=== PATIENT | female | born 1995 | race Caucasian/White ===

== ENCOUNTER 2021-12-13 12:48 | Outpatient (RCR) | payer OTHER, SELFPAY ==
[2021-10-11 11:35] LABS: Beta HCG Quantitative < 2.39 mIU/ML
== END 2022-01-09 23:59 | disposition home or self-care (01) ==
LOC: ANHLAB 12:48
PROVIDERS: Visit Provider Advanced Practice Midwife
DX: Z36.89 Encounter for other specified antenatal screening (principal); O20.0 Threatened abortion; O36.0130 Maternal care for anti-D [Rh] antibodies, third trimester, not applicable or unspecified; Z3A.00 Weeks of gestation of pregnancy not specified
CPT/HCPCS: 36415; 84702; 85461

== ENCOUNTER 2022-07-15 15:57 | Outpatient (CLI) | payer OTHER, SELFPAY ==
[2022-07-15 16:22] VITALS: BP 120/73; PULSE 138
[2022-07-15 16:41] LABS: Basophils Percent Auto 0.2 % (0.2-1.2); Eosinophils Absolute Auto 0.2 K/mm3 (0-0.3); Eosinophils Percent Auto 1.7 % (0-4.4); Hematocrit 34.1 % (37.0-47.0); Hemoglobin 11.7 g/dL (12.0-15.0); Immature Granulocyte Absolute 0.08 K/mm3 (0.00-0.031); Immature Granulocyte Percent A 0.7 % (0-0.5); Lymphocytes Absolute Auto 2.28 K/mm3 (0.9-3.2); Lymphocytes Percent Auto 18.8 % (18.3-44.2); Mean Corpuscular HGB Conc 34.3 g/dl (32-36); Mean Corpuscular Hemoglobin 32.1 pg (26-34); Mean Corpuscular Volume 93.4 fl (80-100); Mean Platelet Volume 11.7 fl (7.4-10.4); Monocytes Absolute Auto 0.7 K/mm3 (0.1-0.6); Monocytes Percent Auto 5.4 % (2.6-8.5); Neutrophils Absolute Auto 8.9 K/mm3 (1.3-6.7); Neutrophils Percent Auto 73.2 % (45.5-73.1); Platelet Count Result 169 k/mm3 (150-375); Red Blood Count 3.65 M/mm3 (4.2-5.4); Red Cell Distribution Width 13.3 % (11.5-14.5); White Blood Count 12.1 K/mm3 (4.5-10.0)
[2022-07-15 16:42] LABS: Appearance Urine Clear (Clear); Bilirubin Urine Negative (Negative); Blood Urine Negative (Negative); Color Urine Yellow (Yellow); Glucose Urine UA Negative (Negative); Ketones Urine Trace mg/dL (Negative); Leukocyte Esterase Ur Negative LEU/UL (NEGATIVE); Nitrate Urine Negative (Negative); Protein Urine Negative (Negative); Urobilinogen Urine 0.2 mg/dL (<2.0)
[2022-07-15 16:44] VITALS: TEMP 36.1
[2022-07-15 16:45] VITALS: BP 106/63; PULSE 64; RESP 18; TEMP 36.6
[2022-07-15 16:48] LABS: Creatinine Urine 43.7 mg/dL; Total Protein Urine Random 15 mg/dL; Ur Ttl Prot Creatinine Ratio 0.34 mg/mg (0-0.20)
[2022-07-15 16:49] LABS: Add Urine Microscopic? NO
[2022-07-15 16:51] LABS: Alanine Aminotransferase 20 U/L (6-35); Albumin Level 3.8 g/dL (3.5-5.1); Alkaline Phosphatase 136 U/L (38-126); Anion Gap 7 mmol/L (8-16); Aspartate Amino Transferase 22 U/L (14-36); Bilirubin,Total 0.4 mg/dL (0.2-1.3); Blood Urea Nitrogen 5 mg/dL (7-17); Calcium 9.3 mg/dL (8.4-10.2); Carbon Dioxide 22 mmol/L (22-30); Chloride 106 mmol/L (98-107); Estimated Glomerular Filt Rate > 60; Glucose 77 mg/dL (65-110); Potassium 3.8 mmol/L (3.4-5.0); Sodium 135 mmol/L (137-145); Uric Acid 3.5 mg/dL (2.5-7.5)
[2022-07-15 17:15] VITALS: BP 119/74; PULSE 72
[2022-07-15] MEDS: ACETAMINOPHEN 325 MG TABLET 650 MG PO (17:21)
[2022-07-15 18:10] VITALS: BP 108/63; PULSE 60
--- NOTE | 2022-07-15 18:15 | PC.NURSE ---
Home with 24 hour urine and will return with it tomorrow. Pt instructed to return if any signs in the pre-eclampia handout.
== END 2022-07-15 18:16 | disposition home or self-care (01) ==
LOC: ANHOBOP 16:10 → ANHOBPP 16:11
PROVIDERS: Visit Provider Advanced Practice Midwife
DX: R51.9 Headache, unspecified (principal); O13.9 Gestational [pregnancy-induced] hypertension without significant proteinuria, unspecified trimester; Z3A.00 Weeks of gestation of pregnancy not specified
CPT/HCPCS: 36415; 59025; 80053; 81003; 81050; 82570; 84156; 84550; 85025; 87086; 99199; A9270

== ENCOUNTER 2022-07-16 18:18 | Outpatient (CLI) | payer OTHER, SELFPAY ==
[2022-07-16 18:35] VITALS: BMI 37.9
[2022-07-17 20:11] LABS: Total Volume 24 Hour Urine 2600 ml
[2022-07-17 20:16] LABS: Total Volume 24 Hour Urine 2600 ml
[2022-07-17 20:22] LABS: Total Protein Urine Random 20 mg/dL
[2022-07-17 20:23] LABS: Creatinine 24 Hour Urine 1.5 gm/24 (0.8-1.8); Creatinine Urine 58.9 mg/dL
[2022-07-17 20:52] LABS: Total Protein Urine 24 Hr 520 mg/24hr (28-141)
== END 2022-07-16 18:19 | disposition home or self-care (01) ==
PROVIDERS: Visit Provider Obstetrics & Gynecology
DX: O13.9 Gestational [pregnancy-induced] hypertension without significant proteinuria, unspecified trimester (principal); Z3A.00 Weeks of gestation of pregnancy not specified
CPT/HCPCS: 81050; 82570; 84156

== ENCOUNTER 2022-07-21 00:01 | Inpatient (IN) | payer OTHER, SELFPAY ==
[2022-07-21] VITALS (29 sets, daily range): BP systolic 107–130; BP diastolic 58–88; PULSE 57–86; RESP 14–16; TEMP 36.2–36.8; O2SAT 98–100; BMI 38.3
--- NOTE | 2022-07-21 00:25 | LDADM ---
This patient, Jessica Keys, was admitted to Labor/Delivery/Recovery 105 on 07/21/22 at 00:01. Plans for labor, pain management and were discussed with patient. Patient/family oriented to hospital policies and general routines including ID bracelet, bed and alarms, visiting hours, pain management, procedures, bathroom and other care routines, personal items, smoking policy, room service/diet and guest tray routines, security routines, and visiting hours. Patient/Family are encouraged to report perceived risks to care and to ask questions if they do not understand what they are told or what they should do. See OBIX for further documentation.
[2022-07-21 01:04] LABS: Basophils Percent Auto 0.2 % (0.2-1.2); Eosinophils Absolute Auto 0.3 K/mm3 (0-0.3); Hematocrit 35.1 % (37.0-47.0); Hemoglobin 12.3 g/dL (12.0-15.0); Immature Granulocyte Absolute 0.07 K/mm3 (0.00-0.031); Immature Granulocyte Percent A 0.6 % (0-0.5); Lymphocytes Absolute Auto 2.65 K/mm3 (0.9-3.2); Mean Corpuscular Hemoglobin 32.4 pg (26-34); Mean Corpuscular Volume 92.4 fl (80-100); Mean Platelet Volume 12.4 fl (7.4-10.4); Monocytes Absolute Auto 0.8 K/mm3 (0.1-0.6); Monocytes Percent Auto 6.6 % (2.6-8.5); Neutrophils Absolute Auto 8.8 K/mm3 (1.3-6.7); Neutrophils Percent Auto 69.6 % (45.5-73.1); Platelet Count Result 172 k/mm3 (150-375); Red Cell Distribution Width 13.5 % (11.5-14.5); White Blood Count 12.6 K/mm3 (4.5-10.0)
[2022-07-21 01:08] LABS: Alanine Aminotransferase 28 U/L (6-35); Albumin Level 3.8 g/dL (3.5-5.1); Alkaline Phosphatase 128 U/L (38-126); Anion Gap 8 mmol/L (8-16); Aspartate Amino Transferase 27 U/L (14-36); Bilirubin,Total 0.4 mg/dL (0.2-1.3); Blood Urea Nitrogen 8 mg/dL (7-17); Calcium 9.5 mg/dL (8.4-10.2); Carbon Dioxide 22 mmol/L (22-30); Chloride 105 mmol/L (98-107); Estimated CRCL calculation 144 ml/min; Estimated Glomerular Filt Rate > 60; Glucose 86 mg/dL (65-110); Potassium 3.6 mmol/L (3.4-5.0); Sodium 135 mmol/L (137-145)
[2022-07-21] MEDS: DINOPROSTONE 10 MG VAG INSERT VAGINAL (01:54)
--- NOTE | 2022-07-21 03:54 | WPDANESEPP ---
Anes - Eval Pre Procedure Procedure: labor epidural Date/Time: 07/21/22 03:54 Surgeon: britton Preop Diagnosis: pain during labor Pre Op Diagnosis: Induction of Labor Patient Data Age: 26 Gender: F Height: 1.55 m Weight: 92 kg Last Vital Signs Temp 36.4 C 07/21/22 03:00 Pulse 62 07/21/22 03:30 Resp 14 07/21/22 03:00 BP 119/69 07/21/22 03:30 O2 Del Method Room Air 07/21/22 00:23 Allergies Allergy/AdvReac Type Severity Reaction Status Date / Time gluten Allergy Nausea and Verified 07/07/22 15:48 Vomiting lactose Allergy Nausea and Verified 07/07/22 15:49 Vomiting Sulfa (Sulfonamide Allergy Rash Verified 07/07/22 15:25 Antibiotics) Home Medications Medication Instructions Recorded Confirmed Type ascorbic acid (vitamin C) 1,000 mg 1 g PO DAILY 07/07/22 07/07/22 History tablet aspirin 81 mg tablet 81 mg PO DAILY 07/07/22 07/07/22 History biotin 10,000 mcg capsule 10,000 mcg PO DAILY 07/07/22 07/21/22 History calcium carb-vitamin D3 ER 600 mg 1 tablet PO DAILY 07/07/22 07/21/22 History (1,500 mg)-500 unit tablet,ER 24 hr cholecalciferol (vitamin D3) 125 125 mcg PO DAILY 07/07/22 07/07/22 History mcg (5,000 unit) tablet labetalol 200 mg tablet 200 mg PO Q12H 07/07/22 07/07/22 History levothyroxine 100 mcg tablet 100 mcg PO DAILY 07/07/22 07/07/22 History magnesium 250 mg tablet 250 mg PO DAILY 07/07/22 07/07/22 History prenat.vits,nicolle,wcm-dtgb-nhltz 1 tablet PO HS 07/07/22 07/07/22 History valacyclovir 500 mg tablet 500 mg PO BID 07/07/22 07/07/22 History vitamin B complex (B 1 tablet PO DAILY 07/07/22 07/07/22 History Complex-Vitamin B12 tablet) zinc 50 mg tablet 50 mg PO DAILY 07/07/22 07/07/22 History Laboratory Tests 07/21/22 00:34 WBC 12.6 H K/mm3 (4.5-10.0) RBC 3.80 L M/mm3 (4.2-5.4) Hgb 12.3 g/dL (12.0-15.0) Hct 35.1 L % (37.0-47.0) MCV 92.4 fl (80-100) MCH 32.4 pg (26-34) MCHC 35.0 g/dl (32-36) RDW 13.5 % (11.5-14.5) Plt Count 172 k/mm3 (150-375) MPV 12.4 H fl (7.4-10.4) Immature Gran % (Auto) 0.6 H % (0-0.5) Neut % (Auto) 69.6 % (45.5-73.1) Lymph % (Auto) 21.0 % (18.3-44.2) Price % (Auto) 6.6 % (2.6-8.5) Eos % (Auto) 2.0 % (0-4.4) Baso % (Auto) 0.2 % (0.2-1.2) Lymph # (Auto) 2.65 K/mm3 (0.9-3.2) Price # (Auto) 0.8 H K/mm3 (0.1-0.6) Eos # (Auto) 0.3 K/mm3 (0-0.3) Baso # (Auto) 0.0 K/mm3 (0.0-0.1) Abs Immat Gran (auto) 0.07 H K/mm3 (0.00-0.031) Absolute Neuts (auto) 8.8 H K/mm3 (1.3-6.7) Absolute Nucleated RBC 0.0 K/mm3 (0.0-0.012) Nucleated RBC % 0.0 % (0.0-0.2) Sodium 135 L mmol/L (137-145) Potassium 3.6 mmol/L (3.4-5.0) Chloride 105 mmol/L (98-107) Carbon Dioxide 22 mmol/L (22-30) Anion Gap 8 mmol/L (8-16) BUN 8 mg/dL (7-17) Creatinine 0.50 L mg/dL (0.7-1.0) Estim Creat Clear Calc 144 ml/min Estimated GFR > 60 (59 - ) Glucose 86 mg/dL (65-110) Calcium 9.5 mg/dL (8.4-10.2) Total Bilirubin 0.4 mg/dL (0.2-1.3) AST 27 U/L (14-36) ALT 28 U/L (6-35) Alkaline Phosphatase 128 H U/L (38-126) Total Protein 7.0 g/dL (6.3-8.2) Albumin 3.8 g/dL (3.5-5.1) RPR Pending Blood Type A Positive Antibody Screen Negative Patient hx anesthesia problems: none Family hx anesthesia problems: none Results Review: All pre-operative results and documents have been reviewed as part of the pre-operative evaluation. [facility] Past Medical History Medical History (Updated 07/21/22 @ 03:55 by Nakita Rios CRNA) HSV infection HTN (hypertension) Hypothyroid IUP (intrauterine ), incidental Obesity Family History Family History (Updated 07/07/22 @ 15:50 by Julieta Onofre RN) Grandparent Hypertension Mother Family history of rheumatoid arthritis Graves disease Social History
--- NOTE | 2022-07-21 07:29 | P.HP_ITS ---
Obstetrics - Admit Note Admission Note: record reviewed. No pertinent additions to the history and/or any subsequent changes in the physical findings that are not consistent with the expected course of the were found. IOL, CHTN now preeclampsia, denies camp visual changes or epigastric pain at rest, blood pressures normot ensive.History of HSV, on valtrex, hypothyroidism and anxiety. cervadil induction Additions to the history and/or subsequent changes in the physical findings follow. None.
[2022-07-21 07:55] LABS: Rapid Plasma Reagin Non-Reactive (NonReactive)
[2022-07-21] MEDS: LABETALOL HCL 100 MG TABLET 200 MG PO ×2 (09:08→21:01)
[2022-07-21] MEDS: LEVOTHYROXINE SODIUM 100 MCG TABLET PO (09:08)
[2022-07-21] MEDS: miSOPROStol 25 MCG TABLET PO (14:15)
[2022-07-21] MEDS: AMPICILLIN 2 GM/NS 100 ML 2 GM/100 ML BAG IVPB (14:28)
[2022-07-21] MEDS: LACTATED RINGERS 1,000 ML 125 ML IV CONT (14:28)
[2022-07-21] MEDS: AMPICILLIN 1 GM/NS 50 ML 1 GM/50 ML BAG IVPB ×2 (18:19→22:25)
--- NOTE | 2022-07-21 18:58 | PM.OBPNLAB ---
Pain Control Date/time seen: 07/21/22 18:58 SVE 2/-2 AROM small amount of clear, odorless fluid, anticipate vaginal delivery
[2022-07-21] MEDS: OXYTOCIN 30 UNITS/NS 500 ML 30 UNITS/500 ML BAG 6 UNITS IV CONT (22:29)
[2022-07-22] VITALS (207 sets, daily range): BP systolic 73–127; BP diastolic 23–111; PULSE 51–169; RESP 16–19; TEMP 36.6–37.4; O2SAT 94–100
[2022-07-22] MEDS: LACTATED RINGERS 1,000 ML 125 ML IV CONT ×3 (00:03→07:26)
[2022-07-22] MEDS: AMPICILLIN 1 GM/NS 50 ML 1 GM/50 ML BAG IVPB ×3 (01:29→10:24)
[2022-07-22] MEDS: PHENYLEPHRINE 1,000 MCG/10 ML SYRINGE 100 MCG IV PUSH ×4 (02:02→02:53)
[2022-07-22] MEDS: SODIUM CHLORIDE 0.9% IV 300 ML 600 ML I-UTERINE (05:36)
[2022-07-22] MEDS: LEVOTHYROXINE SODIUM 100 MCG TABLET PO (06:10)
--- NOTE | 2022-07-22 07:40 | PM.IMHP ---
H&P: HPI History of Present Illness Date/Time: 07/22/22 07:40 Chief Complaint: pt admitted yesterday for IOL, pt has a history of chronic hypertension, anxiety, hypothyroidism, and HSV. Pt diagnosed with preeclampsia after mild headaches, and proteinuria. Pt currently denies headaches, visual changes, and epigastric pain. Urine output appropriate. Currently on pitocin Review of Systems Review of Systems: All systems reviewed & are unremarkable except as noted in HPI and below PMFSH Past Medical History Medical History (Updated 07/22/22 @ 07:46 by Mariam Valverde CNM) HSV infection HTN (hypertension) Hypothyroid IUP (intrauterine ), incidental Obesity Family History Family History (Updated 07/07/22 @ 15:50 by Julieta Onofre RN) Grandparent Hypertension Mother Family history of rheumatoid arthritis Graves disease Social History Social History Smoking status: Never smoker Alcohol intake: current Substance use: former Lack of Transportation: No Lack of Food: Never True Current Housing: I Have Housing Concerned About Future Housing: No Difficulty Paying Gas/Electric Bills: No Difficulty Paying for Meds: No Currently Unemployed: No Education: Master's Degree or Higher Difficulty w/ Childcare or Family Care: No Spiritual care concerns: No Meds Home Medications and Allergies Home Medications Medication Instructions Recorded Confirmed Type ascorbic acid (vitamin C) 1,000 mg 1 g PO DAILY 07/07/22 07/07/22 History tablet aspirin 81 mg tablet 81 mg PO DAILY 07/07/22 07/07/22 History biotin 10,000 mcg capsule 10,000 mcg PO DAILY 07/07/22 07/21/22 History calcium carb-vitamin D3 ER 600 mg 1 tablet PO DAILY 07/07/22 07/21/22 History (1,500 mg)-500 unit tablet,ER 24 hr cholecalciferol (vitamin D3) 125 125 mcg PO DAILY 07/07/22 07/07/22 History mcg (5,000 unit) tablet labetalol 200 mg tablet 200 mg PO Q12H 07/07/22 07/07/22 History levothyroxine 100 mcg tablet 100 mcg PO DAILY 07/07/22 07/07/22 History magnesium 250 mg tablet 250 mg PO DAILY 07/07/22 07/07/22 History prenat.vits,nicolle,yze-hadh-bwrlk 1 tablet PO HS 07/07/22 07/07/22 History valacyclovir 500 mg tablet 500 mg PO BID 07/07/22 07/07/22 History vitamin B complex (B 1 tablet PO DAILY 07/07/22 07/07/22 History Complex-Vitamin B12 tablet) zinc 50 mg tablet 50 mg PO DAILY 07/07/22 07/07/22 History Allergies Allergy/AdvReac Type Severity Reaction Status Date / Time gluten Allergy Nausea and Verified 07/07/22 15:48 Vomiting lactose Allergy Nausea and Verified 07/07/22 15:49 Vomiting Sulfa (Sulfonamide Allergy Rash Verified 07/07/22 15:25 Antibiotics) Vital Signs Vital Signs - 24 hr 07/21/22 09:07 07/21/22 10:50 07/21/22 14:17 Temperature 36.3 C L 36.5 C Pulse Rate 86 74 66 Respiratory Rate Blood Pressure 123/80 121/70 112/69 Pulse Oximetry 07/21/22 15:56 07/21/22 16:52 07/21/22 18:27 Temperature 36.8 C 36.6 C Pulse Rate 85 81 71 Respiratory Rate Blood Pressure 124/88 127/70 117/71 Pulse Oximetry 07/21/22 20:52 07/21/22 22:06 07/21/22 22:36 Temperature Pulse Rate 65 65 63 Respiratory Rate Blood Pressure 127/74 130/77 111/67 Pulse Oximetry 98 07/21/22 23:01 07/21/22 23:47 07/21/22 23:48 Temperature Pulse Rate 70 Respiratory Rate Blood Pressure 107/68 Pulse Oximetry 100 100 07/21/22 23:50 07/21/22 23:51 07/21/22 23:52 Temperature Pulse Rate 69 65 77 Respiratory Rate Blood Pressure 120/76 111/73 109/83 Pulse Oximetry 07/21/22 23:53 07/21/22 23:54 07/21/22 23:56 Temperature Pulse Rate 66 57 L Respiratory Rate Blood Pressure 112/58 L 111/72 Pulse Oximetry 100 07/21/22 23:58 07/22/22 00:00 07/22/22 00:02 Temperature Pulse Rate 72 63 57 L Respiratory Rate Blood Pressure 109/76 103/69 106/68 Pulse Oximetry 100 100 07/22/22 00:04 07/22/22 00:05 07/22/22 00:06 Te
[2022-07-22] MEDS: miSOPROStol 200 MCG TABLET 1000 MCG (11:56)
--- NOTE | 2022-07-22 12:01 | PM.OBPRVD ---
OB - Delivery Note Procedure Delivery date: 07/22/22 Procedure: Events: Chronic Hypertension, Positive Group B Strep (GBS) and Preeclampsia w/o severe features Induction method: AROM, Per Misoprostol Protocol, Per Pitocin Protocol and Per Cervidil Protocol Delivery monitor: External FHT, External Uterine and Internal Uterine Route of delivery: Episiotomy description: None Laceration Description: Perineal - 1st Degree Delivery repair: vicryl Specimen: Yes Quantitative Blood Loss (ml): 135 Anesthesia type: Epidural Disposition: Floor [place] Baby Date of : 07/22/22 Time of : 11:47 Weeks of gestation at delivery: 37 Infant gender: Male presentation: vertex position: Left Occiput Anterior Placenta delivery description: Spontaneous Cord Vessel Description: 3 Vessels, Nuchal Cord, Loose (x1), Reduced, Clamped/Cut and Delayed Cord Clamping Narrative: mother and baby skin to skin in stable condition
[2022-07-22] MEDS: OXYTOCIN 30 UNITS/NS 500 ML 30 UNITS/500 ML BAG 125 UNITS IV CONT (12:23)
[2022-07-22] MEDS: BENZOCAINE 20% AER SPR (*SP) 56 GM CAN 1 SPRAY TOPICAL (15:14)
[2022-07-22] MEDS: IBUPROFEN 600 MG TABLET PO (15:14)
[2022-07-22] MEDS: WITCH HAZEL 40 PADS 1 PAD TOPICAL (15:14)
[2022-07-22] MEDS: LABETALOL HCL 100 MG TABLET 200 MG PO (21:40)
[2022-07-23] VITALS (7 sets, daily range): BP systolic 95–123; BP diastolic 63–84; PULSE 60–80; RESP 16–18; TEMP 36.5–36.8; O2SAT 98–100
[2022-07-23 05:51] LABS: Hematocrit 30.7 % (37.0-47.0); Hemoglobin 10.3 g/dL (12.0-15.0)
[2022-07-23] MEDS: IBUPROFEN 600 MG TABLET PO ×2 (06:53→13:51)
[2022-07-23] MEDS: LEVOTHYROXINE SODIUM 100 MCG TABLET PO (06:54)
[2022-07-23] MEDS: DOCUSATE SODIUM 100 MG CAPSULE PO ×2 (06:54→17:31)
[2022-07-23] MEDS: MULTIVIT/MIN/PREN/FOL AC/IRON TABLET 1 TAB PO (06:54)
[2022-07-23] MEDS: LABETALOL HCL 100 MG TABLET 200 MG PO (08:53)
--- NOTE | 2022-07-23 09:02 | PM.OBPNVD ---
OB - PN: Subj Subjective Date/time seen: 07/23/22 09:02 Patient comments: no complaints and pain well controlled baby status: doing well [place] feeding status: breast and bottle feeding Narrative: COnsidering DC later today but watching baby's sugars. BPs great, denies PreE sx. OB - PN: Obj Data Labs 07/23/22 05:40 07/21/22 00:34 Labs: Laboratory Results - last 24 hr 07/23/22 05:40 Hgb 10.3 L Hct 30.7 L OB - PN A/P Plan day: 1 Plan: routine care Comments: May DC home with bp CHECK IN one week if baby ok to go, but suspect will stay overnight. Time Spent With Patient Time: Total time spent is greater than 50% in coordination of care (as documented) at patient's floor/unit and/or counseling patient: Time with patient: less than 15 minutes Exam Narrative: NAD abdomen soft, nontender, fundus firm below the umbilicus Extremities nontender, 1+ edema
--- NOTE | 2022-07-23 09:06 | PM.OBDSVD ---
DS: Admitting Diagnosis Discharge Date 07/24/22 Admitting Diagnosis PreEclampsia at term DS: Discharge Diagnosis Discharge Diagnosis (1) Preeclampsia: Code(s): O14.90 - Unspecified pre-eclampsia, unspecified trimester Status: Acute (2) , delivered: Code(s): O80 - Encounter for full-term uncomplicated delivery Status: Acute OB - DS: Summary Hospital Course Hospital Course: Jessica was admitted for induction of labor for PreEclampsia at term. She proceeded to have an uncomplicated vaginal delivery and course. Her BPs were normal continuing on her labetalol and she was discharged home on day 2 in stable condition. OB Procedures : NST and Ultrasound OB Procedures Intrapartum: Spontaneous Vag Delivery OB Procedures: : None Peripartum Data Infant Delivery Method: Natural Vaginal complications: none Status at Discharge Functional status at discharge: independent ambulation Time Spent with Patient Time attestation: Total time spent providing and/or coordinating discharge services: Exam Narrative: NAD abdomen soft, appropriately tender Ext non tender, 1+ edema DS: Data Data Completed and Pending Pending studies at discharge: Pending at discharge 07/22/22 12:36 Surgical [PTH] Routine Labs on day of discharge: Labs from last 24 hours 07/23/22 05:40 Hgb 10.3 L Hct 30.7 L Discharge Plan Discharge Attending physician on discharge: Cordelia Vila Discharging Clinician: Cordelia Vila Anticipated Discharge Date/Time: 07/24/22 09:04 Patient Disposition: Home, Self-Care Activity: pelvic rest Diet: regular Patient Instructions: Antibiotic Form Stand Alone Forms: General Discharge Information Follow-up/Referrals: Maico Reyes MD [Physician] - 1 Week Discharge Medications: Continued ascorbic acid (vitamin C) 1,000 mg Tablet 1 g PO DAILY labetalol 200 mg Tablet 200 mg PO Q12H valacyclovir 500 mg Tablet 500 mg PO BID levothyroxine 100 mcg Tablet 100 mcg PO DAILY biotin 10,000 mcg Capsule 10,000 mcg PO DAILY vitamin B complex [B Complex-Vitamin B12] Tablet 1 tablet PO DAILY zinc picolinate 50 mg Tablet 50 mg PO DAILY magnesium 250 mg Tablet 250 mg PO DAILY #2 Tablet 1 tablet PO HS All Day Calcium 600 mg(1,500mg) -500 unit Tablet Extended Release 24 Hr 1 tablet PO DAILY cholecalciferol (vitamin D3) 125 mcg (5,000 unit) Tablet 125 mcg PO DAILY Discontinued Adult Low Dose Aspirin 81 mg Tablet 81 mg PO DAILY Date of admission: 07/21/22 00:01 Primary Care Provider: PHYSICIAN,PSYCHOLOGISTS Admitting Provider: Maico Reyes Attending physician on admission: Maico Reyes Condition: Stable
--- NOTE | 2022-07-23 10:17 | WPDANLDPN2 ---
Anes-Prog Note L&D Date/Time: 07/23/22 10:17 Comfortable throughout: labor and delivery Neuraxial method: epidural Epidural/Spinal procedure site: clean & non-tender Neuro status: Neuro function grossly intact. Cardiovascular status: normal Respiratory status: normal Airway patency: baseline Mental status: baseline Post-Op hydration status: normal Vital Signs: Last Vital Signs Temp 97.9 F 07/23/22 04:56 Pulse 80 07/23/22 08:53 Resp 18 07/23/22 04:56 BP 109/70 07/23/22 04:56 Pulse Ox 100 07/23/22 04:56 O2 Del Method Room Air 07/21/22 00:23 Pain score (VAS): 0 I/O: Intake & Output 07/22/22 07/23/22 07/23/22 23:59 07:59 15:59 Intake Total 850 Output Total 840 Balance 10 Post-procedural complaints: none Patient feedback: Patient satisfied with anesthetic care.
[2022-07-24 04:15] VITALS: BP 107/65; PULSE 64; RESP 16; TEMP 36.8; O2SAT 100
[2022-07-24] MEDS: IBUPROFEN 600 MG TABLET PO (06:54)
[2022-07-24] MEDS: LEVOTHYROXINE SODIUM 100 MCG TABLET PO (06:54)
[2022-07-24 08:24] VITALS: BP 113/74; PULSE 81; RESP 18; TEMP 36.9; O2SAT 100
--- NOTE | 2022-07-24 08:32 | PM.OBPNVD ---
OB - PN: Subj Subjective Date/time seen: 07/24/22 08:32 Patient comments: no complaints and pain well controlled baby status: doing well Narrative: BPs on lower side, stopped labetalol. No PreE sx. OB - PN: Obj Data Labs 07/23/22 05:40 07/21/22 00:34 OB - PN A/P Plan day: 2 Plan: routine care and discharge home Time Spent With Patient Time: Total time spent is greater than 50% in coordination of care (as documented) at patient's floor/unit and/or counseling patient: Time with patient: less than 15 minutes Exam Narrative: NAD abdomen soft, nontender, fundus firm below the umbilicus Extremities nontender, 1+ edema
[2022-07-24] MEDS: MULTIVIT/MIN/PREN/FOL AC/IRON TABLET 1 TAB PO (09:38)
[2022-07-24] MEDS: DOCUSATE SODIUM 100 MG CAPSULE PO (09:38)
[2022-07-24 12:30] VITALS: BP 122/76
[2022-07-25 14:22] VITALS: BP 120/70; PULSE 60; RESP 18; TEMP 37.1
== END 2022-07-24 13:30 | disposition home or self-care (01) | DRG 807 ==
LOC: ANHOB2 07-24 10:42 → ANHLDR 07-26 09:58 → ANHOB2 07-26 09:58
PROVIDERS: Advanced Practice Midwife; Admitting Provider Obstetrics & Gynecology; Visit Provider Obstetrics & Gynecology
DX: O11.4 Pre-existing hypertension with pre-eclampsia, complicating childbirth (principal); Z37.0 Single live birth; Z3A.37 37 weeks gestation of pregnancy; O99.824 Streptococcus B carrier state complicating childbirth; O70.0 First degree perineal laceration during delivery; O69.81X0 Labor and delivery complicated by cord around neck, without compression, not applicable or unspecified; O99.284 Endocrine, nutritional and metabolic diseases complicating childbirth; E03.9 Hypothyroidism, unspecified; B00.9 Herpesviral infection, unspecified; A60.00 Herpesviral infection of urogenital system, unspecified
CPT/HCPCS: 36415; 80053; 85014; 85018; 85025; 86592; 86850; 86900; 86901; 88307; A9270; J0290; J2370; J2590; J2795; J7030; J7120

== ENCOUNTER 2022-11-22 08:22 | Emergency (ER) | payer OTHER, SELFPAY ==
--- NOTE | 2022-11-22 08:28 | ED.URI ---
HPI - URI/Sore Throat General Chief Complaint: Upper Respiratory Infection Stated Complaint: COLD SYMPTOMS Time Seen by Provider: 11/22/22 08:30 Source: patient Mode of arrival: ambulatory Limitations: no limitations History of Present Illness HPI Narrative: Jessica is a 27-year-old female patient presenting to the clinic today with complaints of cough, headache, nasal congestion, and sore throat x1 week. She reports no fever or chills. Is currently . No known exposure to anyone with COVID, flu, strep. States that her son is in daycare and he brought something home to them. MD elicited complaint: sore throat and nasal congestion Related Data Home Medications Medication Instructions Recorded Confirmed ascorbic acid (vitamin C) 1,000 mg 1 g PO DAILY 07/07/22 11/22/22 tablet biotin 10,000 mcg capsule 10,000 mcg PO DAILY 07/07/22 11/22/22 cholecalciferol (vitamin D3) 125 125 mcg PO DAILY 07/07/22 11/22/22 mcg (5,000 unit) tablet levothyroxine 100 mcg tablet 100 mcg PO DAILY 07/07/22 11/22/22 magnesium 250 mg tablet 250 mg PO DAILY 07/07/22 11/22/22 vitamin B complex (B 1 tablet PO DAILY 07/07/22 11/22/22 Complex-Vitamin B12 tablet) zinc 50 mg tablet 50 mg PO DAILY 07/07/22 11/22/22 Allergies Allergy/AdvReac Type Severity Reaction Status Date / Time gluten Allergy Nausea and Verified 07/07/22 15:48 Vomiting lactose Allergy Nausea and Verified 07/07/22 15:49 Vomiting Sulfa (Sulfonamide Allergy Rash Verified 07/07/22 15:25 Antibiotics) Review of Systems Review of Systems: Pertinent positives per HPI. Patient denies any fever, chills, rash, visual changes, dizziness, shortness of breath, chest pain, palpitations, nausea, vomiting, diarrhea, constipation, abdominal pain, or any urinary issues. [facility] Past Medical History Medical History (Updated 11/22/22 @ 08:52 by Jason Ashby APRN) HSV infection HTN (hypertension) Hypothyroid IUP (intrauterine ), incidental Obesity Family History Family History (Updated 07/07/22 @ 15:50 by Julieta Onofre RN) Grandparent Hypertension Mother Family history of rheumatoid arthritis Graves disease Social History Social History Smoking status: Never smoker Alcohol intake: current Substance use: former Lack of Transportation: No Lack of Food: Never True Current Housing: I Have Housing Concerned About Future Housing: No Difficulty Paying Gas/Electric Bills: No Difficulty Paying for Meds: No Currently Unemployed: No Education: Master's Degree or Higher Difficulty w/ Childcare or Family Care: No Spiritual care concerns: No Comments At the time of my signature, I reviewed and agree with the nursing past medical, surgical, social, and family history. There is no relevant family history pertinent to the patient complaint. Exam Narrative: General: Well-developed, well nourished, in no apparent distress Head: Normocephalic, atraumatic Eyes: Pupils equally round and reactive to light bilaterally, EOM intact, sclera and conjunctive clear, no discharge, lids normal Ears: TMs intact and clear, ear canals clear, no drainage, grossly hearing normal. Nose: Nares patent, clear nasal discharge, no inflammation, no sinus tenderness. Mouth: Oral pharynx red without lesions or masses, good dentition, MMM. Postnasal drip Neck: Supple, trachea midline, no enlargement of anterior or posterior cervical nodes, no thyroid masses or goiter palpable. Cardio: Regular rate and rhythm, s1 and s2 normal, no murmur appreciated. Resp: Clear to auscultation bilaterally, no rhonchi, rales, wheezing or rubs Course Course Emergency Course: Portions of this record may have been created with voice recognition software. Level of Care: Express Care Visit Vital Signs Vital signs: Vital signs reviewed MDM - URI/Sore Throat MDM Narrative Medical decision making narrative: At the time of visit p
[2022-11-22 08:30] VITALS: BP 119/93; PULSE 106; RESP 18; TEMP 36.8; O2SAT 99
== END 2022-11-22 08:55 | disposition home or self-care (01) ==
PROVIDERS: Emergency Provider Nurse Practitioner Family
DX: J06.9 Acute upper respiratory infection, unspecified (principal); R09.82 Postnasal drip; J02.9 Acute pharyngitis, unspecified; I10 Essential (primary) hypertension; E03.9 Hypothyroidism, unspecified; E66.9 Obesity, unspecified; Z68.34 Body mass index [BMI] 34.0-34.9, adult
CPT/HCPCS: 87081; 87880; 99213; G0463

== ENCOUNTER 2022-12-07 08:56 | Emergency (ER) | payer OTHER, SELFPAY ==
--- NOTE | 2022-12-07 08:59 | ED.URI ---
HPI - URI/Sore Throat General Chief Complaint: Upper Respiratory Infection Stated Complaint: Congestion;Fever Time Seen by Provider: 12/07/22 08:59 Source: patient and RN notes reviewed History of Present Illness HPI Narrative: Patient is a 27-year-old female who presents to urgent care with complaints of congestion, fever, runny nose and cough. Patient states that she initially started with fever body aches on Monday which has since resolved. Patient did not treat the fever for resolution. Patient has not taken anything [id number] for her symptoms and states that she does currently breast feed. Denies any known ill exposures. No other acute complaints. No acute distress noted. Patient aware of the plan of care. Some parts of this dictation were generated by voice recognition software and may contain typographical and/or grammatical inaccuracies. Related Data Home Medications Medication Instructions Recorded Confirmed levothyroxine 100 mcg tablet 100 mcg PO DAILY 07/07/22 12/07/22 Allergies Allergy/AdvReac Type Severity Reaction Status Date / Time gluten Allergy Nausea and Verified 12/07/22 09:07 Vomiting lactose Allergy Nausea and Verified 12/07/22 09:07 Vomiting Sulfa (Sulfonamide Allergy Rash Verified 12/07/22 09:07 Antibiotics) Review of Systems Review of Systems: CONSTITUTIONAL: Denies fever, chills, or sweats. EYES: Denies visual changes, redness, or discharge. ENT: Reports of nasal congestion and postnasal drainage with mild sore throat CARDIOVASCULAR: Denies chest pain, palpitations, or edema. RESPIRATORY: Reports of cough, nonproductive without dyspnea GASTROINTESTINAL: Denies abdominal pain, nausea, vomiting, or diarrhea. GENITOURINARY: Denies dysuria or hematuria. SKIN: Denies rash or itching. MUSCULOSKELETAL: Denies back pain, joint pain, or myalgia. NEUROLOGIC: Denies headache, numbness, or weakness. All other systems reviewed are negative, except as documented in HPI. [facility] Past Medical History Medical History (Updated 12/07/22 @ 09:29 by LINH Duval) HSV infection HTN (hypertension) Hypothyroid IUP (intrauterine ), incidental Obesity Family History Family History (Updated 07/07/22 @ 15:50 by Julieta Onofre RN) Grandparent Hypertension Mother Family history of rheumatoid arthritis Graves disease Social History Social History Smoking status: Never smoker Alcohol intake: current Substance use: former Lack of Transportation: No Lack of Food: Never True Current Housing: I Have Housing Concerned About Future Housing: No Difficulty Paying Gas/Electric Bills: No Difficulty Paying for Meds: No Currently Unemployed: No Education: Master's Degree or Higher Difficulty w/ Childcare or Family Care: No Spiritual care concerns: No Comments At the time of my signature, I reviewed and agree with the nursing past medical, surgical, social, and family history. There is no relevant family history pertinent to the patient complaint. Exam Narrative: GENERAL: This is a well-nourished, well-developed patient, in no apparent distress. HEAD: normocephalic, atraumatic. EYES: PERRL. Sclera clear/white. Vision is grossly intact. EARS: External ears normal, auditory canals clear and without drainage, TMs normal without perforation. Hearing grossly intact. NOSE: External nose normal with no obvious nasal discharge, nares without redness, no rhinorrhea. THROAT: Mucous membranes moist, mild erythema to posterior pharynx with petechiae. Mild postnasal drainage NECK: Neck supple CARDIOVASCULAR: Regular rate and rhythm without murmurs, gallops, or rubs. RESPIRATORY: Clear to auscultation. Breath sounds equal bilaterally. No wheezes, rales, or rhonchi. SKIN: warm, intact with no suspicious lesions or rash, good texture and turgor. NEURO: awake, alert, and oriented to person, place and time. There were no obvious focal johnnie
[2022-12-07 09:12] VITALS: BP 113/71; PULSE 72; RESP 16; TEMP 36.6; O2SAT 100
== END 2022-12-07 09:35 | disposition home or self-care (01) ==
PROVIDERS: Emergency Provider Nurse Practitioner Family
DX: J11.1 Influenza due to unidentified influenza virus with other respiratory manifestations (principal); I10 Essential (primary) hypertension; E03.9 Hypothyroidism, unspecified; Z79.899 Other long term (current) drug therapy
CPT/HCPCS: 87081; 87804; 87880; 99213; G0463

== ENCOUNTER 2025-02-02 12:04 | Observation (INO) | payer OTHER, SELFPAY ==
--- OUTSIDE RECORDS SUMMARY | 2025-02-02 12:17 | XMS_ITS | Clinical Summary ---
Author Organization [facility] Address [address] [place] [address] Care Team Providers Care Waiter/Waitress First Class Name Role Phone Mariam Valverde Unavailable [phone] Bud Jaimes MD Unavailable [phone] Fabi Hoyt RN Primary Care Provider Unavaila ble Source Comments [facility],non-owned Affiliates and Associated Physician Practices is amultiple site organization consisting of ambulatory clinics and hospital sitesin [place], [place], [place] and [place]. This disclosure is being madepursuant to the Care Everywhere program and may not contain all information available regarding this patient. Last updated 17.[facility] Allergies Active Allergy Reactions Criticality Noted Date Comments Sulfa Drugs Rash Medium 05/13/2021 Medications * Be aware that medications may not be up to date on this document. Alwaysverify current medications with the patient. DULoxetine (CYMBALTA) 20 MG capsule Take 1 (one) capsule by mouth once daily Active betamethasone dipropionate (Diprosone) 0.05 % cream Apply to affected area 2 times daily as needed 4 Active levothyroxine (Synthroid) 100 MCG tablet TAKE 1 TABLET( 100 MCG TOTAL) BY MOUTH IN THE SERVICE [facility] SPECIALIST BEFORE BREAKFAST 4 Active fluconazole (Diflucan) 200 MG tabletIndications :Chronic vulvitis Diflucan 200 mg tablet, one by mouth every other day for three doses. 3 tablet 5 Active nystatin (Mycostatin) 312586 UNIT/GM ointmentIndicatio ns:Chronic vulvitis Apply to affected area 2 times daily as needed 30 g 1 5 Active Active Problems Problem Noted Date Diagnosed Date Intrinsic eczema 01/11/2024 Dietary restriction 05/13/2021 Overview (05/13/2021): avoids daily and gluten . GI intolerant, celiac disease r/o by colonoscopy per pt BMI 36.0-36.9,adult 05/12/2021 Obstructive sleep apnea syndrome 09/10/2019 HSV-1 (herpes simplex virus 1) infection 015 Chronic hypertension Hypothyroidism GERD (gastroesophageal reflux disease) Anxiety disorder Family History Medical History Relation Name Comments Depression Father None Known Maternal Grandfather CAD (Coronary Artery Disease) Maternal Grandmother Hyperlipidemia Maternal Grandmother Hypertension Maternal Grandmother Arthritis - Rheumatoid Mother Depression Mother Hypertension Mother Thyroid Disease Mother None Known Paternal Grandfather Diabetes - Type 2 Paternal Grandmother Hypertension Paternal Grandmother Relation Name Status Comments Father Alive Maternal Grandfather Maternal Grandmother Mother Alive Paternal Grandfather Paternal Grandmother Social History Tobacco Use Types Packs/Day Years Used Date Smoking Tobacco: Never Passive Smoke Exposure: Never Smokeless Tobacco: Never Alcohol Use Standard Drinks/Week Comments Yes 0 (1 standard drink = 0.6 oz pur e alcohol) Education Answer Date Recorded What is the highest level of school you have completed or the highest degree you have received? 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 Not on file Not on file No t on file Last Filed Vital Signs Vital Sign Reading Time Taken Comments Blood Pressure 128/80 04/09/2024 8:43 AM TESTER OPERATOR HELPER Pulse 88 05/13/2021 2:15 PM TESTER OPERATOR HELPER Temperature - - Respiratory Rate - - Oxygen Saturation - - Inhaled Oxygen Concentration - - Weight 79.3 kg (174 lb 13.2 oz) 04/09/2024 8:43 AM TESTER OPERATOR HELPER Height 154.9 cm (5' 1) 04/09/2024 8:43 AM TESTER OPERATOR HELPER Body Mass Index 33.03 04/09/2024 8:43 AM TESTER OPERATOR HELPER Plan of Treatment Health Maintenance Due Date Last Done Comments HIV SCREENING 2008 HEPATITIS C SCREENING 10/06/2011 DTAP/TDAP/TD VACCINES (1 - Tdap) 2012 HEPATITIS B VACCINE (1 of 3 - 19+ 3-dose series) 2012 HPV VACCINE (1 - 3-dose SCDM series) 2020 PAP with HPV 10/11/2023 DEPRESSION SCREENING 03/06/2024 COVID-19 VACCINE ( season) 2024 05/29/2022, 06/28/2020, 06/06/2020 INFLUENZA VACCINE (#1) 2024 , 12/07/2023, 12/04/2021 Cervical Cancer Screening 03/22/2026 PAP SMEAR 03/22/2026 03/22/2023, 03/06, 03/17/2021, Additional history exists ZOSTER VACCINE (1 of 2) 10/11/2043 HIB VACCINE Aged Out No longer eligi ble based on patient's age to complete this topic MENINGOCOCCAL (Group B) VACCINE SHARED DECISION-MAKING Aged Out No longer eligible based on patient's age to complete this topic MENINGOCOCCAL GROUPS A/C/Y/W VACCINE Aged Out No longer eligible based on patient's age to complete this topic PNEUMOCOCCAL VACCINE Aged Out No long er eligible based on patient's age to complete this topic Insurance [employer] * Guarantor: Jessica Keys Account Type Relation to Patient Date of Phone Billing Address Personal/Family 1995 Care Teams Waiter/Waitress First Class Relationship Specialty Start Date End Date Fabi Hoyt RN PCP - General 04/09/24 Mariam Valverde, MACHINE LACER-PAPER MACHINE SUPERVISOR [address] [place] [id number] Referring Physician Nurse Practitioner 05/12/21 Bud Jaimes MD [id number], [id number] Primary Care Provider Family Medicine 05/13/21
--- OUTSIDE RECORDS SUMMARY | 2025-02-02 12:17 | XMS_ITS | Continuity of Care Document ---
Author Organization [facility] Address [address] [place] [address] [place] [address] Assessment Encounter Date Assessment Date Assessment LastModified by Organization Details LastModified Time 11/06/2024 11/06/2024 Patient is _16__weeks . Discussed plan. Not available 11/06/2024 17:30:34 Plan of Treatment Reminders Order Date Submit Date Provider Last Modified By Organization Details Last Modified Time Details Appointments OB ROUTINE 2024 01:15P Eliazar REYES MD Not available Not available Not available Lab None recorded . Referral None recorded . Procedures None recorded . Surgeries None recorded . Imaging None recorded . Medication Orders None recorded . Patient TargetsNo targets recorded. Patient InstructionsNo instructions recorded. Reason for Referral None Reported. Results Created Date Observation Date Name Description Value Unit Range Abnormal Flag Note LastModifiedBy Organization Detail LastModifiedTime 10/17/1910/16/2024 [UNIT Y] ANEUP LOIDY NIPT fraction 13.3% normal Not Available [facility] [address], [place], [address], 10/16/2024 20:16:41 10/17/19 25 10/16/2024 [UNIT Y] ANEUP LOIDY NIPT 22Q11.2 microdeletio n LOW RISK <1 in 10,000 normal Not Available [facility] [address], [place], [address], 10/16/2024 20:16:41 10/17/19 25 10/16/2024 [UNIT Y] ANEUP LOIDY NIPT sex chromosome aneuploidy NOT DETECT ED normal Not Available [facility] [address], [place], [address], 10/16/2024 20:16:41 10/17/19 25 10/16/2024 [UNIT Y] ANEUP LOIDY NIPT monosomy X LOW RISK <1 in 10,000 normal Not Available [facility] [address], [place], [address], 10/16/2024 20:16:41 10/17/19 25 10/16/2024 [UNIT Y] ANEUP LOIDY NIPT trisomy 13 LOW RISK <1 in 10,000 normal Not Available [facility] [address], [place], [address], 10/16/2024 20:16:41 10/17/19 25 10/16/2024 [UNIT Y] ANEUP LOIDY NIPT trisomy 18 LOW RISK <1 in 10,000 normal Not Available [facility] [address], [place], [address], 10/16/2024 20:16:41 10/17/19 25 10/16/2024 [UNIT Y] ANEUP LOIDY NIPT trisomy 21 LOW RISK <1 in 10,000 normal Not Available [facility] [address], [place], [address], 10/16/2024 20:16:41 10/17/19 25 10/16/2024 [UNIT Y] ANEUP LOIDY NIPT sex MALE normal Not Available [facility] [address], [place], [address], 10/16/2024 20:16:41 10/17/19 25 10/16/2024 [UNIT Y] ANEUP LOIDY NIPT gestation SINGLE TON normal Not Available [facility] [address], [place], [address], 10/16/2024 20:16:41 10/17/19 25 10/16/2024 [UNIT Y] ANEUP DIANA NIPT for detailed report, see pdf See PDF normal Not Available [facility] [address], [place], [address], 10/16/2024 20:16:41 10/10/19 25 10/09/2024 CBC W/DIF F WBC 9.8 10'3/ uL 3.5-10 .5 Not Available [facility] (Lab) [address], [place], [address], 2024 19:17:53 10/10/1910/09/2024 CBC W/DIF F RBC 3.93 10'6/ uL (based on docume nted legal sex) 3.80-5 .[address] Not Available [facility] (Lab) [address], [place], [address], 2024 19:17:53 10/10/1910/09/2024 CBC W/DIF F HGB 12.5 g/dL (based on docume nted legal sex) 11.6-1 5.[address] Not Available [facility] (Lab) [address], [place], [address], 2024 19:17:53 10/10/1910/09/2024 CBC W/DIF F HCT 35.6 % (based on docume nted legal sex) 34.0-4 5.0 Not Available [facility] (Lab) [address], [place], [address], 2024 19:17:53 10/10/1910/09/2024 CBC W/DIF F MCV 90.6 fL 80.0-9 9.0 Not Available [facility] (Lab) [address], [place], [address], 2024 19:17:53 10/10/1910/09/2024 CBC W/DIF F MCH 31.8 pg 27.0-3 4.[address] Not [address] [facility] (Lab) [address], [place], [address], 2024 19:17:53 10/10/1910/09/2024 CBC W/DIF F MCHC 35.1 g/dL 32.0-3 5.5 Not Available [facility] (Lab) [address], [place], [address], 2024 19:17:53 10/10/1910/09/2024 CBC W/DIF F RDW 12.3 % 11.0-1 5.0 Not Available [facility] (Lab) [address], [place], [address], 2024 19:17:53 10/10/1910/09/2024 CBC W/DIF F plt 185 10'3/ uL 150-40 0 Not Available [facility] (Lab) [address], [place], [address], 2024 19:17:53 10/10/1910/09/2024 CBC W/DIF F MPV 12.4 fL 8.8-12 .1 high Not Available [facility] (Lab) [address], [place], [address], 2024 19:17:53 10/10/1910/09/2024 CBC W/DIF F NRBC's 0.0 % 0.0 Not Available [facility] (Lab) [address], [place], [address], 2024 19:17:53 10/10/1910/09/2024 CBC W/DIF F absolute NRBCs 0.0 10'3/ uL no refere nce range establ ished Not Available [facility] (Lab) [address], [place], [address], 2024 19:17:53 10/10/19 25 10/09/2024 CBC W/DIF F neutrophils 75.7 % 34.0-7 3.0 high Not Available [facility] (Lab) [address], [place], [address], 2024 19:17:53 10/10/19 25 10/09/2024 CBC W/DIF F lymphocytes 17.5 % 15.0-5 0.0 Not Available [facility] (Lab) [address], [place], [address], 2024 19:17:53 10/10/19 25 10/09/2024 CBC W/DIF F monocytes 4.4 % 1.0-15 .0 Not Available [facility] (Lab) [address], [place], [address], 2024 19:17:53 10/10/19 25 10/09/2024 CBC W/DIF F eosinophils 1.9 % 0.0-8. 0 Not Available [facility] (Lab) [address], [place], [address], 2024 19:17:53 10/10/1910/09/2024 CBC W/DIF F basophils 0.2 % 0.0-2. 0 Not Available [facility] (Lab) [address], [place], [address], 2024 19:17:53 10/10/19 25 10/09/2024 CBC W/DIF F immature granulocytes 0.3 % no define d refere nce range Immat ure Granu locyt es (IG) repre sents autom ated enume ratio n of Metam yeloc ytes, Myelo cytes and Promy elocy cullen when IG is < 5%. Blast s are not inclu ded in IG and repor katlin separ ately if prese nt. Not Available [facility] (Lab) [address], [place], [address], 2024 19:17:53 10/10/19 25 10/09/2024 CBC W/DIF F absolute neutrophils 7.4 10'3/ uL 1.5-8. 0 Not Available [facility] (Lab) [address], [place], [address], 2024 19:17:53 10/10/19 25 10/09/2024 CBC W/DIF F absolute lymphocytes 1.7 10'3/ uL 1.0-4. 0 Not Available [facility] (Lab) [address], [place], [address], 2024 19:17:53 10/10/1910/09/2024 CBC W/DIF F absolute monocytes 0.4 10'3/ uL 0.2-1. 0 Not Available [facility] (Lab) [address], [place], [address], 2024 19:17:53 10/10/1910/09/2024 CBC W/DIF F absolute eosinophils 0.2 10'3/ uL 0.0-0. 6 Not Available [facility] (Lab) [address], [place], [address], 2024 19:17:53 10/10/19 25 10/09/2024 CBC W/DIF F absolute basophils 0.0 10'3/ uL 0.0-0. 3 Not Available [facility] (Lab) [address], [place], [address], 2024 19:17:53 10/10/1910/09/2024 CBC W/DIF F absolute immature granulocytes 0.0 10'3/ uL 0.00-0 .10 Refer ence range s for nonbi nary/ inter sex or unspe cifie d gende r patie nts have not been estab lishe d. Pleas e refer to the follo wing table for range s estab lishe d for cisge nder patie nts and evalu ate in the clini nicolle kathy xt of the indiv idual patie nt: https ://jose d huertas book. nm.or g/gen derx Not Available [facility] (Lab) [address], [place], [address], 2024 19:17:53 10/10/1910/09/2024 HIV 1/2 ANTIG EN/AN TIBOD Y, REFLE X CONFI RMATI ON HIV antigen/anti body Nonrea ctive nonrea ctive HIV-1 antig en and HIV-1 /HIV- 2 antib odies were not detec katlin. No labor atory evide nce of HIV infec tion. Not Available [facility] (Lab) [address], [place], [address], 2024 19:17:54 10/10/1910/09/2024 HEPAT ITIS B SURFA CE ANTIG EN hepatitis B surface antigen Non-re active non-re active This assay was perfo rmed using [employer] ratio n reage nts and test kits. Value s obtai ning with other assay metho ds or kits canno t be used inter figueroa eably . Not Available [facility] (Lab) [address], [place], [address], 2024 19:17:55 10/10/1910/09/2024 HEPAT ITIS C ANTIB KANDI SCREE N, REFLE X TO CONFI RMATI ON hepatitis C antibody Non-re active non-re active Antib odies to HCV Not Detec katlin, does not exclu de the possi bilit y of expos ure to HCV. Not Available [facility] (Lab) [address], [place], [address], 2024 19:17:55 10/10/1910/09/2024 RUBEL LA IGG ANTIB KANDI, QUANT rubella antibodies, IgG Reacti ve reacti ve Not Available [facility] (Lab) [address], [place], [address], 2024 19:17:55 10/10/1910/09/2024 RUBEL LA IGG ANTIB KANDI, QUANT rubella antibodies, IgG quant 33.1 IU/mL >=10 Non-r eacti ve (Non- Immun e) <10 IU/mL React jb (Immu ne) > or = 10 IU/mL Not Available [facility] (Lab) [address] , [place], [address], 2024 19:17:55 10/10/1910/09/2024 TYPE/ RH/SC REEN ABO/Rh type A POS Not Available [facility] (Lab) [address], [place], [address], 2024 19:17:56 10/10/1910/09/2024 TYPE/ RH/SC REEN antibody screen NEG Not Available [facility] (Lab) [address] , [place], [address], 2024 19:17:56 10/10/1910/09/2024 TYPE/ RH/SC REEN exp date 2024 23:59 Not Available [facility] (Lab) [address], [place], [address], 2024 19:17:56 10/10/1910/09/2024 HEMOG LOBIN A1C hemoglobin A1C 4.7 % 4.0-5. 6 The Ameri can Diabe cullen Assoc iatio n recom mends that a prima ry goal of thera py zion d be a HBA1C of < 7% and that physi cians shoul d reeva luate the treat ment regim en in patie nts with HBA1C value s consi stent ly > 8%. <5.7% Chrissy l 5.7 - 6.4% Incre ased risk for diabe cullen >=6.5 % Diagn ostic of diabe cullen <7.0% Goal of thera py >8.0% Actio n sugge sted Not Available [facility] (Lab) [address], [place], [address], 2024 19:17:56 10/10/19 25 10/09/2024 RPR SCREE N, REFLE X TITER /CONF IRMAT ION RPR qualitative Nonrea ctive nonrea ctive Not Available [facility] (Lab) [address], [place], [address], 2024 19:17:57 10/10/19 25 10/09/2024 LEAD, BLOOD (ADUL T/PED IATRI C) lead, whole blood <1.0 mcg/d L <3.5 See Note 1 Mandie sis was perfo rmed by Nael Silverman ed Plasm a Mass Spect rometyrone espinosa (ICPM S) Note 1 This test was devel oped and its mandie tical perfo rmanc e dorita cteri stics have been deter mined by [employer]. It has not been clear ed or appro herson by the FDA. This assay has been valid ated pursu ant to the CLIA regul ation s and is used for clini nicolle purpo ses. Perfo rming Organ izati on Infor matio n: Site ID: CB Name: [employer] [facility] sOlegario Harrington Addre ss: [id number] [place] [address] Direc tor: Bharathi gill Not Available [facility] (Lab) [address], [place], [address], 2024 19:17:57 10/10/1910/09/2024 CULTU RE: URINE result report SEE RESULT S BELOW Test: Cultu re: Urine Speci men Sourc e: Urine - Clean Catch Speci men Type: Urine Speci men Date: 1423 Resul t Date: 2138 Resul t Statu s: Final resul t Abnor mal: No Resul ting Lab: [facility] [address] [facility] [address] Tel: CULTU RE ----- ----- ----- --- No growt h in 1 day (dete ction level of 10,00 0 colon ies / ml.) Not Available [facility] (Lab) [address], [place], [address], 2024 22:42:52 10/10/19 25 10/09/2024 drug scree n, urine Amphetamines : negati ve Not Available [facility] [address], [place], [address], 10/09/2024 15:12:54 10/10/19 25 10/09/2024 drug scree n, urine Cannabinoids : negati ve Not Available [facility] [address], [place], [address], 10/09/2024 15:12:54 10/10/19 25 10/09/2024 drug scree n, urine Cocaine: negati ve Not Available [facility] [address], [place], [address], 10/09/2024 15:12:54 10/10/19 25 10/09/2024 drug scree n, urine Opiates: negati ve Not Available [facility] [address], [place], [address], 10/09/2024 15:12:54 10/10/19 25 10/09/2024 drug scree n, urine Phenocyclidi ne: negati ve Not Available [facility] [address], [place], [address], 10/09/2024 15:12:54 10/10/19 25 10/09/2024 drug scree n, urine Barbiturates : negati ve Not Available [facility] [address], [place], [address], 10/09/2024 15:12:54 10/10/19 25 10/09/2024 drug scree n, urine Benzodiazepi david: negati ve Not Available [facility] [address], [place], [address], 10/09/2024 15:12:54 10/10/19 25 10/09/2024 drug scree n, urine Ethanol: negati ve Not Available [facility] [address], [place], [address], 10/09/2024 15:12:54 10/10/19 25 10/09/2024 drug scree n, urine Hallucinogen s: negati ve Not Available [facility] [address], [place], [address], 10/09/2024 15:12:54 10/10/19 25 10/09/2024 drug scree n, urine Inhalants: negati ve Not Available [facility] [address], [place], [address], 10/09/2024 15:12:54 10/10/19 25 10/09/2024 drug scree n, urine Anabolic Steroids: negati ve Not Available [facility] [address], [place], [address], 10/09/2024 15:12:54 10/01/19 25 09/30/2024 US, obste tric, follo w-up No observ ation record ed. [email or web address] [address], [place], [address], 10/01/2024 09:14:12 10/01/19 25 09/30/2024 US, obstasad tric, limit ed No observ ation record ed. [email or web address] [address], [place], [address], 09/30/2024 18:25:20 10/10/19 25 10/09/2024 US, obstasad tric, nucha l trans lucen cy No observ ation record ed. [email or web address] [facility] [address], [place], [address], 10/09/2024 18:42:28 10/10/1910/09/2024 US, obste tric, nucha l trans lucen cy No observ ation record ed. [email or web address] [address], [place], [address], 10/11/2024 09:05:59 11/29/1911/28/2024 US, obste tric, limit ed No observ ation record ed. [email or web address] [address], [place], [address], 11/28/2024 14:35:57 11/29/19 25 11/28/2024 US, obste tric, limit ed No observ ation record ed. [email or web address] [address], [place], [address], 12/04/2024 17:11:19 12/05/1912/04/2024 US, obste tric, 2nd or 3rd trime ster No observ ation record ed. [email or web address] [address], [place], [address], 12/10/2024 16:29:24 12/05/1912/04/2024 US, obste tric, 2nd or 3rd trime ster No observ ation record ed. [facility] [address], [place], [address], 12/04/2024 18:24:14 01/02/2001/01/2025 US, obste tric, follo w-up No observ ation record ed. [facility] [address], [place], [address], 01/01/2025 18:52:26 01/02/2001/01/2025 US, obste tric, follo w-up No observ ation record ed. [email or web address] [address], [place], [address], 01/03/2025 10:24:56 01/30/2001/29/2025 imagi ng/di agnos tic resul t No observ ation record ed. [email or web address] [address], [place], [address], 01/29/2025 11:47:31 01/30/2001/29/2025 US, obste tric, follo w-up No observ ation record ed. [email or web address] [facility] [address], [place], [address], 01/29/2025 11:50:46 01/30/2001/29/2025 , obste tric, trans vagin al No observ ation record ed. [email or web address] [address], [place], [address], 01/29/2025 11:50:59 Result Notes None recorded. Problems Name Problem SNOMED Code Status Onset Date Resolution Date Notes Provider Name and Address Organization Details Recorded Time Hypothyr oidism 30216317 Completed levothyr oxine 100mcg- REPEAT WITH 28w LABS Michael mcnally [facility] 3 16:18:26 Hyperten sive disorder 20959124 Completed labetalo l bid, ASA, Baseline 24h TP - 147 Michael Garcia [facility] 3 16:18:26 History of cholecys tectomy 011011441 Completed Michael mcnally, [facility] 3 16:18:26 History of appendec roselyn 490163737 Completed Michael cmnally, [facility] 3 16:18:26 Anxiety 22342239 Completed was on cymbalta - not on currentl y 02/08/22 Michael Garcia [facility], [facility] 3 16:18:26 Hyperten sive disorder 62471487 Active labetalo l bid, ASA, Baseline 24h TP - 147 Michael Garcia [facility] 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 3 16:18:26 Pre-ecla mpsia 138721663 Completed Michael Garcia [facility], [facility] 3 16:18:26 Pregnanc y 60390140 Completed 202108/19/2022 Winifred Quiroga [facility], [facility] 5 09:42:14 Pregnanc y 12985362 Active 2024 Winifred Quiroga [facility], [facility] 5 09:42:14 Hypothyr oidism 83642924 Active 2024 Levothyr oxine 100mcg Repeat TSH labs @ 28wks Winifred Quiroga [facility], [facility] 5 09:34:15 Anxiety 39329586 Active 2024 no current meds Mariam Valverde CNM [address], [place], [address], [facility] 5 15:29:30 Past pregnanc y history of pre-ecla mpsia 5323462204 31635 Active 2024 w/o severe features /chronic with meds no meds since last pregnanc y bASA daily HSV- plan 36 week valtrex allergic to gluten/d airy Mariam Valverde CNM [address], [place], [address], [facility] 5 15:30:22 Hypothyr oidism 92969023 Active 2024 Levothyr oxine 100mcg Repeat TSH labs @ 28wks Winifred Quiroga uli, [facility] 5 09:34:15 Anxiety 58746158 Active 2024 no current meds Mariam Valverde CNM [address], [place], [address], [facility] 5 15:29:30 Velament ous insertio n of umbilica l cord 32220860 Active 2024 Marina mcnally, [facility] 5 14:01:20 Vasa previa 63945241 Active 2024 [facility] Mariam Valverde CNM [address], [place], [address], [facility] 5 11:20:38 Problem Notes None recorded. Procedures Surgical History Date Name Laterality Status Provider Name and Address Organization Details Recorded Time 025 IUD Removal completed KAMERON Calvert [address], [place], [address], [facility] 07/04/2024 16:54:24 024 Date of Last Pap Smear completed JULIEN Ferrell [facility] 05/08/2024 15:48:32 023 IUD Insertion completed Mirna Maldonado [facility] 09/14/2022 14:34:26 022 IUD Removal completed Mirna Maldonado [facility] 06/01/2021 10:47:37 016 Date of Last Colonoscopy completed Mirna Maldonado [facility] 04/15/2021 11:37:49 016 Colonoscopy completed Mirna Maldonado [facility] 04/15/2021 11:37:07 011 [facility] 11:37:20 011 extraction of wisdom tooth completed Mirnarosalina Maldonado [facility] 04/15/2021 11:37:34 008 Appendectomy completed [facility] 04/15/2021 11:36:52 Appendectomy completed Cordelia Shine [facility] 11/06/2024 17:17:39 Colonoscopy completed Cordelia Shine [facility] 11/06/2024 17:17:39 Imaging Results None recorded. Procedure Notes None recorded. Medical Equipment None Reported. Allergies Allergen ID Allergen Name Allergen Category Reaction Reaction Severity Criticality Documentation Date Start Date Code Code System Note Provider Name and Address Organization Details Recorded Time 36959 sulfabenz amide Not available hives severe Not available 03/17/2021 44540 RxNorm Mirna Dejesussabrina mcnally [facility] 2 15:50:59 29571 wheat gluten extract food Not available Not available Not available 04/15/2021 46601 81 RxNorm Mirna mcnally [facility] 2 11:38:14 16998 lactase medicatio n Not available Not available Not available 04/15/2021 65995 RxNorm Mirna mcnally [facility] 2 11:38:23 06393 Substance with sulfonami de structure and antibacte rial mechanism of action (substanc e) medicatio n Not available Not available Not available 01/29/2025 83672 8003 SNOMED Not Available zohreh - External Data Service - prod 5 02:58:42 51060 wheat preparati on food,medi cation Not available Not available low 02/01/20252023 89290 52 RxNorm react ion unrec ogniz ed react ion (text : Stoma ch upset , code: 51263 [id number]) (from [facility]) Not Available waccabuc - External Data Service - prod 10:36:04 Medications Name Sig Start Date Stop Date Status Note LastModified by Organization Details LastModified Time fluconazo le 100 mg tablet Take 2 tablets by mouth on day 1 and then 1 tablet by mouth daily thereaft er for 13 days. 05/08 completed Not Available Not Available Not Available labetalol 200 mg tablet TAKE 1 TABLET BY MOUTH TWICE DAILY 08/31 completed Not Available Not Available Not Available hydrocort isone-pra moxine 2.5 %-1 % rectal cream Insert 1 applicat ion 3 times a day by rectal route. 03/22 completed Not Available Not Available Not Available zinc (picolina te) 25 mg capsule 08/31 completed Not Available Not Available Not Available nystatin 100,000 unit/gram topical ointment APPLY TO THE AFFECTED AREA TWICE DAILY NEEDED 05/08 completed Not Available Not Available Not Available fluconazo le 200 mg tablet TAKE 1 TABLET BY MOUTH EVERY OTHER DAY 05/08 completed Not Available Not Available Not Available nystatin- triamcino lone 100,000 unit/gram -0.1 % topical ointment APPLY TO THE AFFECTED AREA(S) BY TOPICAL ROUTE 2 TIMES PER DAY FOR 7 DAYS 05/08 completed Not Available Not Available Not Available levothyro xine 100 mcg tablet TAKE 1 TABLET BY MOUTH EVERY DAY IN THE MORNING 30 MINUTES BEFORE BREAKFAS T active Not Available Not Available No t Available potassium 99 mg tablet 12/31 completed Not Available Not Available Not Available biotin 10,000 mcg capsule 08/31 completed Not Available Not Available Not Available betametha sone dipropion ate 0.05 % topical cream 05/08 completed Not Available Not Available Not Available Valtrex 500 mg tablet Take 1 tablet twice a day by oral route for 7 days. 01/24 completed Not Available Not Available Not Available hydrochlo rothiazid e 25 mg tablet TAKE 1 TABLET BY MOUTH EVERY DAY 07/28 completed Not Available Not Available Not Available metoprolo l succinate ER 25 mg tablet,ex tended release 24 hr TAKE 1 TABLET BY MOUTH EVERY DAY 07/28 completed Not Available Not Available Not Available estradiol 0.01% (0.1 mg/gram) vaginal cream Apply 1g vaginall y 3 times per week 05/08 completed Not Available Not Available Not Available metoclopr amide 10 mg tablet Take 1 tablet 4 times a day by oral route. 08/31 completed Not Available Not Available Not Available neomycin 3.5 mg/g-poly myxin B 10,000 unit/g-de xameth 0.1 % eye oint 05/08 completed Not Available Not Available Not Available Adult Low Dose Aspirin 81 mg tablet 08/31 completed Not Available Not Available Not Available moxifloxa anay 0.5 % eye drops 03/22 completed Not Available Not Available Not Available nitrofura ntoin monohydra te/macroc rystals 100 mg capsule TAKE 1 CAPSULE BY MOUTH EVERY 12 HOURS active Not Available Not Available No t Available duloxetin e 20 mg capsule,d elayed release TAKE 1 CAPSULE BY MOUTH EVERY DAY 07/04 completed Not Available Not Available Not Available Vitamin C 08/31 completed Not Available Not Available Not Available magnesium citrate 08/31 completed Not Available Not Available Not Available vit B12-vit B6-vit B1-fluori de 08/31 completed Not Available Not Available Not Available levothyro xine 05/08 completed Not Available Not Available Not Available folic acid 12/31 completed Not Available Not Available Not Available biotin at bedtime 2024 active Not Available Not Available Not Avai lable Colace 08/31 completed Not Available Not Available Not Available hydrochlo rothiazid e 07/28 completed Not Available Not Available Not Available calcium citrate 08/31 completed Not Available Not Available Not Available active Not Available Not Avai lable Not Available Baby Aspirin 08/31 completed Not Available Not Available Not Available vitamin H69-abjxm acid 08/31 completed Not Available Not Available Not Available B12 at morning time 2024 active Not Available Not Available Not [facility] [employer] Thyroid 60 mg tablet 07/28 completed Not Available Not Available Not Available Vitamin D3 50 mcg (2,000 unit) capsule 08/31 completed Not Available Not Available Not Available Kyleena 17.5 mcg/24 hr (up to 5 years) 19.5 mg intrauter ine device Take 1 device by intraute rine route. 09/16 completed kyleena IUD inserted 3 and needs removed 8 Not Available Not Available Not Available duloxetin e 20 mg capsule,d elayed release sprinkle 06/01 completed Not Available Not Available Not Available ID NOW COVID-19 Test Kit 08/31 completed Not Available Not Available Not Available Vitals Date Recorded Body height Body mass index (BMI) Body weight Systolic And Diastolic Provider Name and Address Organization Details Last Updated DateTime 11/06/2024 156.21 cm 34 kg/m2 23723.4 g 118/76 mm[Hg] Cordelia Shine [facility] 11/06/2024 17:17:16 Social History Question Answer Notes LastModified by Organizat ion Details LastModified Time Tobacco Smoking Status Never Smoker Jennifer Shahid mcnally, [facility] 03/22/2023 15:53:07 Do You Have An Advance Directive? No [email or web address] Information n ot available 03/17/2021 How Many Years Have You Consumed Alcohol? 7 [email or web address] Information not available 03/17/2021 Are You Blind Or Do You Have Difficulty Seeing? No [email or web address] Information n ot available 03/17/2021 What Is Your Level Of Caffeine Consumption? Moderate [email or web address] Information not available 03/17/2021 How Much Tobacco Do You Chew? None [email or web address] Information not available 03/17/2021 In The 14 Days Before Symptom Onset, Have You Had Close Contact With A Laboratory-confirm ed COVID-19 While That Case Was Ill? No [email or web address] Information n ot available 03/17/2021 In The 14 Days Before Symptom Onset, Have You Had Close Contact With A Person Who Is Under Investigation For COVID-19 While That Person Was Ill? No [email or web address] Information not available 03/17/2021 Have You Been To An Area Known To Be High Risk For COVID-19? No [email or web address] Information not available 03/17/2021 Are You Deaf Or Do You Have Serious Difficulty Hearing? No [email or web address] Information not available 03/17/2021 What Type Of Diet Are You Following? GLUTENFREE [email or web address] Information n ot available 03/17/2021 What Is The Highest Grade Or Level Of School You Have Completed Or The Highest Degree You Have Received? [id number] [email or web address] Information not available 03/17/2021 Are There Any Guns Present In Your Home? No [email or web address] Information not available 03/17/2021 Have You Ever Been Counseled For Unhealthy Alcohol Use? No [email or web address] Information not available 03/22/2023 Do You Use Protection During Sex? Always [email or web address] Information not available 03/17/2021 Do You Use Your Seat Belt Or Car Seat Routinely? Yes [email or web address] Information not available 03/17/2021 Do You Have Smoke And Carbon Monoxide Detectors In Your Home? Yes [email or web address] Information not available 03/17/2021 How Much Tobacco Do You Smoke? No [email or web address] Information not available 03/17/2021 Do You Use Sunscreen Routinely? Yes [email or web address] Information not available 03/17/2021 Has Tobacco Cessation Counseling Been Provided? No [email or web address] Information not available 03/22/2023 Have You Used IV Drugs? No [email or web address] Information not available 03/17/2021 Do You Have Difficulty Walking Or Climbing Stairs? No [email or web address] Information not available 03/22/2023 Sex: Unknown Functional Status Question Answer Note LastModified by Organizat ion Details LastModified Time Do you use any illicit or recreational drugs? No [email or web address] Information not available 03/17/2021 Do you or have you ever used any other forms of tobacco or nicotine? No [email or web address] Information not available 03/22/2023 What is your level of alcohol consumption? Occasional [email or web address] Information not available 03/17/2021 Are you able to walk independently without assistance or assistive devices? YESWOREST [email or web address] Information not available 03/17/2021 Are you able to care for yourself independently? 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 No [email or web address] Information not available 03/22/2023 What is your exercise level? Occasional [email or web address] Information not available 03/17/2021 Mental Status Question Answer Note LastModified by Organization D etails LastModified Time Do you feel stressed (tense, restless, nervous, or anxious, or unable to sleep at night)? [id number] [email or web address] Information not available 03/17/2021 Family History Relationship Description Onset Age of this Age Resolved Age Notes LastModified by Organization Details LastModified Time Maternal Grandmother Hypertensive disorder [email or web address] Not available 03/17 15:51:00 Mother Hypertensive disorder [email or web address] Not available 03/17 15:51:00 Mother Disorder of thyroid gland [email or web address] Not available 03/17 15:51:00 Mother High risk [email or web address] Not available 03/17 15:51:00 Paternal Grandmother Hypertensive disorder [email or web address] Not available 03/17 15:51:00 Medical History Condition Response Allergies (Food, seasonal, environmental ) Y Other N Drug/Latex Allergies/Reactions Y Blood Transfusion N Breast Cancer N Dermatologic Disorders N Lung Disease N Defects or Inherited Disease N Breast Problem N Gestational Diabetes N Hematologic disorders N Anesthesia Complications N History of STI Y Deep Vein Thrombosis N Polycystic ovary syndrome N Anxiety Disorder Y Autoimmune disease N Arthritis N Polyps N Infertility N Acid Reflux (GERD) Y History of abnormal pap N Cancer N Varicosities N Stroke N Neurologic/Epilepsy N Endometriosis N High Cholesterol N Fibromyalgia N Headaches N Kidney Disease N Heart Problems N Thyroid Problems Y Kidney or Bladder Problems N GI Problems Y Eating Disorder N Anemia N Art (IVF or FET) N Psychiatric Illness N Ovarian Cancer N Diabetes N Pulmonary (TB, Asthma) N Hepatitis/Liver Disease N No Past Medical History N Eczema N Urinary Tract Infection N Abuse/Domestic Violence N Asthma N Trauma/Violence N Depression/ depression Y Heart Disease N Pre-Eclampsia N Hypertension Y Osteoporosis N Thrombophilias N Gynecological History Statement/Question Response Date of Last Mammogram Flow Moderate Date of LMP 05/28/2024 N Was last menstrual period normal Y STIs/STDs Y Date of Last Colonoscopy 03/06/2015 Desired Control Method Abnormal Pap N On BCP's at Conception? N HPV Vaccine Y Duration of Flow (days) 3 Current Control Method Are cycles usually normal N Frequency of Cycle (Q days) 28 Most Recent Bone Density Sexually Active? Y Menses Monthly N Age of first menstrual cycle 7 Date of Last Pap Smear 03/22/2023 Sexual Problems? N LMP Definite N Obstetrics History GPAL:G 2 P 1 0 0 1 Type Value Full Term 1 Living 1 Total 2 Past Encounters Encounter ID Performer Location Encounter Start Date Encounter Closed Date Diagnosis/Indication Diagnosis SNOMED-CT Code Diagnosis ICD10 Code Diagnosis IMO Codes Diagnosis Note [id number] Renaldo Reyes MD [facility] [address],[place] [address] 10/09/2024 12:22:33 10/09/2024 13:10:45 screening [id number] Z36.82 Z3A.12 [id number] Mariam Valverde [facility] [address],[place] [address] 10/09/2024 12:29:34 10/09/2024 15:42:17 Gestation period, 12 weeks 47435484 Z3A.12 [id number] Mariam Valverde [place] [address],[place] [address] 11/06/2024 17:11:47 11/06/2024 17:58:08 Gestation period, 16 weeks 07644450 Z3A.16 [id number] Health Concerns Section Related Observation LastModified by Organization Detai ls LastModified Time None Recorded Concern Status LastModified by Organization Details LastModified Time None Recorded Payers Encounter Date Sequence Insurance Name Policy Number Policy Maldonado Covered Member ID Maldonado Member ID Guarantor Name 11/06/2024 1 [facility] [employer] [facility] [id number] Jessica Keys [id number] 1 Jessica Keys Notes Date Note Type Note Provider Name and Address Organization Details Recorded Time 11/06/2024 text/html Generic HPI TemplateReported by Patient Mariam Pastrana Nicolle, [facility] [address], [place], [address], [facility] 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 Status 10/01/19 25 1 A Positive 182 OPEN Fetus Data First Name Last Name Admitted to NICU Weight (g) Sex Living Outcome Pediatric Complications Fetus ID Race Codes Race Delivery Type [id number] Problems Problem Notes [facility] Problem Name Start Date End Date Resolution Snomed Code Not e Anxiety 10/09/2024 [id number] no curren t meds Past history of pre-eclampsia 10/09/2024 [id number] w/o severe features/chronic with medsno meds since last pregnancybASA dailyHSV- plan 36 week valtrexallergic to gluten/dairy Velamentous insertion of umbilical cord 11/29/2024 [id number] Hypothyroidism 10/09/2024 [id number] Levo thyroxine 100mcg Repeat TSH labs @ 28wks Vasa previa 01/29/2025 [id number] [facility] ref erall Nick Calculation Initial Nick Date Initial Exam Date Initial Exam Provider Initial Ultrasound Date Last Menstrual Period Date Ultra Sound Weeks Gestation 04/21/2025 10/09/2024 09/16/2024 05/28/2024 9 Eighteen To Twenty Week Nick Update Ultra Sound Date Fundal Height At Umbil Quickening Date Ultra Sound Latest Weeks Gestation Final Nick Confirmed By Final Nick Confirmed Date Final Nick Date Ultra Sound Latest Days Gestation 0 0 Pre- Flowsheet Flowsheet Date 09/30/2024 Nash Score Blood Edema Fundus Height Fundus Units Glucose Ketones Leukocytes Nitrite Labor Signs Protein Cervic Dilation Cervic Effacement Cervic Station Type Weight in lbs Pre/Post Dialysis Refused BP Diastolic BP Location Tested BP Systolic BP Type Fetus Heart Rate Present Fetus Movement Comments Flowsheet Date 10/09/2024 Nash Score Blood Edema Fundus Height Fundus Units Glucose Ketones Leukocytes Nitrite Labor Signs Protein Cervic Dilation Cervic Effacement Cervic Station Type Weight in lbs Pre/Post Dialysis Refused BP Diastolic BP Location Tested BP Systolic BP Type Fetus Heart Rate Present Fetus Movement Comments Flowsheet Date 10/09/2024 Nash Score Blood Edema Fundus Height Fundus Units Glucose Ketones Leukocytes Nitrite Labor Signs Protein Cervic Dilation Cervic Effacement Cervic Station Type Weight in lbs Pre/Post Dialysis Refused 181.515160155727 BP Diastolic BP Location Tested BP Systolic BP Type 77 L arm 120 sitting Fetus Heart Rate Present Fetus Movement A Yes Comments reviewed US, history of pre- e w/o severe features with uncomplicated vaginal delivery, reviewed hx, start bASA x 1, precautions and education begin routine care Flowsheet Date 11/06/2024 Nash Score Blood Edema Fundus Height Fundus Units Glucose Ketones Leukocytes Nitrite Labor Signs Protein Cervic Dilation Cervic Effacement Cervic Station Type Weight in lbs Pre/Post Dialysis Refused Weight 183.287465190689 BP Diastolic BP Location Tested BP Systolic BP Type 76 L arm 118 sitting Fetus Heart Rate Present A 155 Present Fetus Movement A Yes Comments ?FM doing well precautions a nd education, f/u 4 weeks anatomy Flowsheet Date 11/28/2024 Nash Score Blood Edema Fundus Height Fundus Units Glucose Ketones Leukocytes Nitrite Labor Signs Protein Cervic Dilation Cervic Effacement Cervic Station Type Weight in lbs Pre/Post Dialysis Refused BP Diastolic BP Location Tested BP Systolic BP Type Fetus Heart Rate Present Fetus Movement Comments Flowsheet Date 11/28/2024 Nash Score Blood Edema Fundus Height Fundus Units Glucose Ketones Leukocytes Nitrite Labor Signs Protein Cervic Dilation Cervic Effacement Cervic Station Type Weight in lbs Pre/Post Dialysis Refused 185.883856723152 BP Diastolic BP Location Tested BP Systolic BP Type 77 L arm 110 sitting Fetus Heart Rate Present Fetus Movement A Yes Comments Patient has low back pain. S he was given instructions. Appears to have urinary tract infection today we will treat for urinary tract infection. To check thyroid Flowsheet Date 12/04/2024 Nash Score Blood Edema Fundus Height Fundus Units Glucose Ketones Leukocytes Nitrite Labor Signs Protein Cervic Dilation Cervic Effacement Cervic Station Type Weight in lbs Pre/Post Dialysis Refused BP Diastolic BP Location Tested BP Systolic BP Type Fetus Heart Rate Present Fetus Movement Comments Flowsheet Date 12/04/2024 Nash Score Blood Edema Fundus Height Fundus Units Glucose Ketones Leukocytes Nitrite Labor Signs Protein Cervic Dilation Cervic Effacement Cervic Station Type Weight in lbs Pre/Post Dialysis Refused Weight 185.516118850150 BP Diastolic BP Location Tested BP Systolic BP Type 74 L arm 119 sitting Fetus Heart Rate Present Fetus Movement A Yes Comments reviewed us, [place] inse rtion LVEIF rpt 4 weeks +FM, doing well, precautions an education ok for flu vaccine Flowsheet Date 01/01/2025 Nash Score Blood Edema Fundus Height Fundus Units Glucose Ketones Leukocytes Nitrite Labor Signs Protein Cervic Dilation Cervic Effacement Cervic Station Type Weight in lbs Pre/Post Dialysis Refused BP Diastolic BP Location Tested BP Systolic BP Type Fetus Heart Rate Present Fetus Movement Comments Flowsheet Date 01/01/2025 Nash Score Blood Edema Fundus Height Fundus Units Glucose Ketones Leukocytes Nitrite Labor Signs Protein Cervic Dilation Cervic Effacement Cervic Station Type Weight in lbs Pre/Post Dialysis Refused 190.163732007407 BP Diastolic BP Location Tested BP Systolic BP Type 76 L arm 113 sitting Fetus Heart Rate Present A Present Fetus Movement A Yes Comments Doing well, good movem ent. No cramping or bleeding. EFW 76%, EIF present, discussed with patient. Continue serial growth US. Discussed GCT and labs for next visit. RTC 4 weeks. Flowsheet Date 01/29/2025 Nash Score Blood Edema Fundus Height Fundus Units Glucose Ketones Leukocytes Nitrite Labor Signs Protein Cervic Dilation Cervic Effacement Cervic Station Type Weight in lbs Pre/Post Dialysis Refused BP Diastolic BP Location Tested BP Systolic BP Type Fetus Heart Rate Present Fetus Movement Comments Flowsheet Date 01/29/2025 Nash Score Blood Edema Fundus Height Fundus Units Glucose Ketones Leukocytes Nitrite Labor Signs Protein Cervic Dilation Cervic Effacement Cervic Station Type Weight in lbs Pre/Post Dialysis Refused Weight 196.442752715472 BP Diastolic BP Location Tested BP Systolic BP Type 82 120 Fetus Heart Rate Present Fetus Movement A Yes Comments +FM, doing well, ? vasa prev ia, reviewed, if any bleeding to labor, will f/u with mfm efw 68%, reviewed with dr. hewitt, education and precautions, gct todayc/o rash on legs, back check for shingles, ok for otc cream Menstrual History Last Menstrual Date Menses Monthly On Bcp Conception Prior Menses Frequency Hcg Plus Date Menarche Onset Age 0305/28/2024 Delivery Information Delivery Date Delivery Type Labor Anesthesia Weeks Gestation Incision Type Labor Labor Length Hrs Delivered By Post Complications Tubal Sterilization Discharge Date Comments Discharge Information Feeding Method Contraceptive Method Maternal HG B and HCT Levels
--- OUTSIDE RECORDS SUMMARY | 2025-02-02 12:17 | XMS_ITS | Continuity of Care Document ---
Author Organization [facility] Address [address] [place] [address] [place] [address] Assessment No assessment recorded. Plan of Treatment Reminders Order Date Submit Date Provider Last Modified By Organization Details Last Modified Time Details Appointments OB ROUTINE 2024 01:15P Rachael REYES MD Not available Not available Not available Lab None recorded . Referral None recorded . Procedures None recorded . Surgeries None recorded . Imaging US, obstetri c, follow-u p 2024 025 [email or web address] [facility], [address], [place], [address], 01/02/2025 23:19:28 Medication Orders None recorded . Patient TargetsNo targets recorded. Patient InstructionsNo instructions recorded. Reason for Referral None Reported. Results Created Date Observation Date Name Description Value Unit Range Abnormal Flag Note LastModifiedBy Organization Detail LastModifiedTime 10/17/1910/16/2024 [UNIT Y] ANEUP LOIDY NIPT fraction 13.3% normal Not Available [facility] [address], [place], [address], 10/16/2024 20:16:41 10/17/19 25 10/16/2024 [UNIT Y] ANEUP LOIDY NIPT 22Q11.2 microdeletio n LOW RISK <1 in 10,000 normal Not Available [facility] [address], [place], [address], 10/16/2024 20:16:41 10/17/19 25 10/16/2024 [UNIT Y] ANEUP LOIDY NIPT sex chromosome aneuploidy NOT DETECT ED normal Not Available [facility] [address], [place], [address], 10/16/2024 20:16:41 10/17/19 25 10/16/2024 [UNIT Y] ANEUP LOIDY NIPT monosomy X LOW RISK <1 in 10,000 normal Not Available [facility] [address], [place], [address], 10/16/2024 20:16:41 10/17/19 25 10/16/2024 [UNIT Y] ANEUP LOIDY NIPT trisomy 13 LOW RISK <1 in 10,000 normal Not Available [facility] [address], [place], [address], 10/16/2024 20:16:41 10/17/19 25 10/16/2024 [UNIT Y] ANEUP LOIDY NIPT trisomy 18 LOW RISK <1 in 10,000 normal Not Available [facility] [address], [place], [address], 10/16/2024 20:16:41 10/17/19 25 10/16/2024 [UNIT Y] ANEUP LOIDY NIPT trisomy 21 LOW RISK <1 in 10,000 normal Not Available [facility] [address], [place], [address], 10/16/2024 20:16:41 10/17/19 25 10/16/2024 [UNIT Y] ANEUP LOIDY NIPT sex MALE normal Not Available [facility] [address], [place], [address], 10/16/2024 20:16:41 10/17/19 25 10/16/2024 [UNIT Y] ANEUP LOIDY NIPT gestation SINGLE TON normal Not Available [facility] [address], [place], [address], 10/16/2024 20:16:41 10/17/19 25 10/16/2024 [UNIT Y] ANEUP SHELBIIDKayla NIPT for detailed report, see pdf See PDF normal Not Available [facility] [address], [place], [address], 10/16/2024 20:16:41 10/10/19 25 10/09/2024 CBC W/DIF F WBC 9.8 10'3/ uL 3.5-10 .5 Not Available [facility] (Lab) [address], [place], [address], 2024 19:17:53 10/10/1910/09/2024 CBC W/DIF F RBC 3.93 10'6/ uL (based on docume nted legal sex) 3.80-5 .20 Not Available [facility] (Lab) [address], [place], [address], 2024 19:17:53 10/10/19 25 10/09/2024 CBC W/DIF F HGB 12.5 g/dL (based on docume nted legal sex) 11.6-1 5.4 Not Available [facility] (Lab) [address], [place], [address], 2024 19:17:53 10/10/1910/09/2024 CBC W/DIF F HCT 35.6 % (based on docume nted legal sex) 34.0-4 5.0 Not Available [facility] (Lab) [address], [place], [address], 2024 19:17:53 10/10/1910/09/2024 CBC W/DIF F MCV 90.6 fL 80.0-9 9.0 Not Available [facility] (Lab) [address], [place], [address], 2024 19:17:53 10/10/1910/09/2024 CBC W/DIF F MCH 31.8 pg 27.0-3 4.0 Not Available [facility] (Lab) [address], [place], [address], 2024 19:17:53 10/10/1910/09/2024 CBC W/DIF F MCHC 35.1 g/dL 32.0-3 5.5 Not Available [facility] (Lab) [address], [place], [address], 2024 19:17:53 10/10/1910/09/2024 CBC W/DIF F RDW 12.3 % 11.0-1 5.0 Not Available [facility] (Lab) [address], [place], [address], 2024 19:17:53 10/10/1910/09/2024 CBC W/DIF F plt 185 10'3/ uL 150-40 0 Not Available [facility] (Lab) [address], [place], [address], 2024 19:17:53 10/10/1910/09/2024 CBC W/DIF F MPV 12.4 fL 8.8-12 .1 high Not Available [facility] (Lab) [address], [place], [address], 2024 19:17:53 10/10/1910/09/2024 CBC W/DIF F NRBC's 0.0 % 0.0 Not Available [facility] (Lab) [address], [place], [address], 2024 19:17:53 10/10/1910/09/2024 CBC W/DIF F absolute NRBCs 0.0 10'3/ uL no refere nce range establ ished Not Available [facility] (Lab) [address], [place], [address], 2024 19:17:53 10/10/19 25 10/09/2024 CBC W/DIF F neutrophils 75.7 % 34.0-7 3.0 high Not Available [facility] (Lab) [address] [facility], [place], [address], 2024 19:17:53 10/10/19 25 10/09/2024 CBC W/DIF F lymphocytes 17.5 % 15.0-5 0.0 Not Available [facility] (Lab) [address] [facility], [place], [address], 2024 19:17:53 10/10/19 25 10/09/2024 CBC W/DIF F monocytes 4.4 % 1.0-15 .0 Not Available [facility] (Lab) [address] [place], [address], 2024 19:17:53 10/10/19 25 10/09/2024 CBC W/DIF F eosinophils 1.9 % 0.0-8. 0 Not Available [facility] (Lab) [address] [facility], [place], [address], 2024 19:17:53 10/10/19 25 10/09/2024 CBC W/DIF F basophils 0.2 % 0.0-2. 0 Not Available [facility] (Lab) [address] [facility], [place], [address], 2024 19:17:53 10/10/19 25 10/09/2024 CBC W/DIF [...] separ ately if prese nt. Not Available [facility] (Lab) [address] [facility], [place], [address], 2024 19:17:53 10/10/1910/09/2024 CBC W/DIF F absolute neutrophils 7.4 10'3/ uL 1.5-8. 0 Not Available [facility] (Lab) [address] [facility], [place], [address], 2024 19:17:53 10/10/1910/09/2024 CBC W/DIF F absolute lymphocytes 1.7 10'3/ uL 1.0-4. 0 Not Available [facility] (Lab) [address] [facility], [place], [address], 2024 19:17:53 10/10/1910/09/2024 CBC W/DIF F absolute monocytes 0.4 10'3/ uL 0.2-1. 0 Not Available [facility] (Lab) [address] [facility], [place], [address], 2024 19:17:53 10/10/1910/09/2024 CBC W/DIF F absolute eosinophils 0.2 10'3/ uL 0.0-0. 6 Not Available [facility] (Lab) [address] [facility], [place], [address], 2024 19:17:53 10/10/1910/09/2024 CBC W/DIF F absolute basophils 0.0 10'3/ uL 0.0-0. 3 Not Available [facility] (Lab) [address] [facility], [place], [address], 2024 19:17:53 10/10/1910/09/2024 CBC W/DIF F absolute immature granulocytes 0.0 10'3/ uL 0.00-0 .10 Refer ence range s for nonbi nary/ inter sex or unspe cifie d gende r patie nts have not been estab lishe d. Pleas e refer [facility] table for range s estab lishe d for cisge nder patie nts and evalu ate in the clini nicolle kathy xt of the indiv idual patie nt: https :[email or web address] jaelynand book. nm.or g/gen derx Not Available [facility] (Lab) [address], [place], [address], 2024 19:17:53 10/10/1910/09/2024 HIV 1/2 ANTIG EN/AN TIBOD Y, REFLE X CONFI RMATI ON HIV antigen/anti body Nonrea ctive nonrea ctive HIV-1 antig en and HIV-1 /HIV- 2 antib odies were not detec katlin. No labor atory evide nce of HIV infec tion. Not Available [facility] (Lab) [address], [place], [address], 2024 19:17:54 10/10/1910/09/2024 HEPAT ITIS B SURFA CE ANTIG EN hepatitis B surface antigen Non-re active non-re active This assay was perfo rmed using [employer] ratio n reage nts and test kits. Value s obtai ning with other assay metho ds or kits canno t be used inter figueroa eably . Not Available [facility] (Lab) [address], [place], [address], 2024 19:17:55 10/10/1910/09/2024 HEPAT ITIS C ANTIB KANDI SCREE N, REFLE X TO CONFI RMATI ON hepatitis C antibody Non-re active non-re active Antib odies to HCV Not Detec katlin, does not exclu de the possi bilit y of expos ure to HCV. Not Available [facility] (Lab) [address], [place], [address], 2024 19:17:55 10/10/1910/09/2024 RUBEL LA IGG ANTIB KANDI, QUANT rubella antibodies, IgG Reacti ve reacti ve Not Available [facility] (Lab) [address] [place], [address], 2024 19:17:55 10/10/19 25 10/09/2024 RUBEL LA IGG ANTIB KANDI, QUANT rubella antibodies, IgG quant 33.1 IU/mL >=10 Non-r eacti ve (Non- Immun e) <10 IU/mL React jb (Immu ne) > or = 10 IU/mL Not Available [facility] (Lab) [address] [facility], [place], [address], 2024 19:17:55 10/10/19 25 10/09/2024 TYPE/ RH/SC REEN ABO/Rh type A POS Not Available [facility] (Lab) [address] [facility], [place], [address], 2024 19:17:56 10/10/19 25 10/09/2024 TYPE/ RH/SC REEN antibody screen NEG Not Available [facility] (Lab) [address] [facility], [place], [address], 2024 19:17:56 10/10/19 25 10/09/2024 TYPE/ RH/SC REEN exp date 2024 23:59 Not Available [facility] (Lab) [address] [facility], [place], [address], 2024 19:17:56 10/10/19 25 10/09/2024 HEMOG LOBIN A1C hemoglobin A1C 4.7 % 4.0-5. 6 The Ameri can Diabe cullen [employer] iatio n recom mends that a prima ry goal of thera py zion braxton be a HBA1C of < 7% and that physi cians zion d reeva luate the treat ment regim en in patie nts with HBA1C value s consi stent ly > 8%. <5.7% Chrissy l 5.7 - 6.4% Incre ased risk for diabe cullen >=6.5 % Diagn ostic of diabe cullen <7.0% Goal of thera py >8.0% Actio n sugge sted Not Available [facility] (Lab) [address] [facility], [place], [address], 2024 19:17:56 10/10/1910/09/2024 RPR SCREE N, REFLE X TITER /CONF IRMAT ION RPR qualitative Nonrea ctive nonrea ctive Not Available [facility] (Lab) [address] [facility], [place], [address], 2024 19:17:57 10/10/1910/09/2024 LEAD, BLOOD (ADUL T/PED IATRI C) lead, whole blood <1.0 mcg/d L <3.5 See Note 1 Mandie sis was perfo rmed by Nael Silverman ed Plasm a Mass Spect romet ry (ICPM S) Note 1 This test was devel oped and its mandie tical perfo rmanc e dorita cteri stics have been deter mined by [facility]stic [facility]. It has not been clear ed or appro herson by the FDA. This assay has been valid ated pursu ant to the CLIA regul ation s and is used for clini nicolle purpo ses. Perfo rming Organ izati on Infor isai n: Site ID: [id number] Name: [facility]stic s-Andreas braxton Len Addre ss: [address] [place] [address] Dire tor: Bharathi vitale V Katey s Not Available [facility] (Lab) [address] [facility], [place], [address], 2024 19:17:57 10/10/19 25 10/09/2024 CULTU RE: URINE result report SEE RESULT S BELOW Test: Cultu re: Urine Speci men Sourc e: Urine - Clean Catch Speci men Type: Urine Speci men Date: 025 1423 Resul t Date: 9 Resul t Statu s: Final resul t Abnor mal: No Resul ting Lab: [facility] [address] [facility] [address] Tel: CULTU RE ----- ----- ----- --- No growt h in 1 day (dete ction level of 10,00 0 colon ies / ml.) Not Available [facility] (Lab) [address], [place], [address], 2024 22:42:52 10/10/19 25 10/09/2024 drug scree n, urine Amphetamines : negati ve Not Available [facility] [address], [place], [address], 10/09/2024 15:12:54 10/10/19 25 10/09/2024 drug scree n, urine Cannabinoids : negati ve Not Available [facility] [address], [place], [address], 10/09/2024 15:12:54 10/10/19 25 10/09/2024 drug scree n, urine Cocaine: negati ve Not Available [facility] [address], [place], [address], 10/09/2024 15:12:54 10/10/19 25 10/09/2024 drug scree n, urine Opiates: negati ve Not Available [facility] [address], [place], [address], 10/09/2024 15:12:54 10/10/19 25 10/09/2024 drug scree n, urine Phenocyclidi ne: negati ve Not Available [facility] [address], [place], [address], 10/09/2024 15:12:54 10/10/19 25 10/09/2024 drug scree n, urine Barbiturates : negati ve Not Available [facility] [address], [place], [address], 10/09/2024 15:12:54 10/10/19 25 10/09/2024 drug scree n, urine Benzodiazepi david: negati ve Not Available [facility] [address], [place], [address], 10/09/2024 15:12:54 10/10/19 25 10/09/2024 drug scree n, urine Ethanol: negati ve Not Available [facility] [address], [place], [address], 10/09/2024 15:12:54 10/10/19 25 10/09/2024 drug scree n, urine Hallucinogen s: negati ve Not Available [facility] [address], [place], [address], 10/09/2024 15:12:54 10/10/19 25 10/09/2024 drug scree n, urine Inhalants: negati ve Not Available [facility] [address], [place], [address], 10/09/2024 15:12:54 10/10/19 25 10/09/2024 drug scree n, urine Anabolic Steroids: negati ve Not Available [facility] [address], [place], [address], 10/09/2024 15:12:54 11/29/19 25 11/28/2024 FREE T3 T3, free 2.96 pg/mL 2.00-4 .40 This assay is susce ptibl e to inter feren ce from high level s of bioti n which may false ly eleva te resul ts. Pleas e corre late with clini nicolle findi ngs inclu ding TSH and FT4 resul ts. If clini campbell indic ated, Free T3 by Tg Jaeger sis LC/MS may be perfo rmed. Not Available [facility] (Lab) [address], [place], [address], 11/29/2024 05:49:07 11/29/19 25 11/28/2024 TSH TSH 1.43 uIU/m L 0.30-5 .33 Not Available [facility] (Lab) [address] [facility], [place], [address], 11/29/2024 05:49:08 11/29/19 25 11/28/2024 T4 FREE T4, free 0.65 NG/dL 0.54-1 .24 This assay is susce ptibl e to inter feren ce from high level s of bioti n which may false ly eleva te resul ts. Teto e corre late with clini nicolle findi ngs. Not Available [facility] (Lab) [address] [facility], [place], [address], 11/29/2024 05:49:08 11/29/19 25 11/28/2024 urina lysis , dipst ick Leukocytes + Not Available [facility] [address], [place], [address], 11/28/2024 14:42:38 11/29/19 25 11/28/2024 urina lysis , dipst ick Protein + Not Available [facility] [address], [place], [address], 11/28/2024 14:42:38 11/29/19 25 11/28/2024 urina lysis , dipst ick pH 8 Not Available [facility] [address], [place], [address], 11/28/2024 14:42:38 11/29/19 25 11/28/2024 urina lysis , dipst ick Blood + Not Available [facility] [address], [place], [address], 11/28/2024 14:42:38 11/29/19 25 11/28/2024 urina lysis , dipst ick Specific Combs 1.000 Not Available [facility] [address], [place], [address], 11/28/2024 14:42:38 11/29/19 25 11/28/2024 urina lysis , dipst ick Appearance clear Not Available [facility] [address], [place], [address], 11/28/2024 14:42:38 11/29/19 25 11/28/2024 urina lysis , dipst ick Color yellow Not Available [facility] [address], [place], [address], 11/28/2024 14:42:38 10/01/19 25 09/30/2024 US, obste tric, follo w-up No observ ation record ed. [address], [place], [address], 10/01/2024 09:14:12 10/01/19 25 09/30/2024 US, obste tric, limit ed No observ ation record ed. [email or web address] [facility] [address], [place], [address], 09/30/2024 18:25:20 10/10/19 25 10/09/2024 US, obste tric, nucha l trans lucen cy No observ ation record ed. [email or web address] [facility] [address], [place], [address], 10/09/2024 18:42:28 10/10/19 25 10/09/2024 US, obste tric, nucha l trans lucen cy No observ ation record ed. [email or web address] [address], [place], [address], 10/11/2024 09:05:59 11/29/19 25 11/28/2024 US, obste tric, limit ed No observ ation record ed. [email or web address] [facility] [address], [place], [address], 11/28/2024 14:35:57 11/29/1911/28/2024 US, obste tric, limit ed No observ ation record ed. [email or web address] [address], [place], [address], 12/04/2024 17:11:19 12/05/1912/04/2024 US, obste tric, 2nd or 3rd trime ster No observ ation record ed. [email or web address] [address], [place], [address], 12/10/2024 16:29:24 12/05/1912/04/2024 US, obste tric, 2nd or 3rd trime ster No observ ation record ed. [facility] [address], [place], [address], 12/04/2024 18:24:14 01/02/20 25 01/01/2025 , obste tric, follo w-up No observ ation record ed. [facility] [address], [place], [address], 01/01/2025 18:52:26 01/02/20 25 01/01/2025 US, obste tric, follo w-up No observ ation record ed. [email or web address] [address], [place], [address], 01/03/2025 10:24:56 01/30/20 25 01/29/2025 imagi ng/di agnos tic resul t No observ ation record ed. [email or web address] [address], [place], [address], 01/29/2025 11:47:31 01/30/20 25 01/29/2025 US, obste tric, follo w-up No observ ation record ed. [email or web address] [facility] [address], [place], [address], 01/29/2025 11:50:46 01/30/20 25 01/29/2025 US, obste tric, trans vagin al No observ ation record ed. [email or web address] [facility] [address], [place], [address], 01/29/2025 11:50:59 Result Notes None recorded. Problems Name Problem SNOMED Code Status Onset Date Resolution Date Notes Provider Name and Address Organization Details Recorded Time Hypothyr oidism 06176421 Completed levothyr oxine 100mcg- REPEAT WITH 28w LABS Michael Garcia [facility] 3 16:18:26 Hyperten sive disorder 91705990 Completed labetalo l bid, ASA, Baseline 24h TP - [address] [facility] 3 16:18:26 History of cholecys tectomy 600588886 Completed Michael Garcia [facility] 3 16:18:26 History of appendec roselyn 217226960 Completed Michael Garcia [facility] 3 16:18:26 Anxiety 67846165 Completed was on cymbalta - not on currentl y 02/08/[address] [facility] 3 16:18:26 Hyperten sive disorder 70628437 Active labetalo l bid, ASA, Baseline 24h TP - [address] [facility] 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 3 16:18:26 Pre-ecla mpsia 102550035 Completed Michael Garcia null, [facility] 3 16:18:26 Pregnanc y 54441921 Completed 202108/19/2022 Winifred Quiroga null, [facility] 5 09:42:14 Pregnanc y 50175534 Active 2024 Winifred Quiroga null, [facility] 5 09:42:14 Hypothyr oidism 78433685 Active 2024 Levothyr oxine 100mcg Repeat TSH labs @ 28wks Winifred mcnally, [facility] 5 09:34:15 Anxiety 75297617 Active 2024 no current meds Mariam Valverde CNM [address], [place], [address], [facility] 5 15:29:30 Past pregnanc y history of pre-ecla mpsia [id number] 45685 Active 2024 w/o severe features /chronic with meds no meds since last pregnanc y bASA daily HSV- plan 36 week valtrex allergic to gluten/d surinder Valverde CNM [address], [place], [address], [facility] 5 15:30:22 Hypothyr oidism 28459885 Active 2024 Levothyr oxine 100mcg Repeat TSH labs @ 28wks Winifred Quiroga null, [facility] 5 09:34:15 Anxiety 62753385 Active 2024 no current meds Mariam Valverde CNM [address], [place], [address], [facility] 5 15:29:30 Velament ous insertio n of umbilica l cord 96907351 Active 2024 Marina mcnally, [facility] 14:01:20 Vasa previa 91438441 Active 2024 rachael Valverde CNM [address], [place], [address], [facility] 11:20:38 Problem Notes None recorded. Procedures Surgical History Date Name Laterality Status Provider Name and Address Organization Details Recorded Time 025 IUD Removal completed KAMERON Calvert [address], [place], [address], [facility] 07/04/2024 16:54:24 024 Date of Last Pap Smear completed JULIEN Ferrell [facility] 05/08/2024 15:48:32 023 IUD Insertion completed Mirna Maldonado [facility] 09/14/2022 14:34:26 022 IUD Removal completed Mirna Maldonado [facility] 06/01/2021 10:47:37 016 Date of Last Colonoscopy completed Mirna Maldonado [facility] 04/15/2021 11:37:49 016 Colonoscopy completed Mirnarosalina Maldonado [facility] 04/15/2021 11:37:07 011 cholecystectomy completed Mirna Maldnoado [facility] 04/15/2021 11:37:20 011 extraction of wisdom tooth completed Mirna Maldonado [facility] 04/15/2021 11:37:34 008 Appendectomy completed Mirna Maldonado [facility] 04/15/2021 11:36:52 Appendectomy completed Cordelia Dyert [facility] 11/06/2024 17:17:39 Colonoscopy completed Cordelia Shine [facility] 11/06/2024 17:17:39 Imaging Results None recorded. Procedure Notes None recorded. Medical Equipment None Reported. Allergies Allergen ID Allergen Name Allergen Category Reaction Reaction Severity Criticality Documentation Date Start Date Code Code System Note Provider Name and Address Organization Details Recorded Time 19561 sulfabenz amide Not available hives severe Not available 03/17/2021 30081 RxNorm Mirna Dejesussabrina mcnally, [facility] 2 15:50:59 28084 wheat gluten extract food Not available Not available Not available 04/15/2021 73900 81 RxNorm Mirna Maldonado null, [facility] 2 11:38:14 00424 lactase medicatio n Not available Not available Not available 04/15/2021 56738 RxNorm Mirna Dejesussabrina mcnally, [facility] 2 11:38:23 14868 Substance with sulfonami de structure and antibacte rial mechanism of action (substanc e) medicatio n Not available Not available Not available 01/29/2025 [id number] SNOMED Not Available zohreh - External Data Service - prod 5 02:58:42 45926 wheat preparati on food,medi cation Not available Not available low 02/01/20252023 [id number] 52 RxNorm react ion unrec ogniz ed react ion (text : Stoma ch upset , code: [id number]) (from exter nal sourc e) Not Available zohreh - External Data Service - prod 5 10:36:04 Medications Name Sig Start Date Stop [...] Not Available Not Available Not Available vitamin V62-yglot acid 08/31 completed Not Available Not Available Not Available B12 at morning time 2024 active Not Available Not Available Not 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 01/01/2025 16:45:28 Social History Question Answer Notes LastModified by Organizat ion Details LastModified Time Tobacco Smoking Status Never Smoker Jennifer Key uli, [facility] 03/22/2023 15:53:07 Do You Have An Advance Directive? No [email or web address] Information n ot available 03/17/2021 How Many Years Have You Consumed Alcohol? 7 [email or web address] Information not available 03/17/2021 Are You Blind Or Do You Have Difficulty Seeing? No [email or web address] Information n ot available 03/17/2021 What Is Your Level Of Caffeine Consumption? Moderate [email or web address] Information not available 03/17/2021 How Much Tobacco Do You Chew? None [email or web address] Information not available 03/17/2021 In The 14 Days Before Symptom Onset, Have You Had Close Contact With A Laboratory-confirm ed COVID-19 While That Case Was Ill? No [email or web address] Information n ot available 03/17/2021 In The 14 Days Before Symptom Onset, Have You Had Close Contact With A Person Who Is Under Investigation For COVID-19 While That Person Was Ill? No [email or web address] Information not available 03/17/2021 Have You Been To An Area Known To Be High Risk For COVID-19? No [email or web address] Information not available 03/17/2021 Are You Deaf Or Do You Have Serious Difficulty Hearing? No [email or web address] Information not available 03/17/2021 What Type Of Diet Are You Following? GLUTENFREE [email or web address] Information n ot available 03/17/2021 What Is The Highest Grade Or Level Of School You Have Completed Or The Highest Degree You Have Received? VB48034-5 [email or web address] Information not available 03/17/2021 Are There Any Guns Present In Your Home? No Information not available 03/17/2021 Have You Ever Been Counseled For Unhealthy Alcohol Use? No [email or web address] Information not available 03/22/2023 Do You Use Protection During Sex? Always Information not available 03/17/2021 Do You Use Your Seat Belt Or Car Seat Routinely? Yes Information not available 03/17/2021 Do You Have Smoke And Carbon Monoxide Detectors In Your Home? Yes [email or web address] Information not available 03/17/2021 How Much Tobacco Do You Smoke? No Information not available 03/17/2021 Do You Use Sunscreen Routinely? Yes [email or web address] Information not available 03/17/2021 Has Tobacco Cessation Counseling Been Provided? No [email or web address] Information not available 03/22/2023 Have You Used IV Drugs? No [email or web address] Information not available 03/17/2021 Do You Have Difficulty Walking Or Climbing Stairs? No [email or web address] Information not available 03/22/2023 Sex: Unknown Functional Status Question Answer Note LastModified by Organizat ion Details LastModified Time Do you use any illicit or recreational drugs? No [email or web address] Information not available 03/17/2021 Do you or have you ever used any other forms of tobacco or nicotine? No [email or web address] Information not available 03/22/2023 What is your level of alcohol consumption? Occasional [email or web address] Information not available 03/17/2021 Are you able to walk independently without assistance or assistive devices? YESWOREST [email or web address] Information not available 03/17/2021 Are you able to care for yourself independently? 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 No [email or web address] Information not available 03/22/2023 What is your exercise level? Occasional [email or web address] Information not available 03/17/2021 Mental Status Question Answer Note LastModified by Organization D etails LastModified Time Do you feel stressed (tense, restless, nervous, or anxious, or unable to sleep at night)? [id number] Information not available 03/17/2021 Family History Relationship Description Onset Age of this Age Resolved Age Notes LastModified by Organization Details LastModified Time Maternal Grandmother Hypertensive disorder [email or web address] Not available 03/17 15:51:00 Mother Hypertensive disorder [email or web address] Not available 03/17 15:51:00 Mother Disorder of thyroid gland Not available 03/17 15:51:00 Mother High risk [email or web address] Not available 03/17 15:51:00 Paternal Grandmother Hypertensive disorder Not available 03/17 15:51:00 Medical History Condition Response Allergies (Food, seasonal, environmental ) Y Other N Breast Cancer N Drug/Latex Allergies/Reactions Y Blood Transfusion N Dermatologic Disorders N Lung Disease N Defects or Inherited Disease N Breast Problem N Gestational Diabetes N Hematologic disorders N Anesthesia Complications N History of STI Y Deep Vein Thrombosis N Polycystic ovary syndrome N Anxiety Disorder Y Autoimmune disease N Arthritis N Infertility N Polyps N Acid Reflux (GERD) Y History of abnormal pap N Cancer N Stroke N Varicosities N Neurologic/Epilepsy N Endometriosis N High Cholesterol N Headaches N Fibromyalgia N Kidney Disease N Heart Problems N Kidney or Bladder Problems N Thyroid Problems Y GI Problems Y Eating Disorder N Anemia [...] ICD10 Code Diagnosis IMO Codes Diagnosis Note [id number] Renaldo Reyes MD [facility] [address],[place] [address] 12/04/2024 16:44:59 12/05/2024 09:02:08 Screening status 408894468 Z36.3 Z3A.20 6005764091 [id number] Mariam Valverde [facility] [address],[place] [address] 12/04/2024 16:45:22 12/05/2024 16:48:14 Gestation period, 20 weeks 36575065 Z3A.20 6522695 [id number] TOI MENDOZA MD [facility] [address],[place] [address] 01/01/2025 15:48:10 01/01/2025 16:48:34 Velamentous insertion of umbilical cord 54293546 O43.122 Z3A.24 8990569 [id number] TOI MENDOZA MD [facility] [address],[place] [address] 01/01/2025 15:48:36 01/01/2025 17:52:49 Hypothyroidism 61841483 E03.9 95358964 Velamentou s insertion of umbilical cord 42394618 O43.042 [id number] Past pregn tim history of pre-eclampsia 6395654819 71829 Z87.59 676837 Gestation period, 24 weeks 601557385 Z3A.24 [id number] Health Concerns Section Related Observation LastModified by Organization Detai ls LastModified Time None Recorded Concern Status LastModified by Organization Details LastModified Time None Recorded Payers Encounter Date Sequence Insurance Name Policy Number Policy Maldonado Covered Member ID Maldonado Member ID Guarantor Name 01/01/2025 1 [employer] [facility] [facility] [employer] (O) [id number] Jessica Keys [id number] 1 Jessica Keys Notes Date Note Type Note Provider Name and Address Organization Details Recorded Time 01/01/2025 text/html Generic HPI TemplateReported by Patient TOI MENDOZA MD [address], [place], [address], [facility] 01/01/2025 17:34:35 OBGyn Episode Ob Episode Information Episode Created Date Number of Fetuses Patient Bloodtype Patient rh Status Prepregnancy Weight lbs Domestic Partner Domestic Partner Phone Father Name Forest And Conservation Worker Status 10/01/19 25 1 A Positive 182 OPEN Fetus Data First Name Last Name Admitted to NICU Weight (g) Sex Living Outcome Pediatric Complications Fetus ID Race Codes Race Delivery Type [id number] Problems Problem Notes [facility] of [facility] Problem Name Start Date End Date Resolution Snomed Code Not e Anxiety 10/09/2024 57319189 no curren t meds Past history of pre-eclampsia 10/09/2024 [id number] w/o severe features/chronic with medsno meds since last pregnancybASA dailyHSV- plan 36 week valtrexallergic to gluten/dairy Velamentous insertion of umbilical cord 11/29/2024 24856107 Hypothyroidism 10/09/2024 66994050 Levo thyroxine 100mcg Repeat TSH labs @ 28wks Vasa previa 01/29/2025 [id number] [facility] ref erall Nick Calculation Initial Nick [...] Type Weight in lbs Pre/Post Dialysis Refused 181.664109002771 BP Diastolic BP Location Tested BP Systolic [...] Weight in lbs Pre/Post Dialysis Refused Weight 183.056179204779 BP Diastolic BP Location Tested BP Systolic [...] Type Weight in lbs Pre/Post Dialysis Refused 185.403541730527 BP Diastolic BP Location Tested BP Systolic [...] Weight in lbs Pre/Post Dialysis Refused Weight 185.790901934912 BP Diastolic BP Location Tested BP Systolic BP Type 74 L arm 119 sitting Fetus Heart Rate Present Fetus Movement A Yes Comments reviewed us, velamentos inse rtion LVEIF rpt 4 weeks +FM, [...] Type Weight in lbs Pre/Post Dialysis Refused 190.228333870900 BP Diastolic BP Location Tested BP Systolic [...] Weight in lbs Pre/Post Dialysis Refused Weight 196.220904934326 BP Diastolic BP Location Tested BP Systolic BP Type 82 120 Fetus Heart Rate Present Fetus Movement A Yes Comments +FM, doing well, ? vasa prev ia, reviewed, if any bleeding to labor, will f/u with mfm efw 68%, reviewed with dr. mendoza, education and precautions, gct todayc/o rash on [...]
--- OUTSIDE RECORDS SUMMARY | 2025-02-02 12:17 | XMS_ITS | Encounter Summary ---
Author Organization [facility] Health Address [address] [place] [address] Care Team Providers Care Automotive Services Manager Name Role Phone Mariam Valverde APRN-EMPLOYMENT INTERVIEWER Unavailable Bud Jaimes MD Unavailable Fabi Hoyt pacu nurse Provider Unavaila ble Encounter Details Date Type Department Care Team (Late st Contact Info) Description 08/29/2024 Lab Requisition [facility] - DermPath Lab [address] [place] [address] Casey William MD [facility] DERMATOLOGY [address] [place] [phone] Dermatitis, unspecified Social History Tobacco Use Types Packs/Day Years Used Date Smoking Tobacco: Never Passive Smoke Exposure: Never Smokeless Tobacco: Never Alcohol Use Standard Drinks/Week Comments Yes 0 (1 standard drink = 0.6 oz pur e alcohol) Education Answer Date Recorded What is the highest level of school you have completed or the highest degree you have received? 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 Not on file Not on file No t on file documented as of this encounter Plan of Treatment Not on file documented as of this encounter Procedures Procedure Name Priority Date/Time Associated Diagnosis Comments DERMATOPATHOLOGY Routine 08/29/2024 12:0 0 AM CDT Dermatitis, unspecified documented in this encounter Results * DERMATOPATHOLOGY (08/29/2024 12:00 AM CDT) Case Report Dermatopathology Report Case: [id number] Authorizing Provider: Casey William MD Collected: 08/29/2024 12:00 AM Ordering Location: [facility] - Received: 08/30/2024 09:46 AM DermPath Lab Pathologist: Kimberly Fernandez MD Specimen: Skin, left posterior scalp 2:06 PM CDT DERMATOPATHOLOGY LABORATORY Final Diagnosis Specimen A. SKIN, left posterior scalp: PSORIASIFORM DERMATITIS (L44.8) (see microscopic description and comment) 2:06 PM CDT DERMATOPATHOLOGY LABORATORY at 1406 CDT Clinical History Seborrheic Dermatitis vs SCC 2:06 PM CDT DERMATOPATHOLOGY LABORATORY Gross Description Specimen A: Received is one formalin filled container labeled with the patient's name and designated left posterior scalp. The specimen consists of a shave biopsy measuring 7x5x1 mm. Jar 0. 2:06 PM CDT DERMATOPATHOLOGY LABORATORY Microscopic Description Specimen A. SKIN, left posterior scalp: There is psoriasiform hyperplasia of the epidermis with focal parakeratosis and spongiosis. There are scattered itnracorneal neutrophils present. There is a superficial, mainly lymphohistiocytic inflammatory infiltrate. Eosinophils are not seen. Grocott's methenamine silver (GMS) stain is negative for fungal elements in the sections examined. IL-36 immunostain shows patchy weak staining in the superficial aspect of the epidermis. Additional deeper sections were obtained and reviewed. COMMENT: If these histologic features represent a more localized process, the histologic differential diagnosis includes a psoriasiform keratosis, and a benign verrucous keratosis. If these features represent a more diffuse process, the histological differential diagnosis includes seborrheic dermatitis, a chronic eczematous dermatitis, and less likely early / partially treated psoriasis. Clinical correlation is recommended. 2:06 PM CDT DERMATOPATHOLOGY LABORATORY Disclaimer An external and internal positive and negative controls are appropriate for the histochemical, immunohistochemical and immunofluorescence stain(s) in this case (if any), except where stated explicitly. The performance characteristics of the stain(s) cited in this report were developed and its performance characteristic determined by the Dermatopathology Laboratory at [facility], directed by Dr. Kai Napier. These tests need not be, and therefore are not, approved by the [place] Food and Drug Administration. The tests are used for clinical purposes. Billing Codes Specimen Charges Stain Charges 38271 1 [id number] 84529 1 1 5 2:06 PM CDT DERMATOPATHOLOGY LABORATORY Embedded Images 2:06 PM CDT DERMATOPATHOLOGY LABORATORY Pathology/Cytolog y TISSUE SPECIMEN FROM SKIN / Unknown 08/29/2024 08/30/2024 9:46 AM CDT Casey William MD LAB - PATHOLOGY/CYTOLOGY MADDY GRAHAM Final Result DERMATOPATHOLOGY LABORATORY [facility] - Department of Dermatology [facility] Medicine [address] [phone] documented in this encounter Visit Diagnoses Diagnosis Dermatitis, unspecified documented in this encounter Care Teams Automotive Services Manager Relationship Specialty Start Date End Date Fabi Hoyt RN PCP - General 04/09/24 Mariam Valverde, [employer] WRESTLER-EMPLOYMENT INTERVIEWER [address] [place] [address] Referring Physician Nurse Practitioner 05/12/21 Bud Jaimes MD [address] [facility], [phone] Primary Care Provider Family Medicine 05/13/21 documented as of this encounter
--- OUTSIDE RECORDS SUMMARY | 2025-02-02 12:17 | XMS_ITS | Continuity of Care Document ---
Author Organization [facility], [facility]CJay[facility] Address [address] [place] [address] [place] [address] Assessment Encounter Date Assessment Date Assessment LastModified by Organization Details LastModified Time 12/04/2024 12/04/2024 Patient is __20_weeks . Discussed plan. Not available 12/05/2024 15:54:23 Plan of Treatment Reminders Order Date Submit [...] Not Available [facility] [address], [place], [address], 10/16/2024 20:16:41 10/17/19 25 10/16/2024 [UNIT Y] ANEUP LOIDY NIPT 22Q11.2 microdeletio n LOW RISK <1 in 10,000 normal Not Available Yol[facility] [address], [place], [address], 10/16/2024 20:16:41 10/17/19 25 10/16/2024 [UNIT Y] ANEUP LOIDY NIPT sex chromosome aneuploidy NOT DETECT ED normal Not Available [facility] [address], [place], [address], 10/16/2024 20:16:41 10/17/19 25 10/16/2024 [UNIT Y] ANEUP LOIDY NIPT monosomy X LOW RISK <1 in 10,000 normal Not Available [facility] [address], [place], [address], 10/16/2024 20:16:41 10/17/19 25 10/16/2024 [UNIT Y] ANEUP LOIDY NIPT trisomy 13 LOW RISK <1 in 10,000 normal Not Available [facility] [address], [place], [address], 10/16/2024 20:16:41 10/17/19 25 10/16/2024 [UNIT Y] ANEUP LOIDY NIPT trisomy 18 LOW RISK <1 in 10,000 normal Not Available [facility] [address], [place], [address], 10/16/2024 20:16:41 10/17/19 25 10/16/2024 [UNIT Y] ANEUP LOIDY NIPT trisomy 21 LOW RISK <1 in 10,000 normal Not Available [facility] [address], [place], [address], 10/16/2024 20:16:41 10/17/19 25 10/16/2024 [UNIT Y] ANEUP LOIDY NIPT sex MALE normal Not Available [facility] [address], [place], [address], 10/16/2024 20:16:41 10/17/19 25 10/16/2024 [UNIT Y] ANEUP LOIDY NIPT gestation SINGLE TON normal Not Available [facility] [address], [place], [address], 10/16/2024 20:16:41 10/17/19 25 10/16/2024 [UNIT Y] ANEUP DIANA NIPT for detailed report, see pdf See PDF normal Not Available [facility] [address], [place], [address], 10/16/2024 20:16:41 10/10/19 25 10/09/2024 CBC W/DIF F WBC 9.8 10'3/ uL 3.5-10 .5 Not Available [facility] (Lab) [address], [place], [address], 2024 19:17:53 10/10/1910/09/2024 CBC W/DIF F RBC 3.93 10'6/ uL (based on docume nted legal sex) 3.80-5 .20 Not Available [facility] (Lab) [address], [place], [address], 2024 19:17:53 10/10/1910/09/2024 CBC W/DIF F HGB 12.5 g/dL (based on docume nted legal sex) 11.6-1 5.4 Not Available [facility] (Lab) [address], [place], [address], 2024 19:17:53 10/10/1910/09/2024 CBC W/DIF F HCT 35.6 % (based on docume nted legal sex) 34.0-4 5.0 Not Available [facility] (Lab) [address], [place], [address], 2024 19:17:53 10/10/1910/09/2024 CBC W/DIF F MCV 90.6 fL 80.0-9 9.0 Not Available [facility] (Lab) [address], [place], [address], 2024 19:17:53 10/10/1910/09/2024 CBC W/DIF F MCH 31.8 pg 27.0-3 4.0 Not Available [facility] (Lab) [address], [place], [address], 2024 19:17:53 10/10/1910/09/2024 CBC W/DIF F MCHC 35.1 g/dL 32.0-3 5.5 Not Available [facility] (Lab) [address], [place], [address], 2024 19:17:53 10/10/1910/09/2024 CBC W/DIF F RDW 12.3 % 11.0-1 5.0 Not Available [facility] (Lab) [address], [place], [address], 2024 19:17:53 10/10/1910/09/2024 CBC W/DIF F plt 185 10'3/ uL 150-40 0 Not Available [facility] (Lab) [address], [place], [address], 2024 19:17:53 10/10/1910/09/2024 CBC W/DIF F MPV 12.4 fL 8.8-12 .1 high Not Available [facility] (Lab) [address], [place], [address], 2024 19:17:53 10/10/1910/09/2024 CBC W/DIF F NRBC's 0.0 % 0.0 Not Available [facility] (Lab) [address], [place], [address], 2024 19:17:53 10/10/1910/09/2024 CBC W/DIF F absolute NRBCs 0.0 10'3/ uL no refere nce range establ ished Not Available [facility] (Lab) [address], [place], [address], 2024 19:17:53 10/10/19 25 10/09/2024 CBC W/DIF F neutrophils 75.7 % 34.0-7 3.0 high Not Available [facility] (Lab) [address], [place], [address], 2024 19:17:53 10/10/19 25 10/09/2024 CBC W/DIF F lymphocytes 17.5 % 15.0-5 0.0 Not Available [facility] (Lab) [address], [place], [address], 2024 19:17:53 10/10/19 25 10/09/2024 CBC W/DIF F monocytes 4.4 % 1.0-15 .0 Not Available [facility] (Lab) [address], [place], [address], 2024 19:17:53 10/10/19 25 10/09/2024 CBC W/DIF F eosinophils 1.9 % 0.0-8. 0 Not Available [facility] (Lab) [address], [place], [address], 2024 19:17:53 10/10/1910/09/2024 CBC W/DIF F basophils 0.2 % 0.0-2. 0 Not Available [facility] (Lab) [address], [place], [address], 2024 19:17:53 10/10/19 25 10/09/2024 CBC W/DIF [...] separ ately if prese nt. Not Available [facility] (Lab) [address], [place], [address], 2024 19:17:53 10/10/19 25 10/09/2024 CBC W/DIF F absolute neutrophils 7.4 10'3/ uL 1.5-8. 0 Not Available [facility] (Lab) [address], [place], [address], 2024 19:17:53 10/10/19 25 10/09/2024 CBC W/DIF F absolute lymphocytes 1.7 10'3/ uL 1.0-4. 0 Not Available [facility] (Lab) [address], [place], [address], 2024 19:17:53 10/10/1910/09/2024 CBC W/DIF F absolute monocytes 0.4 10'3/ uL 0.2-1. 0 Not Available [facility] (Lab) [address], [place], [address], 2024 19:17:53 10/10/1910/09/2024 CBC W/DIF F absolute eosinophils 0.2 10'3/ uL 0.0-0. 6 Not Available [facility] (Lab) [address], [place], [address], 2024 19:17:53 10/10/19 25 10/09/2024 CBC W/DIF F absolute basophils 0.0 10'3/ uL 0.0-0. 3 Not Available [facility] (Lab) [address], [place], [address], 2024 19:17:53 10/10/1910/09/2024 CBC W/DIF F absolute [...] huertas book. nm.or g/gen derx Not Available [facility] (Lab) [address], [place], [address], 2024 19:17:53 10/10/1910/09/2024 HIV 1/2 ANTIG EN/AN TIBOD Y, REFLE X CONFI RMATI ON HIV antigen/anti body Nonrea ctive nonrea ctive HIV-1 antig en and HIV-1 /HIV- 2 antib odies were not detec katlin. No labor atory evide nce of HIV infec tion. Not Available [facility] (Lab) [address], [place], [address], 2024 19:17:54 10/10/1910/09/2024 HEPAT ITIS B SURFA CE ANTIG EN hepatitis B surface antigen Non-re active non-re active This assay was perfo rmed using [employer] ratio n reage nts and test kits. Value s obtai ning with other assay metho ds or kits canno t be used inter figueroa eably . Not Available [facility] (Lab) [address], [place], [address], 2024 19:17:55 10/10/1910/09/2024 HEPAT ITIS C ANTIB KANDI SCREE N, REFLE X TO CONFI RMATI ON hepatitis C antibody Non-re active non-re active Antib odies to HCV Not Detec katlin, does not exclu de the possi bilit y of expos ure to HCV. Not Available [facility] (Lab) [address], [place], [address], 2024 19:17:55 10/10/1910/09/2024 RUBEL LA IGG ANTIB KANDI, QUANT rubella antibodies, IgG Reacti ve reacti ve Not Available [facility] (Lab) [address], [place], [address], 2024 19:17:55 10/10/1910/09/2024 RUBEL LA IGG ANTIB KANDI, QUANT rubella antibodies, IgG quant 33.1 IU/mL >=10 Non-r eacti ve (Non- Immun e) <10 IU/mL React jb (Immu ne) > or = 10 IU/mL Not Available [facility] (Lab) [address] , [place], [address], 2024 19:17:55 10/10/1910/09/2024 TYPE/ RH/SC REEN ABO/Rh type A POS Not Available [facility] (Lab) [address], [place], [address], 2024 19:17:56 10/10/1910/09/2024 TYPE/ RH/SC REEN antibody screen NEG Not Available [facility] (Lab) [address] , [place], [address], 2024 19:17:56 10/10/1910/09/2024 TYPE/ RH/SC REEN exp date 2024 23:59 Not Available [facility] (Lab) [address], [place], [address], 2024 19:17:56 10/10/1910/09/2024 HEMOG LOBIN A1C hemoglobin [...] >8.0% Actio n sugge sted Not Available [facility] (Lab) [address], [place], [address], 2024 19:17:56 10/10/19 25 10/09/2024 RPR SCREE N, REFLE X TITER /CONF IRMAT ION RPR qualitative Nonrea ctive nonrea ctive Not Available [facility] (Lab) [address], [place], [address], 2024 19:17:57 10/10/19 25 10/09/2024 LEAD, BLOOD (ADUL T/PED IATRI C) lead, whole blood <1.0 mcg/d L <3.5 See Note 1 Mandie sis was perfo rmed by Nael Silverman ed Plasm a Mass Spect rometyrone espinosa (ICPM S) Note 1 This test was devel oped and its mandie tical perfo rmanc e dorita cteri stics have been deter mined by [employer]. It has not been clear ed or appro herson by the FDA. This assay has been valid ated pursu ant to the CLIA regul ation s and is used for clini nicolle purpo ses. Perfo rming Organ izati on Infor matio n: Site ID: [id number] Name: [facility] [facility]Olegario Harrington Addre ss: [id number] [place] [address] Direc tor: Bharathi gill Not Available [facility] (Lab) [address], [place], [address], 2024 19:17:57 10/10/1910/09/2024 CULTU RE: URINE result report SEE RESULT S BELOW Test: Cultu re: Urine Speci men Sourc e: Urine - Clean Catch Speci men Type: Urine Speci men Date: 1423 Resul t Date: 2138 Resul t Statu s: Final resul t Abnor mal: No Resul ting Lab: [facility] [address] [facility] [address] Tel: CULTU RE ----- ----- ----- --- No growt h in 1 day (dete ction level of 10,00 0 colon ies / ml.) Not Available [facility] (Lab) [address], [place], [address], 2024 22:42:52 10/10/19 25 10/09/2024 drug scree n, urine Amphetamines : negati ve Not Available [facility] [address], [place], [address], 10/09/2024 15:12:54 10/10/19 25 10/09/2024 drug scree n, urine Cannabinoids : negati ve Not Available [facility] [address], [place], [address], 10/09/2024 15:12:54 10/10/19 25 10/09/2024 drug scree n, urine Cocaine: negati ve Not Available [facility] [address], [place], [address], 10/09/2024 15:12:54 10/10/19 25 10/09/2024 drug scree n, urine Opiates: negati ve Not Available [facility] [address], [place], [address], 10/09/2024 15:12:54 10/10/19 25 10/09/2024 drug scree n, urine Phenocyclidi ne: negati ve Not Available [facility] [address], [place], [address], 10/09/2024 15:12:54 10/10/19 25 10/09/2024 drug scree n, urine Barbiturates : negati ve Not Available [facility] [address], [place], [address], 10/09/2024 15:12:54 10/10/19 25 10/09/2024 drug scree n, urine Benzodiazepi david: negati ve Not Available [facility] [address], [place], [address], 10/09/2024 15:12:54 10/10/19 25 10/09/2024 drug scree n, urine Ethanol: negati ve Not Available [facility] [address], [place], [address], 10/09/2024 15:12:54 10/10/19 25 10/09/2024 drug scree n, urine Hallucinogen s: negati ve Not Available [facility] [address], [place], [address], 10/09/2024 15:12:54 10/10/19 25 10/09/2024 drug scree n, urine Inhalants: negati ve Not Available [facility] [address], [place], [address], 10/09/2024 15:12:54 10/10/19 25 10/09/2024 drug scree n, urine Anabolic Steroids: negati ve Not Available [facility] [address], [place], [address], 10/09/2024 15:12:54 11/29/19 25 11/28/2024 FREE T3 [...] LC/MS may be perfo rmed. Not Available [facility] (Lab) [address], [place], [address], 11/29/2024 05:49:07 11/29/19 25 11/28/2024 TSH TSH 1.43 uIU/m L 0.30-5 .33 Not Available [facility] (Lab) [address], [place], [address], 11/29/2024 05:49:08 11/29/1911/28/2024 T4 FREE T4, free 0.65 NG/dL 0.54-1 .24 This assay is susce ptibl e to inter feren ce from high level s of bioti n which may false ly eleva te resul ts. Pleas e corre late with clini nicolle findi ngs. Not Available [facility] (Lab) [address], [place], [address], 11/29/2024 05:49:08 11/29/1911/28/2024 urina lysis , dipst ick Leukocytes + Not Available [facility] [address], [place], [address], 11/28/2024 14:42:38 11/29/1911/28/2024 urina lysis , dipst ick Protein + Not Available [facility] [address], [place], [address], 11/28/2024 14:42:38 11/29/1911/28/2024 urina lysis , dipst ick pH 8 Not Available [facility] [address], [place], [address], 11/28/2024 14:42:38 11/29/1911/28/2024 urina lysis , dipst ick Blood + Not Available [facility] [address], [place], [address], 11/28/2024 14:42:38 11/29/1911/28/2024 urina lysis , dipst ick Specific [place] 1.000 [facility] Available [facility] [address], [place], [address], 11/28/2024 14:42:38 11/29/19 25 11/28/2024 urina lysis , dipst ick Appearance clear Not Available [facility] [address], [place], [address], 11/28/2024 14:42:38 11/29/19 25 11/28/2024 urina lysis , dipst ick Color yellow Not Available [facility] [address], [place], [address], 11/28/2024 14:42:38 10/01/19 25 09/30/2024 US, obste tric, follo w-up No observ ation record ed. [email or web address] [address], [place], [address], 10/01/2024 09:14:12 10/01/1909/30/2024 US, obste tric, limit ed No observ ation record ed. [email or web address] [facility] [address], [place], [address], 09/30/2024 18:25:20 10/10/19 25 10/09/2024 US, obste tric, nucha l trans lucen cy No observ ation record ed. [email or web address] [facility] [address], [place], [address], 10/09/2024 18:42:28 10/10/19 25 10/09/2024 US, obste tric, nucha l trans lucen cy No observ ation record ed. [email or web address] [address], [place], [address], 10/11/2024 09:05:59 11/29/1911/28/2024 US, obste tric, limit ed No observ ation record ed. [email or web address] [facility] [address], [place], [address], 11/28/2024 14:35:57 11/29/19 25 11/28/2024 US, obste tric, limit ed No observ ation record ed. [email or web address] [address], [place], [address], 12/04/2024 17:11:19 12/05/19 25 12/04/2024 US, obste tric, 2nd or 3rd trime ster No observ ation record ed. [email or web address] [address], [place], [address], 12/10/2024 16:29:24 12/05/1912/04/2024 US, obste tric, 2nd or 3rd trime ster No observ ation record ed. [facility] [address], [place], [address], 12/04/2024 18:24:14 01/02/20 25 01/01/2025 , obste tric, follo w-up No observ ation record ed. [facility] [address], [place], [address], 01/01/2025 18:52:26 01/02/20 25 01/01/2025 US, obste tric, follo w-up No observ ation record ed. [email or web address] [address], [place], [address], 01/03/2025 10:24:56 01/30/20 25 01/29/2025 imagi ng/di agnos tic resul t No observ ation record ed. [email or web address] [address], [place], [address], 01/29/2025 11:47:31 01/30/20 25 01/29/2025 US, obste tric, follo w-up No observ ation record ed. [address], [place], [address], 01/29/2025 11:50:46 01/30/20 25 01/29/2025 US, obste tric, trans vagin al No observ ation record ed. [email or web address] [facility] [address], [place], [address], 01/29/2025 11:50:59 Result Notes None recorded. Problems Name Problem SNOMED Code Status Onset Date Resolution Date Notes Provider Name and Address Organization Details Recorded Time Hypothyr oidism 01072712 Completed levothyr oxine 100mcg- REPEAT WITH 28w LABS Michael mcnally, [facility] 3 16:18:26 Hyperten sive disorder 27828404 Completed labetalo l bid, ASA, Baseline 24h TP - 147 Michael Driscollle null, [facility] 3 16:18:26 History of cholecys tectomy 269490271 Completed Michael Driscollle null, [facility] 3 16:18:26 History of appendec roselyn 588998425 Completed Michael Driscollle null, [facility] 3 16:18:26 Anxiety 11379198 Completed was on cymbalta - not on currentl y 02/08/22 Michael Driscollle null, [facility] 3 16:18:26 Hyperten sive disorder 05822978 Active labetalo l bid, ASA, Baseline 24h TP - 147 Aungy Radha null, [facility] 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 3 16:18:26 Pre-ecla mpsia 029011156 Completed Aungy Radha [facility], [facility] 3 16:18:26 Pregnanc y 13769687 Completed 202108/19/2022 Winifred Quiroga uli, [facility] 5 09:42:14 Pregnanc y 90156293 Active 2024 Winifred mcnally, [facility] 5 09:42:14 Hypothyr oidism 75146369 Active 2024 Levothyr oxine 100mcg Repeat TSH labs @ 28wks Winifred Quiroga uli, [facility] 5 09:34:15 Anxiety 20457732 Active 2024 no current meds Mariam Valverde CNM [address], [place], [address], [facility] 5 15:29:30 Past pregnanc y history of pre-ecla mpsia 9877246277 77799 Active 2024 w/o severe features /chronic with meds no meds since last pregnanc y bASA daily HSV- plan 36 week valtrex allergic to gluten/d y Maraim Valverde CNM [address], [place], [address], [facility] 5 15:30:22 Hypothyr oidism 26777537 Active 2024 Levothyr oxine 100mcg Repeat TSH labs @ 28wks Winifred Quiroga uli, [facility] 5 09:34:15 Anxiety 57280875 Active 2024 no current meds Mariam Valverde CNM [address], [place], [address], [facility] 5 15:29:30 Velament ous insertio n of umbilica l cord 89681243 Active 2024 Marina mcnally, [facility] 14:01:20 Vasa previa 81001358 Active 2024 rachael Valverde CNM [address], [place], [address], [facility] 11:20:38 Problem Notes None recorded. Procedures Surgical History Date Name Laterality Status Provider Name and Address Organization Details Recorded Time 025 IUD Removal completed KAMERON Calvert [address], [place], [address], [facility] 07/04/2024 16:54:24 024 Date of Last Pap Smear completed JULIEN Ferrell [facility] 05/08/2024 15:48:32 023 [facility] 14:34:26 022 IUD Removal completed Mirnarosalina Maldonado [facility] 06/01/2021 10:47:37 016 Date of Last [facility] 04/15/2021 11:37:49 016 Colonoscopy completed Mirnarosalina Maldonado [facility] 04/15/2021 11:37:07 011 [facility] 04/15/2021 11:37:20 011 extraction of wisdom tooth completed Mirna Maldonado [facility] 04/15/2021 11:37:34 008 [facility] 04/15/2021 11:36:52 Appendectomy completed Cordelia Shine [facility] 11/06/2024 17:17:39 Colonoscopy completed Cordelia Shine [facility] 11/06/2024 17:17:39 Imaging Results None recorded. Procedure Notes None recorded. Medical Equipment None Reported. Allergies Allergen ID Allergen Name Allergen Category Reaction Reaction Severity Criticality Documentation Date Start Date Code Code System Note Provider Name and Address Organization Details Recorded Time 48465 sulfabenz amide Not available hives severe Not available 03/17/2021 68478 RxNorm Mirna mcnally, [facility] 2 15:50:59 11868 wheat gluten extract food Not available Not available Not available 04/15/2021 35420 81 RxNorm Mirna mcnally, [facility] 2 11:38:14 63270 lactase medicatio n Not available Not available Not available 04/15/2021 15154 RxNorm Mirna mcnally [facility] 2 11:38:23 56467 Substance with sulfonami de structure and antibacte rial mechanism of action (substanc e) medicatio n Not available Not available Not available 01/29/2025 65700 8003 SNOMED Not Available zohreh - External Data Service - prod 5 02:58:42 77219 wheat preparati on food,medi cation Not available Not available low 02/01/20252023 91468 52 RxNorm react ion unrec ogniz ed react ion (text : Stoma ch upset , code: 70487 9005) (from exter nal sourc e) Not [...] Not Available Not Available Not Available vitamin K72-vspqm acid 08/31 completed Not Available Not Available Not Available B12 at morning time 2024 active Not Available Not Available Not Avai lable [employer] Thyroid 60 mg tablet 07/28 completed Not [...] and Address Organization Details Last Updated DateTime 12/04/2024 156.21 cm 34.4 kg/m2 48997.59 g 119/74 mm[Hg] Rukhsana Olguin [facility] 12/04/2024 17:59:46 Social History Question Answer Notes LastModified by Organizat ion Details LastModified Time Tobacco Smoking Status Never Smoker Jennifer Key uli, [facility] 03/22/2023 15:53:07 Do You Have An Advance Directive? No [email or web address] Information n ot available 03/17/2021 How Many Years Have You Consumed Alcohol? 7 Information not available 03/17/2021 Are You Blind Or Do You Have Difficulty Seeing? No [email or web address] Information n ot available 03/17/2021 What Is Your Level Of Caffeine Consumption? Moderate [email or web address] Information not available 03/17/2021 How Much Tobacco Do You Chew? None [email or web address] Information not available 03/17/2021 In The 14 Days Before Symptom Onset, Have You Had Close Contact With A Laboratory-confirm ed COVID-19 While That Case Was Ill? No [email or web address] Information n ot available 03/17/2021 In The 14 Days Before Symptom Onset, Have You Had Close Contact With A Person Who Is Under Investigation For COVID-19 While That Person Was Ill? No [email or web address] Information not available 03/17/2021 Have You Been To An Area Known To Be High Risk For COVID-19? No [email or web address] Information not available 03/17/2021 Are You Deaf Or Do You Have Serious Difficulty Hearing? No [email or web address] Information not available 03/17/2021 What Type Of Diet Are You Following? GLUTENFREE [email or web address] Information n ot available 03/17/2021 What Is The Highest Grade Or Level Of School You Have Completed Or The Highest Degree You Have Received? [id number] [email or web address] Information not available 03/17/2021 Are There Any Guns Present In Your Home? No [email or web address] Information not available 03/17/2021 Have You Ever Been Counseled For Unhealthy Alcohol Use? No [email or web address] Information not available 03/22/2023 Do You Use Protection During Sex? Always [email or web address] Information not available 03/17/2021 Do You Use Your Seat Belt Or Car Seat Routinely? Yes [email or web address] Information not available 03/17/2021 Do You Have Smoke And Carbon Monoxide Detectors In Your Home? Yes Information not available 03/17/2021 How Much Tobacco Do You Smoke? No [email or web address] Information not available 03/17/2021 Do You Use Sunscreen Routinely? Yes [email or web address] Information not available 03/17/2021 Has Tobacco Cessation Counseling Been Provided? No [email or web address] Information not available 03/22/2023 Have You Used IV Drugs? No Information not available 03/17/2021 Do You Have Difficulty Walking Or Climbing Stairs? No [email or web address] Information not available 03/22/2023 Sex: Unknown Functional Status Question Answer Note LastModified by Organizat ion Details LastModified Time Do you use any illicit or recreational drugs? No [email or web address] Information not available 03/17/2021 Do you or have you ever used any other forms of tobacco or nicotine? No [email or web address] Information not available 03/22/2023 What is your level of alcohol consumption? Occasional [email or web address] Information not available 03/17/2021 Are you able to walk independently without assistance or assistive devices? YESWOREST [email or web address] Information not available 03/17/2021 Are you able to care for yourself independently? 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 No [email or web address] Information not available 03/22/2023 What is your exercise level? Occasional [email or web address] Information not available 03/17/2021 Mental Status Question Answer Note LastModified by Organization D etails LastModified Time Do you feel stressed (tense, restless, nervous, or anxious, or unable to sleep at night)? [id number] [email or web address] Information not available 03/17/2021 Family History Relationship Description Onset Age of this Age Resolved Age Notes LastModified by Organization Details LastModified Time Maternal Grandmother Hypertensive disorder [email or web address] Not available 03/17 15:51:00 Mother Hypertensive disorder [email or web address] Not available 03/17 15:51:00 Mother Disorder of thyroid gland [email or web address] Not available 03/17 15:51:00 Mother High risk [email or web address] Not available 03/17 15:51:00 Paternal Grandmother Hypertensive disorder [email or web address] Not available 03/17 15:51:00 Medical History Condition [...] ICD10 Code Diagnosis IMO Codes Diagnosis Note [id number] [facility] [address],[place] [address] 11/06/2024 17:11:47 11/06/2024 17:58:08 Gestation period, 16 weeks [id number] Z3A.16 [id number] Renaldo Reyes MD [facility] [address],[place] [address] 11/28/2024 14:01:21 11/28/2024 15:16:08 Pain in pelvis 92317098 R10.2 385484 Acquired hypothyroidism 441585594 E03.9 08890 Acute urin lola tract infection 575029103 N39.0 783675 [id number] Renaldo Reyes MD [facility] [address],[place] [address] 11/28/2024 14:05:03 11/28/2024 14:34:10 Pain in female pelvis 505885430 O26.892 R10.2 Z3A.19 [id number] Renaldo Reyes MD [facility] [address],[place] [address] 12/04/2024 16:44:59 12/05/2024 09:02:08 Screening status 086695276 Z36.3 Z3A.20 [id number] [facility] [address],[place] [address] 12/04/2024 16:45:22 12/05/2024 16:48:14 Gestation period, 20 weeks 45374407 Z3A.20 [id number] Health Concerns Section Related Observation LastModified by Organization Detai ls LastModified Time None Recorded Concern Status LastModified by Organization Details LastModified Time None Recorded Payers Encounter Date Sequence Insurance Name Policy Number Policy Maldonado Covered Member ID Maldonado Member ID Guarantor Name 12/04/2024 1 [facility] [id number] Jessica Keys [id number] Jessica Keys Notes Date Note Type Note Provider Name and Address Organization Details Recorded Time 12/04/2024 text/html Generic HPI TemplateReported by Patient Mariam Pastrana Nicolle, JASON [address], [place], [address], [facility] 12/05/2024 15:54:40 OBGyn Episode Ob Episode Information Episode Created Date Number of Fetuses Patient Bloodtype Patient rh Status Prepregnancy Weight lbs Domestic Partner Domestic Partner Phone Father Name Dough Braker Status 10/01/19 25 1 A Positive 182 OPEN Fetus Data First Name Last Name Admitted to NICU Weight (g) Sex Living Outcome Pediatric Complications Fetus ID Race Codes Race Delivery Type [id number] Problems Problem Notes [facility] Problem Name Start Date End Date Resolution Snomed Code Not e Anxiety 10/09/2024 [id number] no curren t meds Past history of pre-eclampsia 10/09/2024 [id number] w/o severe features/chronic with medsno meds since last pregnancybASA dailyHSV- plan 36 week valtrexallergic to gluten/dairy Velamentous insertion of umbilical cord 11/29/2024 [id number] Hypothyroidism 10/09/2024 77190080 Levo thyroxine 100mcg Repeat TSH labs @ 28wks Vasa previa 01/29/2025 [id number] [facility] ref erall Nick Calculation Initial Nick Date [...] Type Weight in lbs Pre/Post Dialysis Refused 181.290310734428 BP Diastolic BP Location Tested BP Systolic [...] Weight in lbs Pre/Post Dialysis Refused Weight 183.119663507396 BP Diastolic BP Location Tested BP Systolic [...] Type Weight in lbs Pre/Post Dialysis Refused 185.779372788217 BP Diastolic BP Location Tested BP Systolic [...] Weight in lbs Pre/Post Dialysis Refused Weight 185.190841520475 BP Diastolic BP Location Tested BP Systolic [...] Type Weight in lbs Pre/Post Dialysis Refused 190.131136090352 BP Diastolic BP Location Tested BP Systolic [...] Weight in lbs Pre/Post Dialysis Refused Weight 196.668570284173 BP Diastolic BP Location Tested BP Systolic [...]
--- OUTSIDE RECORDS SUMMARY | 2025-02-02 12:17 | XMS_ITS | Data Portability ---
Author Organization [facility] Address [address] [place] [address] [place] [address] Assessment Encounter Date Assessment Date Assessment LastModified by Organization Details LastModified Time 01/29/2025 01/29/2025 Patient is _28__weeks . Discussed plan. Not available 01/29/2025 11:22:18 Plan of Treatment Reminders Order Date Submit Date Provider Last Modified By Organization Details Last Modified Time Details Appointments OB ROUTINE 2024 01:15P Eliazar JARQUIN MD Not available Not available Not available Lab None recorded. Referral None recorded. Procedures None recorded. Surgeries None recorded. Imaging US, obstetric , follow-up 2024 025 [email or web address] [address], [address], [place], [address], 01/29/2025 11:52:34 US, obstetric , transvagi nal 2024 025 [email or web address] [address], [address], [place], [address], 01/29/2025 11:52:40 US, obstetric , follow-up 2024 025 [email or web address] [address], [address], [place], [address], 01/02/2025 23:19:28 US, obstetric , 2nd or 3rd trimester 2024 025 [email or web address] [address], [address], [place], [address], 12/05/2024 11:12:29 Medication Orders None recorded. Patient TargetsNo targets recorded. Patient InstructionsNo instructions recorded. Reason for Referral None Reported. Results Created Date Observation Date Name Description Value Unit Range Abnormal Flag Note LastModifiedBy Organization Detail LastModifiedTime 11/29/1911/28/2024 FREE T3 T3, free 2.96 pg/mL 2.00-4 [...] LC/MS may be perfo rmed. Not Available [facility] (Lab) [address], [place], [address], 11/29/2024 05:49:07 11/29/19 25 11/28/2024 TSH TSH 1.43 uIU/m L 0.30-5 .33 Not Available [facility] (Lab) [address], [place], [address], 11/29/2024 05:49:08 11/29/19 25 11/28/2024 T4 FREE T4, free 0.65 NG/dL 0.54-1 .24 This assay is susce ptibl e to inter feren ce from high level s of bioti n which may false ly eleva te resul ts. Pleas e corre late with clini nicolle findi ngs. Not Available [facility] (Lab) [address], [place], [address], 11/29/2024 05:49:08 11/29/19 25 11/28/2024 urina lysis , dipst ick Leukocytes + Not Available Aiden londono [address], [place], [address], 11/28/2024 14:42:38 11/29/19 25 11/28/2024 urina lysis , dipst ick Protein + Not Available [place] [address], [place], [address], 11/28/2024 14:42:38 11/29/19 25 11/28/2024 urina lysis , dipst ick pH 8 Not Available [place] [address], [place], [address], 11/28/2024 14:42:38 11/29/19 25 11/28/2024 urina lysis , dipst ick Blood + Not Available [place] [address], [place], [address], 11/28/2024 14:42:38 11/29/19 25 11/28/2024 urina lysis , dipst ick Specific [place] 1.000 Not Available [facility] [address], [place], [address], 11/28/2024 14:42:38 11/29/1911/28/2024 urina lysis , dipst ick Appearance clear Not Available [facility] [address], [place], [address], 11/28/2024 14:42:38 11/29/1911/28/2024 urina lysis , dipst ick Color yellow Not Available [place] [address], [place], [address], 11/28/2024 14:42:38 11/29/19 25 11/28/2024 , obste tric, limit ed No observ ation record ed. [email or web address] [place] [address], [place], [address], 11/28/2024 14:35:57 11/29/1911/28/2024 , obste tric, limit ed No observ ation record ed. [email or web address] [address], [place], [address], 12/04/2024 17:11:19 12/05/1912/04/2024 US, obste tric, 2nd or 3rd trime ster No observ ation record ed. [email or web address] [address], [place], [address], 12/10/2024 16:29:24 12/05/19 25 12/04/2024 US, obste tric, 2nd or 3rd trime ster No observ ation record ed. [facility] [address], [place], [address], 12/04/2024 18:24:14 01/02/20 25 01/01/2025 , obste tric, follo w-up No observ ation record ed. [facility] [address], [place], [address], 01/01/2025 18:52:26 01/02/2001/01/2025 , obste tric, follo w-up No observ ation record ed. [email or web address] [address], [place], [address], 01/03/2025 10:24:56 01/30/20 25 01/29/2025 imagi ng/di agnos tic resul t No observ ation record ed. [email or web address] [address], [place], [address], 01/29/2025 11:47:31 01/30/20 25 01/29/2025 US, obste tric, follo w-up No observ ation record ed. [email or web address] [place] [address] [address], [place], [address], 01/29/2025 11:50:46 01/30/20 25 01/29/2025 US, obste tric, trans vagin al No observ ation record ed. [email or web address] [place] [address], [place], [address], 01/29/2025 11:50:59 Result Notes None recorded. Problems Name Problem SNOMED Code Status Onset Date Resolution Date Notes Provider Name and Address Organization Details Recorded Time Hypothyr oidism 26530977 Completed levothyr oxine 100mcg- REPEAT WITH 28w LABS Manishadougiekayla LemusRadha [facility], [facility] 3 16:18:26 Hyperten sive disorder 31470319 Completed labetalo l bid, ASA, Baseline 24h TP - 147 Michael Driscollle [facility] 3 16:18:26 History of cholecys tectomy 984977628 Completed Michael Lemusizzle [facility], [facility] 3 16:18:26 History of appendec roselyn 184390898 Completed Michael Lemusizzle [facility], [facility] 3 16:18:26 Anxiety 86169383 Completed was on cymbalta - not on currentl y 02/08/22 Michael Driscollle [facility] 3 16:18:26 Hyperten sive disorder 90631329 Active labetalo l bid, ASA, Baseline 24h [facility], [facility] 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 3 16:18:26 Pre-ecla mpsia 480501287 Completed Manishadougiekayla LemusRadha [facility] 3 16:18:26 Pregnanc y 02682210 Completed 202108/19/2022 Winifred mcnally, [facility] 5 09:42:14 Pregnanc y 61492790 Active 2024 Winifred mcnally, [facility] 5 09:42:14 Hypothyr oidism 17039089 Active 2024 Levothyr oxine 100mcg Repeat TSH labs @ 28wks Winifred mcnally, [facility] 5 09:34:15 Anxiety 77314090 Active 2024 no current meds Mariam Valverde CNM [address], [place], [address], [facility] 5 15:29:30 Past pregnanc y history of pre-ecla mpsia 2438705097 55220 Active 2024 w/o severe features /chronic with meds no meds since last pregnanc y bASA daily HSV- plan 36 week valtrex allergic to gluten/d airy Mariam Valverde CNM [address], [place], [address], [facility] 5 15:30:22 Hypothyr oidism 70503967 Active 2024 Levothyr oxine 100mcg Repeat TSH labs @ 28wks Winifred Quiroga uli, [facility] 5 09:34:15 Anxiety 38623103 Active 2024 no current meds Mariam Valverde CNM [address], [place], [address], [facility] 5 15:29:30 Velament ous insertio n of umbilica l cord 34439618 Active 2024 Marina mcnally, [facility] 5 14:01:20 Vasa previa 30864586 Active 2024 [facility] is[facility] Valverde, JASON [address], [place], [address], [facility] 11:20:38 Problem Notes None recorded. Procedures Surgical History Date Name Laterality Status Provider Name and Address Organization Details Recorded Time 025 IUD Removal completed KAMERON Calvert [address], [place], [address], [facility] 07/04/2024 16:54:24 024 Date of Last Pap Smear completed JULIEN Ferrell [facility] 05/08/2024 15:48:32 023 IUD Insertion completed Mirna [facility] 09/14/2022 14:34:26 022 IUD Removal completed Mirna [facility] 06/01/2021 10:47:37 016 Date of Last Colonoscopy completed Mirna [facility] 04/15/2021 11:37:49 016 Colonoscopy completed Mirna [facility] 04/15/2021 11:37:07 011 cholecystectomy completed Mirna [facility] 04/15/2021 11:37:20 011 extraction of wisdom tooth completed Mirna Maldonado [facility] 04/15/2021 11:37:34 008 [facility] 04/15/2021 11:36:52 Appendectomy completed Cordelia Shine [facility] 11/06/2024 17:17:39 Colonoscopy completed Cordelia Shine [facility] 11/06/2024 17:17:39 Imaging Results None recorded. Procedure Notes None recorded. Medical Equipment None Reported. Allergies Allergen ID Allergen Name Allergen Category Reaction Reaction Severity Criticality Documentation Date Start Date Code Code System Note Provider Name and Address Organization Details Recorded Time 51367 sulfabenz amide Not available hives severe Not available 03/17/2021 04015 RxNorm Mirna Maldonado uli, [facility] 2 15:50:59 86310 wheat gluten extract food Not available Not available Not available 04/15/2021 58705 81 RxNorm Mirna Dejesussabrina mcnally, [facility] 2 11:38:14 90874 lactase medicatio n Not available Not available Not available 04/15/2021 42787 RxNorm Mirna Dejesussabrina mcnally, [facility] 2 11:38:23 02825 Substance with sulfonami de structure and antibacte rial mechanism of action (substanc e) medicatio n Not available Not available Not available 01/29/2025 55765 8003 SNOMED Not Available zohreh - External Data Service - prod 5 02:58:42 92234 wheat preparati on food,medi cation Not available Not available low 02/01/20252023 02610 52 RxNorm react ion unrec ogniz ed react ion (text : Stoma ch upset , code: 25339 [id number]) (from exter nal sourc e) Not [...] Not Available Not Available Not Available vitamin U88-wjvlt acid 08/31 completed Not Available Not Available Not Available B12 at morning time 2024 active Not Available Not Available 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 12/04/2024 17:59:46 Date Recorded Body weight Body mass index (BMI) Body height Systolic And Diastolic Provider Name and Address Organization Details Last Updated DateTime 01/01/2025 13989.550 3 g 35.3 kg/m2 156.21 cm 113/76 mm[Hg] [facility]hsana [facility] 01/01/2025 16:45:28 Date Recorded Body height Body mass index (BMI) Body weight Systolic And Diastolic Provider Name and Address Organization Details Last Updated DateTime 01/29/2025 156.21 cm 36.4 kg/m2 92659.1 g 120/82 mm[Hg] BALTAZAR WOODSON [facility] 01/29/2025 10:47:16 Social History Question Answer Notes LastModified by Organizat ion Details LastModified Time Tobacco Smoking Status Never Smoker Jennifer Key uli, [facility] 03/22/2023 15:53:07 Do You Have An Advance Directive? No [email or web address] Information n ot available 03/17/2021 How Many Years Have You Consumed Alcohol? 7 [email or web address] Information not available 03/17/2021 Are You Blind Or Do You Have Difficulty Seeing? No [email or web address] Information n ot available 03/17/2021 What Is Your Level Of Caffeine Consumption? Moderate [email or web address] Information not available 03/17/2021 How Much Tobacco Do You Chew? None [email or web address] Information not available 03/17/2021 In The 14 Days Before Symptom Onset, Have You Had Close Contact With A Laboratory-confirm ed COVID-19 While That Case Was Ill? No [email or web address] Information n ot available 03/17/2021 In The 14 Days Before Symptom Onset, Have You Had Close Contact With A Person Who Is Under Investigation For COVID-19 While That Person Was Ill? No [email or web address] Information not available 03/17/2021 Have You Been To An Area Known To Be High Risk For COVID-19? No Information not available 03/17/2021 Are You Deaf Or Do You Have Serious Difficulty Hearing? No [email or web address] Information not available 03/17/2021 What Type Of Diet Are You Following? GLUTENFREE [email or web address] Information n ot available 03/17/2021 What Is The Highest Grade Or Level Of School You Have Completed Or The Highest Degree You Have Received? TG63489-4 [email or web address] Information not available 03/17/2021 Are There Any Guns Present In Your Home? No [email or web address] Information not available 03/17/2021 Have You Ever Been Counseled For Unhealthy Alcohol Use? No [email or web address] Information not available 03/22/2023 Do You Use Protection During Sex? Always Information not available 03/17/2021 Do You Use Your Seat Belt Or Car Seat Routinely? Yes [email or web address] Information not available 03/17/2021 Do You Have Smoke And Carbon Monoxide Detectors In Your Home? Yes [email or web address] Information not available 03/17/2021 How Much Tobacco Do You Smoke? No [email or web address] Information not available 03/17/2021 Do You Use Sunscreen Routinely? Yes [email or web address] Information not available 03/17/2021 Has Tobacco Cessation Counseling Been Provided? No [email or web address] Information not available 03/22/2023 Have You Used IV Drugs? No [email or web address] Information not available 03/17/2021 Do You Have Difficulty Walking Or Climbing Stairs? No [email or web address] Information not available 03/22/2023 Sex: Unknown Functional Status Question Answer Note LastModified by Organizat ion Details LastModified Time Do you use any illicit or recreational drugs? No [email or web address] Information not available 03/17/2021 Do you or have you ever used any other forms of tobacco or nicotine? No [email or web address] Information not available 03/22/2023 What is your level of alcohol consumption? Occasional Information not available 03/17/2021 Are you able to walk independently without assistance or assistive devices? YESWOREST [email or web address] Information not available 03/17/2021 Are you able to care for yourself independently? Yes [email or web address] Information not available 03/22/2023 What is your occupation? [employer] Information not available 03/17/2021 Do you have difficulty dressing, bathing, grooming, or toileting? No [email or web address] Information not available 03/22/2023 What is your exercise level? Occasional [email or web address] Information not available 03/17/2021 Mental Status Question Answer Note LastModified by Organization D etails LastModified Time Do you feel stressed (tense, restless, nervous, or anxious, or unable to sleep at night)? [id number] [email or web address] Information not available 03/17/2021 Family History Relationship Description Onset Age of this Age Resolved Age Notes LastModified by Organization Details LastModified Time Maternal Grandmother Hypertensive disorder [email or web address] Not available 03/17 15:51:00 Mother Hypertensive disorder [email or web address] Not available 03/17 15:51:00 Mother Disorder of thyroid gland [email or web address] Not available 03/17 15:51:00 Mother High risk Not available 03/17 15:51:00 Paternal Grandmother Hypertensive disorder [email or web address] Not available 03/17 15:51:00 Medical History Condition Response Allergies (Food, seasonal, environmental ) Y Other N Blood Transfusion N Drug/Latex Allergies/Reactions Y Breast Cancer N Dermatologic Disorders N Lung [...] ICD10 Code Diagnosis IMO Codes Diagnosis Note [id number] Mariam Valverde [facility] [address] [address] 03/17/2021 15:19:31 03/17/2021 17:30:14 Gynecologic examination 93449521 E07.9 [id number] Giovanna Joel [facility] [address] [place] [address] 06/01/2021 10:35:45 06/01/2021 11:19:55 Removal of intrauterine device 12748578 Z30.432 Pt desires . Has seen [facility] for preconcept ion and they plan on changing her bp and thyroid medication s. She will contact them. Pt is aware she is considered fertile right away. [id number] Mariam Valverde [facility] [address] [address] 07/28/2021 15:19:19 07/28/2021 15:50:38 Chronic hypertension complicating AND/OR reason for care during 30312789 O16.9 Hypothyroidism 90471347 E03.9 [id number] Renaldo Jarquin MD [place] [address] [place] [address] 12/14/2021 16:10:34 12/14/2021 17:32:44 Spotting per vagina in 488580175 O26.851 Z3A.01 [id number] Renaldo Jarquin MD [place] [address] [place] [address] 12/31/2021 15:47:53 01/04/2022 03:51:25 [id number] Mariam Valverde [facility] [address] [address] 12/31/2021 15:48:24 01/03/2022 17:20:03 Amenorrhea 64223811 N91.2 Reviewed office precaution s and folder, labs today, plan new ob and first look at 12 weeks with carrier and NIPS test positive 741021672 Z32.01 screening 2437 62151 Z36.89 Genetic in vestigation procedure 94668271 Z31.430 Venereal d isease screening 538747761 Z11.3 Nausea and vomiting 1693 2000 R11.2 Nausea 290991806 R11.0 Chronic hy pertension complicating AND/OR reason for care during 89976852 O16.9 Continue labetalol, start 81mg ASA [id number] Renaldo Jarquin MD [place] [address] [address] 02/02/2022 13:36:35 02/02/2022 14:43:25 screening 710358133 Z36.82 [id number] Mariam Valverde [facility] [address] [address] 02/02/2022 13:36:52 02/02/2022 17:31:58 Routine care 503712273 Z34.90 Hypothyroidism 29136298 E03.9 - induced hypertension 62060910 O13.9 [id number] Giovanna Joel [facility] [address] [address] 03/08/2022 15:44:29 03/08/2022 16:46:12 Routine care 896869214 Z34.92 [id number] Cordelia Vila MD [place] [address] [address] 03/29/2022 14:10:44 03/29/2022 17:27:54 screening for malformation 410062702 Z36.3 [id number] Cordelia Vila MD [place] [address] [address] 03/29/2022 14:11:14 03/29/2022 16:32:49 Routine care 664842339 Z34.02 [id number] Giovanna Joel [facility] [address] [address] 04/28/2022 15:18:13 04/28/2022 16:04:13 Routine care 006959511 Z34.92 [id number] Mariam Valverde [facility] [address] [address] 05/11/2022 09:09:05 05/11/2022 10:59:05 Routine care 319746616 Z34.90 [id number] Giovanna Joel [facility] [address] [address] 05/26/2022 09:27:37 05/27/2022 16:55:35 Routine care 936993788 Z34.92 [id number] Giovanna Joel [facility] [address] [address] 06/09/2022 17:01:30 06/09/2022 17:22:56 Routine care 311670059 Z34.92 [id number] Giovanna Joel [facility] [address] [address] 06/21/2022 17:04:01 06/21/2022 17:39:47 Routine care 780367479 Z34.92 [id number] Renaldo Jarquin MD [place] [address] [address] 06/21/2022 17:31:00 06/22/2022 12:50:45 Chronic hypertension complicating AND/OR reason for care during 14164524 O16.9 [id number] Cordelia Vila MD [place] [address] [address] 06/28/2022 14:57:07 06/28/2022 15:54:14 Chronic hypertension complicating AND/OR reason for care during 70817190 O10.113 Z3A.33 [id number] Giovanna Joel [facility] [address] [address] 06/28/2022 15:11:46 06/28/2022 16:09:39 Routine care 205359069 Z34.92 [id number] Renaldo Jarquin MD [place] [address] [address] 06/28/2022 15:11:46 06/28/2022 16:09:39 Chronic hypertension complicating AND/OR reason for care during 28681269 O16.9 [id number] MD Juan Luis [address] [address] 07/07/2022 13:44:16 07/07/2022 14:38:21 Chronic hypertension complicating AND/OR reason for care during 83844389 O10.013 Z3A.35 [id number] Renaldo Jarquin MD [place] [address] [address] 07/07/2022 13:44:36 07/07/2022 15:15:00 Chronic hypertension complicating AND/OR reason for care during 23785230 O10.013 Z3A.35 [id number] Mariam Valverde, [facility] [address],[place] [address] 07/07/2022 13:44:52 07/07/2022 15:48:57 Routine care 448001093 Z34.90 [id number] Renaldo Jarquin MD [place] [address] [address] 07/15/2022 15:17:53 07/15/2022 16:36:02 Chronic hypertension complicating AND/OR reason for care during 82934982 O10.013 Z3A.35 [id number] Renaldo Jarquin MD [place] [address] [address] 07/15/2022 15:18:09 07/18/2022 14:34:46 Chronic hypertension complicating AND/OR reason for care during 99240548 O16.9 Z3A.36 [id number] Mariam Valverde CNM [place] [address],[place] [address] 07/15/2022 15:18:22 07/15/2022 17:12:15 Routine care 993061872 Z34.90 [id number] Renaldo Jarquin MD [place] [address],[facility] [place] [address] 07/19/2022 11:06:43 07/19/2022 11:50:48 Chronic hypertension complicating AND/OR reason for care during 33194897 O16.9 Z3A.36 [id number] Renaldo Jarquin MD [place] [address] [address] 07/27/2022 16:00:32 07/28/2022 10:18:21 management 344410504 Z39.1 Pt here for consult. Pt states the infant nursed well after delivery but then had issues with hypoglycem ia and had to be supplement ed with formula. was a 37 week delivery and only weighed 5 # 7 oz. Pt states since the infant was supplement ed he has not been interested in breast feeding. Pt states the takes a bottle well but is always sleepy. Pt states she attempts to breast feed first before feeding the a bottle but he does not like to be skin to skin and cold and is uninterest ed and becomes frustrated . Pt states the infant did have a temp drop during their hospital stay so she is concerned about being skin to skin. Pt is pumping and states her breast milk supply seems appropriat e. Pt states the infant is back to his weight and is doing well. Pt informed the should not experience a temp drop as long as she only attempts to nurse for 15-20 minutes and then dresses him. Infant undressed and to pt's chest. woke up and was rooting at the breast. Pt's had correct hold of the and her breast and pulled the to her nipple. The had a wide open mouth and latch right away but never suckled at the breast and then became frustrated and was crying and pushing away from the breast. Different hold attempted with the same result. dressed and comforted. Pt provided encouragem ent and support and informed some 37 week, small infants take time to learn to breast feed and prefer to bottle feed so they do not have to work at nursing. Pt verbalized understand ing. Pt instructed to place infant in breast feeding hold that she prefers and bottle offered. After infant bottle fed for a minute, the bottle was removed and the infant was offered the breast. Infant latched and successful ly nursed for 7 minutes. Pt instructed on nursing times and when to pump after feeding to make sure each breast is emptied and breast tissue is stimulated to help maintain breast milk supply. Pt verbalized understand ing. Pt will continue to offer the breast first and if unsuccessf ul will allow the to begin to eat from the bottle and then offer the breast once he starts to eat and is ready to nurse. Pt will f/u next week and prefers appt vs. f/u call. Appt scheduled. Valerie jordan, [employer] CLC [id number] Mariam Valverde CNM [place] [address],[place] [address] 07/27/2022 16:07:29 07/27/2022 16:12:00 [id number] Renaldo Jarquin MD [place] [address],[facility] [place] [address] 08/02/2022 14:30:57 08/02/2022 16:42:22 management 377676501 Z39.1 Pt here for consult. Pt states the has nursed a few times since her consult last week but not consistent ly. Pt states they were able to get the to latch after starting a bottle a couple times but then he falls asleep at the breast and does not continue to actively nurse but suckles in his sleep and does not remove milk. Pt states most of the time, the will have a wide open mouth and latch but not suckle at the breast. Pt purchased a shield and was able to get the infant to nurse several times for 6-7 minutes with the shield. Infant was fussing and pt stated it was time to nurse. Pt offered the breast and the infant had a good, deep latch multiple times but never suckled at the breast. Nipple shield applied. Infant to breast with a deep latch and nursed for 7 minutes. Pt had to stimulate the to suck a couple times when he started to fall asleep but the infant continued to nurse effectivel y and the pt could feel the deep pull and milk pooled in the shield. After the fell asleep and could not be stimulated to nurse again, he was taken and his diaper changed. The was awake and rooting and was offered the other breast. The latched well with the shield but only nursed for 2 minutes. Pt states even the breast that he nursed on for 7 minutes still feels full. Pt instructed to pump for breast tissue stimulatio n and to remove milk and help maintain her milk supply. Pt states the 's weight check is tomorrow. Pt informed until they know the 's weight they always need to offer a bottle of expressed breast milk if the is sleepy at the breast and the pt does not feel like he removed enough milk. Pt verbalized understand ing. Pt instructed to continue to always offer the breast first, without the shield, and then attempt to breast feed again with the shield if she is unsuccessf ul without, prior to offering the bottle. Pt verbalized understand ing. Pt also instructed on when and how long to pump based on how breast feeding went. Pt informed if the 's weight gain is appropriat e, she can start to only offer the breast at a couple feeding times per day in hopes that the infant will want to nurse again in less time if he is less full. Pt informed the infant has a good latch and with patience and her continuing to offer the breast more and more, he will likely successful ly just breast feed as he gets older and stronger. Pt will call back tomorrow after the infant's weight check to discuss. Valerie jordan, [employer]ING OV[employer] CLC [id number] Mariam Valverde, [facility] [address],[place] [address] 08/31/2022 13:55:20 08/31/2022 15:01:15 care [id number] Z39.2 [id number] Mariam Valverde [facility] [address],[place] [address] 09/14/2022 14:13:42 09/14/2022 14:46:42 Contraception care management 765280630 Z30.9 Venereal d isease screening 657055626 Z11.3 Atrophic vaginitis 04584 000 N95.2 from delivery call out estrogen Insertion of intrauterine contraceptive device 25505947 Z30.430 [id number] Mariam Valverde [facility] [address],[place] [address] 10/14/2022 14:08:06 10/14/2022 14:21:49 IUD check 005881007 Z30.[address], estrogen external cream as needed f/u 03/29 for wwe [id number] Cordelia Vila MD [place] [address],[place] [address] 10/26/2022 16:24:13 10/26/2022 16:53:35 Anal fissure 87601706 K60.0 subacute [id number] KAMERON Calvert [place] [address],[place] [address] 02/01/2023 15:23:42 02/02/2023 11:57:21 Vaginal irritation 393540171 N89.8 Dryness likely d/t breastfeed ingrecomme nd vaginal estrogen 2- 3 times per weekveg based moisturize r routine discussed, use as lubricatio n w/ ICvulvar care guidelines discussed (d/c use of thongs, cotton underwear only, sleep with no underwear, no vaginal washes/soa ps, water/fing ers to cleanse the vulva)vagi nitis/STI panel sent Mixed anxi ety and depressive disorder 166456528 F41.8 EPDS 11desires to restart duloxetine at previous dose usedrx sent, r/b/a reviewedRT C for med check in 4-6 weekscouns eling encouraged ED precaution s discussed (if thoughts of harming self or others call 911) Venereal d isease screening 696516960 Z11.3 IUD check 564431514 Z30. 431 IUD strings visualized , shortif trimmed any shorter risk of difficult removal, discussed with patient Time spent in visit is a total of 45 mins with at least 50% of visit consisting of counseling and review of plan of care [id number] KAMERON Calvert [place] [address],[place] [address] 03/15/2023 16:05:53 03/15/2023 16:39:39 Mixed anxiety and depressive disorder 957663092 F41.8 EPDS 6feels like duloxetine has provided symptom control and desires to continuede nies any neg SErefills sent, precaution s reviewed Vaginal dryness 80491002 N89.8 symptoms have resolvedif symptoms return, has estradiol creamveg based moisturize r routine discussedR TC for WWE Time spent in visit is a total of 20 mins with at least 50% of visit consisting of counseling and review of plan of care. [id number] KAMERON Calvert [place] [address],[place] [address] 03/22/2023 15:48:18 03/22/2023 16:29:06 Gynecologic examination 44688029 Z01.419 Z11.51 WWEBC - kyleena IUD (inserted 09/2022, will 09/2027)pap updatedSTI testing declinedro utine labs/PCPRT C in 1 yr or sooner if needed Take Calcium with Vitamin D daily if not receiving in daily diet.It is strongly advised to have an annual flu shot and up can obtain at most pharmacies . If you have not had a TDap shot in the last 10 years you should obtain one as well. Discussed with patient & provided with informatio n regarding Gardisil vaccine to prevent the 4 strains for HPV that cause cervical cancer if under age 26. Encourage safe sexual practices, to use condoms and limit partners if not already in a monogamous relationsh ip.Do monthly self breast exams.Have mammogram yearly or every other year depending on family history. BRCA testing is now available for patients with strong genetic history of female cancer. If interested contact the office. Engage in daily exercise of low impact aerobic exercise 45-60 minutes 4-5 times weekly. Avoid tobacco and illicit drugs. This lifestyle behavior pattern will lead to less health conditions and longer life span. If BMI greater than 25 dietary consult advised.Gavin rajan received above instructio ns, and questions have been answered. If you have any questions please call or respond to this email.Fartun no was made aware of the patient portal and may obtain a paper copy of today's plan if desired. [id number] KAMERON Calvert [place] [address],[place] [address] 05/08/2024 15:36:41 05/08/2024 16:29:36 Gynecologic examination 43629238 Z01.419 Z11.51 WWEBC - Kyleena IUD, inserted 09/14/2022 and will 09/15/2027P ap - UTD/not indicated todaySTI screen - declinedRo utine labs - UTD/PCPRTC in 1 yr or sooner if needed It is strongly advised to have an annual flu shot and up can obtain at most pharmacies . If you have not had a TDap shot in the last 10 years you should obtain one as well. Discussed with patient & provided with informatio n regarding the HPV vaccine if applicable . Encourage safe sexual practices, to use condoms and limit partners if not already in a monogamous relationsh ip. Do monthly self breast exams. BRCA testing is now available for patients with strong genetic history of female cancer. If interested contact the office. Engage in regular exercise. Avoid tobacco and illicit drugs. This lifestyle behavior pattern will lead to less health conditions and longer life span. If BMI greater than 25 dietary consult advised. Questions answered. [id number] KAMERON Calvert [place] [address],[place] [address] 07/04/2024 16:20:34 07/04/2024 16:57:08 Removal of intrauterine contraceptive device [id number] Z30.940 4400960 Pt desired IUD removalIUD removed (see procedure note)encou raged daily PNVquestio ns answered [id number] Renaldo Jarquin MD [place] [address],[place] [address] 08/29/2024 14:44:38 08/29/2024 15:58:54 Finding of menstrual bleeding 511420344 Z36.87 Z3A.01 334706 [id number] Renaldo Jarquin MD [place] [address],[place] [address] 09/16/2024 15:14:17 09/16/2024 15:53:35 [id number] Renaldo Jarquin MD [place] [address],[place] [address] 09/16/2024 15:14:31 09/16/2024 17:18:02 Amenorrhea 68503564 N91.2 [id number] this patient is an 28-year-ol d female with amenorrhea . She has a positive test and ultrasound shows a viable intrauteri ne . We talked about early care. Talked about precaution s in that included comments about diet, exercise, over-the-c ounter medication s.. We talked about vaccines. Talked about genetic screening. Talked about her ultrasound today and your ultrasound at 12 weeks. She will begin routine care. We spent 20 minutes face-to-fa ce. More than 50% was counseling . [id number] Renaldo Jarquin MD [place] [address],[place] [address] 09/30/2024 10:46:55 09/30/2024 11:24:44 Spotting per vagina in 596693367 O26.851 Z3A.11 9214250 [id number] Renaldo Jarquin MD [place] [address],[place] [address] 10/09/2024 12:22:33 10/09/2024 13:10:45 screening 762353093 Z36.82 Z3A.12 [id number] [facility] [address],[place] [address] 10/09/2024 12:29:34 10/09/2024 15:42:17 Gestation period, 12 weeks 03124032 Z3A.12 7541512 [id number] Mariam Valverde CNM [place] [address],[place] [address] 11/06/2024 17:11:47 11/06/2024 17:58:08 Gestation period, 16 weeks 26647157 Z3A.16 4378092 [id number] Renaldo Jarquin MD [place] [address],[place] [address] 11/28/2024 14:01:21 11/28/2024 15:16:08 Pain in pelvis 01281349 R10.2 664492 Acquired hypothyroidism 119311938 E03.9 11876 Acute urin lola tract infection 195250437 N39.0 720848 [id number] Renaldo Jarquin MD [place] [address],[place] [address] 11/28/2024 14:05:03 11/28/2024 14:34:10 Pain in female pelvis 081518702 O26.892 R10.2 Z3A.19 23404979 [id number] Renaldo Jarquin MD [place] [address],[place] [address] 12/04/2024 16:44:59 12/05/2024 09:02:08 Screening status 675482796 Z36.3 Z3A.20 3370271150 [id number] Mariam Valverde [facility] [address],[place] [address] 12/04/2024 16:45:22 12/05/2024 16:48:14 Gestation period, 20 weeks 47521636 Z3A.20 6939543 [id number] TOI MENDOZA MD [place] [address],[place] [address] 01/01/2025 15:48:10 01/01/2025 16:48:34 Velamentous insertion of umbilical cord 23469852 O43.122 Z3A.24 7249201 [id number] TOI MENDOZA MD [place] [address],[place] [address] 01/01/2025 15:48:36 01/01/2025 17:52:49 Hypothyroidism 61570937 E03.9 99409400 Velamentou s insertion of umbilical cord 48403946 O43.670 7075880 Past pregn tim history of pre-eclampsia 6818117788 10637 Z87.59 919916 Gestation period, 24 weeks 428133520 Z3A.24 8340436 [id number] Renaldo Jarquin MD [place] [address],[place] [address] 01/29/2025 09:25:08 01/29/2025 10:47:09 Velamentous insertion of umbilical cord 54684013 O43.129 Z3A.28 11667393 [id number] Mariam Valverde CNM [place] [address],[place] [address] 01/29/2025 09:25:23 01/29/2025 11:23:33 Gestation period, 28 weeks 74545218 Z3A.28 8448063 Vasa previa 81539190 O69 .4XX0 [id number] Health Concerns Section Related Observation LastModified by Organization Detai ls LastModified Time None Recorded Concern Status LastModified by Organization Details LastModified Time None Recorded Advance Directives Directive N: Payers Insurance Date Sequence Insurance Name Policy Number Policy Maldonado Covered Member ID Maldonado Member ID Guarantor Name 02/01/2025 1 [facility] [facility] [id number] Jessica Linck [id number] Jessica Linck 03/15/2023 1 [employer] [id number] Jessica Linck [id number] Jessica Linck 03/13/2023 1 [facility] [id number] Jessica L Linck [id number] Jessica Linck 11/28/2024 PAYMENT PLAN Jessica Massimo Notes Date Note Type Note Provider Name and Address Organization Details Recorded Time 12/04/2024 text/html Generic HPI TemplateReported by Patient Mariam Valverde CNM [address], [place], [address], [facility] 12/05/2024 15:54:40 01/01/2025 text/html Generic HPI TemplateReported by Patient TOI MENDOZA MD [address], [place], [address], [facility] 01/01/2025 17:34:35 01/29/2025 text/html Generic HPI TemplateReported by Patient Mariam Victoriano Valverde, JASON [address], [place], [address], [place] [facility] 01/29/2025 11:23:34 OBGyn Episode Ob Episode Information Episode Created Date Number of Fetuses Patient Bloodtype Patient rh Status Prepregnancy Weight lbs Domestic Partner Domestic Partner Phone Father Name Windows Administrator Status 02/03/20 22 1 A Positive 183 Jimbo Keys CLOSED Fetus Data First Name Last Name Admitted to NICU Weight (g) Sex Living Outcome Pediatric Complications Fetus ID Race Codes Race Delivery Type 2693.20 25 M true Full Term [id number] Vaginal Delivery Problems Problem Notes SMA positive, FOB labs drawn 02/02/22- FOB negative Had counseling with MFMallergic to gluten and dairy Problem Name Start Date End Date Resolution Snomed Code Not e History of cholecystectomy 699756274 History of appendectomy 385183611 Anxiety 42533224 was on cym celeste - not on currently 02/08/22 Pre-eclampsia 025973667 Hypothyroidism 82951333 levot hyroxine 100mcg- REPEAT WITH 28w LABS Hypertensive disorder 53238215 labetalol bid, ASA, Baseline 24h TP - 147 Herpes simplex 55351086 Valtr ex 35-36 weeks Nick Calculation Initial Nick Date Initial Exam Date Initial Exam Provider Initial Ultrasound Date Last Menstrual Period Date Ultra Sound Weeks Gestation 08/12/2022 12/31/2021 12/31/2021 11/04/2021 8 Eighteen To Twenty Week Nick Update Ultra Sound Date Fundal Height At Umbil Quickening Date Ultra Sound Latest Weeks Gestation Final Nick Confirmed By Final Nick Confirmed Date Final Nick Date Ultra Sound Latest Days Gestation 0 08/12/19 23 0 Pre- Flowsheet Flowsheet Date 02/02/2022 Nash Score Blood Edema Fundus Height Fundus Units Glucose Ketones Leukocytes Nitrite Labor Signs Protein Cervic Dilation Cervic Effacement Cervic Station neg none none trace Type Weight in lbs Pre/Post Dialysis Refused Weight 181.201719312446 BP Diastolic BP Location Tested BP Systolic BP Type 79 120 Fetus Heart Rate Present Fetus Movement A No Comments pt with chronic hTN, hypothy roid, well controlled on medication. pt was seen for counseling with MFM, will start testing at 32 weeks, plan delivery around 38 weeks, reviewed education, anxiety well managed, see dr. jarquin at next visitearly 24 hr urine with cbc and cmp ordered today with rpt thyroid Flowsheet Date 03/08/2022 Nash Score Blood Edema Fundus Height Fundus Units Glucose Ketones Leukocytes Nitrite Labor Signs Protein Cervic Dilation Cervic Effacement Cervic Station neg none none trace Type Weight in lbs Pre/Post Dialysis Refused Weight 184.757928979150 BP Diastolic BP Location Tested BP Systolic BP Type 74 112 Fetus Heart Rate Present A 147 Fetus Movement A Yes Comments Doing good. Feeling flutteri ng movement. TSH stable and has not had any medication changes. Pt prefers a natural approach to labor and delivery knowing that with hypertension induction may be necessary. Has requested primarily midwifery care. Baseline anatomy and routine visit in 3 weeks.Unsure about circ.Planning to breastfeed. Flowsheet Date 03/29/2022 Nash Score Blood Edema Fundus Height Fundus Units Glucose Ketones Leukocytes Nitrite Labor Signs Protein Cervic Dilation Cervic Effacement Cervic Station Type Weight in lbs Pre/Post Dialysis Refused BP Diastolic BP Location Tested BP Systolic BP Type Fetus Heart Rate Present Fetus Movement Comments Flowsheet Date 03/29/2022 Nash Score Blood Edema Fundus Height Fundus Units Glucose Ketones Leukocytes Nitrite Labor Signs Protein Cervic Dilation Cervic Effacement Cervic Station neg none trace trace Type Weight in lbs Pre/Post Dialysis Refused Weight 183.635100609477 BP Diastolic BP Location Tested BP Systolic BP Type 76 113 Fetus Heart Rate Present A 160 Fetus Movement A Yes Comments Feeling well. History review ed. BP stable. THyroid very stable. Repeat with 28w labs. US today anatomy complete and wnl. Questions answered. Flowsheet Date 04/28/2022 Nash Score Blood Edema Fundus Height Fundus Units Glucose Ketones Leukocytes Nitrite Labor Signs Protein Cervic Dilation Cervic Effacement Cervic Station neg none none trace Type Weight in lbs Pre/Post Dialysis Refused Weight 188.667921753215 BP Diastolic BP Location Tested BP Systolic BP Type 80 117 Fetus Heart Rate Present A 147 Fetus Movement A Yes Comments Doing well. Planning 38 week induction for hypertension. Would like July 31 if possible. 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 Desires delayed cord clamping, 1 hour skin to skin, and delayed bathing. Flowsheet Date 05/11/2022 Nash Score Blood Edema Fundus Height Fundus Units Glucose Ketones Leukocytes Nitrite Labor Signs Protein Cervic Dilation Cervic Effacement Cervic Station neg none 26 none trace Type Weight in lbs Pre/Post Dialysis Refused Weight 190.508980595580 BP Diastolic BP Location Tested BP Systolic BP Type 65 107 Fetus Heart Rate Present A 150 Fetus Movement A Yes Comments patient is having some press ure, discharge, and nausea. precautions reviewed plan gct and labs in 2 weeks, increase rest when able Flowsheet Date 05/26/2022 Nash Score Blood Edema Fundus Height Fundus Units Glucose Ketones Leukocytes Nitrite Labor Signs Protein Cervic Dilation Cervic Effacement Cervic Station neg none 30 none trace Type Weight in lbs Pre/Post Dialysis Refused Weight 193.47732356722 BP Diastolic BP Location Tested BP Systolic BP Type 74 119 Fetus Heart Rate Present A 142 Fetus Movement A Yes Comments Doing well. GTT today along with tsh. Encouraged tdap. Flowsheet Date 06/09/2022 Nash Score Blood Edema Fundus Height Fundus Units Glucose Ketones Leukocytes Nitrite Labor Signs Protein Cervic Dilation Cervic Effacement Cervic Station none 31 Type Weight in lbs Pre/Post Dialysis Refused Weight 192.875048016530 BP Diastolic BP Location Tested BP Systolic BP Type 74 L arm 111 sitting Fetus Heart Rate Present A 151 Fetus Movement A Yes Comments Doing well. TDAP and covid b ooster done. Encouraged to schedule pre admit. Dr Romo will see baby after delivery. Flowsheet Date 06/21/2022 Nash Score Blood Edema Fundus Height Fundus Units Glucose Ketones Leukocytes Nitrite Labor Signs Protein Cervic Dilation Cervic Effacement Cervic Station neg trace none trace Type Weight in lbs Pre/Post Dialysis Refused Weight 196.152259815425 BP Diastolic BP Location Tested BP Systolic BP Type 84 120 Fetus Heart Rate Present Fetus Movement A Yes Comments Doing well. Occasional cramp s. PTL precautions given. Pre admit scheduled. testing to start today. Plan to recheck tsh in 2 weeks. Has been stable. Flowsheet Date 06/21/2022 Nash Score Blood Edema Fundus Height Fundus Units Glucose Ketones Leukocytes Nitrite Labor Signs Protein Cervic Dilation Cervic Effacement Cervic Station Type Weight in lbs Pre/Post Dialysis Refused BP Diastolic BP Location Tested BP Systolic BP Type Fetus Heart Rate Present Fetus Movement Comments Flowsheet Date 06/28/2022 Nash Score Blood Edema Fundus Height Fundus Units Glucose Ketones Leukocytes Nitrite Labor Signs Protein Cervic Dilation Cervic Effacement Cervic Station Type Weight in lbs Pre/Post Dialysis Refused BP Diastolic BP Location Tested BP Systolic BP Type Fetus Heart Rate Present Fetus Movement Comments Flowsheet Date 06/28/2022 Nash Score Blood Edema Fundus Height Fundus Units Glucose Ketones Leukocytes Nitrite Labor Signs Protein Cervic Dilation Cervic Effacement Cervic Station Type Weight in lbs Pre/Post Dialysis Refused BP Diastolic BP Location Tested BP Systolic BP Type Fetus Heart Rate Present Fetus Movement Comments Flowsheet Date 06/28/2022 Nash Score Blood Edema Fundus Height Fundus Units Glucose Ketones Leukocytes Nitrite Labor Signs Protein Cervic Dilation Cervic Effacement Cervic Station neg none none trace Type Weight in lbs Pre/Post Dialysis Refused Weight 196.488993979639 BP Diastolic BP Location Tested BP Systolic BP Type 78 121 Fetus Heart Rate Present Fetus Movement A Yes Comments Doing well. Does have some g eneral back discomfort. Discussed use of heat and ice along with stretching. Discussed ultrasound and fl. No additional follow up at this time. Will await md recommendations. Flowsheet Date 07/07/2022 Nash Score Blood Edema Fundus Height Fundus Units Glucose Ketones Leukocytes Nitrite Labor Signs Protein Cervic Dilation Cervic Effacement Cervic Station Type Weight in lbs Pre/Post Dialysis Refused BP Diastolic BP Location Tested BP Systolic BP Type Fetus Heart Rate Present Fetus Movement Comments Flowsheet Date 07/07/2022 Nash Score Blood Edema Fundus Height Fundus Units Glucose Ketones Leukocytes Nitrite Labor Signs Protein Cervic Dilation Cervic Effacement Cervic Station Type Weight in lbs Pre/Post Dialysis Refused BP Diastolic BP Location Tested BP Systolic BP Type Fetus Heart Rate Present Fetus Movement Comments Flowsheet Date 07/07/2022 Nash Score Blood Edema Fundus Height Fundus Units Glucose Ketones Leukocytes Nitrite Labor Signs Protein Cervic Dilation Cervic Effacement Cervic Station neg none none trace Type Weight in lbs Pre/Post Dialysis Refused Weight 196.325404329074 BP Diastolic BP Location Tested BP Systolic BP Type 70 120 Fetus Heart Rate Present Fetus Movement A Yes Comments patient states that having s ome contractions and discharge. wants to have iol and deliver on 5/29, on valcyclovir bid, bpp 8 wants to try unmedicated bith Flowsheet Date 07/15/2022 Nash Score Blood Edema Fundus Height Fundus Units Glucose Ketones Leukocytes Nitrite Labor Signs Protein Cervic Dilation Cervic Effacement Cervic Station Type Weight in lbs Pre/Post Dialysis Refused BP Diastolic BP Location Tested BP Systolic BP Type Fetus Heart Rate Present Fetus Movement Comments Flowsheet Date 07/15/2022 Nash Score Blood Edema Fundus Height Fundus Units Glucose Ketones Leukocytes Nitrite Labor Signs Protein Cervic Dilation Cervic Effacement Cervic Station Type Weight in lbs Pre/Post Dialysis Refused BP Diastolic BP Location Tested BP Systolic BP Type Fetus Heart Rate Present Fetus Movement Comments Flowsheet Date 07/15/2022 Nash Score Blood Edema Fundus Height Fundus Units Glucose Ketones Leukocytes Nitrite Labor Signs Protein Cervic Dilation Cervic Effacement Cervic Station neg trace none trace Type Weight in lbs Pre/Post Dialysis Refused Weight 201.432696417018 BP Diastolic BP Location Tested BP Systolic BP Type 97 132 Fetus Heart Rate Present Fetus Movement A Yes Comments patient is having pressure, cramping, leaking, discharge, and swelling. gbs done bpp 10/11, to ld for amnisure, also PIH labs, bp slightly elevated and has a camp all day today, has not had any tylenol, no visual changes or epigastric pain Flowsheet Date 07/19/2022 Nash Score Blood Edema Fundus Height Fundus Units Glucose Ketones Leukocytes Nitrite Labor Signs Protein Cervic Dilation Cervic Effacement Cervic Station Type Weight in lbs Pre/Post Dialysis Refused BP Diastolic BP Location Tested BP Systolic BP Type 68 106 Fetus Heart Rate Present Fetus Movement Comments Flowsheet Date 07/27/2022 Nash Score Blood Edema Fundus Height Fundus Units Glucose Ketones Leukocytes Nitrite Labor Signs Protein Cervic Dilation Cervic Effacement Cervic Station Type Weight in lbs Pre/Post Dialysis Refused BP Diastolic BP Location Tested BP Systolic BP Type Fetus Heart Rate Present Fetus Movement Comments Flowsheet Date 07/27/2022 Nash Score Blood Edema Fundus Height Fundus Units Glucose Ketones Leukocytes Nitrite Labor Signs Protein Cervic Dilation Cervic Effacement Cervic Station Type Weight in lbs Pre/Post Dialysis Refused BP Diastolic BP Location Tested BP Systolic BP Type Fetus Heart Rate Present Fetus Movement Comments Flowsheet Date 08/02/2022 Nash Score Blood Edema Fundus Height Fundus Units Glucose Ketones Leukocytes Nitrite Labor Signs Protein Cervic Dilation Cervic Effacement Cervic Station Type Weight in lbs Pre/Post Dialysis Refused BP Diastolic BP Location Tested BP Systolic BP Type Fetus Heart Rate Present Fetus Movement Comments Menstrual History Last Menstrual Date Menses Monthly On Bcp Conception Prior Menses Frequency Hcg Plus Date Menarche Onset Age 0911/04/2021 Genetic Screening And Infection History Question Response Note Mental Retardation/Autism false Patient's Age Will Be 35 Yea rs Or Older At Estimated Date of Delivery false Thalassemia (Pakistani, Wolof, Mediterranean, Or Background): MCV < 80 false Neural Tube Defect (Meningom yelocele, Spina Bifida, Or Anencephaly) false Congenital Heart Defect false Down Syndrome false Mukul-Sachs (eg, Yazidism, Cajun, [place]) f alse Evin Disease false Sickle Cell Disease Or Trait () false Hemophilia Or Other Blood Disorders false Muscular Dystrophy false Cystic Fibrosis false [place] false Intellectual Disability/Autism false If Yes, Was Person Tested For Fragile X? false Other Inherited Genetic Or C hromosomal Disorder false +SMA Maternal Metabolic Disorder (eg, Type 1 Diabetes, PKU) false Patient Or Baby's Father Had A Child With Defects Not Listed Above false Recurrent Loss, Or A Stillbirth false Medications (including Suppl ements, Vitamins, Herbs, OTC Drugs), Illicit/Recreational Drugs, Alcohol true labetalol, asa, levothyroxin e If Yes, Agent(s) And Strength/Dosage false Any Other Genetic History false Live With Someone With TB Or Exposed To TB false Patient Or Partner Has Histo ry Of Genital Herpes false Rash Or Viral Illness Since Last Menstrual Period false History Of STD, Gonorrhea, C hlamydia, HPV, Syphilis false Other Infection History false History of HIV false History of Hepatitis false Prior GBS-infected child false Hemoglobinopathy Or Carrier false Other Structural Defect false Recent Travel History Outside of Country false Delivery Information Delivery Date Delivery Type Labor Anesthesia Weeks Gestation Incision Type Labor Labor Length Hrs Delivered By Post Complications Tubal Sterilization Discharge Date Comments 3 Induce d Regional-Ep idural 37.1 false Mariam Valverde CNM Chtn, Gbs+ & pre-eclam psia w/o severe features, herpes, hypothyro id, anxiety Discharge Information Feeding Method Contraceptive Method Maternal HG B and HCT Levels Ob Episode Information Episode Created Date Number of Fetuses Patient Bloodtype Patient rh Status Prepregnancy Weight lbs Domestic Partner Domestic Partner Phone Father Name Windows Administrator Status 10/01/19 25 1 A Positive 182 OPEN Fetus Data First Name Last Name Admitted to NICU Weight (g) Sex Living Outcome Pediatric Complications Fetus ID Race Codes Race Delivery Type [id number] Problems Problem Notes [facility] of [facility] Problem Name Start Date End Date Resolution Snomed Code Not e Anxiety 10/09/2024 [id number] no curren t meds Past history of pre-eclampsia 10/09/2024 [id number] w/o severe features/chronic with medsno meds since last pregnancybASA dailyHSV- plan 36 week valtrexallergic to gluten/dairy Velamentous insertion of umbilical cord 11/29/2024 [id number] Hypothyroidism 10/09/2024 [id number] Levo thyroxine 100mcg Repeat TSH labs @ 28wks Vasa previa 01/29/2025 [id number] [facility] ref erall Nick Calculation Initial Nick [...] Ultra Sound Latest Days Gestation 0 0 Pre-mila Flowsheet Flowsheet Date 09/30/2024 Nash Score Blood [...] Type Weight in lbs Pre/Post Dialysis Refused 181.403578794667 BP Diastolic BP Location Tested BP Systolic [...] Weight in lbs Pre/Post Dialysis Refused Weight 183.420347214843 BP Diastolic BP Location Tested BP Systolic [...] Type Weight in lbs Pre/Post Dialysis Refused 185.338726920970 BP Diastolic BP Location Tested BP Systolic [...] Weight in lbs Pre/Post Dialysis Refused Weight 185.620237241439 BP Diastolic BP Location Tested BP Systolic [...] Type Weight in lbs Pre/Post Dialysis Refused 190.310030145785 BP Diastolic BP Location Tested BP Systolic [...] Weight in lbs Pre/Post Dialysis Refused Weight 196.836172017969 BP Diastolic BP Location Tested BP Systolic [...]
--- OUTSIDE RECORDS SUMMARY | 2025-02-02 12:17 | XMS_ITS | Continuity of Care Document ---
Author Organization [facility] Address [address] [place] [address] Assessment No assessment recorded. Plan of Treatment [...] Not Available [facility] [address], [place], [address], 10/16/2024 20:16:41 10/17/19 25 10/16/2024 [UNIT Y] ANEUP LOIDY NIPT 22Q11.2 microdeletio n LOW RISK <1 in 10,000 normal Not Available [facility] [address], [place], [address], 10/16/2024 20:16:41 10/17/19 25 10/16/2024 [UNIT Y] ANEUP LOIDY NIPT sex chromosome aneuploidy NOT DETECT ED normal Not Available [facility] [address], [place], [address], 10/16/2024 20:16:41 10/17/19 25 10/16/2024 [UNIT Y] ANEUP LOIDY NIPT monosomy X LOW RISK <1 in 10,000 normal Not Available [facility] [address], [place], [address], 10/16/2024 20:16:41 10/17/19 25 10/16/2024 [UNIT Y] ANEUP LOIDY NIPT trisomy 13 LOW RISK <1 in 10,000 normal Not Available [facility] [address], [place], [address], 10/16/2024 20:16:41 10/17/19 25 10/16/2024 [UNIT Y] ANEUP LOIDY NIPT trisomy 18 LOW RISK <1 in 10,000 normal Not Available [facility] [address], [place], [address], 10/16/2024 20:16:41 10/17/19 25 10/16/2024 [UNIT Y] ANEUP LOIDY NIPT trisomy 21 LOW RISK <1 in 10,000 normal Not Available [facility] [address], [place], [address], 10/16/2024 20:16:41 10/17/19 25 10/16/2024 [UNIT Y] ANEUP LOIDY NIPT sex MALE normal Not Available [facility] [address], [place], [address], 10/16/2024 20:16:41 10/17/19 25 10/16/2024 [UNIT Y] ANEUP LOIDY NIPT gestation SINGLE TON normal Not Available [facility] [address], [place], [address], 10/16/2024 20:16:41 10/17/19 25 10/16/2024 [UNIT Y] ANEUP LOIDY NIPT for detailed report, see pdf See PDF normal Not Available [facility] [address], [place], [address], 10/16/2024 20:16:41 10/10/1910/09/2024 CBC W/DIF F WBC 9.8 10'3/ uL 3.5-10 .5 Not Available [facility] (Lab) [address], [place], [address], 2024 19:17:53 10/10/1910/09/2024 CBC W/DIF F RBC 3.93 10'6/ uL (based on docume nted legal sex) 3.80-5 .20 Not Available [facility] (Lab) [address], [place], [address], 2024 19:17:53 10/10/1910/09/2024 CBC W/DIF F HGB 12.5 g/dL (based on docume nted legal sex) 11.6-1 5.4 Not Available [facility] (Lab) [address], [place], [address], 2024 19:17:53 10/10/1910/09/2024 CBC W/DIF F HCT 35.6 % (based on docume nted legal sex) 34.0-4 5.0 Not Available [facility] (Lab) [address], [place], [address], 2024 19:17:53 10/10/1910/09/2024 CBC W/DIF F MCV 90.6 fL 80.0-9 9.0 Not Available [facility] (Lab) [address], [place], [address], 2024 19:17:53 10/10/1910/09/2024 CBC W/DIF F MCH 31.8 pg 27.0-3 4.0 Not Available [facility] (Lab) [address], [place], [address], 2024 19:17:53 10/10/1910/09/2024 CBC W/DIF F MCHC 35.1 g/dL 32.0-3 5.5 Not Available [facility] (Lab) [address] [facility], [place], [address], 2024 19:17:53 10/10/19 25 10/09/2024 CBC W/DIF F RDW 12.3 % 11.0-1 5.0 Not Available [facility] (Lab) [address] [facility], [place], [address], 2024 19:17:53 10/10/1910/09/2024 CBC W/DIF F plt 185 10'3/ uL 150-40 0 Not Available [facility] (Lab) [address] [facility], [place], [address], 2024 19:17:53 10/10/1910/09/2024 CBC W/DIF F MPV 12.4 fL 8.8-12 .1 high Not Available [facility] (Lab) [address] [facility], [place], [address], 2024 19:17:53 10/10/1910/09/2024 CBC W/DIF F NRBC's 0.0 % 0.0 Not Available [facility] (Lab) [address] [facility], [place], [address], 2024 19:17:53 10/10/1910/09/2024 CBC W/DIF F absolute NRBCs 0.0 10'3/ uL no refere nce range establ ished Not Available [facility] (Lab) [address] [facility], [place], [address], 2024 19:17:53 10/10/19 25 10/09/2024 CBC W/DIF F neutrophils 75.7 % 34.0-7 3.0 high Not Available [facility] (Lab) [address] [place], [address], 2024 19:17:53 10/10/19 25 10/09/2024 CBC W/DIF F lymphocytes 17.5 % 15.0-5 0.0 Not Available [facility] (Lab) [address] [facility], [place], [address], 2024 19:17:53 10/10/19 25 10/09/2024 CBC W/DIF F monocytes 4.4 % 1.0-15 .0 Not Available [facility] (Lab) [address] [facility], [place], [address], 2024 19:17:53 10/10/19 25 10/09/2024 CBC W/DIF F eosinophils 1.9 % 0.0-8. 0 Not Available [facility] (Lab) [address] [facility], [place], [address], 2024 19:17:53 10/10/19 25 10/09/2024 CBC W/DIF F basophils 0.2 % 0.0-2. 0 Not Available [facility] (Lab) [address] [facility], [place], [address], 2024 19:17:53 10/10/19 25 10/09/2024 CBC W/DIF [...] separ ately if prese nt. Not Available [facility] (Lab) [address] [facility], [place], [address], 2024 19:17:53 10/10/19 25 10/09/2024 CBC W/DIF F absolute neutrophils 7.4 10'3/ uL 1.5-8. 0 Not Available [facility] (Lab) [address] [facility], [place], [address], 2024 19:17:53 10/10/1910/09/2024 CBC W/DIF F absolute lymphocytes 1.7 10'3/ uL 1.0-4. 0 Not Available [facility] (Lab) [address] [facility], [place], [address], 2024 19:17:53 10/10/1910/09/2024 CBC W/DIF F absolute monocytes 0.4 10'3/ uL 0.2-1. 0 Not Available [facility] (Lab) [address] [facility], [place], [address], 2024 19:17:53 10/10/1910/09/2024 CBC W/DIF F absolute eosinophils 0.2 10'3/ uL 0.0-0. 6 Not Available [facility] (Lab) [address] [facility], [place], [address], 2024 19:17:53 10/10/1910/09/2024 CBC W/DIF F absolute basophils 0.0 10'3/ uL 0.0-0. 3 Not Available [facility] (Lab) [address] [facility], [place], [address], 2024 19:17:53 10/10/1910/09/2024 CBC W/DIF F absolute immature granulocytes 0.0 10'3/ uL 0.00-0 .10 Refer ence range s for nonbi nary/ inter sex or unspe cifie d gende r patie nts have not been estab lishe d. Pleannamaria e refer to the vanessao wing table for range s estab lishe d for cisge nder patie nts and evalu ate in the clini nicolle kathy xt of the indiv idual patie nt: https ://jose d huertas book. nm.or g/gen derx Not Available [facility] (Lab) [address] [facility], [place], [address], 2024 19:17:53 10/10/1910/09/2024 HIV 1/2 ANTIG EN/AN TIBOD Y, REFLE X CONFI RMATI ON HIV antigen/anti body Nonrea ctive nonrea ctive HIV-1 antig en and HIV-1 /HIV- 2 antib odies were not detec katlin. No labor atory evide nce of HIV infec tion. Not Available [facility] (Lab) [address] [facility], [place], [address], 2024 19:17:54 10/10/1910/09/2024 HEPAT ITIS B SURFA CE ANTIG EN hepatitis B surface antigen Non-re active non-re active This assay was perfo rmed using [employer] ratio n reage nts and test kits. Value s obtai ning with other assay metho ds or kits canno t be used inter figueroa eably . Not Available [facility] (Lab) [address] [facility], [place], [address], 2024 19:17:55 10/10/1910/09/2024 HEPAT ITIS C ANTIB KANDI SCREE N, REFLE X TO CONFI RMATI ON hepatitis C antibody Non-re active non-re active Antib odies to HCV Not Detec katlin, does not exclu de the possi bilit y of expos ure to HCV. Not Available [facility] (Lab) [address], [place], [address], 2024 19:17:55 10/10/1910/09/2024 RUBEL LA IGG ANTIB KANDI, QUANT rubella antibodies, IgG Reacti ve reacti ve Not Available [facility] (Lab) [address] [facility], [place], [address], 2024 19:17:55 10/10/19 25 10/09/2024 RUBEL LA IGG ANTIB KANDI, QUANT rubella antibodies, IgG quant 33.1 IU/mL >=10 Non-r eacti ve (Non- Immun e) <10 IU/mL React jb (Immu ne) > or = 10 IU/mL Not Available [facility] (Lab) [address] [facility], [place], [address], 2024 19:17:55 10/10/1910/09/2024 TYPE/ RH/SC REEN ABO/Rh type A POS Not Available [facility] (Lab) [address] [facility], [place], [address], 2024 19:17:56 10/10/1910/09/2024 TYPE/ RH/SC REEN antibody screen NEG Not Available [facility] (Lab) [address] [facility], [place], [address], 2024 19:17:56 10/10/1910/09/2024 TYPE/ RH/SC REEN exp date 2024 23:59 Not Available [facility] (Lab) [address] [facility], [place], [address], 2024 19:17:56 10/10/1910/09/2024 HEMOG LOBIN A1C hemoglobin [...] >8.0% Actio n sugge sted Not Available [facility] (Lab) [address] [facility], [place], [address], 2024 19:17:56 10/10/1910/09/2024 RPR SCREE N, REFLE X TITER /CONF IRMAT ION RPR qualitative Nonrea ctive nonrea ctive Not Available [facility] (Lab) [address] [facility], [place], [address], 2024 19:17:57 10/10/19 25 10/09/2024 LEAD, BLOOD (ADUL T/PED IATRI C) lead, whole blood <1.0 mcg/d L <3.5 See Note 1 Mandie sis was perfo rmed by Nael Silverman ed Plasm a Mass Spect romet ry (ICPM S) Note 1 This test was devel oped and its mandie tical perfo rmanc e dorita cteri stics have been deter mined by [facility]. It has not been clear ed or appro herson by the FDA. This assay has been valid ated pursu ant to the CLIA regul ation s and is used for clini nicolle purpo ses. Perfo rming Organ izati on Infor isai n: Site ID: CB Name: [facility]Andreas Harrington Addre ss: [id number] [place] [address] Direc tor: Bharathi vitale V Katey s Not Available [facility] (Lab) [address] [facility], [place], [address], 2024 19:17:57 10/10/19 25 10/09/2024 CULTU RE: URINE result report SEE RESULT S BELOW Test: Cultu re: Urine Speci men Sourc e: Urine - Clean Catch Speci men Type: Urine Speci men Date: 025 1423 Resul t Date: 2139 Resul t Statu s: Final resul t Abnor mal: No Resul ting Lab: [facility] [address] [facility] [address] Tel: CULTU RE ----- ----- ----- --- No growt h in 1 day (dete ction level of 10,00 0 colon ies / ml.) Not Available [facility] (Lab) [address] [facility], [place], [address], 2024 22:42:52 10/10/19 25 10/09/2024 drug scree n, urine Amphetamines : negati ve Not Available [facility] [address], [place], [address], 10/09/2024 15:12:54 10/10/19 25 10/09/2024 drug scree n, urine Cannabinoids : negati ve Not Available [facility] [address], [place], [address], 10/09/2024 15:12:54 10/10/19 25 10/09/2024 drug scree n, urine Cocaine: negati ve Not Available [facility] [address], [place], [address], 10/09/2024 15:12:54 10/10/19 25 10/09/2024 drug scree n, urine Opiates: negati ve Not Available [facility] [address], [place], [address], 10/09/2024 15:12:54 10/10/19 25 10/09/2024 drug scree n, urine Phenocyclidi ne: negati ve Not Available [facility] [address], [place], [address], 10/09/2024 15:12:54 10/10/19 25 10/09/2024 drug scree n, urine Barbiturates : negati ve Not Available [facility] [address], [place], [address], 10/09/2024 15:12:54 10/10/19 25 10/09/2024 drug scree n, urine Benzodiazepi david: negati ve Not Available [facility] [address], [place], [address], 10/09/2024 15:12:54 10/10/19 25 10/09/2024 drug scree n, urine Ethanol: negati ve Not Available [facility] [address], [place], [address], 10/09/2024 15:12:54 10/10/19 25 10/09/2024 drug scree n, urine Hallucinogen s: negati ve Not Available [facility] [address], [place], [address], 10/09/2024 15:12:54 10/10/19 25 10/09/2024 drug scree n, urine Inhalants: negati ve Not Available [facility] [address], [place], [address], 10/09/2024 15:12:54 10/10/19 25 10/09/2024 drug scree n, urine Anabolic Steroids: negati ve Not Available [facility] [address], [place], [address], 10/09/2024 15:12:54 11/29/19 25 11/28/2024 FREE T3 T3, free 2.96 pg/mL 2.00-4 .40 This assay is susce ptibl e to inter feren ce from high level s of bioti n which may false ly eleva te resul ts. Pleas e corre late with clini nicolle findi ngs inclu ding TSH and FT4 resul ts. If clini campbell indic ated, Free T3 by Equil joselito Jaeger sis LC/MS may be perfo rmed. Not Available [facility] (Lab) [address] [place], [address], 11/29/2024 05:49:07 11/29/19 25 11/28/2024 TSH TSH 1.43 uIU/m L 0.30-5 .33 Not Available [facility] (Lab) [address] [place], [address], 11/29/2024 05:49:08 11/29/1911/28/2024 T4 FREE T4, free 0.65 NG/dL 0.54-1 .24 This assay is loni ptibl e to leonora guzman ce from high level s of bioti n which may false ly eleva te resul ts. Teto e corre late with clini nicolle findi ngs. Not Available [facility] (Lab) [address], [place], [address], 11/29/2024 05:49:08 11/29/19 25 11/28/2024 urina lysis , dipst ick Leukocytes + Not Available [facility] [address], [place], [address], 11/28/2024 14:42:38 11/29/1911/28/2024 urina lysis , dipst ick Protein + Not Available [facility] [address], [place], [address], 11/28/2024 14:42:38 11/29/19 25 11/28/2024 urina lysis , dipst ick pH 8 Not Available [facility] [address], [place], [address], 11/28/2024 14:42:38 11/29/19 25 11/28/2024 urina lysis , dipst ick Blood + Not Available [facility] [address], [place], [address], 11/28/2024 14:42:38 11/29/19 25 11/28/2024 urina lysis , dipst ick Specific [place] 1.000 [facility] Available [facility] [address], [place], [address], 11/28/2024 14:42:38 11/29/19 25 11/28/2024 urina lysis , dipst ick Appearance clear Not Available [facility] [address], [place], [address], 11/28/2024 14:42:38 11/29/1911/28/2024 urina lysis , dipst ick Color yellow Not Available [facility] [address], [place], [address], 11/28/2024 14:42:38 10/01/19 25 09/30/2024 US, obste tric, follo w-up No observ ation record ed. [email or web address] [address], [place], [address], 10/01/2024 09:14:12 10/01/1909/30/2024 US, obste tric, limit ed No observ ation record ed. [email or web address] [facility] [address], [place], [address], 09/30/2024 18:25:20 10/10/19 25 10/09/2024 US, obste tric, nucha l trans lucen cy No observ ation record ed. [email or web address] [facility] [address], [place], [address], 10/09/2024 18:42:28 10/10/19 25 10/09/2024 US, obste tric, nucha l trans lucen cy No observ ation record ed. [email or web address] [address], [place], [address], 10/11/2024 09:05:59 11/29/1911/28/2024 US, obste tric, limit ed No observ ation record ed. [email or web address] [facility] [address], [place], [address], 11/28/2024 14:35:57 11/29/19 25 11/28/2024 US, obste tric, limit ed No observ ation record ed. [email or web address] [address], [place], [address], 12/04/2024 17:11:19 12/05/1912/04/2024 US, obste tric, 2nd or 3rd trime ster No observ ation record ed. [email or web address] [address], [place], [address], 12/10/2024 16:29:24 12/05/19 25 12/04/2024 US, obste tric, 2nd or 3rd trime ster No observ ation record ed. [facility] [address], [place], [address], 12/04/2024 18:24:14 01/02/2001/01/2025 US, obste tric, follo w-up No observ ation record ed. [facility] [address], [place], [address], 01/01/2025 18:52:26 01/02/2001/01/2025 , obste tric, follo w-up No observ ation record ed. [email or web address] [address], [place], [address], 01/03/2025 10:24:56 01/30/20 25 01/29/2025 imagi ng/di agnos tic resul t No observ ation record ed. [email or web address] [address], [place], [address], 01/29/2025 11:47:31 01/30/20 25 01/29/2025 US, obste tric, follo w-up No observ ation record ed. [email or web address] [place] [address] [address], [place], [address], 01/29/2025 11:50:46 01/30/20 25 01/29/2025 US, obste tric, trans vagin al No observ ation record ed. [email or web address] [facility] [address], [place], [address], 01/29/2025 11:50:59 Result Notes None recorded. Problems Name Problem SNOMED Code Status Onset Date Resolution Date Notes Provider Name and Address Organization Details Recorded Time Hypothyr oidism 30502439 Completed levothyr oxine 100mcg- REPEAT WITH 28w LABS [facility] 16:18:26 Hyperten sive disorder 86991105 Completed labetalo l bid, ASA, Baseline 24h TP - 147 Michael Radha [facility] 3 16:18:26 History of cholecys tectomy 380604132 Completed Michael Garcia [facility] 3 16:18:26 History of appendec roselyn 095310250 Completed Michael Garcia [facility] 3 16:18:26 Anxiety 87236750 Completed was on cymbalta - not on currentl y 02/08/22 Michael Garcia [facility] 3 16:18:26 Hyperten sive disorder 38386071 Active labetalo l bid, ASA, Baseline 24h TP - 147 Michael Radha [facility] 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 3 16:18:26 Pre-ecla mpsia 067924468 Completed Michael Garcia [facility] 3 16:18:26 Pregnanc y 69959019 Completed 202108/19/2022 Winifred Quiroga [facility], [facility] 5 09:42:14 Pregnanc y 85411166 Active 2024 Winifred Quiroga uli, [facility] 5 09:42:14 Hypothyr oidism 92883739 Active 2024 Levothyr oxine 100mcg Repeat TSH labs @ 28wks Winifred Quiroga uli, [facility] 5 09:34:15 Anxiety 90657363 Active 2024 no current meds Mariam Valverde CNM [address], [place], [address], [facility] 5 15:29:30 Past pregnanc y history of pre-ecla mpsia 5095843178 48534 Active 2024 w/o severe features /chronic with meds no meds since last pregnanc y bASA daily HSV- plan 36 week valtrex allergic to gluten/d airy Mariam Valverde CNM [address], [place], [address], [facility] 5 15:30:22 Hypothyr oidism 09761751 Active 2024 Levothyr oxine 100mcg Repeat TSH labs @ 28wks Winifred Quiroga uli, [facility] 5 09:34:15 Anxiety 36924311 Active 2024 no current meds Mariam Valverde CNM [address], [place], [address], [facility] 5 15:29:30 Velament ous insertio n of umbilica l cord 58792352 Active 2024 Marina mcnally, [facility] 5 14:01:20 Vasa previa 35597200 Active 2024 mfm referumberto Valverde CNM [address], [place], [address], [facility] 11:20:38 Problem Notes None recorded. Procedures Surgical History Date Name Laterality Status Provider Name and Address Organization Details Recorded Time 025 IUD Removal completed KAMERON Calvert [address], [place], [address], [facility] 07/04/2024 16:54:24 024 Date of Last Pap Smear completed JULIEN Ferrell [facility] 05/08/2024 15:48:32 023 IUD Insertion completed [facility] 09/14/2022 14:34:26 022 [facility]21 10:47:37 016 Date of Last Colonoscopy [facility] 04/15/2021 11:37:49 016 Colonoscopy completed Mirna [facility] 04/15/2021 11:37:07 011 cholecystectomy completed [facility] 04/15/2021 11:37:20 011 extraction of wisdom tooth completed Mirna Maldonado [facility] 04/15/2021 11:37:34 008 [facility] 04/15/2021 11:36:52 Appendectomy completed Cordelia Shine [facility] 11/06/2024 17:17:39 Colonoscopy completed Cordelia Shine [facility] 11/06/2024 17:17:39 Imaging Results None recorded. Procedure Notes None recorded. Medical Equipment None Reported. Allergies Allergen ID Allergen Name Allergen Category Reaction Reaction Severity Criticality Documentation Date Start Date Code Code System Note Provider Name and Address Organization Details Recorded Time 28886 sulfabenz amide Not available hives severe Not available 03/17/2021 89242 RxNorm Mirna Maldonado uli, [facility] 2 15:50:59 01504 wheat gluten extract food Not available Not available Not available 04/15/2021 03900 81 RxNorm Mirna Maldonado uli, [facility] 2 11:38:14 64038 lactase medicatio n Not available Not available Not available 04/15/2021 09394 RxNorm Mirna Maldonado [facility], [facility] 2 11:38:23 96984 Substance with sulfonami de structure and antibacte rial mechanism of action (substanc e) medicatio n Not available Not available Not available 01/29/2025 59322 8003 SNOMED Not Available zohreh - External Data Service - prod 5 02:58:42 74980 wheat preparati on food,medi cation Not available Not available low 02/01/20252023 19629 52 RxNorm react ion unrec ogniz ed react ion (text : Stoma ch upset , code: 01051 [id number]) (from exter nal sourc e) Not [...] Not Available Not Available Not Available vitamin Z97-ilxeu acid 08/31 completed Not Available Not Available Not Available B12 at morning time 2024 active Not Available Not Available Not Avai lable NOTARY PUBLIC Thyroid 60 mg tablet 07/28 completed Not [...] Address Organization Details Last Updated DateTime 01/01/2025 32080.550 3 g 35.3 kg/m2 156.21 cm 113/76 mm[Hg] Rukhsana Olguin [facility] 01/01/2025 16:45:28 Social History Question Answer Notes LastModified by Organizat ion Details LastModified Time Tobacco Smoking Status Never Smoker Jennifer Key uli, [facility] 03/22/2023 15:53:07 Do You Have An Advance Directive? No [email or web address] Information n ot available 03/17/2021 How Many Years Have You Consumed Alcohol? 7 [email or web address] Information not available 03/17/2021 Are You Blind Or Do You Have Difficulty Seeing? No Information n ot available 03/17/2021 What Is Your Level Of Caffeine Consumption? Moderate [email or web address] Information not available 03/17/2021 How Much Tobacco Do You Chew? None [email or web address] Information not available 03/17/2021 In The 14 Days Before Symptom Onset, Have You Had Close Contact With A Laboratory-confirm ed COVID-19 While That Case Was Ill? No [email or web address] Information n ot available 03/17/2021 In The 14 Days Before Symptom Onset, Have You Had Close Contact With A Person Who Is Under Investigation For COVID-19 While That Person Was Ill? No [email or web address] Information not available 03/17/2021 Have You Been To An Area Known To Be High Risk For COVID-19? No [email or web address] Information not available 03/17/2021 Are You Deaf Or Do You Have Serious Difficulty Hearing? No [email or web address] Information not available 03/17/2021 What Type Of Diet Are You Following? GLUTENFREE [email or web address] Information n ot available 03/17/2021 What Is The Highest Grade Or Level Of School You Have Completed Or The Highest Degree You Have Received? [id number] Information not available 03/17/2021 Are There Any Guns Present In Your Home? No [email or web address] Information not available 03/17/2021 Have You Ever Been Counseled For Unhealthy Alcohol Use? No [email or web address] Information not available 03/22/2023 Do You Use Protection During Sex? Always [email or web address] Information not available 03/17/2021 Do You Use Your Seat Belt Or Car Seat Routinely? Yes [email or web address] Information not available 03/17/2021 Do You Have Smoke And Carbon Monoxide Detectors In Your Home? Yes Information not available 03/17/2021 How Much Tobacco Do You Smoke? No [email or web address] Information not available 03/17/2021 Do You Use Sunscreen Routinely? Yes [email or web address] Information not available 03/17/2021 Has Tobacco Cessation Counseling Been Provided? No [email or web address] Information not available 03/22/2023 Have You Used IV Drugs? No [email or web address] Information not available 03/17/2021 Do You Have Difficulty Walking Or Climbing Stairs? No [email or web address] Information not available 03/22/2023 Sex: Unknown Functional Status Question Answer Note LastModified by Organizat ion Details LastModified Time Do you use any illicit or recreational drugs? No [email or web address] Information not available 03/17/2021 Do you or have you ever used any other forms of tobacco or nicotine? No [email or web address] Information not available 03/22/2023 What is your level of alcohol consumption? Occasional [email or web address] Information not available 03/17/2021 Are you able to walk independently without assistance or assistive devices? YESWOREST [email or web address] Information not available 03/17/2021 Are you able to care for yourself independently? Yes Information not available 03/22/2023 What is your occupation? [employer] [email or web address] Information not available 03/17/2021 Do you have difficulty dressing, bathing, grooming, or toileting? No [email or web address] Information not available 03/22/2023 What is your exercise level? Occasional [email or web address] Information not available 03/17/2021 Mental Status Question Answer Note LastModified by Organization D etails LastModified Time Do you feel stressed (tense, restless, nervous, or anxious, or unable to sleep at night)? [id number] [email or web address] Information not available 03/17/2021 Family History Relationship Description Onset Age of this Age Resolved Age Notes LastModified by Organization Details LastModified Time Maternal Grandmother Hypertensive disorder [email or web address] Not available 03/17 15:51:00 Mother Hypertensive disorder [email or web address] Not available 03/17 15:51:00 Mother Disorder of thyroid gland [email or web address] Not available 03/17 15:51:00 Mother High risk [email or web address] Not available 03/17 15:51:00 Paternal Grandmother Hypertensive disorder [email or web address] Not available 03/17 15:51:00 Medical History Condition Response Other N Blood Transfusion N Dermatologic Disorders N Gestational Diabetes N Anxiety Disorder Y Autoimmune disease N Arthritis N Polyps N Infertility N Acid Reflux (GERD) Y Cancer N Varicosities N Stroke N Neurologic/Epilepsy N Fibromyalgia N Headaches N Kidney Disease N Heart Problems N Kidney or Bladder Problems N Eating Disorder N Art (IVF or FET) N Hepatitis/Liver Disease N No Past Medical History N Urinary Tract Infection N Asthma N Trauma/Violence N Thrombophilias N Allergies (Food, seasonal, environmental ) Y Breast Cancer N Drug/Latex Allergies/Reactions Y Lung Disease N Defects or Inherited Disease N Breast Problem N Hematologic disorders N Anesthesia Complications N History of STI Y Deep Vein Thrombosis N Polycystic ovary syndrome N History of abnormal pap N Endometriosis N High Cholesterol N Thyroid Problems Y GI Problems Y Anemia N Psychiatric Illness N Ovarian Cancer N Diabetes N Pulmonary (TB, Asthma) N Eczema N Abuse/Domestic Violence N Depression/ depression Y Heart Disease N Pre-Eclampsia N Hypertension Y Osteoporosis N Gynecological History Statement/Question Response Date of [...] ICD10 Code Diagnosis IMO Codes Diagnosis Note [id number] Renaldo Reyes MD [facility] [address] [address] 12/04/2024 16:44:59 12/05/2024 09:02:08 Screening status 923129508 Z36.3 Z3A.20 [id number] [facility] [address],[place] [address] 12/04/2024 16:45:22 12/05/2024 16:48:14 Gestation period, 20 weeks 31501194 Z3A.20 0458325 [id number] TOI MENDOZA MD [facility] [address],[place] [address] 01/01/2025 15:48:10 01/01/2025 16:48:34 Velamentous insertion of umbilical cord 38203867 O43.122 Z3A.24 8935648 [id number] TOI MENDOZA MD [facility] [address],[place] [address] 01/01/2025 15:48:36 01/01/2025 17:52:49 Hypothyroidism 05135475 E03.9 34595761 Velamentou s insertion of umbilical cord 25447327 O43.705 4844006 Past pregn tim history of pre-eclampsia 4164553184 29842 Z87.59 764530 Gestation period, 24 weeks 127078563 Z3A.24 9196151 Health Concerns Section Related Observation LastModified by Organization Detai ls LastModified Time None Recorded Concern Status LastModified by Organization Details LastModified Time None Recorded Payers Encounter Date Sequence Insurance Name Policy Number Policy Maldonado Covered Member ID Maldonado Member ID Guarantor Name 01/01/2025 1 [facility] (O) [id number] Jessica Keys [id number] Jessica Keys Notes Date Note Type Note Provider Name and Address Organization Details Recorded Time 01/01/2025 text/html Generic HPI TemplateReported by Patient TOI MENDOZA MD [address], [place], [address], [facility] 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 10/01/19 25 1 A Positive 182 OPEN Fetus Data First Name Last Name Admitted to NICU Weight (g) Sex Living Outcome Pediatric Complications Fetus ID Race Codes Race Delivery Type [id number] Problems Problem Notes [facility] Problem Name Start Date End Date Resolution Snomed Code Not e Anxiety 10/09/2024 83142260 no curren t meds Past history of pre-eclampsia 10/09/2024 182400137547588 w/o severe features/chronic with medsno meds since last pregnancybASA dailyHSV- plan 36 week valtrexallergic to gluten/dairy Velamentous insertion of umbilical cord 11/29/2024 58231742 Hypothyroidism 10/09/2024 52082481 Levo thyroxine 100mcg Repeat TSH labs @ 28wks Vasa previa 01/29/2025 [id number] [facility] ref erall Nick Calculation Initial Nick [...] Type Weight in lbs Pre/Post Dialysis Refused 181.430562338106 BP Diastolic BP Location Tested BP Systolic [...] Weight in lbs Pre/Post Dialysis Refused Weight 183.230253629468 BP Diastolic BP Location Tested BP Systolic [...] Type Weight in lbs Pre/Post Dialysis Refused 185.550209131688 BP Diastolic BP Location Tested BP Systolic [...] Weight in lbs Pre/Post Dialysis Refused Weight 185.580774976161 BP Diastolic BP Location Tested BP Systolic [...] Type Weight in lbs Pre/Post Dialysis Refused 190.078376661583 BP Diastolic BP Location Tested BP Systolic [...] Weight in lbs Pre/Post Dialysis Refused Weight 196.289720515401 BP Diastolic BP Location Tested BP Systolic [...]
--- OUTSIDE RECORDS SUMMARY | 2025-02-02 12:17 | XMS_ITS | Data Portability ---
Author Organization [place] - [facility] (67) Address [address] [address] [facility] [address] [place] [address] Care Team Providers Care Harness Brusher Name Role Phone CADEN PHILLIPS Referring Provider Assessment Encounter Date Assessment Date Assessment LastModified by Organization Details LastModified Time 09/10/2019 09/10/2019 Patient was recently diagnosed with hypertension. She has gained weight and has some snoring. She feels fatigued All day long. I have recommended home sleep study then I'll call the patient and you the results make recommendations and arrange a treatment. [email or web address] Not available 09/10/2019 12:12:35 Plan of Treatment Reminders Order Date Submit Date Provider Last Modified By Organization Details Last Modified Time Details Appointments None record ed. Lab None record ed. Referral None record ed. Procedures None record ed. Surgeries None record ed. Imaging None record ed. Medication Orders None record ed. Patient TargetsNo targets recorded. Patient InstructionsNo instructions recorded. Reason for Referral None Reported. Problems Name Problem SNOMED Code Status Onset Date Resolution Date Notes Provider Name and Address Organization Details Recorded Time Obstructive sleep apnea syndrome 33689078 Active 020 VAMSHI DE JESUS MD, DAB, F.C.C.P. NPI [id number] [address] [facility], [place], [address] [facility] [place] [facility] 0 11:50:08 Problem Notes None recorded. Procedures Surgical History Date Name Laterality Status Provider Name and Address Organization Details Recorded Time 09/11/19 20 Sleep Study completed Blaise dunn [place] - [facility] 09/12/2019 13:26:50 Appendectomy completed VAMSHI DE JESUS MD, Farhad MORELOSC.C.P. [address] [place] [address], [address] [place] [address], [facility] 09/10/2019 11:51:09 Cholecystectomy completed VAMSHI DEAN MD, Shonda MORELOS.C.P. [address] [place] [address], [address] [place] [address], [facility] 09/10/2019 11:51:19 Imaging Results None recorded. Procedure Notes None recorded. Medical Equipment None Reported. Allergies Allergen ID Allergen Name Allergen Category Reaction Reaction Severity Criticality Documentation Date Start Date Code Code System Note Provider Name and Address Organization Details Recorded Time 9716 Substance with sulfonami de structure and antibacte rial mechanism of action (substanc e) medicatio n Not available Not available Not available 09/10/2019 89559 8003 SNOMED VAMSHI DE JESUS MD, Farhad MORELOSC.C.P. NPI [id number] [address] [place] [address], [address] [place] [address], [facility] 0 11:48:07 Medications Name Sig Start Date Stop Date Status Note LastModified by Organization Details LastModified Time metoprolol succinate ER 50 mg tablet,extended release 24 hr active Not Available Not Availabl e Not Available prednisone 20 mg tablet 09/09 completed Not Available Not Available Not Available valacyclovir 500 mg tablet 09/09 completed Not Available Not Available Not Available sulfamethoxazole 800 mg-trimethoprim 160 mg tablet 09/09 completed Not Available Not Available Not Available misoprostol 200 mcg tablet 09/09 completed Not Available Not Available Not Available hydroxyzine HCl 25 mg tablet 09/09 completed Not Available Not Available Not Available hydrochlorothiaz judy 25 mg tablet active Not Available Not Avail able Not Available amoxicillin 875 mg-potassium clavulanate 125 mg tablet 09/09 completed Not Available Not Available Not Available duloxetine 20 mg capsule,delayed release active Not Available Not Available Not Available Estarylla 0.25 mg-0.035 mg tablet 09/09 completed Not Available Not Available Not Available [employer] Thyroid 15 mg tablet active Not Available Not Available Not Available Vitals Date Recorded Body height Body mass index (BMI) Body weight Oxygen saturation Heart rate Respiratory rate Systolic And Diastolic Provider Name and Address Organization Details Last Updated DateTime 0 154.94 cm 35.9 kg/m2 24902.5 5 g 99 % 52 /min 16 /min 100/70 mm[Hg] VAMSHI DE JESUS MD, Farhad MORELOSC.C.P. NPI [id number] [address] [facility] [address], [place], [address], [place] - [facility] 0 12:10:03 Date Recorded Body height Provider Name an d Address Organization Details Last Updated DateTime 09/11/2019 154.94 cm Blaise Elliott [place] - [facility] 09/11/2019 15:53:52 Social History Question Answer Notes LastModified by [employer] ion Details LastModified Time Tobacco Smoking Status Never Smoker VAMSHI DE JESUS MD, Lorenzo MORELOS.Karuna.C.P. [address], [address] [place] [facility] 09/10/2019 11:50:41 What Is Your Level Of Caffeine Consumption? Occasional Information not available 09/10/2019 Sex: Unknown Functional Status Question Answer Note LastModified by [employer] ion Details LastModified Time What is your level of alcohol consumption? Occasional Information not available 09/10/2019 Mental Status None recorded. Family History Relationship Description Onset Age of this Age Resolved Age Notes LastModified by Organization Details LastModified Time Father Obstructive sleep apnea syndrome [email or web address] Not available 2019 11:50:27 Medical History Condition Response Thyroid Disease Y Hypertension Y Gynecological HistoryNo gynecological history recorded. Obstetrics History GPAL:G 0 P 0 0 0 0 Past Encounters Encounter ID Performer Location Encounter Start Date Encounter Closed Date Diagnosis/Indication Diagnosis SNOMED-CT Code Diagnosis ICD10 Code Diagnosis IMO Codes Diagnosis Note [id number] VAMSHI DE JESUS MD, Shonda MORELOS.C.P. [facility] (23) [address] [place] [address] 09/10/2019 11:37:22 09/10/2019 12:39:04 Obstructive sleep apnea of adult 0539278964 103 G47.33 [id number] [facility], [facility] ([facility]) [address] [place] [address] 09/11/2019 15:37:13 09/12/2019 13:19:41 Obstructive sleep apnea of adult 2178323153 103 G47.33 Health Concerns Section Related Observation LastModified by Organization Detai ls LastModified Time None Recorded Concern Status LastModified by Organization Details LastModified Time None Recorded Advance Directives Directive None Recorded Payers Insurance Date Sequence Insurance Name Policy Number Policy Maldonado Covered Member ID Maldonado Member ID Guarantor Name 09/10/2019 1 [employer] [id number] Galen Howardless [id number] Jessica Black Loless 08/21/2019 1 [employer] [id number] Jessica Black Loless [id number] Jessica Howardless Notes Date Note Type Note Provider Name and Address Organization Details Recorded Time 0 text/html Sleep History-Reported by PatientHPIFor the patient presents with chief complaint of, patient reportssnoring. For it is stated that, patient reportsshe goes to bed around 10 pmandusually falls asleep within 20 min. For the patient arises in the morning feeling, patient reportsat approximately 7.30 amandunrefreshed. For awakening at night, patient reportsapproximately 1-3 per/night. For the patient, patient reportsdoes snoreandsnoring is reported to be light. For witnessed apneas, gasping for breath, patient reportshave not been noted. For the patient is, patient reportscurrently working asandduring the day she is frequently sleepy or fatigued. For during quiet activities (e.g. reading, watching tv), patient reportsthe patient nods off,there is a history of napping, and3 naps per month are reported. For during driving, patient reportsand __ nodded off while drivingandthere have not been fall asleep accidents. For the epworth sleepiness, patient reportsscore is 5 (normal is less than 10). For the patient, patient reportsdoes not awaken with morning headaches. For there is, patient reportsno awakening with chest pain. For there, patient reportshave been problems with concentration memory difficulties __ __. For symptoms of, patient reportsleg restlessness are not experienced. For the patient reports, patient reportsno history of sleep paralysis hypnagogic hallucinations cataplexy. For restless sleep, patient reportshas been notedandand kicking at night has not been noted. For the patient, patient reportsconsumes alcohol(rare.). For the patient, patient reportsreports that she has never smoked cigarettes. For weight, patient reportsgain is reported. For other medical problems include, patient reportshypertension. For the patient reports that there, patient reportsis a family history of a sleep disorder.. VAMSHI DE JESUS MD, Farhad MORELOSC.C.P. [facility] [id number] [address], [address], [facility]/[employer]/[facility] 09/10/2019 12:13:13 0 text/html HST SetupReported by PatientEquipment InstructionsFor hst set up, patient reportsdemonstrated to patient how to set up home sleep test device. the patient was able to return demonstration with out difficulty.andthe patient is returning the device the following morning.. VAMSHI DE JESUS MD, Farhad MORELOSC.C.P. [facility] [phone] [address],[facility] [address], [place], [address], [facility]/[employer] 09/12/2019 14:27:44 OBGyn Episode No OBEpisode recorded.
--- OUTSIDE RECORDS SUMMARY | 2025-02-02 12:18 | XMS_ITS | Continuity of Care Document ---
Author Organization [facility] Address [address] [place] [address] [place] [address] Assessment No assessment recorded. Plan of Treatment Reminders Order Date Submit Date Provider Last Modified By Organization Details Last Modified Time Details Appointments OB ROUTINE 2024 01:15P Eliazar REYES MD Not available Not available Not available Lab TSH, serum or plasma 2024 025 [facility] (Lab), [address], [place], [address], 11/29/2024 05:49:08 T4, free, serum 2024 025 [facility] (Lab), [address], [place], [address], 11/29/2024 05:49:08 free T3, quantitat jb, dialysis serum or plasma 2024 025 [facility] (Lab), [address], [place], [address], 11/29/2024 05:49:07 urinalysi s, dipstick 2024 025 [email or web address], [address], [address], [place], [address], 11/28/2024 14:43:21 Referral None recorded. Procedures None recorded. Surgeries None recorded. Imaging None recorded. Medication Orders Macrobid 100 mg capsule 2024 025 [email or web address] [id number], [address] [place], [address], 11/28/2024 15:14:15 Patient TargetsNo targets recorded. Patient InstructionsNo instructions recorded. Reason for Referral None Reported. Results Created Date Observation Date Name Description Value Unit Range Abnormal Flag Note LastModifiedBy Organization Detail LastModifiedTime 10/17/1910/16/2024 [UNIT Y] ANEUP LOIDY NIPT fraction 13.3% normal Not Available [facility] [address], [place], [address], 10/16/2024 20:16:41 10/17/19 25 10/16/2024 [UNIT Y] ANEUP LOIDY NIPT 22Q11.2 microdeletio n LOW RISK <1 in 10,000 normal Not Available [facility] [address], [place], [address], 10/16/2024 20:16:41 10/17/19 25 10/16/2024 [UNIT Y] ANEUP LOIDY NIPT sex chromosome aneuploidy NOT DETECT ED normal Not Available [facility] [address], [place], [address], 10/16/2024 20:16:41 10/17/19 25 10/16/2024 [UNIT Y] ANEUP LOIDY NIPT monosomy X LOW RISK <1 in 10,000 normal Not Available [facility] [address], [place], [address], 10/16/2024 20:16:41 10/17/19 25 10/16/2024 [UNIT Y] ANEUP LOIDY NIPT trisomy 13 LOW RISK <1 in 10,000 normal Not Available [facility] [address], [place], [address], 10/16/2024 20:16:41 10/17/19 25 10/16/2024 [UNIT Y] ANEUP LOIDY NIPT trisomy 18 LOW RISK <1 in 10,000 normal Not Available [facility] [address], [place], [address], 10/16/2024 20:16:41 10/17/19 25 10/16/2024 [UNIT Y] ANEUP LOIDY NIPT trisomy 21 LOW RISK <1 in 10,000 normal Not Available [facility] [address], [place], [address], 10/16/2024 20:16:41 10/17/19 25 10/16/2024 [UNIT Y] ANEUP LOIDY NIPT sex MALE normal Not Available [facility] [address], [place], [address], 10/16/2024 20:16:41 10/17/19 25 10/16/2024 [UNIT Y] ANEUP LOIDY NIPT gestation SINGLE TON normal Not Available [facility] [address], [place], [address], 10/16/2024 20:16:41 10/17/19 25 10/16/2024 [UNIT Y] ANEUP LOIDY NIPT for detailed report, see pdf See PDF normal Not Available [facility] [address], [place], [address], 10/16/2024 20:16:41 10/10/19 25 10/09/2024 CBC W/DIF F WBC 9.8 10'3/ uL 3.5-10 .5 Not Available [facility] (Lab) [address], [place], [address], 2024 19:17:53 10/10/1910/09/2024 CBC W/DIF F RBC 3.93 10'6/ uL (based on docume nted legal sex) 3.80-5 .20 Not Available [facility] (Lab) [address], [place], [address], 2024 19:17:53 10/10/1910/09/2024 CBC W/DIF F HGB 12.5 g/dL (based on docume nted legal sex) 11.6-1 5.4 Not Available [facility] (Lab) [address], [place], [address], 2024 19:17:53 10/10/1910/09/2024 CBC W/DIF F HCT 35.6 % (based on docume nted legal sex) 34.0-4 5.0 Not Available [facility] (Lab) [address], [place], [address], 2024 19:17:53 10/10/1910/09/2024 CBC W/DIF F MCV 90.6 fL 80.0-9 9.0 Not Available [facility] (Lab) [address], [place], [address], 2024 19:17:53 10/10/1910/09/2024 CBC W/DIF F MCH 31.8 pg 27.0-3 4.0 Not Available [facility] (Lab) [address], [place], [address], 2024 19:17:53 10/10/1910/09/2024 CBC W/DIF F MCHC 35.1 g/dL 32.0-3 5.5 Not Available [facility] (Lab) [address], [place], [address], 2024 19:17:53 10/10/1910/09/2024 CBC W/DIF F RDW 12.3 % 11.0-1 5.0 Not Available [facility] (Lab) [address], [place], [address], 2024 19:17:53 10/10/1910/09/2024 CBC W/DIF F plt 185 10'3/ uL 150-40 0 Not Available [facility] (Lab) [address], [place], [address], 2024 19:17:53 10/10/1910/09/2024 CBC W/DIF F MPV 12.4 fL 8.8-12 .1 high Not Available [facility] (Lab) [address], [place], [address], 2024 19:17:53 10/10/1910/09/2024 CBC W/DIF F NRBC's 0.0 % 0.0 Not Available [facility] (Lab) [address], [place], [address], 2024 19:17:53 10/10/1910/09/2024 CBC W/DIF F absolute NRBCs 0.0 10'3/ uL no refere nce range establ ished Not Available [facility] (Lab) [address], [place], [address], 2024 19:17:53 10/10/1910/09/2024 CBC W/DIF F neutrophils 75.7 % 34.0-7 3.0 high Not Available [facility] (Lab) [address], [place], [address], 2024 19:17:53 10/10/1910/09/2024 CBC W/DIF F lymphocytes 17.5 % 15.0-5 0.0 Not Available [facility] (Lab) [address], [place], [address], 2024 19:17:53 10/10/1910/09/2024 CBC W/DIF F monocytes 4.4 % 1.0-15 .0 Not Available [facility] (Lab) [address], [place], [address], 2024 19:17:53 10/10/1910/09/2024 CBC W/DIF F eosinophils 1.9 % 0.0-8. 0 Not Available [facility] (Lab) [address], [place], [address], 2024 19:17:53 10/10/1910/09/2024 CBC W/DIF F basophils 0.2 % 0.0-2. 0 Not Available [facility] (Lab) [address], [place], [address], 2024 19:17:53 10/10/1910/09/2024 CBC W/DIF F immature granulocytes 0.3 % no define d refere nce range Immat ure Granu locyt es (IG) repre sents autom ated enume ratio n of Metam yeloc ytes, Myelo cytes and Promy elocy cullen when IG is < 5%. Blast s are not inclu ded in IG and repor katlin separ ately if prese nt. Not Available [facility] (Lab) [address], [place], [address], 2024 19:17:53 10/10/1910/09/2024 CBC W/DIF F absolute neutrophils 7.4 10'3/ uL 1.5-8. 0 Not Available [facility] (Lab) [address], [place], [address], 2024 19:17:53 10/10/1910/09/2024 CBC W/DIF F absolute lymphocytes 1.7 10'3/ uL 1.0-4. 0 Not Available [facility] (Lab) [address], [place], [address], 2024 19:17:53 10/10/1910/09/2024 CBC W/DIF F absolute monocytes 0.4 10'3/ uL 0.2-1. 0 Not Available [facility] (Lab) [address], [place], [address], 2024 19:17:53 10/10/1910/09/2024 CBC W/DIF F absolute eosinophils 0.2 10'3/ uL 0.0-0. 6 Not Available [facility] (Lab) [address], [place], [address], 2024 19:17:53 10/10/1910/09/2024 CBC W/DIF F absolute basophils 0.0 10'3/ uL 0.0-0. 3 Not Available [facility] (Lab) [address], [place], [address], 2024 19:17:53 10/10/1910/09/2024 CBC W/DIF F absolute immature granulocytes 0.0 10'3/ uL 0.00-0 .10 Refer ence range s for nonbi nary/ inter sex or unspe cifie d gende r patie nts have not been estab lishe d. Pleas e refer to the vanessao wing table for range s estab lishe d for cisge nder patie nts and evalu ate in the clini nicolle kathy xt of the indiv idual patie nt: https ://la bhand book. nm.or g/gen derx Not Available [facility] (Lab) [address], [place], [address], 2024 19:17:53 10/10/1910/09/2024 HIV 1/2 ANTIG EN/AN TIBOD Y, REFLE X CONFI RMATI ON HIV antigen/anti body Nonrea ctive nonrea ctive HIV-1 antig en and HIV-1 /HIV- 2 antib odies were not detec katlin. No labor atory evide nce of HIV infec tion. Not Available [facility] (Lab) [address], [place], [address], 2024 19:17:54 10/10/1910/09/2024 HEPAT ITIS B SURFA CE ANTIG EN hepatitis B surface antigen Non-re active non-re active This assay was perfo rmed using [employer] ratio n reage nts and test kits. Value s obtai ning with other assay metho ds or kits canno t be used inter figueroa eably . Not Available [facility] (Lab) [address], [place], [address], 2024 19:17:55 10/10/19 25 10/09/2024 HEPAT ITIS C ANTIB KANDI SCREE N, REFLE X TO CONFI RMATI ON hepatitis C antibody Non-re active non-re active Antib odies to HCV Not Detec katlin, does not exclu de the possi bilit y of expos ure to HCV. Not Available [facility] (Lab) [address], [place], [address], 2024 19:17:55 10/10/19 25 10/09/2024 RUBEL LA IGG ANTIB KANDI, QUANT rubella antibodies, IgG Reacti ve reacti ve Not Available [facility] (Lab) [address], [place], [address], 2024 19:17:55 10/10/19 25 10/09/2024 RUBEL LA IGG ANTIB KANDI, QUANT rubella antibodies, IgG quant 33.1 IU/mL >=10 Non-r eacti ve (Non- Immun e) <10 IU/mL React jb (Immu ne) > or = 10 IU/mL Not Available [facility] (Lab) [address], [place], [address], 2024 19:17:55 10/10/1910/09/2024 TYPE/ RH/SC REEN ABO/Rh type A POS Not Available [facility] (Lab) [address] [place], [address], 2024 19:17:56 10/10/1910/09/2024 TYPE/ RH/SC REEN antibody screen NEG Not Available [facility] (Lab) [address] [place], [address], 2024 19:17:56 10/10/1910/09/2024 TYPE/ RH/SC REEN exp date 2024 23:59 Not Available [facility] (Lab) [address], [place], [address], 2024 19:17:56 10/10/1910/09/2024 HEMOG LOBIN A1C hemoglobin A1C 4.7 % 4.0-5. 6 The Ameri can Diabe cullen Assoc iatio n recom mends that a prima ry goal of thera py shoul d be a HBA1C of < 7% and that physi cians shoul d reeva luate the treat ment regim en in patie nts with HBA1C value s consi stent ly > 8%. <5.7% Chrissy l 5.7 - 6.4% Incre ased risk for diabe cullen >=6.5 % Diagn ostic of diabe cullen <7.0% Goal of thera py >8.0% Actio n sugge sted Not Available [facility] (Lab) [address], [place], [address], 2024 19:17:56 10/10/1910/09/2024 RPR SCREE N, REFLE X TITER /CONF IRMAT ION RPR qualitative Nonrea ctive nonrea ctive Not Available [facility] (Lab) [address], [place], [address], 2024 19:17:57 10/10/1910/09/2024 LEAD, BLOOD (ADUL T/PED IATRI C) lead, whole blood <1.0 mcg/d L <3.5 See Note 1 Mandie sis was perfo rmed by Nael Silverman ed Plasm a Mass Spect romet ry (ICPM S) Note 1 This test was devel oped and its mandie tical perfo rmanc e dorita cteri stics have been deter mined by [facility]. It has not been clear ed or appro herson by the FDA. This assay has been valid ated pursu ant to the CLIA regul ation s and is used for clini nicolle purpo ses. Perfo rming Organ izati on Infor matio n: Site ID: [id number] Name: Andreas Harrington Addre ss: [id number] [place] [address] Direc tor: Antho ny V Katey s Not Available [facility] (Lab) [address], [place], [address], 2024 19:17:57 10/10/19 25 10/09/2024 CULTU RE: URINE result report SEE RESULT S BELOW Test: Cultu re: Urine Speci men Sourc e: Urine - Clean Catch Speci men Type: Urine Speci men Date: 1423 Resul t Date: 2138 Resul t Statu s: Final resul t Abnor mal: No Resul ting Lab: [facility] [address] [facility] [address] Tel: CULTU RE ----- ----- ----- --- No growt h in 1 day (dete ction level of 10,00 0 colon ies / ml.) Not Available [facility] (Lab) [address], [place], [address], 2024 22:42:52 10/10/19 25 10/09/2024 drug scree n, urine Amphetamines : negati ve Not Available [facility] [address], [place], [address], 10/09/2024 15:12:54 10/10/19 25 10/09/2024 drug scree n, urine Cannabinoids : negati ve Not Available [facility] [address], [place], [address], 10/09/2024 15:12:54 10/10/19 25 10/09/2024 drug scree n, urine Cocaine: negati ve Not Available [facility] [address], [place], [address], 10/09/2024 15:12:54 10/10/19 25 10/09/2024 drug scree n, urine Opiates: negati ve Not Available [facility] [address], [place], [address], 10/09/2024 15:12:54 10/10/19 25 10/09/2024 drug scree n, urine Phenocyclidi ne: negati ve Not Available [facility] [address], [place], [address], 10/09/2024 15:12:54 10/10/19 25 10/09/2024 drug scree n, urine Barbiturates : negati ve Not Available [facility] [address], [place], [address], 10/09/2024 15:12:54 10/10/19 25 10/09/2024 drug scree n, urine Benzodiazepi david: negati ve Not Available [facility] [address], [place], [address], 10/09/2024 15:12:54 10/10/19 25 10/09/2024 drug scree n, urine Ethanol: negati ve Not Available [facility] [address], [place], [address], 10/09/2024 15:12:54 10/10/19 25 10/09/2024 drug scree n, urine Hallucinogen s: negati ve Not Available [facility] [address], [place], [address], 10/09/2024 15:12:54 10/10/19 25 10/09/2024 drug scree n, urine Inhalants: negati ve Not Available [facility] [address], [place], [address], 10/09/2024 15:12:54 10/10/19 25 10/09/2024 drug scree n, urine Anabolic Steroids: negati ve Not Available [facility] [address], [place], [address], 10/09/2024 15:12:54 11/29/19 25 11/28/2024 FREE T3 T3, free 2.96 pg/mL 2.00-4 .40 This assay is susce ptibl e to inter feren ce from high level s of bioti n which may false ly eleva te resul ts. Pleas e corre late with clini nicolle findi ngs inclu ding TSH and FT4 resul ts. If clini campbell indic ated, Free T3 by gT Jaeger sis LC/MS may be perfo rmed. Not Available [facility] (Lab) [address], [place], [address], 11/29/2024 05:49:07 11/29/19 25 11/28/2024 TSH TSH 1.43 uIU/m L 0.30-5 .33 Not Available [facility] (Lab) [address], [place], [address], 11/29/2024 05:49:08 11/29/19 25 11/28/2024 T4 FREE T4, free 0.65 NG/dL 0.54-1 .24 This assay is susce ptibl e to inter feren ce from high level s of bioti n which may false ly eleva te resul ts. Pleas e corre late with clini nicolle findi ngs. Not Available [facility] (Lab) [address], [place], [address], 11/29/2024 05:49:08 11/29/19 25 11/28/2024 urina lysis , dipst ick Leukocytes + Not Available [facility] [address], [place], [address], 11/28/2024 14:42:38 09/25/20 25 11/28/2024 urina lysis , dipst ick Protein + Not Available [facility] [address], [place], [address], 11/28/2024 14:42:38 11/29/19 25 11/28/2024 urina lysis , dipst ick pH 8 Not Available [facility] [address], [place], [address], 11/28/2024 14:42:38 11/29/19 25 11/28/2024 urina lysis , dipst ick Blood + Not Available [facility] [address], [place], [address], 11/28/2024 14:42:38 11/29/19 25 11/28/2024 urina lysis , dipst ick Specific [place] 1.000 Not Available [facility] [address], [place], [address], 11/28/2024 14:42:38 11/29/1911/28/2024 urina lysis , dipst ick Appearance clear Not Available [facility] [address], [place], [address], 11/28/2024 14:42:38 11/29/1911/28/2024 urina lysis , dipst ick Color yellow Not Available [facility] [address], [place], [address], 11/28/2024 14:42:38 10/01/19 25 09/30/2024 danica HERNANDEZ follo w-up No observ ation record ed. [email or web address] [facility] [address], [place], [address], 10/01/2024 09:14:12 10/01/1909/30/2024 US, obste tric, limit ed No observ ation record ed. [email or web address] [facility] [address], [place], [address], 09/30/2024 18:25:20 10/10/19 25 10/09/2024 US, obste tric, nucha l trans lucen cy No observ ation record ed. [email or web address] [facility] [address], [place], [address], 10/09/2024 18:42:28 10/10/19 25 10/09/2024 US, obste tric, nucha l trans lucen cy No observ ation record ed. [email or web address] [facility] [address], [place], [address], 10/11/2024 09:05:59 11/29/19 25 11/28/2024 US, obste tric, limit ed No observ ation record ed. [email or web address] [facility] [address], [place], [address], 11/28/2024 14:35:57 11/29/1911/28/2024 US, obste tric, limit ed No observ ation record ed. [email or web address] [facility] [address], [place], [address], 12/04/2024 17:11:19 12/05/1912/04/2024 US, obste tric, 2nd or 3rd trime ster No observ ation record ed. [email or web address] [facility] [address], [place], [address], 12/10/2024 16:29:24 12/05/1912/04/2024 US, obste tric, 2nd or 3rd trime ster No observ ation record ed. [email or web address] [address], [place], [address], 12/04/2024 18:24:14 01/02/2028 1201/01/2025 US, obste tric, follo w-up No observ ation record ed. [email or web address] [facility] [address], [place], [address], 01/01/2025 18:52:26 01/02/20 25 01/01/2025 US, obste tric, follo w-up No observ ation record ed. [email or web address] [facility] [address], [place], [address], 01/03/2025 10:24:56 01/30/20 25 01/29/2025 imagi ng/di agnos tic resul t No observ ation record ed. [email or web address] [facility] [address], [place], [address], 01/29/2025 11:47:31 01/30/20 25 01/29/2025 US, obste tric, follo w-up No observ ation record ed. [email or web address] [place] [address] [address], [place], [address], 01/29/2025 11:50:46 01/30/20 25 01/29/2025 , obste tric, trans vagin al No observ ation record ed. [email or web address] [facility] [address], [place], [address], 01/29/2025 11:50:59 Result Notes None recorded. 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 3 16:18:26 Hyperten sive disorder 15201857 Completed labetalo l bid, ASA, Baseline 24h TP - 147 Michael mcnally [facility] 3 16:18:26 History of cholecys tectomy 776994039 Completed Michael Garcia [facility], [facility] 3 16:18:26 History of appendec roselyn 198500357 Completed Michael Garcia [facility], [facility] 3 16:18:26 Anxiety 67168124 Completed was on cymbalta - not on currentl y 02/08/22 [facility] 3 16:18:26 Hyperten sive disorder 17031478 Active labetalo l bid, ASA, Baseline 24h TP - 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 16:18:26 Pre-ecla mpsia 224701316 Completed [facility] 3 16:18:26 Pregnanc y 74036867 Completed 202108/19/2022 Winifred Quiroga [facility], [facility] 5 09:42:14 Pregnanc y 93473970 Active 2024 Winifred Quiroga [facility], [facility] 5 09:42:14 Hypothyr oidism 41590689 Active 2024 Levothyr oxine 100mcg Repeat TSH labs @ 28wks [facility] 5 09:34:15 Anxiety 37868877 Active 2024 no current meds Mariam Valverde, JASON [address], [place], [address], [place] [facility] 5 15:29:30 Past pregnanc y history of pre-ecla mpsia [id number] 16243 Active 2024 w/o severe features /chronic with meds no meds since last pregnanc y bASA daily HSV- plan 36 week valtrex allergic to gluten/d airkayla Valverde CNM [address], [place], [address], [facility] 5 15:30:22 Hypothyr oidism 40774621 Active 2024 Levothyr oxine 100mcg Repeat TSH labs @ 28wks Winifred mcnally, [facility] 5 09:34:15 Anxiety 50790041 Active 2024 no current meds Mariam Valverde CNM [address], [place], [address], [facility] 5 15:29:30 Velament ous insertio n of umbilica l cord 55250753 Active 2024 Marina mcnally, [facility] 5 14:01:20 Vasa previa 03583856 Active 2024 m isidra Valverde CNM [address], [place], [address], [facility] 5 11:20:38 Problem Notes None recorded. Procedures Surgical History Date Name Laterality Status Provider Name and Address Organization Details Recorded Time 025 IUD Removal completed KAMERON Calvert [address], [place], [address], [facility] 07/04/2024 16:54:24 024 Date of Last Pap Smear completed JULIEN Ferrell [facility] 05/08/2024 15:48:32 023 [facility]/14/2022 14:34:26 022 IUD Removal completed [facility] 06/01/2021 10:47:37 016 Date of Last Colonoscopy completed [facility] 04/15/2021 11:37:49 016 Colonoscopy completed [facility] 04/15/2021 11:37:07 011 cholecystectomy completed [facility] 04/15/2021 11:37:20 011 extraction of wisdom tooth completed [facility] 04/15/2021 11:37:34 008 Appendectomy completed [facility] 04/15/2021 11:36:52 Appendectomy completed Cordelia Shine [facility] 11/06/2024 17:17:39 Colonoscopy completed Cordelia Shine [facility] 11/06/2024 17:17:39 Imaging Results None recorded. Procedure Notes None recorded. Medical Equipment None Reported. Allergies Allergen ID Allergen Name Allergen Category Reaction Reaction Severity Criticality Documentation Date Start Date Code Code System Note Provider Name and Address Organization Details Recorded Time 04281 sulfabenz amide Not available hives severe Not available 03/17/2021 98320 RxNorm Mirna mcnally [facility] 15:50:59 82549 wheat gluten extract food Not available Not available Not available 04/15/2021 43648 81 RxNorm Mirna mcnally [facility] 11:38:14 56067 lactase medicatio n Not available Not available Not available 04/15/2021 96951 RxNorm Mirna mcnally [facility] 2 11:38:23 50236 Substance with sulfonami de structure and antibacte rial mechanism of action (substanc e) medicatio n Not available Not available Not available 01/29/2025 00212 8003 SNOMED Not Available zohreh - External Data Service - prod 02:58:42 27453 wheat preparati on food,medi cation Not available Not available low 02/01/20252023 88643 52 RxNorm react ion unrec ogniz ed react ion (text : Stoma ch upset , code: [id number]) (from exter nal sourc e) Not Available zohreh - External Data Service - prod 10:36:04 [...] Not Available Not Available Not Available vitamin C25-jifxl acid 08/31 completed Not Available Not Available Not Available B12 at morning time 2024 active Not Available Not Available Not Avai lable E [employer] Thyroid 60 mg tablet 07/28 completed Not [...] Not Available Vitals Date Recorded Body weight Systolic And Diastolic Provider Name and Address Organization Details Last Updated DateTime 11/28/2024 67358.91896 g 110/77 mm[Hg] Roxie Rhodes [facility] 11/28/2024 14:36:32 Social History Question Answer Notes LastModified by Organizat ion Details LastModified Time Tobacco Smoking Status Never Smoker Jennifer Key uli, [facility] 03/22/2023 15:53:07 Do You Have An Advance Directive? No [email or web address] Information n ot available 03/17/2021 How Many Years Have You Consumed Alcohol? 7 [email or web address] Information not available 03/17/2021 Are You Blind Or Do You Have Difficulty Seeing? No [email or web address] Information n ot available 03/17/2021 What Is Your Level Of Caffeine Consumption? Moderate Information not available 03/17/2021 How Much Tobacco Do You Chew? None [email or web address] Information not available 03/17/2021 In The 14 Days Before Symptom Onset, Have You Had Close Contact With A Laboratory-confirm ed COVID-19 While That Case Was Ill? No Information n ot available 03/17/2021 In The 14 Days Before Symptom Onset, Have You Had Close Contact With A Person Who Is Under Investigation For COVID-19 While That Person Was Ill? No [email or web address] Information not available 03/17/2021 Have You Been To An Area Known To Be High Risk For COVID-19? No [email or web address] Information not available 03/17/2021 Are You Deaf Or Do You Have Serious Difficulty Hearing? No Information not available 03/17/2021 What Type Of Diet Are You Following? GLUTENFREE [email or web address] Information n ot available 03/17/2021 What Is The Highest Grade Or Level Of School You Have Completed Or The Highest Degree You Have Received? FK18669-4 [email or web address] Information not available 03/17/2021 Are There Any Guns Present In Your Home? No [email or web address] Information not available 03/17/2021 Have You Ever Been Counseled For Unhealthy Alcohol Use? No Information not available 03/22/2023 Do You Use Protection During Sex? Always [email or web address] Information not available 03/17/2021 Do You Use Your Seat Belt Or Car Seat Routinely? Yes [email or web address] Information not available 03/17/2021 Do You Have Smoke And Carbon Monoxide Detectors In Your Home? Yes [email or web address] Information not available 03/17/2021 How Much Tobacco Do You Smoke? No [email or web address] Information not available 03/17/2021 Do You Use Sunscreen Routinely? Yes [email or web address] Information not available 03/17/2021 Has Tobacco Cessation Counseling Been Provided? No [email or web address] Information not available 03/22/2023 Have You Used IV Drugs? No [email or web address] Information not available 03/17/2021 Do You Have Difficulty Walking Or Climbing Stairs? No [email or web address] Information not available 03/22/2023 Sex: Unknown Functional Status Question Answer Note LastModified by Organizat ion Details LastModified Time Do you use any illicit or recreational drugs? No [email or web address] Information not available 03/17/2021 Do you or have you ever used any other forms of tobacco or nicotine? No Information not available 03/22/2023 What is your level of alcohol consumption? Occasional [email or web address] Information not available 03/17/2021 Are you able to walk independently without assistance or assistive devices? YESWOREST [email or web address] Information not available 03/17/2021 Are you able to care for yourself independently? 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 No [email or web address] Information not available 03/22/2023 What is your exercise level? Occasional [email or web address] Information not available 03/17/2021 Mental Status Question Answer Note LastModified by Organization D etails LastModified Time Do you feel stressed (tense, restless, nervous, or anxious, or unable to sleep at night)? BH08718-8 [email or web address] Information not available 03/17/2021 Family History Relationship Description Onset Age of this Age Resolved Age Notes LastModified by Organization Details LastModified Time Maternal Grandmother Hypertensive disorder [email or web address] Not available 03/17 15:51:00 Mother Hypertensive disorder [email or web address] Not available 03/17 15:51:00 Mother Disorder of thyroid gland [email or web address] Not available 03/17 15:51:00 Mother High risk [email or web address] Not available 03/17 15:51:00 Paternal Grandmother Hypertensive disorder [email or web address] Not available 03/17 15:51:00 Medical History Condition [...] ICD10 Code Diagnosis IMO Codes Diagnosis Note [id number] Mariam Valverde [facility] [address],[place] [address] 11/06/2024 17:11:47 11/06/2024 17:58:08 Gestation period, 16 weeks [id number] Z3A.16 [id number] Renaldo Reyes MD [facility] [address],[place] [address] 11/28/2024 14:01:21 11/28/2024 15:16:08 Pain in pelvis 31232118 R10.2 920212 Acquired hypothyroidism 037268773 E03.9 83184 Acute urin lola tract infection 505122374 N39.0 [id number] [id number] Renaldo Reyes MD [facility] [address],[place] [address] 11/28/2024 14:05:03 11/28/2024 14:34:10 Pain in female pelvis 284933888 O26.892 R10.2 Z3A.19 [id number] Health Concerns Section Related Observation LastModified by Organization Detai ls LastModified Time None Recorded Concern Status LastModified by Organization Details LastModified Time None Recorded Payers Encounter Date Sequence Insurance Name Policy Number Policy Maldonado Covered Member ID Maldonado Member ID Guarantor Name 11/28/2024 1 [employer] [id number] Jessica Keys [id number] 1 Jessica Keys Notes Date Note Type Note Provider Name and Address Organization Details Recorded Time 11/28/2024 text/html OB ProblemReport ed by Patient Renaldo Reyes MD [address], [place], [address], [facility] 11/28/2024 15:15:46 OBGyn Episode Ob Episode Information Episode Created Date Number of Fetuses Patient Bloodtype Patient rh Status Prepregnancy Weight lbs Domestic Partner Domestic Partner Phone Father Name Retort Condenser Attendant Status 10/01/19 25 1 A Positive 182 OPEN Fetus Data First Name Last Name Admitted to NICU Weight (g) Sex Living Outcome Pediatric Complications Fetus ID Race Codes Race Delivery Type [id number] Problems Problem Notes [facility] Problem Name Start Date End Date Resolution Snomed Code Not e Anxiety 10/09/2024 [id number] no curren t meds Past history of pre-eclampsia 10/09/2024 [id number] w/o severe features/chronic with medsno meds since last pregnancybASA dailyHSV- plan 36 week valtrexallergic to gluten/dairy Velamentous insertion of umbilical cord 11/29/2024 [id number] Hypothyroidism 10/09/2024 [id number] Levo thyroxine 100mcg Repeat TSH labs @ 28wks Vasa previa 01/29/2025 [id number] [facility] ref erall Nick Calculation Initial Nick [...] Type Weight in lbs Pre/Post Dialysis Refused 181.106508133337 BP Diastolic BP Location Tested BP Systolic [...] Weight in lbs Pre/Post Dialysis Refused Weight 183.276906753602 BP Diastolic BP Location Tested BP Systolic [...] Type Weight in lbs Pre/Post Dialysis Refused 185.818262553867 BP Diastolic BP Location Tested BP Systolic [...] Weight in lbs Pre/Post Dialysis Refused Weight 185.374916070158 BP Diastolic BP Location Tested BP Systolic BP Type 74 L arm 119 sitting Fetus Heart Rate Present Fetus Movement A Yes Comments reviewed us, cherylos inse rtion LVEIF rpt 4 weeks +FM, [...] Type Weight in lbs Pre/Post Dialysis Refused 190.834235436199 BP Diastolic BP Location Tested BP Systolic [...] Weight in lbs Pre/Post Dialysis Refused Weight 196.413750277677 BP Diastolic BP Location Tested BP Systolic [...]
--- OUTSIDE RECORDS SUMMARY | 2025-02-02 12:18 | XMS_ITS | Continuity of Care Document ---
Author Organization [facility] Address [address] [place] [address] Assessment No assessment recorded. Plan of Treatment Reminders Order Date Submit Date Provider Last Modified By Organization Details Last Modified Time Details Appointments OB ROUTINE 2024 01:15P Eliazar REYES MD Not available Not available Not available Lab None recorded. Referral None recorded. Procedures None recorded. Surgeries None recorded. Imaging US, obstetric , follow-up 2024 [address], [address], [place], [address], 01/29/2025 11:52:34 US, obstetric , transvagi nal [address] [facility] [address], [address], [place], [address], 01/29/2025 11:52:40 Medication Orders None recorded. Patient TargetsNo targets recorded. Patient InstructionsNo instructions recorded. Reason for Referral None Reported. Results Created Date Observation Date Name Description Value Unit Range Abnormal Flag Note LastModifiedBy Organization Detail LastModifiedTime 10/17/1910/16/2024 [UNIT Y] ANEUP LOIDY NIPT fraction 13.3% normal Not Available [facility] [address], [place], [address], 10/16/2024 20:16:41 10/17/19 25 10/16/2024 [UNIT Y] ANEUP LOIDY NIPT 22Q11.2 microdeletio n LOW RISK <1 in 10,000 normal Not Available [facility] [address], [place], [address], 10/16/2024 20:16:41 10/17/19 25 10/16/2024 [UNIT Y] ANEUP LOIDY NIPT sex chromosome aneuploidy NOT DETECT ED normal Not Available [facility] [address], [place], [address], 10/16/2024 20:16:41 10/17/19 25 10/16/2024 [UNIT Y] ANEUP LOIDY NIPT monosomy X LOW RISK <1 in 10,000 normal Not Available [facility] [address], [place], [address], 10/16/2024 20:16:41 10/17/19 25 10/16/2024 [UNIT Y] ANEUP LOIDY NIPT trisomy 13 LOW RISK <1 in 10,000 normal Not Available [facility] [address], [place], [address], 10/16/2024 20:16:41 10/17/19 25 10/16/2024 [UNIT Y] ANEUP LOIDY NIPT trisomy 18 LOW RISK <1 in 10,000 normal Not Available [facility] [address], [place], [address], 10/16/2024 20:16:41 10/17/19 25 10/16/2024 [UNIT Y] ANEUP LOIDY NIPT trisomy 21 LOW RISK <1 in 10,000 normal Not Available [facility] [address], [place], [address], 10/16/2024 20:16:41 10/17/19 25 10/16/2024 [UNIT Y] ANEUP LOIDY NIPT sex MALE normal Not Available [facility] [address], [place], [address], 10/16/2024 20:16:41 10/17/19 25 10/16/2024 [UNIT Y] ANEUP LOIDY NIPT gestation SINGLE TON normal Not Available [facility] [address], [place], [address], 10/16/2024 20:16:41 10/17/19 25 10/16/2024 [UNIT Y] ANEUP LOIDY NIPT for detailed report, see pdf See PDF normal Not Available [facility] [address], [place], [address], 10/16/2024 20:16:41 10/10/19 25 10/09/2024 CBC W/DIF F WBC 9.8 10'3/ uL 3.5-10 .5 Not Available [facility] (Lab) [address] , [place], [address], 2024 19:17:53 10/10/19 25 10/09/2024 CBC W/DIF F RBC 3.93 10'6/ uL (based on docume nted legal sex) 3.80-5 .20 Not Available [facility] (Lab) [address] , [place], [address], 2024 19:17:53 10/10/1910/09/2024 CBC W/DIF F HGB 12.5 g/dL (based on docume nted legal sex) 11.6-1 5.4 Not Available [facility] (Lab) [address] , [place], [address], 2024 19:17:53 10/10/19 25 10/09/2024 CBC W/DIF F HCT 35.6 % (based on docume nted legal sex) 34.0-4 5.0 Not Available [facility] (Lab) [address], [place], [address], 2024 19:17:53 10/10/19 25 10/09/2024 CBC W/DIF F MCV 90.6 fL 80.0-9 9.0 Not Available [facility] (Lab) [address], [place], [address], 2024 19:17:53 10/10/1910/09/2024 CBC W/DIF F MCH 31.8 pg 27.0-3 4.0 Not Available [facility] (Lab) [address], [place], [address], 2024 19:17:53 10/10/1910/09/2024 CBC W/DIF F MCHC 35.1 g/dL 32.0-3 5.5 Not Available [facility] (Lab) [address], [place], [address], 2024 19:17:53 10/10/1910/09/2024 CBC W/DIF F RDW 12.3 % 11.0-1 5.0 Not Available [facility] (Lab) [address], [place], [address], 2024 19:17:53 10/10/1910/09/2024 CBC W/DIF F plt 185 10'3/ uL 150-40 0 Not Available [facility] (Lab) [address], [place], [address], 2024 19:17:53 10/10/1910/09/2024 CBC W/DIF F MPV 12.4 fL 8.8-12 .1 high Not Available [facility] (Lab) [address], [place], [address], 2024 19:17:53 10/10/1910/09/2024 CBC W/DIF F NRBC's 0.0 % 0.0 Not Available [facility] (Lab) [address], [place], [address], 2024 19:17:53 10/10/19 25 10/09/2024 CBC W/DIF F absolute NRBCs 0.0 10'3/ uL no refere nce range establ ished Not Available [facility] (Lab) [address], [place], [address], 2024 19:17:53 10/10/19 25 10/09/2024 CBC W/DIF F neutrophils 75.7 % 34.0-7 3.0 high Not Available [facility] (Lab) [address], [place], [address], 2024 19:17:53 10/10/1910/09/2024 CBC W/DIF F lymphocytes 17.5 % 15.0-5 0.0 Not Available [facility] (Lab) [address], [place], [address], 2024 19:17:53 10/10/1910/09/2024 CBC W/DIF F monocytes 4.4 % 1.0-15 .0 Not Available [facility] (Lab) [address], [place], [address], 2024 19:17:53 10/10/1910/09/2024 CBC W/DIF F eosinophils 1.9 % 0.0-8. 0 Not Available [facility] (Lab) [address], [place], [address], 2024 19:17:53 10/10/1910/09/2024 CBC W/DIF F basophils 0.2 % 0.0-2. 0 Not Available [facility] (Lab) [address], [place], [address], 2024 19:17:53 10/10/1910/09/2024 CBC W/DIF F immature granulocytes 0.3 % no define d refere nce range Immat ure Granu locyt es (IG) repre sents autom ated enume ratio n of Metam yeloc ytes, Myelo cytes and Promy elocy cullen when IG is < 5%. Blast s are not inclu ded in IG and repor katlin separ ately if prese nt. Not Available [facility] (Lab) [address], [place], [address], 2024 19:17:53 10/10/19 25 10/09/2024 CBC W/DIF F absolute neutrophils 7.4 10'3/ uL 1.5-8. 0 Not Available [facility] (Lab) [address], [place], [address], 2024 19:17:53 10/10/1910/09/2024 CBC W/DIF F absolute lymphocytes 1.7 10'3/ uL 1.0-4. 0 Not Available [facility] (Lab) [address], [place], [address], 2024 19:17:53 10/10/19 25 10/09/2024 CBC W/DIF F absolute monocytes 0.4 10'3/ uL 0.2-1. 0 Not Available [facility] (Lab) [address], [place], [address], 2024 19:17:53 10/10/19 25 10/09/2024 CBC W/DIF F absolute eosinophils 0.2 10'3/ uL 0.0-0. 6 Not Available [facility] (Lab) [address], [place], [address], 2024 19:17:53 10/10/19 25 10/09/2024 CBC W/DIF F absolute basophils 0.0 10'3/ uL 0.0-0. 3 Not Available [facility] (Lab) [address], [place], [address], 2024 19:17:53 10/10/19 25 10/09/2024 CBC W/DIF F absolute immature granulocytes 0.0 10'3/ uL 0.00-0 .10 Refer ence range s for nonbi nary/ inter sex or unspe cifie d gende r patie nts have not been estab lishe d. Teto kamara refer to the dee wing table for range s estab lishe d for cisge nder patie nts and evalu ate in the clini nicolle kathy xt of the indiv idual patie nt: https ://la bhand book. nm.or g/gen derx Not Available [facility] (Lab) [address], [place], [address], 2024 19:17:53 10/10/1910/09/2024 HIV 1/2 ANTIG EN/AN TIBOD Y, REFLE X CONFI RMATI ON HIV antigen/anti body Nonrea ctive nonrea ctive HIV-1 antig en and HIV-1 /HIV- 2 antib odies were not detec katlin. No labor atory evide nce of HIV infec tion. Not Available [facility] (Lab) [address], [place], [address], 2024 19:17:54 10/10/1910/09/2024 HEPAT ITIS B SURFA CE ANTIG EN hepatitis B surface antigen Non-re active non-re active This assay was perfo rmed using [employer] ratio n reage nts and test kits. Value s obtai ning with other assay metho ds or kits canno t be used inter figueroa eably . Not Available [facility] (Lab) [address], [place], [address], 2024 19:17:55 10/10/1910/09/2024 HEPAT ITIS C ANTIB KANDI SCREE N, REFLE X TO CONFI RMATI ON hepatitis C antibody Non-re active non-re active Antib odies to HCV Not Detec katlin, does not exclu de the possi bilit y of expos ure to HCV. Not Available [facility] (Lab) [address], [place], [address], 2024 19:17:55 10/10/19 25 10/09/2024 RUBEL LA IGG ANTIB KANDI, QUANT rubella antibodies, IgG Reacti ve reacti ve Not Available [facility] (Lab) [address], [place], [address], 2024 19:17:55 10/10/19 25 10/09/2024 RUBEL LA IGG ANTIB KANDI, QUANT rubella antibodies, IgG quant 33.1 IU/mL >=10 Non-r eacti ve (Non- Immun e) <10 IU/mL React jb (Immu ne) > or = 10 IU/mL Not Available [facility] (Lab) [address], [place], [address], 2024 19:17:55 10/10/19 25 10/09/2024 TYPE/ RH/SC REEN ABO/Rh type A POS Not Available [facility] (Lab) [address], [place], [address], 2024 19:17:56 10/10/19 25 10/09/2024 TYPE/ RH/SC REEN antibody screen NEG Not Available [facility] (Lab) [address], [place], [address], 2024 19:17:56 10/10/1910/09/2024 TYPE/ RH/SC REEN exp date 2024 23:59 Not Available [facility] (Lab) [address], [place], [address], 2024 19:17:56 10/10/19 25 10/09/2024 HEMOG LOBIN A1C hemoglobin A1C 4.7 % 4.0-5. 6 The Ameri can Diabe cullen Assoc iatio n recom mends that a prima ry goal of thermarley donovan d be a HBA1C of < 7% and that physi ciagilda braxton reeva luate the treat ment regim en in patie nts with HBA1C value s consi stent ly > 8%. <5.7% Chrissy l 5.7 - 6.4% Incre ased risk for diabe cullen >=6.5 % Diagn ostic of diabe cullen <7.0% Goal of thera py >8.0% Actio n sugge sted Not Available [facility] (Lab) [address], [place], [address], 2024 19:17:56 10/10/1910/09/2024 RPR SCREE N, REFLE X TITER /CONF IRMAT ION RPR qualitative Nonrea ctive nonrea ctive Not Available [facility] (Lab) [address], [place], [address], 2024 19:17:57 10/10/1910/09/2024 LEAD, BLOOD (ADUL T/PED IATRI C) lead, whole blood <1.0 mcg/d L <3.5 See Note 1 Mandie sis was perfo rmed by Nael Silverman ed Plasm a Mass Spect romet ry (ICPM S) Note 1 This test was devel oped and its mandie tical perfo rmanc e dorita cteri stics have been deter mined by [facility]. It has not been clear ed or appro herson by the FDA. This assay has been valid ated pursu ant to the CLIA regul ation s and is used for clini nicolle purpo ses. Perfo rming Organ izati on Infor matmonty n: Site ID: [id number] Name: [facility]-Andreas Harrington Addre ss: [id number] [place] [address] Direc tor: Lizzyo ny V Katey s Not Available [facility] (Lab) [address], [place], [address], 2024 19:17:57 10/10/1910/09/2024 CULTU RE: URINE result report SEE RESULT S BELOW Test: Cultu re: Urine Speci men Sourc e: Urine - Clean Catch Speci men Type: Urine Speci men Date: 025 1423 Resul t Date: 2138 Resul t Statu s: Final resul t Abnor mal: No Resul ting Lab: [facility] [address] [facility] [address] Tel: [phone] CULTU RE ----- ----- ----- --- No growt h in 1 day (dete ction level of 10,00 0 colon ies / ml.) Not Available [facility] (Lab) [address], [place], [address], 2024 22:42:52 10/10/19 25 10/09/2024 drug scree n, urine Amphetamines : negati ve Not Available [facility] [address], [place], [address], 10/09/2024 15:12:54 10/10/19 25 10/09/2024 drug scree n, urine Cannabinoids : negati ve Not Available [facility] [address], [place], [address], 10/09/2024 15:12:54 10/10/19 25 10/09/2024 drug scree n, urine Cocaine: negati ve Not Available [address], [place], [address], 10/09/2024 15:12:54 10/10/19 25 10/09/2024 drug scree n, urine Opiates: negati ve Not Available [facility] [address], [place], [address], 10/09/2024 15:12:54 10/10/19 25 10/09/2024 drug scree n, urine Phenocyclidi ne: negati ve Not Available [address], [place], [address], 10/09/2024 15:12:54 10/10/19 25 10/09/2024 drug scree n, urine Barbiturates : negati ve Not Available [address], [place], [address], 10/09/2024 15:12:54 10/10/19 25 10/09/2024 drug scree n, urine Benzodiazepi david: negati ve Not Available [facility] [address], [place], [address], 10/09/2024 15:12:54 10/10/19 25 10/09/2024 drug scree n, urine Ethanol: negati ve Not Available [address], [place], [address], 10/09/2024 15:12:54 10/10/19 25 10/09/2024 drug scree n, urine Hallucinogen s: negati ve Not Available [address] [facility] [address], [place], [address], 10/09/2024 15:12:54 10/10/19 25 10/09/2024 drug scree n, urine Inhalants: negati ve Not Available [facility] [address], [place], [address], 10/09/2024 15:12:54 10/10/19 25 10/09/2024 drug scree n, urine Anabolic Steroids: negati ve Not Available [address] [facility] [address], [place], [address], 10/09/2024 15:12:54 11/29/19 25 11/28/2024 FREE T3 T3, free 2.96 pg/mL 2.00-4 .40 This assay is susce ptibl e to inter feren ce from high level s of bioti n which may false ly eleva te resul ts. Pleas e corre late with clini nicolle findi ngs inclu ding TSH and FT4 resul ts. If clini campbell indic ated, Free T3 by Equil ibrperico Jaeger sis LC/MS may be perfo rmed. Not Available [facility] (Lab) [address], [place], [address], 11/29/2024 05:49:07 11/29/19 25 11/28/2024 TSH TSH 1.43 uIU/m L 0.30-5 .33 Not Available [facility] (Lab) [address], [place], [address], 11/29/2024 05:49:08 11/29/19 25 11/28/2024 T4 FREE T4, free 0.65 NG/dL 0.54-1 .24 This assay is susce ptibl e to inter feren ce from high level s of bioti n which may false ly eleva te resul ts. Teto finn late with clini nicolle findi ngs. Not Available [facility] (Lab) [address], [place], [address], 11/29/2024 05:49:08 11/29/19 25 11/28/2024 urina lysis , dipst ick Leukocytes + Not Available [facility] [address], [place], [address], 11/28/2024 14:42:38 11/29/19 25 11/28/2024 urina lysis , dipst ick Protein + Not Available [facility] [address], [place], [address], 11/28/2024 14:42:38 11/29/19 25 11/28/2024 urina lysis , dipst ick pH 8 Not Available [facility] [address], [place], [address], 11/28/2024 14:42:38 11/29/19 25 11/28/2024 urina lysis , dipst ick Blood + Not Available [address] [facility] [address], [place], [address], 11/28/2024 14:42:38 11/29/19 25 11/28/2024 urina lysis , dipst ick Specific Bruno 1.000 Not Available [facility] [address], [place], [address], 11/28/2024 14:42:38 11/29/19 25 11/28/2024 urina lysis , dipst ick Appearance clear Not Available [facility] [address], [place], [address], 11/28/2024 14:42:38 11/29/1911/28/2024 urina lysis , dipst ick Color yellow Not Available [address] [facility] [address], [place], [address], 11/28/2024 14:42:38 10/01/19 25 09/30/2024 US, obste tric, follo w-up No observ ation record ed. [address], [place], [address], 10/01/2024 09:14:12 10/01/1909/30/2024 US, obste tric, limit ed No observ ation record ed. [email or web address] [address], [place], [address], 09/30/2024 18:25:20 10/10/19 25 10/09/2024 US, obste tric, nucha l trans lucen cy No observ ation record ed. [email or web address] [address] [facility] [address], [place], [address], 10/09/2024 18:42:28 10/10/19 25 10/09/2024 US, obste tric, nucha l trans lucen cy No observ ation record ed. [email or web address] [address], [place], [address], 10/11/2024 09:05:59 11/29/1911/28/2024 US, obste tric, limit ed No observ ation record ed. [email or web address] [facility] [address], [place], [address], 11/28/2024 14:35:57 11/29/19 25 11/28/2024 US, obste tric, limit ed No observ ation record ed. [email or web address] [address] [facility] [address] [facility] [address], [place], [address], 12/04/2024 17:11:19 12/05/1912/04/2024 US, obste tric, 2nd or 3rd trime ster No observ ation record ed. [email or web address] [address], [place], [address], 12/10/2024 16:29:24 12/05/19 25 12/04/2024 US, obste tric, 2nd or 3rd trime ster No observ ation record ed. [facility] [address], [place], [address], 12/04/2024 18:24:14 01/02/20 25 01/01/2025 US, obste tric, follo w-up No observ ation record ed. [facility] [address], [place], [address], 01/01/2025 18:52:26 01/02/2001/01/2025 US, obste tric, follo w-up No observ ation record ed. ZOHREH [address], [place], [address], 01/03/2025 10:24:56 01/30/20 25 01/29/2025 imagi ng/di agnos tic resul t No observ ation record ed. [address], [place], [address], 01/29/2025 11:47:31 01/30/2001/29/2025 US, obste tric, follo w-up No observ ation record ed. [email or web address] [facility] [address], [place], [address], 01/29/2025 11:50:46 01/30/2001/29/2025 US, obste tric, trans vagin al No observ ation record ed. [email or web address] [facility] [address], [place], [address], 01/29/2025 11:50:59 Result Notes None recorded. 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 3 16:18:26 Hyperten sive disorder 58703093 Completed labetalo l bid, ASA, Baseline 24h TP - 147 Michael Garcia [facility] 3 16:18:26 History of cholecys tectomy 986626710 Completed Michael Garcia [facility] 3 16:18:26 History of appendec roselyn 169323928 Completed Michael Garcia [facility] 3 16:18:26 Anxiety 37465437 Completed was on cymbalta - not on currentl y 02/08/22 Michael Garcia [facility] 3 16:18:26 Hyperten sive disorder 22347126 Active labetalo l bid, ASA, Baseline 24h TP - 147 Michael Garcia [facility] 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 3 16:18:26 Pre-ecla mpsia 442521937 Completed Michael Garcia null, [facility] 3 16:18:26 Pregnanc y 15830070 Completed 202108/19/2022 Winifred Quiroga null, [facility] 5 09:42:14 Pregnanc y 94479651 Active 2024 Winifred mcnally, [facility] 5 09:42:14 Hypothyr oidism 32080071 Active 2024 Levothyr oxine 100mcg Repeat TSH labs @ 28wks Winifred mcnally, [facility] 5 09:34:15 Anxiety 57403066 Active 2024 no current meds Mariam Valverde CNM [address], [place], [address], [facility] 5 15:29:30 Past pregnanc y history of pre-ecla mpsia [id number] 16122 Active 2024 w/o severe features /chronic with meds no meds since last pregnanc y bASA daily HSV- plan 36 week valtrex allergic to gluten/d airy Mariam Valverde CNM [address], [place], [address], [facility] 5 15:30:22 Hypothyr oidism 36804173 Active 2024 Levothyr oxine 100mcg Repeat TSH labs @ 28wks Winifred mcnally, [facility] 5 09:34:15 Anxiety 82612086 Active 2024 no current meds Mariam Valverde CNM [address], [place], [address], [facility] 15:29:30 Velament ous insertio n of umbilica l cord 95351076 Active 2024 Marina mcnally, [facility] 14:01:20 Vasa previa 50904060 Active 2024 [facility] Mariam Valverde CNM [address], [place], [address], [facility] 11:20:38 Problem Notes None recorded. Procedures Surgical History Date Name Laterality Status Provider Name and Address Organization Details Recorded Time 025 IUD Removal completed KAMERON Calvert [address], [place], [address], [facility] 07/04/2024 16:54:24 024 Date of Last Pap Smear completed JULIEN Ferrell [facility] 05/08/2024 15:48:32 023 IUD Insertion completed Mirna Maldonado [facility] 09/14/2022 14:34:26 022 IUD Removal completed Mirna Maldonado [facility] 06/01/2021 10:47:37 016 Date of Last Colonoscopy completed Mirna Maldonado [facility] 04/15/2021 11:37:49 016 Colonoscopy completed Mirna Maldonado [facility] 04/15/2021 11:37:07 011 cholecystectomy completed Mirna Maldonado [facility] 04/15/2021 11:37:20 011 extraction of wisdom tooth completed Mirna Maldonado [facility] 04/15/2021 11:37:34 008 Appendectomy completed Mirna Maldonado [facility] 04/15/2021 11:36:52 Appendectomy completed Cordelia Fátima [facility] 11/06/2024 17:17:39 Colonoscopy completed Cordelia Fátima [facility] 11/06/2024 17:17:39 Imaging Results None recorded. Procedure Notes None recorded. Medical Equipment None Reported. Allergies Allergen ID Allergen Name Allergen Category Reaction Reaction Severity Criticality Documentation Date Start Date Code Code System Note Provider Name and Address Organization Details Recorded Time 77878 sulfabenz amide Not available hives severe Not available 03/17/2021 96134 Rx[facility] 15:50:59 32186 wheat gluten extract food Not available Not available Not available 04/15/2021 57634 81 RxNorm Mirna Maldonado [place], [facility] 2 11:38:14 23467 lactase medicatio n Not available Not available Not available 04/15/2021 59190 RxNorm Mirna Dejesustz [place], [facility] 2 11:38:23 30887 Substance with sulfonami de structure and antibacte rial mechanism of action (substanc e) medicatio n Not available Not available Not available 01/29/2025 16761 8003 SNOMED Not Available zohreh - External Data Service - prod 5 02:58:42 00979 wheat preparati on food,medi cation Not available Not available low 02/01/20252023 14975 52 RxNorm react ion unrec ogniz ed react ion (text : Stoma ch upset , code: 60051 [id number]) (from exter nal sourc e) Not [...] Not Available Not Available Not Available vitamin P22-lrppw acid 08/31 completed Not Available Not Available Not Available B12 at morning time 2024 active Not Available Not Available Not Avai lable TYPE CUTTER Thyroid 60 mg tablet 07/28 completed Not [...] Updated DateTime 01/29/2025 156.21 cm 36.4 kg/m2 07402.1 g 120/82 mm[Hg] BALTAZAR KANDICE [facility] 01/29/2025 10:47:16 Social History Question Answer Notes LastModified by Organizat ion Details LastModified Time Tobacco Smoking Status Never Smoker Jennifer Key uli, [facility] 03/22/2023 15:53:07 Do You Have An Advance Directive? No [email or web address] Information n ot available 03/17/2021 How Many Years Have You Consumed Alcohol? 7 Information not available 03/17/2021 Are You Blind Or Do You Have Difficulty Seeing? No [email or web address] Information n ot available 03/17/2021 What Is Your Level Of Caffeine Consumption? Moderate [email or web address] Information not available 03/17/2021 How Much Tobacco Do You Chew? None [email or web address] Information not available 03/17/2021 In The 14 Days Before Symptom Onset, Have You Had Close Contact With A Laboratory-confirm ed COVID-19 While That Case Was Ill? No [email or web address] Information n ot available 03/17/2021 In The 14 Days Before Symptom Onset, Have You Had Close Contact With A Person Who Is Under Investigation For COVID-19 While That Person Was Ill? No [email or web address] Information not available 03/17/2021 Have You Been To An Area Known To Be High Risk For COVID-19? No [email or web address] Information not available 03/17/2021 Are You Deaf Or Do You Have Serious Difficulty Hearing? No [email or web address] Information not available 03/17/2021 What Type Of Diet Are You Following? GLUTENFREE [email or web address] Information n ot available 03/17/2021 What Is The Highest Grade Or Level Of School You Have Completed Or The Highest Degree You Have Received? IS13216-6 [email or web address] Information not available 03/17/2021 Are There Any Guns Present In Your Home? No [email or web address] Information not available 03/17/2021 Have You Ever Been Counseled For Unhealthy Alcohol Use? No [email or web address] Information not available 03/22/2023 Do You Use Protection During Sex? Always [email or web address] Information not available 03/17/2021 Do You Use Your Seat Belt Or Car Seat Routinely? Yes [email or web address] Information not available 03/17/2021 Do You Have Smoke And Carbon Monoxide Detectors In Your Home? Yes [email or web address] Information not available 03/17/2021 How Much Tobacco Do You Smoke? No Information not available 03/17/2021 Do You Use Sunscreen Routinely? Yes [email or web address] Information not available 03/17/2021 Has Tobacco Cessation Counseling Been Provided? No [email or web address] Information not available 03/22/2023 Have You Used IV Drugs? No [email or web address] Information not available 03/17/2021 Do You Have Difficulty Walking Or Climbing Stairs? No [email or web address] Information not available 03/22/2023 Sex: Unknown Functional Status Question Answer Note LastModified by Organizat ion Details LastModified Time Do you use any illicit or recreational drugs? No [email or web address] Information not available 03/17/2021 Do you or have you ever used any other forms of tobacco or nicotine? No [email or web address] Information not available 03/22/2023 What is your level of alcohol consumption? Occasional [email or web address] Information not available 03/17/2021 Are you able to walk independently without assistance or assistive devices? YESWOREST [email or web address] Information not available 03/17/2021 Are you able to care for yourself independently? 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 No Information not available 03/22/2023 What is your exercise level? Occasional [email or web address] Information not available 03/17/2021 Mental Status Question Answer Note LastModified by Organization D etails LastModified Time Do you feel stressed (tense, restless, nervous, or anxious, or unable to sleep at night)? OV90061-3 [email or web address] Information not available 03/17/2021 Family History Relationship Description Onset Age of this Age Resolved Age Notes LastModified by Organization Details LastModified Time Maternal Grandmother Hypertensive disorder [email or web address] Not available 03/17 15:51:00 Mother Hypertensive disorder [email or web address] Not available 03/17 15:51:00 Mother Disorder of thyroid gland [email or web address] Not available 03/17 15:51:00 Mother High risk [email or web address] Not available 03/17 15:51:00 Paternal Grandmother Hypertensive disorder [email or web address] Not available 03/17 15:51:00 Medical History Condition Response Allergies (Food, seasonal, environmental ) Y Other N Breast Cancer N Drug/Latex Allergies/Reactions Y Blood Transfusion N Lung Disease N Dermatologic Disorders N Defects or Inherited Disease N Breast Problem N Gestational Diabetes N Hematologic disorders N Anesthesia Complications N History of STI Y Deep Vein Thrombosis N Polycystic ovary syndrome N Anxiety Disorder Y Autoimmune disease N Arthritis N Polyps N Infertility N History of abnormal pap N Acid Reflux (GERD) Y Cancer N [...] ICD10 Code Diagnosis IMO Codes Diagnosis Note [id number] TOI MENDOZA MD [facility] [address],[place] [address] 01/01/2025 15:48:10 01/01/2025 16:48:34 Velamentous insertion of umbilical cord 71927692 O43.122 Z3A.24 [id number] TOI MENDOZA MD [facility] [address],[place] [address] 01/01/2025 15:48:36 01/01/2025 17:52:49 Hypothyroidism 65152951 E03.9 [id number] Velamentou s insertion of umbilical cord 04720559 O43.032 2455476 Past pregn tim history of pre-eclampsia [id number] 87494 Z87.59 162026 Gestation period, 24 weeks 796728920 Z3A.24 4773908 [id number] Renaldo Reyes MD [facility] [address],[place] [address] 01/29/2025 09:25:08 01/29/2025 10:47:09 Velamentous insertion of umbilical cord 36865187 O43.129 Z3A.28 10279767 [id number] [facility] [address] [address] 01/29/2025 09:25:23 01/29/2025 11:23:33 Gestation period, 28 weeks 92520561 Z3A.28 5817671 Vasa previa 31998536 O69 .4XX0 [id number] Health Concerns Section Related Observation LastModified by Organization Detai ls LastModified Time None Recorded Concern Status LastModified by Organization Details LastModified Time None Recorded Payers Encounter Date Sequence Insurance Name Policy Number Policy Maldonado Covered Member ID Maldonado Member ID Guarantor Name 01/29/2025 1 [employer] [id number] Jessica Keys [id number] 1 Jessica Keys Notes Date Note Type Note Provider Name and Address Organization Details Recorded Time 01/29/2025 text/html Generic HPI TemplateReported by Patient Mariam Valverde CNM [address], [place], [address], [place] [facility] 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 Status 10/01/19 25 1 A Positive 182 OPEN Fetus Data First Name Last Name Admitted to NICU Weight (g) Sex Living Outcome Pediatric Complications Fetus ID Race Codes Race Delivery Type [id number] Problems Problem Notes [facility] of [facility] Problem Name Start Date End Date Resolution Snomed Code Not e Anxiety 10/09/2024 [id number] no curren t meds Past history of pre-eclampsia 10/09/2024 [id number] w/o severe features/chronic with medsno meds since last pregnancybASA dailyHSV- plan 36 week valtrexallergic to gluten/dairy Velamentous insertion of umbilical cord 11/29/2024 [id number] Hypothyroidism 10/09/2024 75947809 Levo thyroxine 100mcg Repeat TSH labs @ 28wks Vasa previa 01/29/2025 [id number] [facility] ref erall Nick Calculation Initial Nick Date [...] Type Weight in lbs Pre/Post Dialysis Refused 181.521901027766 BP Diastolic BP Location Tested BP Systolic [...] Weight in lbs Pre/Post Dialysis Refused Weight 183.605156097858 BP Diastolic BP Location Tested BP Systolic [...] Type Weight in lbs Pre/Post Dialysis Refused 185.388822924246 BP Diastolic BP Location Tested BP Systolic [...] Weight in lbs Pre/Post Dialysis Refused Weight 185.353591828730 BP Diastolic BP Location Tested BP Systolic [...] Type Weight in lbs Pre/Post Dialysis Refused 190.393901514136 BP Diastolic BP Location Tested BP Systolic [...] Weight in lbs Pre/Post Dialysis Refused Weight 196.525742614344 BP Diastolic BP Location Tested BP Systolic [...]
--- OUTSIDE RECORDS SUMMARY | 2025-02-02 12:18 | XMS_ITS | Continuity of Care Document ---
Author Organization [facility], [facility] Address [address] [place] [address] Assessment No assessment recorded. Plan of Treatment Reminders Order Date Submit Date Provider Last Modified By Organization Details Last Modified Time Details Appointments OB ROUTINE 2024 01:15P Rachael REYES MD Not available Not available Not available Lab None recorded . Referral None recorded . Procedures None recorded . Surgeries None recorded . Imaging US, obstetri c, limited 2024 025 [email or web address] [place], [address], [address], [place], [address], 11/28/2024 18:25:28 Medication Orders None recorded . Patient TargetsNo targets recorded. Patient InstructionsNo instructions recorded. Reason for Referral None Reported. Results Created Date Observation Date Name Description Value Unit Range Abnormal Flag Note LastModifiedBy Organization Detail LastModifiedTime 10/17/1910/16/2024 [UNIT Y] ANEUP LOIDY NIPT fraction 13.3% normal Not Available [facility] [address], [place], [address], 10/16/2024 20:16:41 10/17/19 25 10/16/2024 [UNIT Y] ANEUP LOIDY NIPT 22Q11.2 microdeletio n LOW RISK <1 in 10,000 normal Not Available [facility] [address], [place], [address], 10/16/2024 20:16:41 10/17/19 25 10/16/2024 [UNIT Y] ANEUP LOIDY NIPT sex chromosome aneuploidy NOT DETECT ED normal Not Available [facility] [address], [place], [address], 10/16/2024 20:16:41 10/17/19 25 10/16/2024 [UNIT Y] ANEUP LOIDY NIPT monosomy X LOW RISK <1 in 10,000 normal Not Available [facility] [address], [place], [address], 10/16/2024 20:16:41 10/17/19 25 10/16/2024 [UNIT Y] ANEUP LOIDY NIPT trisomy 13 LOW RISK <1 in 10,000 normal Not Available [facility] [address], [place], [address], 10/16/2024 20:16:41 10/17/19 25 10/16/2024 [UNIT Y] ANEUP LOIDY NIPT trisomy 18 LOW RISK <1 in 10,000 normal Not Available [facility] [address], [place], [address], 10/16/2024 20:16:41 10/17/19 25 10/16/2024 [UNIT Y] ANEUP LOIDY NIPT trisomy 21 LOW RISK <1 in 10,000 normal Not Available [facility] [address], [place], [address], 10/16/2024 20:16:41 10/17/19 25 10/16/2024 [UNIT Y] ANEUP LOIDY NIPT sex MALE normal Not Available [facility] [address], [place], [address], 10/16/2024 20:16:41 10/17/19 25 10/16/2024 [UNIT Y] ANEUP LOIDY NIPT gestation SINGLE TON normal Not Available [facility] [address], [place], [address], 10/16/2024 20:16:41 10/17/19 25 10/16/2024 [UNIT Y] ANEUP JAIROIDY NIPT for detailed report, see pdf See PDF normal Not Available [facility] [address], [place], [address], 10/16/2024 20:16:41 10/10/19 25 10/09/2024 CBC W/DIF F WBC 9.8 10'3/ uL 3.5-10 .5 Not Available [facility] (Lab) [address], [place], [address], 2024 19:17:53 10/10/1910/09/2024 CBC W/DIF F RBC 3.93 10'6/ uL (based on docume nted legal sex) 3.80-5 .20 Not Available [facility] (Lab) [address], [place], [address], 2024 19:17:53 10/10/1910/09/2024 CBC W/DIF F HGB 12.5 g/dL (based on docume nted legal sex) 11.6-1 5.4 Not Available [facility] (Lab) [address], [place], [address], 2024 19:17:53 10/10/1910/09/2024 CBC W/DIF F HCT 35.6 % (based on docume nted legal sex) 34.0-4 5.0 Not Available [facility] (Lab) [address], [place], [address], 2024 19:17:53 10/10/1910/09/2024 CBC W/DIF F MCV 90.6 fL 80.0-9 9.0 Not Available [facility] (Lab) [address], [place], [address], 2024 19:17:53 10/10/1910/09/2024 CBC W/DIF F MCH 31.8 pg 27.0-3 4.0 Not Available [facility] (Lab) [address], [place], [address], 2024 19:17:53 10/10/1910/09/2024 CBC W/DIF F MCHC 35.1 g/dL 32.0-3 5.5 Not Available [facility] (Lab) [address] [facility], [place], [address], 2024 19:17:53 10/10/19 25 10/09/2024 CBC W/DIF F RDW 12.3 % 11.0-1 5.0 Not Available [facility] (Lab) [address] [facility], [place], [address], 2024 19:17:53 10/10/1910/09/2024 CBC W/DIF F plt 185 10'3/ uL 150-40 0 Not Available [facility] (Lab) [address] [facility], [place], [address], 2024 19:17:53 10/10/1910/09/2024 CBC W/DIF F MPV 12.4 fL 8.8-12 .1 high Not Available [facility] (Lab) [address] [facility], [place], [address], 2024 19:17:53 10/10/1910/09/2024 CBC W/DIF F NRBC's 0.0 % 0.0 Not Available [facility] (Lab) [address] [facility], [place], [address], 2024 19:17:53 10/10/1910/09/2024 CBC W/DIF F absolute NRBCs 0.0 10'3/ uL no refere nce range establ ished Not Available [facility] (Lab) [address] [facility], [place], [address], 2024 19:17:53 10/10/19 25 10/09/2024 CBC W/DIF F neutrophils 75.7 % 34.0-7 3.0 high Not Available [facility] (Lab) [address] [facility], [place], [address], 2024 19:17:53 10/10/19 25 10/09/2024 CBC W/DIF F lymphocytes 17.5 % 15.0-5 0.0 Not Available [facility] (Lab) [address] [facility], [place], [address], 2024 19:17:53 10/10/1910/09/2024 CBC W/DIF F monocytes 4.4 % 1.0-15 .0 Not Available [facility] (Lab) [address] [facility], [place], [address], 2024 19:17:53 10/10/19 25 10/09/2024 CBC W/DIF F eosinophils 1.9 % 0.0-8. 0 Not Available [facility] (Lab) [address] [facility], [place], [address], 2024 19:17:53 10/10/19 25 10/09/2024 CBC W/DIF F basophils 0.2 % 0.0-2. 0 Not Available [facility] (Lab) [address] [place], [address], 2024 19:17:53 10/10/19 25 10/09/2024 CBC W/DIF [...] separ ately if prese nt. Not Available [facility] (Lab) [address] [facility], [place], [address], 2024 19:17:53 10/10/1910/09/2024 CBC W/DIF F absolute neutrophils 7.4 10'3/ uL 1.5-8. 0 Not Available [facility] (Lab) [address] [facility], [place], [address], 2024 19:17:53 10/10/1910/09/2024 CBC W/DIF F absolute lymphocytes 1.7 10'3/ uL 1.0-4. 0 Not Available [facility] (Lab) [address] [facility], [place], [address], 2024 19:17:53 10/10/1910/09/2024 CBC W/DIF F absolute monocytes 0.4 10'3/ uL 0.2-1. 0 Not Available [facility] (Lab) [address] [facility], [place], [address], 2024 19:17:53 10/10/1910/09/2024 CBC W/DIF F absolute eosinophils 0.2 10'3/ uL 0.0-0. 6 Not Available [facility] (Lab) [address] [facility], [place], [address], 2024 19:17:53 10/10/1910/09/2024 CBC W/DIF F absolute basophils 0.0 10'3/ uL 0.0-0. 3 Not Available [facility] (Lab) [address] [facility], [place], [address], 2024 19:17:53 10/10/1910/09/2024 CBC W/DIF F absolute [...] bhand book. nm.or g/gen derx Not Available [facility] (Lab) [address], [place], [address], 2024 19:17:53 10/10/1910/09/2024 HIV 1/2 ANTIG EN/AN TIBOD Y, REFLE X CONFI RMATI ON HIV antigen/anti body Nonrea ctive nonrea ctive HIV-1 antig en and HIV-1 /HIV- 2 antib odies were not detec katlin. No labor atory evide nce of HIV infec tion. Not Available [facility] (Lab) [address], [place], [address], 2024 19:17:54 10/10/1910/09/2024 HEPAT ITIS B SURFA CE ANTIG EN hepatitis B surface antigen Non-re active non-re active This assay was perfo rmed using [employer] ratio n reage nts and test kits. Value s obtai ning with other assay metho ds or kits canno t be used inter figueroa eably . Not Available [facility] (Lab) [address], [place], [address], 2024 19:17:55 10/10/1910/09/2024 HEPAT ITIS C ANTIB KANDI SCREE N, REFLE X TO CONFI RMATI ON hepatitis C antibody Non-re active non-re active Antib odies to HCV Not Detec katlin, does not exclu de the possi bilit y of expos ure to HCV. Not Available [facility] (Lab) [address], [place], [address], 2024 19:17:55 10/10/1910/09/2024 RUBEL LA IGG ANTIB KANDI, QUANT rubella antibodies, IgG Reacti ve reacti ve Not Available [facility] (Lab) [address], [place], [address], 2024 19:17:55 10/10/19 25 10/09/2024 RUBEL LA IGG ANTIB KANDI, QUANT rubella antibodies, IgG quant 33.1 IU/mL >=10 Non-r eacti ve (Non- Immun e) <10 IU/mL React jb (Immu ne) > or = 10 IU/mL Not Available [facility] (Lab) [address] [facility], [place], [address], 2024 19:17:55 10/10/19 25 10/09/2024 TYPE/ RH/SC REEN ABO/Rh type A POS Not Available [facility] (Lab) [address] [facility], [place], [address], 2024 19:17:56 10/10/1910/09/2024 TYPE/ RH/SC REEN antibody screen NEG Not Available [facility] (Lab) [address] [facility], [place], [address], 2024 19:17:56 10/10/1910/09/2024 TYPE/ RH/SC REEN exp date 2024 23:59 Not Available [facility] (Lab) [address] [facility], [place], [address], 2024 19:17:56 10/10/1910/09/2024 HEMOG LOBIN A1C hemoglobin [...] >8.0% Actio n sugge sted Not Available [facility] (Lab) [address] [facility], [place], [address], 2024 19:17:56 10/10/1910/09/2024 RPR SCREE N, REFLE X TITER /CONF IRMAT ION RPR qualitative Nonrea ctive nonrea ctive Not Available [facility] (Lab) [address] [facility], [place], [address], 2024 19:17:57 10/10/1910/09/2024 LEAD, BLOOD (ADUL T/PED IATRI C) lead, whole blood <1.0 mcg/d L <3.5 See Note 1 Mandie sis was perfo rmed by Nael Silverman ed Plasm a Mass Spect rometyrone ry (ICPM S) Note 1 This test was devel oped and its mandie tical perfo rmanc e dorita cteri stics have been deter mined by [employer]. It has not been clear ed or appro herson by the FDA. This assay has been valid ated pursu ant to the CLIA regul ation s and is used for clini nicolle purpo ses. Perfo rming Organ izati on Infor isai n: Site ID: CB Name: [employer] [facility] sOlegario Harrington Addre ss: [id number] [place] [address] Direc tor: Bharathi vitale V Katey s Not Available [facility] (Lab) [address] [facility], [place], [address], 2024 19:17:57 10/10/1910/09/2024 CULTU RE: URINE result report SEE RESULT S BELOW Test: Cultu re: Urine Speci men Sourc e: Urine - Clean Catch Speci men Type: Urine Speci men Date: 025 1423 Resul t Date: 9 Resul t Statu s: Final resul t Abnor mal: No Resul ting Lab: [facility] [address] [facility] [address] Tel: CULTU RE ----- ----- ----- --- No growt h in 1 day (dete ction level of 10,00 0 colon ies / ml.) Not Available [facility] (Lab) [address], [place], [address], 2024 22:42:52 10/10/19 25 10/09/2024 drug scree n, urine Amphetamines : negati ve Not Available [facility] [address], [place], [address], 10/09/2024 15:12:54 10/10/19 25 10/09/2024 drug scree n, urine Cannabinoids : negati ve Not Available [facility] [address], [place], [address], 10/09/2024 15:12:54 10/10/19 25 10/09/2024 drug scree n, urine Cocaine: negati ve Not Available [facility] [address], [place], [address], 10/09/2024 15:12:54 10/10/19 25 10/09/2024 drug scree n, urine Opiates: negati ve Not Available [facility] [address], [place], [address], 10/09/2024 15:12:54 10/10/19 25 10/09/2024 drug scree n, urine Phenocyclidi ne: negati ve Not Available [facility] [address], [place], [address], 10/09/2024 15:12:54 10/10/19 25 10/09/2024 drug scree n, urine Barbiturates : negati ve Not Available [facility] [address], [place], [address], 10/09/2024 15:12:54 10/10/19 25 10/09/2024 drug scree n, urine Benzodiazepi david: negati ve Not Available [facility] [address], [place], [address], 10/09/2024 15:12:54 10/10/19 25 10/09/2024 drug scree n, urine Ethanol: negati ve Not Available [facility] [address], [place], [address], 10/09/2024 15:12:54 10/10/19 25 10/09/2024 drug scree n, urine Hallucinogen s: negati ve Not Available [facility] [address], [place], [address], 10/09/2024 15:12:54 10/10/19 25 10/09/2024 drug scree n, urine Inhalants: negati ve Not Available [facility] [address], [place], [address], 10/09/2024 15:12:54 10/10/19 25 10/09/2024 drug scree n, urine Anabolic Steroids: negati ve Not Available [facility] [address], [place], [address], 10/09/2024 15:12:54 11/29/19 25 11/28/2024 FREE T3 T3, free 2.96 pg/mL 2.00-4 .40 This assay is susce ptibl e to inter feren ce from high level s of bioti n which may false ly eleva te resul ts. Pleas e corre late with clini nicolle findi ngs inclu ding TSH and FT4 resul ts. If clini campbell indic ated, Free T3 by Parasil joselito Jaeger sis LC/MS may be perfo rmed. Not Available [facility] (Lab) [address], [place], [address], 11/29/2024 05:49:07 11/29/19 25 11/28/2024 TSH TSH 1.43 uIU/m L 0.30-5 .33 Not Available [facility] (Lab) [address] [facility], [place], [address], 11/29/2024 05:49:08 11/29/19 25 11/28/2024 T4 FREE T4, free 0.65 NG/dL 0.54-1 .24 This assay is susce ptibl e to leonora guzman ce from high level s of bioti n which may false ly eleva te resul ts. Teto e corre late with clini nicolle findi ngs. Not Available [facility] (Lab) [address] [facility], [place], [address], 11/29/2024 05:49:08 11/29/19 25 11/28/2024 urina lysis , dipst ick Leukocytes + Not Available [facility] [address], [place], [address], 11/28/2024 14:42:38 11/29/19 25 11/28/2024 urina lysis , dipst ick Protein + Not Available [facility] [address], [place], [address], 11/28/2024 14:42:38 11/29/19 25 11/28/2024 urina lysis , dipst ick pH 8 Not Available [facility] [address], [place], [address], 11/28/2024 14:42:38 11/29/19 25 11/28/2024 urina lysis , dipst ick Blood + Not Available [facility] [address], [place], [address], 11/28/2024 14:42:38 11/29/19 25 11/28/2024 urina lysis , dipst ick Specific [place] 1.000 Not Available [facility] [address], [place], [address], 11/28/2024 14:42:38 11/29/19 25 11/28/2024 urina lysis , dipst ick Appearance clear Not Available [facility] [address], [place], [address], 11/28/2024 14:42:38 11/29/19 25 11/28/2024 urina lysis , dipst ick Color yellow Not Available [facility] [address], [place], [address], 11/28/2024 14:42:38 10/01/19 25 09/30/2024 US, obste tric, follo w-up No observ ation record ed. [email or web address] [address], [place], [address], 10/01/2024 09:14:12 10/01/19 25 09/30/2024 US, obste tric, limit ed No observ ation record ed. [email or web address] [facility] [address], [place], [address], 09/30/2024 18:25:20 10/10/19 25 10/09/2024 US, obste tric, nucha l trans lucen cy No observ ation record ed. [email or web address] [facility] [address], [place], [address], 10/09/2024 18:42:28 10/10/19 25 10/09/2024 US, obste tric, nucha l trans lucen cy No observ ation record ed. [email or web address] [address], [place], [address], 10/11/2024 09:05:59 11/29/19 25 11/28/2024 US, obste tric, limit ed No observ ation record ed. [email or web address] [facility] [address], [place], [address], 11/28/2024 14:35:57 11/29/19 25 11/28/2024 US, obste tric, limit ed No observ ation record ed. [email or web address] [address] [address], [place], [address], 12/04/2024 17:11:19 12/05/1912/04/2024 US, obste tric, 2nd or 3rd trime ster No observ ation record ed. [email or web address] [address] [address], [place], [address], 12/10/2024 16:29:24 12/05/1912/04/2024 US, obste tric, 2nd or 3rd trime ster No observ ation record ed. [facility] [address], [place], [address], 12/04/2024 18:24:14 01/02/20 25 01/01/2025 , obste tric, follo w-up No observ ation record ed. [facility] [address], [place], [address], 01/01/2025 18:52:26 01/02/20 25 01/01/2025 US, obste tric, follo w-up No observ ation record ed. [email or web address] [facility], [place], [address], 01/03/2025 10:24:56 01/30/20 25 01/29/2025 imagi ng/di agnos tic resul t No observ ation record ed. [email or web address] [address], [place], [address], 01/29/2025 11:47:31 01/30/20 25 01/29/2025 US, obste tric, follo w-up No observ ation record ed. [address], [place], [address], 01/29/2025 11:50:46 01/30/20 25 01/29/2025 US, obste tric, trans vagin al No observ ation record ed. [email or web address] [facility] [address], [place], [address], 01/29/2025 11:50:59 Result Notes None recorded. 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 3 16:18:26 Hyperten sive disorder 33491978 Completed labetalo l bid, ASA, Baseline 24h TP - 147 Michael Garcia [facility], [facility] 3 16:18:26 History of cholecys tectomy 267150827 Completed Michael Garcia [facility], [facility] 3 16:18:26 History of appendec roselyn 998072419 Completed Michael Garcia [facility], [facility] 3 16:18:26 Anxiety 29577379 Completed was on cymbalta - not on currentl y 02/08/22 [facility] 3 16:18:26 Hyperten sive disorder 27963767 Active labetalo l bid, ASA, Baseline 24h TP - 147 [facility] 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 3 16:18:26 Pre-ecla mpsia 814586057 Completed Michael Driscollle null, [facility] 3 16:18:26 Pregnanc y 08257696 Completed 202108/19/2022 Winifred mcnally, [facility] 5 09:42:14 Pregnanc y 74843264 Active 2024 Winifred mcnally, [facility] 5 09:42:14 Hypothyr oidism 27153276 Active 2024 Levothyr oxine 100mcg Repeat TSH labs @ 28wks Winifred mcnally, [facility] 5 09:34:15 Anxiety 39866790 Active 2024 no current meds Mariam Valverde CNM [address], [place], [address], [facility] 5 15:29:30 Past pregnanc y history of pre-ecla mpsia [id number] 42984 Active 2024 w/o severe features /chronic with meds no meds since last pregnanc y bASA daily HSV- plan 36 week valtrex allergic to gluten/d airy Mariam Valverde CNM [address], [place], [address], [facility] 5 15:30:22 Hypothyr oidism 60356624 Active 2024 Levothyr oxine 100mcg Repeat TSH labs @ 28wks Winifred mcnally, [facility] 5 09:34:15 Anxiety 81351652 Active 2024 no current meds Mariam Valverde CNM [address], [place], [address], [facility] 5 15:29:30 Velament ous insertio n of umbilica l cord 51802028 Active 2024 Marina mcnally, [facility] 14:01:20 Vasa previa 15127081 Active 2024 rachael Valverde CNM [address], [place], [address], [facility] 11:20:38 Problem Notes None recorded. Procedures Surgical History Date Name Laterality Status Provider Name and Address Organization Details Recorded Time 025 IUD Removal completed KAMERON Calvert [address], [place], [address], [facility] 07/04/2024 16:54:24 024 Date of Last Pap Smear completed JULIEN Ferrell [facility] 05/08/2024 15:48:32 023 IUD Insertion completed [facility] 09/14/2022 14:34:26 022 IUD Removal completed Mirna [facility] 06/01/2021 10:47:37 016 Date of Last Colonoscopy completed [facility] 04/15/2021 11:37:49 016 Colonoscopy completed [facility] 04/15/2021 11:37:07 011 cholecystectomy completed Mirna [facility] 04/15/2021 11:37:20 011 [facility] 11:37:34 008 Appendectomy completed Mirna [facility] 04/15/2021 11:36:52 Appendectomy completed Cordelia Shine [facility] 11/06/2024 17:17:39 Colonoscopy completed Cordelia Shine [facility] 11/06/2024 17:17:39 Imaging Results None recorded. Procedure Notes None recorded. Medical Equipment None Reported. Allergies Allergen ID Allergen Name Allergen Category Reaction Reaction Severity Criticality Documentation Date Start Date Code Code System Note Provider Name and Address Organization Details Recorded Time 63760 sulfabenz amide Not available hives severe Not available 03/17/2021 83712 RxNorm Mirna Maldonado uli, [facility] 2 15:50:59 47587 wheat gluten extract food Not available Not available Not available 04/15/2021 20327 81 RxNorm Mirna Dejesussabrina mcnally [facility] 2 11:38:14 09552 lactase medicatio n Not available Not available Not available 04/15/2021 38231 RxNorm Mirna Dejesussabrina mcnally, [facility] 2 11:38:23 64041 Substance with sulfonami de structure and antibacte rial mechanism of action (substanc e) medicatio n Not available Not available Not available 01/29/2025 00476 8003 SNOMED Not Available zohreh - External Data Service - prod 5 02:58:42 88594 wheat preparati on food,medi cation Not available Not available low 02/01/20252023 99901 52 RxNorm react ion unrec ogniz ed react ion (text : Stoma ch upset , code: [id number]) (from exter nal sourc e) Not [...] Not Available Not Available Not Available vitamin E21-linee acid 08/31 completed Not Available Not Available Not Available B12 at morning time 2024 active Not Available Not Available 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 11/28/2024 14:36:32 Social History Question Answer Notes LastModified by Organizat ion Details LastModified Time Tobacco Smoking Status Never Smoker Jennifer Key uli, [facility] 03/22/2023 15:53:07 Do You Have An Advance Directive? No [email or web address] Information n ot available 03/17/2021 How Many Years Have You Consumed Alcohol? 7 [email or web address] Information not available 03/17/2021 Are You Blind Or Do You Have Difficulty Seeing? No [email or web address] Information n ot available 03/17/2021 What Is Your Level Of Caffeine Consumption? Moderate [email or web address] Information not available 03/17/2021 How Much Tobacco Do You Chew? None [email or web address] Information not available 03/17/2021 In The 14 Days Before Symptom Onset, Have You Had Close Contact With A Laboratory-confirm ed COVID-19 While That Case Was Ill? No [email or web address] Information n ot available 03/17/2021 In The 14 Days Before Symptom Onset, Have You Had Close Contact With A Person Who Is Under Investigation For COVID-19 While That Person Was Ill? No [email or web address] Information not available 03/17/2021 Have You Been To An Area Known To Be High Risk For COVID-19? No [id number] Information not available 03/17/2021 Are You Deaf Or Do You Have Serious Difficulty Hearing? No [email or web address] Information not available 03/17/2021 What Type Of Diet Are You Following? GLUTENFREE [email or web address] Information n ot available 03/17/2021 What Is The Highest Grade Or Level Of School You Have Completed Or The Highest Degree You Have Received? FC46029-8 [id number] Information not available 03/17/2021 Are There Any Guns Present In Your Home? No Information not available 03/17/2021 Have You Ever Been Counseled For Unhealthy Alcohol Use? No [email or web address] Information not available 03/22/2023 Do You Use Protection During Sex? Always [email or web address] Information not available 03/17/2021 Do You Use Your Seat Belt Or Car Seat Routinely? Yes [email or web address] Information not available 03/17/2021 Do You Have Smoke And Carbon Monoxide Detectors In Your Home? Yes [email or web address] Information not available 03/17/2021 How Much Tobacco Do You Smoke? No [email or web address] Information not available 03/17/2021 Do You Use Sunscreen Routinely? Yes [email or web address] Information not available 03/17/2021 Has Tobacco Cessation Counseling Been Provided? No [email or web address] Information not available 03/22/2023 Have You Used IV Drugs? No Information not available 03/17/2021 Do You Have Difficulty Walking Or Climbing Stairs? No [email or web address] Information not available 03/22/2023 Sex: Unknown Functional Status Question Answer Note LastModified by Organizat ion Details LastModified Time Do you use any illicit or recreational drugs? No [email or web address] Information not available 03/17/2021 Do you or have you ever used any other forms of tobacco or nicotine? No [email or web address] Information not available 03/22/2023 What is your level of alcohol consumption? Occasional [email or web address] Information not available 03/17/2021 Are you able to walk independently without assistance or assistive devices? YESWOREST [email or web address] Information not available 03/17/2021 Are you able to care for yourself independently? 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 No [email or web address] Information not available 03/22/2023 What is your exercise level? Occasional [email or web address] Information not available 03/17/2021 Mental Status Question Answer Note LastModified by Organization D etails LastModified Time Do you feel stressed (tense, restless, nervous, or anxious, or unable to sleep at night)? [id number] [email or web address] Information not available 03/17/2021 Family History Relationship Description Onset Age of this Age Resolved Age Notes LastModified by Organization Details LastModified Time Maternal Grandmother Hypertensive disorder Not available 03/17 15:51:00 Mother Hypertensive disorder [email or web address] Not available 03/17 15:51:00 Mother Disorder of thyroid gland [email or web address] Not available 03/17 15:51:00 Mother High risk [email or web address] Not available 03/17 15:51:00 Paternal Grandmother Hypertensive disorder [email or web address] Not available 03/17 15:51:00 Medical History Condition Response Allergies (Food, seasonal, environmental ) Y Other N Drug/Latex Allergies/Reactions Y Breast Cancer N Blood Transfusion N Lung Disease N Dermatologic [...] ICD10 Code Diagnosis IMO Codes Diagnosis Note [id number] [facility] [address] [address] 11/06/2024 17:11:47 11/06/2024 17:58:08 Gestation period, 16 weeks [id number] Z3A.16 [id number] Renaldo Reyes MD [facility] [address] [address] 11/28/2024 14:01:21 11/28/2024 15:16:08 Pain in pelvis 37557541 R10.2 712206 Acquired hypothyroidism 236499033 E03.9 62429 Acute urin lola tract infection 117923839 N39.0 [id number] Renaldo Reyes MD [facility] [address] [address] 11/28/2024 14:05:03 11/28/2024 14:34:10 Pain in female pelvis 320974437 O26.892 R10.2 Z3A.19 [id number] Health Concerns Section Related Observation LastModified by Organization Detai ls LastModified Time None Recorded Concern Status LastModified by Organization Details LastModified Time None Recorded Payers Encounter Date Sequence Insurance Name Policy Number Policy Maldonado Covered Member ID Maldonado Member ID Guarantor Name 11/28/2024 1 [facility] - AET (PPO) [id number] Jessica Keys [id number] 1 Jessica Keys Notes Date Note Type Note Provider Name and Address Organization Details Recorded Time 11/28/2024 text/html OB ProblemReport ed by Patient Renaldo Reyes MD [address], [place], [address], [facility] 11/28/2024 15:15:46 OBGyn Episode Ob Episode Information Episode Created Date Number of Fetuses Patient Bloodtype Patient rh Status Prepregnancy Weight lbs Domestic Partner Domestic Partner Phone Father Name Social Economist Status 10/01/19 25 1 A Positive 182 OPEN Fetus Data First Name Last Name Admitted to NICU Weight (g) Sex Living Outcome Pediatric Complications Fetus ID Race Codes Race Delivery Type [id number] Problems Problem [facility] Problem Name Start Date End Date Resolution Snomed Code Not e Anxiety 10/09/2024 [id number] no curren t meds Past history of pre-eclampsia 10/09/2024 [id number] w/o severe features/chronic with medsno meds since last pregnancybASA dailyHSV- plan 36 week valtrexallergic to gluten/dairy Velamentous insertion of umbilical cord 11/29/2024 [id number] Hypothyroidism 10/09/2024 [id number] Levo thyroxine 100mcg Repeat TSH labs @ 28wks Vasa previa 01/29/2025 [id number] [facility] ref erall Nick Calculation Initial Nick [...] Type Weight in lbs Pre/Post Dialysis Refused 181.637867165043 BP Diastolic BP Location Tested BP Systolic [...] Weight in lbs Pre/Post Dialysis Refused Weight 183.390298409006 BP Diastolic BP Location Tested BP Systolic [...] Type Weight in lbs Pre/Post Dialysis Refused 185.497629177286 BP Diastolic BP Location Tested BP Systolic [...] Weight in lbs Pre/Post Dialysis Refused Weight 185.221537945134 BP Diastolic BP Location Tested BP Systolic [...] Type Weight in lbs Pre/Post Dialysis Refused 190.581871510598 BP Diastolic BP Location Tested BP Systolic [...] Weight in lbs Pre/Post Dialysis Refused Weight 196.262908350675 BP Diastolic BP Location Tested BP Systolic [...]
--- OUTSIDE RECORDS SUMMARY | 2025-02-02 12:18 | XMS_ITS | Data Portability ---
Author Organization [facility], [facility].CJayce, [facility] Address [address] [place] [address] Assessment Encounter Date Assessment Date Assessment LastModified by Organization Details LastModified Time 07/22/2019 07/22/2019 [facility] - IgG foods only. Not IgE. [email or web address] Not available 07/22/2019 17:37:51 Plan of Treatment Reminders Order Date Submit Date Provider Last Modified By Organization Details Last Modified Time Details Appointments None recorded. Lab CMP, serum or plasma 2020 021 amalic Not available 1 11:10:06 TSH, serum or plasma 2020 021 amalic Not available 11:10:05 T4, free, serum 2020 021 amalic Not available 11:10:05 T3, free, serum or plasma 2020 021 amalic Not available 11:10:05 T3, reverse, serum 2020 021 amalic Not available 1 11:10:06 vitamin B12 + folate, serum or blood 2020 021 amalic Not available 1 11:10:06 TSH, serum or plasma 2019 020 KIN Not available 0 18:35:39 T4, free, serum 2019 020 KIN Not available 0 18:35:38 T3, free, serum or plasma 2019 020 KIN Not available 0 18:35:39 T3, reverse, serum 2019 KIN Not available 0 18:35:37 CRP, high sensitivit y, serum or plasma 2019 KIN Not available 0 18:35:37 william-ba rr virus (ebv) IgG + IgM panel, serum 2019 KIN Not available 0 18:35:38 CHEKO (antinucle ar antibodies ) titer + pattern, ifa, serum 2019 smimms Not available 0 09:14:40 ESR (erythrocy te sedimentat ion rate), blood 2019 smimms Not available 0 09:14:40 rf (rheumatoi d factor), serum 2019 smimms Not available 0 09:14:40 CRP, high sensitivit y, serum or plasma 2019 smimms Not available 0 09:14:40 lyme disease igg+igm Ab, serum 2019 smimms Not available 0 09:14:40 food allergen panel, serum 2019 smimms Not available 0 09:14:41 magnesium, RBC 2019 smimms Not available 0 09:14:38 vitamin B12 + folate, serum or blood 2019 smimms Not available 0 09:14:39 vitamin D3, 25-hydroxy , serum 2019 smimms Not available 0 09:14:39 CBC w/ auto diff 2019 smimms Not available 0 09:14:39 CMP, serum or plasma 2019 020 smimms Not available 0 09:14:39 TSH + free T4, serum 2019 smimms Not available 0 09:14:39 william-ba rr virus (ebv) IgG + IgM panel, serum 2019 smimms Not available 0 09:14:39 william-ba rr virus (ebv) early antigen D Ab, serum 2019 smimms Not available 0 09:14:39 T3, free, serum or plasma 2019 020 smimms Not available 0 09:14:39 zinc, serum or plasma 2019 smimms Not available 0 09:14:40 thyroid peroxidase (tpo) Ab, serum 2019 smimms Not available 0 09:14:40 thyroglobu vicki Ab, serum 2019 smimms Not available 0 09:14:40 T3, reverse, serum 2019 smimms Not available 0 09:14:41 T3, total, serum 2019 smimms Not available 0 09:14:41 T4, total, serum 2019 smimms Not available 0 09:14:41 abigail sp igg+igm+ig a Ab, serum 2019 smimms Not available 0 09:14:41 insulin, fasting, serum 2019 smimms Not available 0 09:14:41 HbA1c (hemoglobi n A1c), blood 2019 smimms Not available 0 09:14:41 cortisol, am, serum 2019 smimms Not available 0 09:14:41 copper, serum or plasma 2019 020 smimms Not available 0 09:14:41 vitamin A (retinol), serum 2019 020 smimms Not available 0 09:14:42 iodine, serum 2019 020 smimms Not available 0 09:14:42 selenium, serum or plasma 2019 020 smimms Not available 0 09:14:42 Referral sleep study referral 2019 020 smimms Not available 0 09:20:35 Procedures None recorded. Surgeries None recorded. Imaging None recorded. Medication Orders hydrochlor othiazide 25 mg tablet 2020 [facility]21997, [address], [place], [id number], 14:31:33 metoprolol succinate ER 25 mg tablet,ext ended release 24 hr 2020 [facility] #04781, [address], [place], [id number], 14:33:13 [employer] Thyroid 60 mg tablet 2020 [facility] #43077, [address], [place], [id number], 14:31:32 duloxetine 20 mg capsule,de layed release 2020 [facility] #50483, [address], [place], [id number], 14:31:33 [employer] Thyroid 15 mg tablet 2019 [facility] #50946, [address], [place], [id number], 1 12:58:19 nystatin 500,000 unit tablet 2019 [facility] #15272, [address] [place] [address], [id number], 1 12:58:34 hydrochlor othiazide 25 mg tablet 2019 [facility] #70599, [address] [place] [address], [id number], 0 19:40:57 metoprolol succinate ER 25 mg tablet,ext ended release 24 hr 2019 [facility] #17668, [address] [place] [address], [id number], 0 19:40:57 duloxetine 20 mg capsule,de layed release 2019 [facility] #15168, [address] [place] [address], [id number], 0 19:40:57 cyanocobal case (vit B-12) 1,000 mcg/mL injection solution 2019 [facility] #15697, [address] [place] [address], [id number], 1 12:58:56 Patient TargetsNo targets recorded. Patient Instructions Encounter Date Encounter Id Patient Instructions Last Modified By Organization Details Last Modified Time 07/22/2019 [id number] Referral to [facility] [place] - cwillbrand Not available 07/22/2019 17:51:34 09/23/2019 [id number] Increase Vitamin C to 10 grams daily if you can tolerate it. Magnesium lotion - apply to arms and legs daily B12 shots every week. Inflammacore - 1 scoop daily to help to reduce pain and inflammation in the body Eliminate sugar from the diet. cwtarun Not available 09/23/2019 15:03:18 11/10/2020 [id number] sleep apnea: care instructions cwessling Not available 11/10/2020 14:31:25 Reason for Referral Sleep Study Referral for Sle ep disorder Referring Physician: Etta Moscoso, Family Medicine, Encounter Date: 07/22/2019 Results Created Date Observation Date Name Description Value Unit Range Abnormal Flag Note LastModifiedBy Organization Detail LastModifiedTime 07/23/19 20 08/01/2019 thyro id perox idase and thyro globu vicki antib odies thyroglobuli n antibodies <1 IU/mL < or = 1 normal Not Available [address], [address], 08/01/2019 22:51:16 07/23/1908/01/2019 thyro id perox idase and thyro globu vicki antib odies thyroid peroxidase antibodies 2 IU/mL <9 normal Not Available [address], [address], 08/01/2019 22:51:16 07/23/1908/01/2019 CMP, serum or plasm a glucose 90 mg/dL 65-99 normal Fasti ng refer ence inter graciela Not Available [address], [address], 08/01/2019 22:51:17 07/23/1908/01/2019 CMP, serum or plasm a urea nitrogen (BUN) 13 mg/dL 7-25 normal Not Available [facility] [address], [address], 08/01/2019 22:51:17 07/23/1908/01/2019 CMP, serum or plasm a creatinine 0.75 mg/dL 0.50-1 .10 normal Not Available [address], [address], 08/01/2019 22:51:17 07/23/1908/01/2019 CMP, serum or plasm a eGFR non-afr. norwegian 111 mL/mi n/1.7 3m2 > or = 60 normal Not Available [address], [address], 08/01/2019 22:51:17 07/23/19 20 08/01/2019 CMP, serum or plasm a eGFR 128 mL/mi n/1.7 3m2 > or = 60 normal Not Available [address] [address] [place], [address], 08/01/2019 22:51:17 07/23/19 20 08/01/2019 CMP, serum or plasm a BUN/creatini ne ratio NOT APPLIC ABLE (calc ) 6-22 Not Available [address], [address], 08/01/2019 22:51:17 07/23/19 20 08/01/2019 CMP, serum or plasm a sodium 137 mmol/ L 135-14 6 normal Not Available [address] [address] [place], [address], 08/01/2019 22:51:17 07/23/19 20 08/01/2019 CMP, serum or plasm a potassium 3.4 mmol/ L 3.5-5. 3 low Not Available [address] [address] [place], [address], 08/01/2019 22:51:17 07/23/19 20 08/01/2019 CMP, serum or plasm a chloride 100 mmol/ L 98-110 normal Not Available [facility] [address] [address] [place], [address], 08/01/2019 22:51:17 07/23/19 20 08/01/2019 CMP, serum or plasm a carbon dioxide 27 mmol/ L 20-32 normal Not Available [address] [address] [place], [address], 08/01/2019 22:51:17 07/23/19 20 08/01/2019 CMP, serum or plasm a calcium 9.5 mg/dL 8.6-10 .2 normal Not Available [address], [address], 08/01/2019 22:51:17 07/23/19 20 08/01/2019 CMP, serum or plasm a protein, total 7.2 g/dL 6.1-8. 1 normal Not Available [address], [address], 08/01/2019 22:51:17 07/23/1908/01/2019 CMP, serum or plasm a albumin 4.4 g/dL 3.6-5. 1 normal Not Available [address], [address], 08/01/2019 22:51:17 07/23/1908/01/2019 CMP, serum or plasm a globulin 2.8 g/dL_ (calc ) 1.9-3. 7 normal Not Available [address], [address], 08/01/2019 22:51:17 07/23/1908/01/2019 CMP, serum or plasm a albumin/glob ulin ratio 1.6 (calc ) 1.0-2. 5 normal Not Available [address], [address], 08/01/2019 22:51:17 07/23/1908/01/2019 CMP, serum or plasm a bilirubin, total 1.0 mg/dL 0.2-1. 2 normal Not Available [address], [address], 08/01/2019 22:51:17 07/23/1908/01/2019 CMP, serum or plasm a alkaline phosphatase 94 U/L 31-125 normal Not Available [facility] [address], [address], 08/01/2019 22:51:17 07/23/19 20 08/01/2019 CMP, serum or plasm a AST 13 U/L 10-30 normal Not Available [address], [address], 08/01/2019 22:51:17 07/23/19 20 08/01/2019 CMP, serum or plasm a ALT 9 U/L 6-29 normal Not Available [facility] [address], [address], 08/01/2019 22:51:17 07/23/19 20 08/01/2019 iodin e, serum iodine, serum/plasma 70 mcg/L 52-109 This test was devel oped and its mandie tical perfo rmanc e dorita cteri stics have been deter mined by [employer] [facility]stic [facility] [place], [place]. It has not been clear ed or appro herson by the U.S. Food and Drug Admin istra tion. This assay has been valid ated pursu ant to the CLIA regul ation s and is used for clini nicolle purpo ses. Not Available [facility] [address], [address], 08/01/2019 22:51:17 07/23/19 20 08/01/2019 T3, rever se, serum T3 reverse, lc/MS/MS 18 NG/dL 8-25 This test was devel oped and its mandie tical perfo rmanc e dorita cteri stics have been deter mined by [employer] [facility] [place] . It has not been clear ed or appro herson by FDA. This assay has been valid ated pursu ant to the CLIA regul ation s and is used for clini nicolle purpo ses. Not Available [facility] [address] [address] [place], [address], 08/01/2019 22:51:17 07/23/19 20 08/01/2019 eryth rocyt e sedim entat ion rate by shante willard metho d sed rate by modified jerrell 8 mm/h < or = 20 normal Not Available [address], [address], 08/01/2019 22:51:18 07/23/19 20 08/01/2019 CBC w/ auto diff white blood cell count 8.6 thous and/u L 3.8-10 .8 normal Not Available [address], [address], 08/01/2019 22:51:18 07/23/1908/01/2019 CBC w/ auto diff red blood cell count 4.72 robbin on/uL 3.80-5 .10 normal Not Available [address], [address], 08/01/2019 22:51:18 07/23/1908/01/2019 CBC w/ auto diff hemoglobin 15.0 g/dL 11.7-1 5.5 normal Not Available [address], [address], 08/01/2019 22:51:18 07/23/1908/01/2019 CBC w/ auto diff hematocrit 44.6 % 35.0-4 5.0 normal Not Available [address], [address], 08/01/2019 22:51:18 07/23/1908/01/2019 CBC w/ auto diff MCV 94.5 fL 80.0-1 00.0 normal Not Available [address], [address], 08/01/2019 22:51:18 07/23/1908/01/2019 CBC w/ auto diff MCH 31.8 pg 27.0-3 3.0 normal Not Available [address], [address], 08/01/2019 22:51:18 07/23/19 20 08/01/2019 CBC w/ auto diff MCHC 33.6 g/dL 32.0-3 6.0 normal Not Available [address], [address], 08/01/2019 22:51:18 07/23/19 20 08/01/2019 CBC w/ auto diff RDW 12.5 % 11.0-1 5.0 normal Not Available [address], [address], 08/01/2019 22:51:18 07/23/19 20 08/01/2019 CBC w/ auto diff platelet count 249 thous and/u L 140-40 0 normal Not Available [address], [address], 08/01/2019 22:51:18 07/23/19 20 08/01/2019 CBC w/ auto diff MPV 11.3 fL 7.5-12 .5 normal Not Available [address], [address], 08/01/2019 22:51:18 07/23/19 20 08/01/2019 CBC w/ auto diff absolute neutrophils 4756 cells /uL 1500-7 800 normal Not Available [address], [address], 08/01/2019 22:51:18 07/23/19 20 08/01/2019 CBC w/ auto diff absolute lymphocytes 2941 cells /uL 850-39 00 normal Not Available [address], [address], 08/01/2019 22:51:18 07/23/19 20 08/01/2019 CBC w/ auto diff absolute monocytes 697 cells /uL 200-95 0 normal Not Available [address], [address], 08/01/2019 22:51:18 07/23/19 20 08/01/2019 CBC w/ auto diff absolute eosinophils 163 cells /uL 15-500 normal Not Available [address], [address], 08/01/2019 22:51:18 07/23/19 20 08/01/2019 CBC w/ auto diff absolute basophils 43 cells /uL 0-200 normal Not Available [address], [address], 08/01/2019 22:51:18 07/23/19 20 08/01/2019 CBC w/ auto diff neutrophils 55.3 % normal Not Available [address], [address], 08/01/2019 22:51:18 07/23/19 20 08/01/2019 CBC w/ auto diff lymphocytes 34.2 % normal Not Available [address], [address], 08/01/2019 22:51:18 07/23/19 20 08/01/2019 CBC w/ auto diff monocytes 8.1 % normal Not Available [address], [address], 08/01/2019 22:51:18 07/23/19 20 08/01/2019 CBC w/ auto diff eosinophils 1.9 % normal Not Available [address], [address], 08/01/2019 22:51:18 07/23/19 20 08/01/2019 CBC w/ auto diff basophils 0.5 % normal Not Available [address], [address], 08/01/2019 22:51:18 07/23/19 20 08/01/2019 epste in-ba rr virus (ebv) early antig en D igg Ab, serum ebv early antigen D Ab (IgG) <9.00 U/mL normal U/mL Inter preta tion ---- ----- ----- ---- <9.00 Negat jb 9.00- 10.99 Equiv ocal >10.9 9 Posit jb Not Available [address] [address] [place], [address], 08/01/2019 22:51:19 07/23/19 20 08/01/2019 CHEKO (anti nucle ar antib odies ) scree n, ifa, serum CHEKO screen, ifa NEGATI VE negati ve normal CHEKO IFA is a first line scree n for detec ting the prese nce of up to appro ximat hermelinda 150 autoa ntibo dies in vario us autoi mmune disea ses. A negat jb CHEKO IFA resul t sugge sts an CHEKO-a ssoci ated autoi mmune disea se is not prese nt at this time, but is not defin itive . If there is high clini nicolle suspi cion for Sjogr en's syndr ome, testi ng for anti- SS-A/ Ro antib davy shoul d be consi dered . Anti- Diamond-1 antib davy shoul d be consi dered for clini campbell suspe cted infla mmato ry myopa mason . AC-0: Negat jb Inter natio nal Conse nsus on CHEKO Patte rns (http s://d oi.or g/10. 1515/ ccl- 2017- 0052) For addit ional infor laura oneal e refer to http: //[facility] prashant maya.Que stDia gnost ics.c om/fa q/FAQ 177 (This link is being provi ded for infor isai alegre/ educa desi l purpo ses only. ) Not Available [address] [address] [place], [address], 08/01/2019 22:51:19 07/23/19 20 08/01/2019 rf (rheu matoi d facto r), serum rheumatoid factor <14 IU/mL <14 normal Not Available [address], [address], 08/01/2019 22:51:20 07/23/19 20 08/01/2019 lyme igg + igm Ab, weste rn blot, serum lyme disease Ab(IgG),blot NEGATI VE negati ve normal Not Available [address], [address], 08/01/2019 22:51:20 07/23/19 20 08/01/2019 lyme igg + igm Ab, weste rn blot, serum 18 kd (IgG) band NON-RE ACTIVE normal Not Available [address], [address], 08/01/2019 22:51:20 07/23/19 20 08/01/2019 lyme igg + igm Ab, weste rn blot, serum 23 kd (IgG) band NON-RE ACTIVE normal Not Available [address], [address], 08/01/2019 22:51:20 07/23/19 20 08/01/2019 lyme igg + igm Ab, weste rn blot, serum 28 kd (IgG) band NON-RE ACTIVE normal Not Available [address], [address], 08/01/2019 22:51:20 07/23/19 20 08/01/2019 lyme igg + igm Ab, weste rn blot, serum 30 kd (IgG) band NON-RE ACTIVE normal Not Available [address], [address], 08/01/2019 22:51:20 07/23/19 20 08/01/2019 lyme igg + igm Ab, weste rn blot, serum 39 kd (IgG) band NON-RE ACTIVE normal Not Available [facility] [address], [address], 08/01/2019 22:51:20 07/23/19 20 08/01/2019 lyme igg + igm Ab, weste rn blot, serum 41 kd (IgG) band NON-RE ACTIVE normal Not Available [address], [address], 08/01/2019 22:51:20 07/23/19 20 08/01/2019 lyme igg + igm Ab, weste rn blot, serum 45 kd (IgG) band NON-RE ACTIVE normal Not Available [address], [address], 08/01/2019 22:51:20 07/23/19 20 08/01/2019 lyme igg + igm Ab, weste rn blot, serum 58 kd (IgG) band NON-RE ACTIVE normal Not Available [address], [address], 08/01/2019 22:51:20 07/23/19 20 08/01/2019 lyme igg + igm Ab, weste rn blot, serum 66 kd (IgG) band NON-RE ACTIVE normal Not Available [address], [address], 08/01/2019 22:51:20 07/23/19 20 08/01/2019 lyme igg + igm Ab, weste rn blot, serum 93 kd (IgG) band NON-RE ACTIVE normal Not Available [address], [address], 08/01/2019 22:51:20 07/23/19 20 08/01/2019 lyme igg + igm Ab, weste rn blot, serum lyme disease Ab(IgM),blot NEGATI VE negati ve normal Not Available [address], [address], 08/01/2019 22:51:20 07/23/19 20 08/01/2019 lyme igg + igm Ab, weste rn blot, serum 23 kd (IgM) band NON-RE ACTIVE normal Not Available [address], [address], 08/01/2019 22:51:20 07/23/19 20 08/01/2019 lyme igg + igm Ab, shante rn blot, serum 39 kd (IgM) band NON-RE ACTIVE normal Not Available [facility] [address] [place], [address], 08/01/2019 22:51:20 07/23/19 20 08/01/2019 lyme igg + igm Ab, shante rn blot, serum 41 kd (IgM) band NON-RE ACTIVE normal As per CDC crite roshan, a Lyme disea se IgG Immun oblot must show react ivity to at least 5 of 10 speci fic borre lial prote ins to be consi dered posit jb; simil matthew, a posit jb Lyme disea se IgM immun oblot requi res react ivity to 2 of 3 speci fic borre lial prote ins. Altho ugh consi dered negat jb, IgG react ivity to fewer speci fic borre lial prote ins or IgM react ivity to only 1 prote in july indic ate recen t B. burgd orfer i infec tion and warra nt testi ng of a later sampl e. A posit jb IgM but negat jb IgG resul t obtai ning more than a month after onset of sympt oms likel y repre sents a false - posit jb IgM resul t rathe r than acute Lyme disea se. In rare insta nces, Lyme disea se immun oblot react ivity may repre sent antib odies induc ed by expos ure to other chirag chete s. Lyme immun oblot testi ng shoul d only be perfo rmed on sampl es from patie nts who have had a Posit jb or Equiv ocal resul t in a scree ann assay . Not Available [address] [address] [place], [address], 08/01/2019 22:51:20 07/23/19 20 08/01/2019 CRP, high sensi tivit y, serum or plasm a hs CRP 9.0 mg/L high Refer ence Range Optim al <1.0 Mohan CHRISTOPHER et al. Endoc r Pract .2017 ;23(S uppl 2):1- 87. For ages >17 Years : hs-CR P mg/L Risk Accor ding to AHA/C DC Guide lines <1.0 Lower relat jb cardi ovasc ular risk. 1.0-3 .0 [place] ge relat jb cardi ovasc ular risk. 3.1-1 0.0 Highe r relat jb cardi ovasc ular risk. Consi barrett retes ting in 1 to 2 weeks to exclu de a benig n trans ient eleva tion in the basel ine CRP value secon nasim to infec tion or infla mmati on. >10.0 Persi stent eleva tion, upon retes ting, may be assoc iated with infec tion and infla mmati on. Not Available [facility] [address], [address], 08/01/2019 22:51:20 07/23/1908/01/2019 [facility] IgG + IgM panel , serum ebv viral capsid Ag (vca) Ab (IgM) 50.20 U/mL high U/mL Inter preta tion ---- ----- ----- ---- <36.0 0 Negat jb 36.00 -43.9 9 Equiv ocal >43.9 9 Posit jb Not Available [facility] [address], [address], 08/01/2019 22:51:21 07/23/1908/01/2019 [facility] virus (ebv) IgG + IgM panel , serum ebv viral capsid Ag (vca) Ab (IgG) 169.00 U/mL high U/mL Inter preta tion ---- ----- ----- ---- <18.0 0 Negat jb 18.00 -21.9 9 Equiv ocal >21.9 9 Posit jb Not Available [employer] [address], [address], 08/01/2019 22:51:21 07/23/1908/01/2019 epste in-ba rr virus (ebv) IgG + IgM panel , serum ebv nuclear Ag (ebna) Ab (IgG) >600.0 0 U/mL high U/mL Inter preta tion ---- ----- ----- ---- <18.0 0 Negat jb 18.00 -21.9 9 Equiv ocal >21.9 9 Posit jb Not Available [employer] [address] [address] [place], [address], 08/01/2019 22:51:21 07/23/1908/01/2019 epste in-ba rr virus (ebv) IgG + IgM panel , serum interpretati on: Sugge stive of a recen t Epste in-Ba rr virus infec tion. Not Available [facility] [address] [place], [address], 08/01/2019 22:51:21 07/23/1908/01/2019 insul in, serum insulin 10.0 uIU/m L normal Refer ence Range < or = 19.6 Risk: Optim al < or = 19.6 Moder ate NA High >19.6 Adult cardi ovasc ular event risk categ ory cut point s (opti mal, moder ate, high) are based on [facility] popul ation data from 02/22 11. This insul in assay shows stron g cross -reac tivit y for some insul in analo gs (lisp ro, aspar t, and glarg ine) and much lower cross -reac tivit y with other s (dete silvia, gluli sine) . Not Available [employer] [facility] [employer] [address] [place], [address], 08/01/2019 22:51:21 07/23/1908/01/2019 T3, total , serum T3, total 172 NG/dL 76-181 normal Not Available [facility] [address] [address] [place], [address], 08/01/2019 22:51:22 07/23/1908/01/2019 T4, free, serum T4, free 1.2 NG/dL 0.8-1. 8 normal Not Available [facility] [address], [address], 08/01/2019 22:51:22 07/23/1908/01/2019 T4, total , serum T4 (thyroxine), total 10.4 mcg/d L 5.1-11 .9 normal Not Available [address], [address], 08/01/2019 22:51:23 07/23/1908/01/2019 TSH, serum or plasm a TSH 3.40 mIU/L normal Refer ence Range > or = 20 Years 0.40- 4.50 Pregn tim Range s First trime ster 0.26- 2.66 Secon d trime ster 0.55- 2.73 Third trime ster 0.43- 2.91 Not Available [facility] [address], [address], 08/01/2019 22:51:23 07/23/1908/01/2019 corti trino, am, serum cortisol, A.M. 21.7 mcg/d L normal Refer ence Range 8 a.m. (7-9 a.m.) Speci men: 4.0-2 2.0 Not Available [facility] [address], [address], 08/01/2019 22:51:23 07/23/1908/01/2019 vitam in B12 + folat e, serum or blood vitamin B12 306 pg/mL 200-11 00 normal Pleas e Note: Altho ugh the refer ence range for vitam in B12 is 200-1 100 pg/mL , it has been repor [place] that betwe en 5 and 10% of patie nts with value s betwe en 200 and 400 pg/mL may exper ience neuro psych iatri c and hemat ologi c abnor malit ies due to occul t B12 defic iency ; less than 1% of patie nts with value s above 400 pg/mL will have sympt oms. Not Available [address], [address], 08/01/2019 22:51:24 07/23/19 20 08/01/2019 vitam in B12 + folat e, serum or blood folate, serum 3.6 NG/mL low Refer ence Range Low: <3.4 Borde rline : 3.4-5 .4 Chrissy l: >5.4 Not Available [facility] [address], [address], 08/01/2019 22:51:24 07/23/19 20 08/01/2019 T3, free, serum or plasm a T3, free 3.8 pg/mL 2.3-4. 2 normal Not Available [facility] [address], [address], 08/01/2019 22:51:24 07/23/19 20 08/01/2019 food aller gen panel , serum wheat (F4) IgG 6.4 mcg/m L <2.0 high Not Available [address], [address], 08/01/2019 22:51:24 07/23/19 20 08/01/2019 food aller gen panel , serum tomato (F25) IgG 3.9 mcg/m L <2.0 high Not Available [facility] [address], [address], 08/01/2019 22:51:24 07/23/19 20 08/01/2019 food aller gen panel , serum egg white (F1) IgG 4.0 mcg/m L <2.0 high Not Available [facility] [address], [address], 08/01/2019 22:51:24 07/23/19 20 08/01/2019 food aller gen panel , serum casein (F78) IgG 4.3 mcg/m L <2.0 high Not Available [facility] [address], [address], 08/01/2019 22:51:24 07/23/19 20 08/01/2019 food aller gen panel , serum maize/corn (F8) IgG 3.8 mcg/m L <2.0 high Not Available [facility] [address], [address], 08/01/2019 22:51:24 07/23/19 20 08/01/2019 food aller gen panel , serum yeast (F45) IgG 4.0 mcg/m L <2.0 high Not Available [facility] [address], [address], 08/01/2019 22:51:24 07/23/19 20 08/01/2019 food aller gen panel , serum peanut (F13) IgG 3.2 mcg/m L <2.0 high Not Available [facility] [address], [address], 08/01/2019 22:51:24 07/23/19 20 08/01/2019 food aller gen panel , serum soybean (F14) IgG 2.4 mcg/m L <2.0 high Not Available [facility] [address], [address], 08/01/2019 22:51:24 07/23/19 20 08/01/2019 food aller gen panel , serum codfish (F3) IgG <2.0 mcg/m L <2.0 Not Available [facility] [address], [address], 08/01/2019 22:51:24 07/23/19 20 08/01/2019 food aller gen panel , serum cacao (chocolate) (F93) IgG 3.8 mcg/m L <2.0 high Not Available [facility] [address] [place], [address], 08/01/2019 22:51:24 07/23/1908/01/2019 food aller gen panel , serum coffee (F221) IgG 6.8 mcg/m L <2.0 high This test was perfo rmed using a kit that has not been clear ed or appro herson by the FDA. The mandie tical perfo rmanc e dorita cteri stics of this test have been deter mined by [facility]. This test, and any food speci fic aller gen IgG resul t, shoul d not be used for the diagn osis of aller gic or atopi c disea se state s (exce pt for sensi tivit y to milk in neona cullen and glute n sensi tivit y). The use of food speci fic aller gen IgG resul ts shoul d be restr icted to the asses sment of respo nse to thera peuti c inter venti ons. Not Available [facility] [employer] [facility] [address] [place], [address], 08/01/2019 22:51:24 07/23/19 20 08/01/2019 vitam in D, 25-hy droxy , total , serum vitamin D,25-oh,tota l,ia 27 NG/mL 30-100 low Vitam in D Statu s 25-OH Vitam in D: Defic iency : <20 ng/mL Insuf ficie ncy: 20 - 29 ng/mL Optim al: > or = 30 ng/mL For 25-OH Vitam in D testi ng on patie nts on D2-ervin pplem entat ion and patie nts for whom quant itati on of D2 and D3 fract ions is requi red, the [facility] Assur eD(TM ) 25-OH VIT D, (D2,D 3), LC/MS /MS is recom cruzito d: order code 88930 (marc ents >2yrs ). See Note 1 Note 1 For addit ional infor laura oneal refer to http: //deonte maya.Madi stDia gnost ics.c om/fa q/FAQ 199 (This link is being provi ded for infor matio nal/ educa desi l purpo ses only. ) Not Available [employer] [facility] [address] [place], [address], 08/01/2019 22:51:25 07/23/19 20 08/01/2019 HbA1c (hemo globi n A1c), blood hemoglobin A1C 4.6 %_of_ total _HGB <5.7 normal For the purpo se of screasad ann for the prese nce of diabe cullen: <5.7% Consi stent with the absen ce of diabe cullen 5.7-6 .4% Consi stent with incre ased risk for diabe cullen (pred iabet es) > or =6.5% Consi stent with diabe cullen This assay resul t is consi stent with a decre ased risk of diabe cullen. Curre ntly, no conse nsus exist jairo meyers use of hemog lobin A1c for diagn osis of diabe cullen in child lexie. Accor ding to Ameri can Diabe cullen Assoc iatio n (ADA) guide lines , hemog lobin A1c <7.0% repre sents optim al contr ol in non-p regna nt diabe tic patie nts. Diffe rent metri cs may apply to speci fic patie nt popul ation s. [facility] Medic al Care in Diabe cullen(A DA). Not Available [employer] [facility] [address] [address], [place], [address], 08/01/2019 22:51:25 07/23/1908/01/2019 vitam in A (reti nol), serum vitamin A (retinol) 53 mcg/d L 38-98 Cli n Chem Vol. 34.No .8. pp162 5-162 1997 Vitam in suppl ement ation withi n 24 hours prior to blood draw may affec t the accur acy of resul ts. This test was devel oped and its mandie tical perfo rmanc e dorita cteri stics have been deter mined by [facility]. It has not been clear ed or appro herson by the FDA. This assay has been valid ated pursu ant to the CLIA regul ation s and is used for clini nicolle purpo ses. Not Available [employer] [address] [address] [place], [address], 08/01/2019 22:51:26 07/23/19 20 08/01/2019 selen ium, serum or plasm a selenium 108 mcg/L 63-160 This test was devel oped and its mandie tical perfo rmanc e dorita cteri stics have been deter mined by [facility]. It has not been clear ed or appro herson by the FDA. This assay has been valid ated pursu ant to the CLIA regul ation s and is used for clini nicolle purpo ses. Not Available [employer] [address] [address] [place], [address], 08/01/2019 22:51:26 07/23/19 20 08/01/2019 coppe r, serum or plasm a copper 142 mcg/d L 70-175 This test was devel oped and its mandie tical perfo rmanc e dorita cteri stics have been deter mined by [facility]. It has not been clear ed or appro herson by the FDA. This assay has been valid ated pursu ant to the CLIA regul ation s and is used for clini nicolle purpo ses. Not Available [employer] [address] [address] [place], [address], 08/01/2019 22:51:26 07/23/1908/01/2019 magne sium, RBC magnesium, RBC 3.3 mg/dL 4.0-6. 4 low This test was devel oped and its mandie tical perfo rmanc e dorita cteri stics have been deter mined by [employer] [facility]. It has not been clear ed or appro herson by the FDA. This assay has been valid ated pursu ant to the CLIA regul ation s and is used for clini nicolle purpo ses. Not Available [employer] [address] [address] [place], [address], 08/01/2019 22:51:26 07/23/19 20 08/01/2019 zinc, serum or plasm a zinc 76 mcg/d L 60-130 This test was vy cuellar and its mandie tical perfo rmanc e dorita cteri stics have been deter mined by [facility]. It has not been clear ed or appro herson by the FDA. This assay has been valid ated pursu ant to the CLIA regul ation s and is used for clini nicolle purpo ses. Not Available [employer] [address] [address] [place], [address], 08/01/2019 22:51:27 07/23/19 20 08/01/2019 jessica da sp igg+i gm+ig a Ab, serum C.albicans IgG 0.2 normal Not Available [facility] [address] [address] [place], [address], 08/01/2019 22:51:27 07/23/19 20 08/01/2019 jessica da sp igg+i gm+ig a Ab, serum C.albicans IgA 0.2 normal Not Available [employer] [address] [address] [place], [address], 08/01/2019 22:51:27 07/23/19 20 08/01/2019 jessica da sp igg+i gm+ig a Ab, serum C.albicans IgM 0.7 normal REFER ENCE RANGE : <1.0 INTER PRETI VE CRITE ROSHAN: <1.0 = Antib davy Not Detec katlin > or = 1.0 = Antib davy Detec katlin Syste rosy jessica diasi s is often dorita cteri zed by marke dly eleva katlin level s of IgG, IgA, and IgM recog magdalene g Jessica da. Anuragev er, inter preta tion of Jessica da antib davy resul ts is compl icate d by antib davy detec tion in appro ximat hermelinda 40% of healt hy indiv idual s and up to 70% of patie nts posit jb for other funga l antib odies . Furth er, antib davy respo nses may be blunt ed in immun ocomp romis ed patie nts at risk for syste rosy jessica diasi s. Jessica da antib davy level s shoul d be consi dered withi n the kathy xt of clini nicolle findi ngs and resul ts from other relev ant labor atory tests , such as Jessica da antig en detec tion and/o r cultu re. This test was devel oped and its mandie tical perfo rmanc e dorita cteri stics have been deter mined by [facility] Infec tious Disea se. It has not been clear ed or appro herson by FDA. This assay has been valid ated pursu ant to the CLIA regul ation s and is used for clini nicolle purpo ses. Not Available [employer] [address] [address] [place], [address], 08/01/2019 22:51:27 09/23/19 20 09/26/2019 T3, rever se, serum T3 reverse, lc/MS/MS 15 NG/dL 8 This test was devel oped and its mandie tical perfo rmanc e dorita cteri stics have been deter mined by [employer] [facility] Corey twila Huertasi bettinae Jhonatan de souza . It has not been clear ed or appro herson by FDA. This assay has been valid ated pursu ant to the CLIA regul ation s and is used for clini nicolle purpo ses. Not Available [facility] [address] [place], [address], 09/26/2019 18:35:37 09/23/1909/26/2019 CRP, high sensi tivit y, serum or plasm a hs CRP 7.6 mg/L high Refer ence Range Optim al <1.0 Mohan hunter PS et al. Endoc r Pract .2017 ;23(S uppl 2):1- 87. For ages >17 Years : hs-CR P mg/L Risk Accor ding to AHA/C DC Guide lines <1.0 Lower relat jb cardi ovasc ular risk. 1.0-3 .0 [place] ge relat jb cardi ovasc ular risk. 3.1-1 0.0 Highe r relat jb cardi ovasc ular risk. Consi barrett retes ting in 1 to 2 weeks to exclu de a benig n trans ient eleva tion in the basel ine CRP value secon nasim to infec tion or infla mmati on. >10.0 Persi stent eleva tion, upon retes ting, may be assoc iated with infec tion and infla mmati on. Not Available [employer] [address], [address], 09/26/2019 18:35:37 09/23/1909/26/2019 [facility] rr virus (ebv) IgG + IgM panel , serum ebv viral capsid Ag (vca) Ab (IgM) 49.80 U/mL high U/mL Inter preta tion ---- ----- ----- ---- <36.0 0 Negat jb 36.00 -43.9 9 Equiv ocal >43.9 9 Posit jb Not Available [facility] [address], [address], 09/26/2019 18:35:38 09/23/19 20 09/26/2019 [facility] rr virus (ebv) IgG + IgM panel , serum ebv viral capsid Ag (vca) Ab (IgG) 190.00 U/mL high U/mL Inter preta tion ---- ----- ----- ---- <18.0 0 Negat jb 18.00 -21.9 9 Equiv ocal >21.9 9 Posit jb Not Available [facility] [address], [address], 09/26/2019 18:35:38 09/23/19 20 09/26/2019 [facility] rr virus (ebv) IgG + IgM panel , serum ebv nuclear Ag (ebna) Ab (IgG) >600.0 0 U/mL high U/mL Inter preta tion ---- ----- ----- ---- <18.0 0 Negat jb 18.00 -21.9 9 Equiv ocal >21.9 9 Posit jb Not Available [address] [address] [place], [address], 09/26/2019 18:35:38 09/23/19 20 09/26/2019 epste in-ba rr virus (ebv) IgG + IgM panel , serum interpretati on: Sugge stive of a recen t Epste in-Ba rr virus infec tion. Not Available [address] [place], [address], 09/26/2019 18:35:38 09/23/19 20 09/26/2019 T4, free, serum T4, free 0.9 NG/dL 0.8-1. 8 normal Not Available [address], [address], 09/26/2019 18:35:38 09/23/19 20 09/26/2019 TSH, serum or plasm a TSH 0.88 mIU/L normal Refer ence Range > or = 20 Years 0.40- 4.50 Pregn tim Range s First trime ster 0.26- 2.66 Secon d trime ster 0.55- 2.73 Third trime ster 0.43- 2.91 Not Available [place] [address] [place], [address], 09/26/2019 18:35:39 09/23/19 20 09/26/2019 T3, free, serum or plasm a T3, free 3.5 pg/mL 2.3-4. 2 normal Not Available [address], [address], 09/26/2019 18:35:39 Result Notes None recorded. Procedures Surgical History Date Name Laterality Status Provider Name and Address Organization Details Recorded Time Appendectomy completed Brad Galvez [facility] 07/22/2019 16:32:41 Imaging Results None recorded. Procedure Notes None recorded. Medical Equipment None Reported. Allergies Allergen ID Allergen Name Allergen Category Reaction Reaction Severity Criticality Documentation Date Start Date Code Code System Note Provider Name and Address Organization Details Recorded Time 44915 Substance with sulfonami de structure and antibacte rial mechanism of action (substanc e) medicatio n hives severe Not available 07/22/2019 07291 8003 SNOMED [place] TUL[facility] 0 16:29:08 Medications Name Sig Start Date Stop Date Status Note LastModified by Organization Details LastModified Time insulin syringe 29g x 1/2 1 ml mis insulin syringe 29g x 1/2 1 ml mis c 11/10 completed Not Available Not Available Not Available metoprolol succinate ER 50 mg tablet,exte nded release 24 hr 09/22 completed Not Available Not Available Not Available metoprolol succinate ER 50 mg tablet,exte nded release Take 1 tablet every day by oral route. 11/10 completed Not Available Not Available Not Available prednisone 20 mg tablet 09/22 completed Not Available Not Available Not Available nystatin 500,000 unit tablet TK 2 TS PO BID 11/10 completed Not Available Not Available Not Available insulin syringe U-100 with needle 1 mL 29 gauge x 7/16 U UTD TO INJECT ONCE MONTHLY UTD 11/10 completed Not Available Not Available Not Available valacyclovi r 500 mg tablet TK 1 T PO QD 09/22 completed Not Available Not Available Not Available sulfamethox azole 800 mg-trimetho prim 160 mg tablet 09/22 completed Not Available Not Available Not Available biotin 10,000 mcg capsule 11/10 completed Not Available Not Available Not Available cyanocobala min (vit B-12) 1,000 mcg/mL injection solution Inject 1 mL every week by subcutane ous route. 11/10 completed Not Available Not Available Not Available misoprostol 200 mcg tablet 09/22 completed Not Available Not Available Not Available hydroxyzine HCl 25 mg tablet TK 1 T PO Q 6 H PRN 11/10 completed Not Available Not Available Not Available hydrochloro thiazide 25 mg tablet TAKE 1 TABLET BY MOUTH EVERY DAY 2020 active Not Available Not Available Not Avai lable metoprolol succinate ER 25 mg tablet,exte nded release 24 hr TAKE 1 TABLET BY MOUTH EVERY DAY 2020 active Not Available Not Available Not Avai lable amoxicillin 875 mg-deborah m clavulanate 125 mg tablet 09/22 completed Not Available Not Available Not Available duloxetine 20 mg capsule,del ayed release TAKE 1 CAPSULE BY MOUTH EVERY DAY 2020 active Not Available Not Available Not Avai lable [employer] Thyroid 60 mg tablet TAKE 1 TABLET BY MOUTH EVERY DAY 2020 active Not Available Not Available Not Avai lable Estarylla 0.25 mg-0.035 mg tablet 09/22 completed Not Available Not Available Not Available [employer] Thyroid 15 mg tablet take 3 tab po q am 11/10 completed Not Available Not Available Not Available Vitals Date Recorded Body weight Body temperature Body mass index (BMI) Body height Heart rate Systolic And Diastolic Provider Name and Address Organization Details Last Updated DateTime 0 50077.3 3 g 97.7 [degF] 36.5 kg/m2 154.94 cm 71 /min 122/84 mm[Hg] [facility] 16:30:02 Date Recorded Body height Body mass index (BMI) Body weight Body temperature Heart rate Systolic And Diastolic Provider Name and Address Organization Details Last Updated DateTime 0 154.94 cm 36.8 kg/m2 29571.5 1 g 97.7 [degF] 58 /min 104/71 mm[Hg] Brad ANTUNEZ [facility] 0 14:19:07 Date Recorded Body height Body mass index (BMI) Body weight Provider Name and Address Organization Details Last Updated DateTime 11/10/2020 154.94 cm 38.7 kg/m2 24530.44 g [facility] 11/10/2020 12:57:40 Social History Question Answer Notes LastModified by Organizat ion Details LastModified Time Tobacco Smoking Status Never Smoker [facility] 07/22/2019 16:32:34 Do You Have An Advance Directive? No Information not available 07/22/2019 Animal Exposure? Yes Information not available 07/22/2019 Do You Wear A Helmet When Biking? Yes Information not available 07/22/2019 Sex: Unknown Functional Status Question Answer Note LastModified by Organizat ion Details LastModified Time What is your level of alcohol consumption? Occasional Information not available 07/22/2019 Are you currently employed? Yes Information not available 07/22/2019 Mental Status None recorded. Family History Relationship Description Onset Age of this Age Resolved Age Notes LastModified by Organization Details LastModified Time Mother Graves' disease amalic Not available 2019 16:32:03 Mother Rheumatoid arthritis amalic Not available 2019 16:32:13 Medical History Condition Response Coronary Artery Disease N Gout N Kidney Stones N Blood Diseases N Hyperthyroidism N COPD N Depression N Anxiety Disorder N Muscle, Joint, or Bone Problems N Vision or Eye Problems N Arthritis N Cancer N Stroke N Hospital Admission other than N Fibromyalgia N Headaches N Kidney Disease N Ear or Hearing Problems N Skin Problems N Constipation N Tuberculosis N Asthma N Allergies N Pulmonary Embolism N Chicken Pox N Autism Spectrum Disorder (ASD) N Hypothyroidism N Developmental or Behavioral Disorders N Head Injury/Concussion N Congenital Anomalies N ADHD N Bladder or Kidney Problems N High Cholesterol N Liver Disease N Thyroid Problems N Anemia N Mental Illness N Diabetes N Bedwetting N Seizures/Epilepsy N Heart Problems/Murmur N Diverticulitis N Reflux/GERD N Heart Disease N Hypertension Y Osteoporosis N Gynecological HistoryNo gynecological history recorded. Obstetrics History GPAL:G 0 P 0 0 0 0 Past Encounters Encounter ID Performer Location Encounter Start Date Encounter Closed Date Diagnosis/Indication Diagnosis SNOMED-CT Code Diagnosis ICD10 Code Diagnosis IMO Codes Diagnosis Note [id number] Bud Jaimes MD Main Office [address] [place] [address] 07/22/2019 16:25:24 07/22/2019 18:13:03 Fatigue 34063339 R53.83 Pain of joint 30104504 M 25.50 Essential hypertension 72318781 I10 Sleep disorder 56260157 G47.9 Eczema 51880727 L30.9 Anxiety 18495439 F41.9 [id number] Bud Jaimes MD Main Office [address] [place] [address] 09/23/2019 14:17:06 09/23/2019 15:04:55 Infectious mononucleosis 504479038 B27.90 Hypothyroidism 70619482 E03.9 Anxiety 46892454 F41.9 Essential hypertension 59886529 I10 Cobalamin deficiency 190 900463 E53.8 Subclinica l hypothyroidism 01619364 E02 Candidiasis 59488218 B37 .9 [id number] Bud Jaimes MD Main Office [address] [place] [address] 11/10/2020 12:56:33 11/10/2020 17:21:12 Infectious mononucleosis 402312790 B27.90 Hypothyroidism 82766391 E03.9 Anxiety 53208473 F41.9 Essential hypertension 85019166 I10 Cobalamin deficiency 190 074746 E53.8 Subclinica l hypothyroidism 38672492 E02 Candidiasis 91112428 B37 .9 Fatigue 80966867 R53.83 Pain of joint 94871506 M 25.50 Sleep disorder 55190773 G47.9 Eczema 54549725 L30.9 Obstructiv e sleep apnea syndrome 81865036 G47.33 Health Concerns Section Related Observation LastModified by Organization Detai ls LastModified Time None Recorded Concern Status LastModified by Organization Details LastModified Time None Recorded Advance Directives Directive N: Payers Insurance Date Sequence Insurance Name Policy Number Policy Maldonado Covered Member ID Maldonado Member ID Guarantor Name 09/23/2019 1 [place] [id number] Galen Banks [id number] Jessica Sofia Banks 04/07/2020 1 [place] [id number] Jessica Sofia Banks [id number] Jessica Sofia Banks 04/07/2020 1 *SELF PAY* Na montrell Banks Notes Date Note Type Note Provider Name and Address Organization Details Recorded Time 0 text/html Would like to be tested for everything.Saw a student ministry pastor. Never diagnosed with anything. Maybe fibromyalgia.Skin can hurt at times. Upper arms can really hurt. This can fluctuate.Eliminated gluten. Was helpful for digestion. Negative for Celiac. Head is less foggy. Can concentrate better.Eliminated gluten for a few years. Only went off when was tested. Now has eliminated it again.Eczema - just started 4 - 6 weeks ago. Now on eye and hand. Can't get it to away.2017 - had gone to gastro for celiac. Blood pressure was elevated at this time. Now has been on blood pressure meds. Saw a nailer operator. No problems were found with heart. Was healthy at this time.After adding gluten back into diet, then started gaining weight.Joint pain - Since the age of 8. When would stand and do dishes, then knees, ankles would hurt. Low back problems. Shoulder problems. Had to stop playing basketball in grade school because of the pain. Thought it was related to puberty and joints catching up. Started menses at the age of 7. When working out regularly and running a lot - weighed 165lbs. Then introduced gluten again. Working out multiple times per week and watched calories, couldn't lose anything. Gained weight . Sleep - will get up to urinate or other times will wake. In bed around 10pm. Wake around 7:30 - 8:30am. Not rested upon waking. Late morning.Breath loudly. Tried to get a referral for a sleep study.Will use caffeine to help wake in the morning. Will stop caffeine around noon. Stress level - currently not too stressed. 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 Feels does well with stress. Internalize a lot of it. Doesn't deal with it. Sleep is worse with stress. Weight gain during stress. Stomach can be worse with stress. Nervous stomach - more BM. 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 Very stressful. At [employer].Went to college at [employer]. Swollen eye vein - noticed around [place]. Hasn't decreased. Energy level - low. Times when has some energy. But feels it comes in bouts.Feels tired every day. Menses- got an IUD in December. Hasn't regulated yet. Has had a few heavy days and then spotted for 1 1/2 weeks - 2 weeks. Now hasn't started. Used to be very regular. Came off the pill to get an IUD. Tolerated BCP well. Wasn't remembering it well enough. Mood - can remember anxiety in 3rd grade. Didn't feel the anxiety was related to much. A small argument with fiance would throw off.In 3rd grade. Remembers had a mean teacher. Always wanted to do well in school. Had some anxiety surrounding it. Wonders if has a dairy problem. If has it, then will feel foggy.If would take a narcotic from surgery, then feels very foggy. GI - BM - had seen a studio musician when younger. 3rd grade upper endoscopy - acid reflux.Bloating and gas at times. No longer has cramping. In the past would cramp. [place] up [place], [place].Energy level - good when younger. Seasonal allergies - has noticed more recently. Not bad. Doesn't take anything for it.Strep a lot as a child. Took a lot of antibiotics. Breastfed for a time period. Colicky as a baby. Hot body temperature. Can sweat on face and back. Can immediately start sweating when going from cold to hot. Heart can start pumping too fast if in hot bath water. Remembers in college. Doesn't remember as a child. Bud Jaimes MD [address] [place], [address], [facility] 07/23/2019 19:13:03 0 text/html Had been feeling better.Initially with starting the thyroid medication, felt worse. [place] stressed. Then felt really good for a couple of weeks with energy level. Still feeling better, but not as good as was. Still feels fatigued.Anxiety is worse with the thyroid medication. Heart is racing. And thoughts feels more anxious.A lot of brain fog recently.Mild sleep apnea. Waiting on getting a machine.Currently on a break.Able to do virtual school this Fall. Saw eyes doctor this morning - says left over from a stye. Changes day to day. Bud Jaimes MD [address] [place], [address], [facility] 09/23/2019 19:40:36 1 text/html ROS as noted in the HPI Follow up needs refillsBlood pressures 118/79 average and will email the logs.Gluten and dairy now: better mental clarity and energy levels.Just took [employer] exam.Feels recovered from mono now.Not now using B 12 injections didn't feel a huge difference.Joint pains pretty goodTesting showed mild FILOMENA plans to get CPAP once she is employed and gets better insurance. Bud Jaimes MD [address] [place], [address], [facility] 11/10/2020 14:31:46 OBGyn Episode No OBEpisode recorded.
--- OUTSIDE RECORDS SUMMARY | 2025-02-02 12:18 | XMS_ITS | Continuity of Care Document ---
Author Organization [facility] Address [address] [place] [address] [place] [address] Assessment No assessment recorded. Plan of Treatment Reminders Order Date Submit Date Provider Last Modified By Organization Details Last Modified Time Details Appointments OB ROUTINE 2024 01:15P Rachael REYES MD Not available Not available Not available Lab None recorded. Referral None recorded. Procedures None recorded. Surgeries None recorded. Imaging US, obstetric , 2nd or 3rd trimester 2024 025 [email or web address] [place], [facility] [address], [address], [place], [address], 12/05/2024 11:12:29 Medication Orders None recorded. Patient TargetsNo targets recorded. Patient InstructionsNo instructions recorded. Reason for Referral None Reported. Results Created Date Observation Date Name Description Value Unit Range Abnormal Flag Note LastModifiedBy Organization Detail LastModifiedTime 10/17/1910/16/2024 [UNIT Y] ANEUP LOIDY NIPT fraction 13.3% normal Not Available [facility] [address], [place], [address], 10/16/2024 20:16:41 10/17/19 25 10/16/2024 [UNIT Y] ANEUP LOIDY NIPT 22Q11.2 microdeletio n LOW RISK <1 in 10,000 normal Not Available [facility] [address], [place], [address], 10/16/2024 20:16:41 10/17/19 25 10/16/2024 [UNIT Y] ANEUP LOIDY NIPT sex chromosome aneuploidy NOT DETECT ED normal Not Available [facility] [address], [place], [address], 10/16/2024 20:16:41 10/17/19 25 10/16/2024 [UNIT Y] ANEUP LOIDY NIPT monosomy X LOW RISK <1 in 10,000 normal Not Available [facility] [address], [place], [address], 10/16/2024 20:16:41 10/17/19 25 10/16/2024 [UNIT Y] ANEUP LOIDY NIPT trisomy 13 LOW RISK <1 in 10,000 normal Not Available [facility] [address], [place], [address], 10/16/2024 20:16:41 10/17/19 25 10/16/2024 [UNIT Y] ANEUP LOIDY NIPT trisomy 18 LOW RISK <1 in 10,000 normal Not Available [facility] [address], [place], [address], 10/16/2024 20:16:41 10/17/19 25 10/16/2024 [UNIT Y] ANEUP LOIDY NIPT trisomy 21 LOW RISK <1 in 10,000 normal Not Available [facility] [address], [place], [address], 10/16/2024 20:16:41 10/17/19 25 10/16/2024 [UNIT Y] ANEUP LOIDY NIPT sex MALE normal Not Available [facility] [address], [place], [address], 10/16/2024 20:16:41 10/17/19 25 10/16/2024 [UNIT Y] ANEUP LOIDY NIPT gestation SINGLE TON normal Not Available [facility] [address], [place], [address], 10/16/2024 20:16:41 10/17/19 25 10/16/2024 [UNIT Y] ANEUP JAIROIDSuzanna NIPT for detailed report, see pdf See PDF normal Not Available [facility] [address], [place], [address], 10/16/2024 20:16:41 10/10/19 25 10/09/2024 CBC W/DIF F WBC 9.8 10'3/ uL 3.5-10 .5 Not Available [facility] (Lab) [address], [place], [address], 2024 19:17:53 10/10/1910/09/2024 CBC W/DIF F RBC 3.93 10'6/ uL (based on docume nted legal sex) 3.80-5 .20 Not Available [facility] (Lab) [address], [place], [address], 2024 19:17:53 10/10/1910/09/2024 CBC W/DIF F HGB 12.5 g/dL (based on docume nted legal sex) 11.6-1 5.4 Not Available [facility] (Lab) [address], [place], [address], 2024 19:17:53 10/10/1910/09/2024 CBC W/DIF F HCT 35.6 % (based on docume nted legal sex) 34.0-4 5.0 Not Available [facility] (Lab) [address], [place], [address], 2024 19:17:53 10/10/1910/09/2024 CBC W/DIF F MCV 90.6 fL 80.0-9 9.0 Not Available [facility] (Lab) [address], [place], [address], 2024 19:17:53 10/10/1910/09/2024 CBC W/DIF F MCH 31.8 pg 27.0-3 4.0 Not Available [facility] (Lab) [address], [place], [address], 2024 19:17:53 10/10/1910/09/2024 CBC W/DIF F MCHC 35.1 g/dL 32.0-3 5.5 Not Available [facility] (Lab) [address] [facility], [place], [address], 2024 19:17:53 10/10/1910/09/2024 CBC W/DIF F RDW 12.3 % 11.0-1 5.0 Not Available [facility] (Lab) [address] [facility], [place], [address], 2024 19:17:53 10/10/1910/09/2024 CBC W/DIF F plt 185 10'3/ uL 150-40 0 Not Available [facility] (Lab) [address], [place], [address], 2024 19:17:53 10/10/1910/09/2024 CBC W/DIF F MPV 12.4 fL 8.8-12 .1 high Not Available [facility] (Lab) [address] [facility], [place], [address], 2024 19:17:53 10/10/1910/09/2024 CBC W/DIF F NRBC's 0.0 % 0.0 Not Available [facility] (Lab) [address] [facility], [place], [address], 2024 19:17:53 10/10/1910/09/2024 CBC W/DIF F absolute NRBCs 0.0 10'3/ uL no refere nce range establ ished Not Available [facility] (Lab) [address] [facility], [place], [address], 2024 19:17:53 10/10/19 25 10/09/2024 CBC W/DIF F neutrophils 75.7 % 34.0-7 3.0 high Not Available [facility] (Lab) [address] [facility], [place], [address], 2024 19:17:53 10/10/19 25 10/09/2024 CBC W/DIF F lymphocytes 17.5 % 15.0-5 0.0 Not Available [facility] (Lab) [address] [facility], [place], [address], 2024 19:17:53 10/10/1910/09/2024 CBC W/DIF F monocytes 4.4 % 1.0-15 .0 Not Available [facility] (Lab) [address] [facility], [place], [address], 2024 19:17:53 10/10/19 25 10/09/2024 CBC W/DIF F eosinophils 1.9 % 0.0-8. 0 Not Available [facility] (Lab) [address] [facility], [place], [address], 2024 19:17:53 10/10/1910/09/2024 CBC W/DIF F basophils 0.2 % 0.0-2. 0 Not Available [facility] (Lab) [address] [place], [address], 2024 19:17:53 10/10/19 25 10/09/2024 CBC W/DIF [...] separ ately if prese nt. Not Available [facility] (Lab) [address] [place], [address], 2024 19:17:53 10/10/1910/09/2024 CBC W/DIF F absolute neutrophils 7.4 10'3/ uL 1.5-8. 0 Not Available [facility] (Lab) [address] [facility], [place], [address], 2024 19:17:53 10/10/1910/09/2024 CBC W/DIF F absolute lymphocytes 1.7 10'3/ uL 1.0-4. 0 Not Available [facility] (Lab) [address] [facility], [place], [address], 2024 19:17:53 10/10/1910/09/2024 CBC W/DIF F absolute monocytes 0.4 10'3/ uL 0.2-1. 0 Not Available [facility] (Lab) [address] [facility], [place], [address], 2024 19:17:53 10/10/1910/09/2024 CBC W/DIF F absolute eosinophils 0.2 10'3/ uL 0.0-0. 6 Not Available [facility] (Lab) [address] [facility], [place], [address], 2024 19:17:53 10/10/1910/09/2024 CBC W/DIF F absolute basophils 0.0 10'3/ uL 0.0-0. 3 Not Available [facility] (Lab) [address] [facility], [place], [address], 2024 19:17:53 10/10/1910/09/2024 CBC W/DIF F absolute [...] bhand book. nm.or g/gen derx Not Available [facility] (Lab) [address], [place], [address], 2024 19:17:53 10/10/1910/09/2024 HIV 1/2 ANTIG EN/AN TIBOD Y, REFLE X CONFI RMATI ON HIV antigen/anti body Nonrea ctive nonrea ctive HIV-1 antig en and HIV-1 /HIV- 2 antib odies were not detec katlin. No labor atory evide nce of HIV infec tion. Not Available [facility] (Lab) [address], [place], [address], 2024 19:17:54 10/10/1910/09/2024 HEPAT ITIS B SURFA CE ANTIG EN hepatitis B surface antigen Non-re active non-re active This assay was perfo rmed using [employer] ratio n reage nts and test kits. Value s obtai ning with other assay metho ds or kits canno t be used inter figueroa eably . Not Available [facility] (Lab) [address], [place], [address], 2024 19:17:55 10/10/1910/09/2024 HEPAT ITIS C ANTIB KANDI SCREE N, REFLE X TO CONFI RMATI ON hepatitis C antibody Non-re active non-re active Antib odies to HCV Not Detec katlin, does not exclu de the possi bilit y of expos ure to HCV. Not Available [facility] (Lab) [address], [place], [address], 2024 19:17:55 10/10/1910/09/2024 RUBEL LA IGG ANTIB KANDI, QUANT rubella antibodies, IgG Reacti ve reacti ve Not Available [facility] (Lab) [address] [place], [address], 2024 19:17:55 10/10/19 25 10/09/2024 RUBEL LA IGG ANTIB KANDI, QUANT rubella antibodies, IgG quant 33.1 IU/mL >=10 Non-r eacti ve (Non- Immun e) <10 IU/mL React jb (Immu ne) > or = 10 IU/mL Not Available [facility] (Lab) [address] [facility], [place], [address], 2024 19:17:55 10/10/19 25 10/09/2024 TYPE/ RH/SC REEN ABO/Rh type A POS Not Available [facility] (Lab) [address] [facility], [place], [address], 2024 19:17:56 10/10/1910/09/2024 TYPE/ RH/SC REEN antibody screen NEG Not Available [facility] (Lab) [address] [facility], [place], [address], 2024 19:17:56 10/10/1910/09/2024 TYPE/ RH/SC REEN exp date 2024 23:59 Not Available [facility] (Lab) [address] [facility], [place], [address], 2024 19:17:56 10/10/1910/09/2024 HEMOG LOBIN A1C hemoglobin [...] >8.0% Actio n sugge sted Not Available [facility] (Lab) [address] [facility], [place], [address], 2024 19:17:56 10/10/1910/09/2024 RPR SCREE N, REFLE X TITER /CONF IRMAT ION RPR qualitative Nonrea ctive nonrea ctive Not Available [facility] (Lab) [address] [facility], [place], [address], 2024 19:17:57 10/10/1910/09/2024 LEAD, BLOOD (ADUL T/PED IATRI C) lead, whole blood <1.0 mcg/d L <3.5 See Note 1 Mandie sis was perfo rmed by Nael Silverman ed Plasm a Mass Spect romet ry (ICPM S) Note 1 This test was devel oped and its mandie tical perfo rmanc e dorita cteri stics have been deter mined by [employer]. It has not been clear ed or appro herson by the FDA. This assay has been valid ated pursu ant to the CLIA regul ation s and is used for clini nicolle purpo ses. Perfo rming Organ izati on Infor isai n: Site ID: CB Name: [employer] [facility]-Andreas Harrington Addre ss: [address] [place] [address] Direc tor: Bharathi vitale V Katey s Not Available [facility] (Lab) [address] [facility], [place], [address], 2024 19:17:57 10/10/1910/09/2024 CULTU RE: URINE result report SEE RESULT S BELOW Test: Cultu re: Urine Speci men Sourc e: Urine - Clean Catch Speci men Type: Urine Speci men Date: 025 1423 Resul t Date: 9 Resul t Statu s: Final resul t Abnor mal: No Resul ting Lab: [facility] [address] [facility] [address] Tel: CULTU RE ----- ----- ----- --- No growt h in 1 day (dete ction level of 10,00 0 colon ies / ml.) Not Available [facility] (Lab) [address], [place], [address], 2024 22:42:52 10/10/19 25 10/09/2024 drug scree n, urine Amphetamines : negati ve Not Available [facility] [address], [place], [address], 10/09/2024 15:12:54 10/10/19 25 10/09/2024 drug scree n, urine Cannabinoids : negati ve Not Available [facility] [address], [place], [address], 10/09/2024 15:12:54 10/10/19 25 10/09/2024 drug scree n, urine Cocaine: negati ve Not Available [facility] [address], [place], [address], 10/09/2024 15:12:54 10/10/19 25 10/09/2024 drug scree n, urine Opiates: negati ve Not Available [facility] [address], [place], [address], 10/09/2024 15:12:54 10/10/19 25 10/09/2024 drug scree n, urine Phenocyclidi ne: negati ve Not Available [facility] [address], [place], [address], 10/09/2024 15:12:54 10/10/19 25 10/09/2024 drug scree n, urine Barbiturates : negati ve Not Available [facility] [address], [place], [address], 10/09/2024 15:12:54 10/10/19 25 10/09/2024 drug scree n, urine Benzodiazepi david: negati ve Not Available [facility] [address], [place], [address], 10/09/2024 15:12:54 10/10/19 25 10/09/2024 drug scree n, urine Ethanol: negati ve Not Available [facility] [address], [place], [address], 10/09/2024 15:12:54 10/10/19 25 10/09/2024 drug scree n, urine Hallucinogen s: negati ve Not Available [facility] [address], [place], [address], 10/09/2024 15:12:54 10/10/19 25 10/09/2024 drug scree n, urine Inhalants: negati ve Not Available [facility] [address], [place], [address], 10/09/2024 15:12:54 10/10/19 25 10/09/2024 drug scree n, urine Anabolic Steroids: negati ve Not Available [facility] [address], [place], [address], 10/09/2024 15:12:54 11/29/19 25 11/28/2024 FREE T3 [...] LC/MS may be perfo rmed. Not Available [facility] (Lab) [address], [place], [address], 11/29/2024 05:49:07 11/29/19 25 11/28/2024 TSH TSH 1.43 uIU/m L 0.30-5 .33 Not Available [facility] (Lab) [address], [place], [address], 11/29/2024 05:49:08 11/29/19 25 11/28/2024 T4 FREE T4, free 0.65 NG/dL 0.54-1 .24 This assay is susce ptibl e to leonora guzman ce from high level s of bioti n which may false ly eleva te resul ts. Teto e corre late with clini nicolle findi ngs. Not Available [facility] (Lab) [address], [place], [address], 11/29/2024 05:49:08 11/29/19 25 11/28/2024 urina lysis , dipst ick Leukocytes + Not Available [facility] [address], [place], [address], 11/28/2024 14:42:38 11/29/19 25 11/28/2024 urina lysis , dipst ick Protein + Not Available [facility] [address], [place], [address], 11/28/2024 14:42:38 11/29/19 25 11/28/2024 urina lysis , dipst ick pH 8 Not Available [facility] [address], [place], [address], 11/28/2024 14:42:38 11/29/19 25 11/28/2024 urina lysis , dipst ick Blood + Not Available [facility] [address], [place], [address], 11/28/2024 14:42:38 11/29/19 25 11/28/2024 urina lysis , dipst ick Specific Dennis 1.000 Not Available [facility] [address], [place], [address], 11/28/2024 14:42:38 11/29/1911/28/2024 urina lysis , dipst ick Appearance clear Not Available [facility] [address], [place], [address], 11/28/2024 14:42:38 11/29/19 25 11/28/2024 urina lysis , dipst ick Color yellow Not Available [facility] [address], [place], [address], 11/28/2024 14:42:38 10/01/19 25 09/30/2024 US, obste tric, follo w-up No observ ation record ed. [email or web address] [address], [place], [address], 10/01/2024 09:14:12 10/01/19 25 09/30/2024 US, obste tric, limit ed No observ ation record ed. [email or web address] [facility] [place] [address], [place], [address], 09/30/2024 18:25:20 10/10/19 25 10/09/2024 US, obste tric, nucha l trans lucen cy No observ ation record ed. [email or web address] [facility] [place] [address], [place], [address], 10/09/2024 18:42:28 10/10/1910/09/2024 US, obste tric, nucha l trans lucen cy No observ ation record ed. [email or web address] [address], [place], [address], 10/11/2024 09:05:59 11/29/19 25 11/28/2024 US, obste tric, limit ed No observ ation record ed. [email or web address] [place] [address], [place], [address], 11/28/2024 14:35:57 11/29/19 25 11/28/2024 US, obste tric, limit ed No observ ation record ed. [email or web address] [address], [place], [address], 12/04/2024 17:11:19 12/05/1912/04/2024 US, obste tric, 2nd or 3rd trime ster No observ ation record ed. [email or web address] [address], [place], [address], 12/10/2024 16:29:24 12/05/1912/04/2024 US, obste tric, 2nd or 3rd trime ster No observ ation record ed. [facility] [address], [place], [address], 12/04/2024 18:24:14 01/02/20 25 01/01/2025 , obste tric, follo w-up No observ ation record ed. [facility] [address], [place], [address], 01/01/2025 18:52:26 01/02/20 25 01/01/2025 US, obste tric, follo w-up No observ ation record ed. [email or web address] [address], [place], [address], 01/03/2025 10:24:56 01/30/20 25 01/29/2025 imagi ng/di agnos tic resul t No observ ation record ed. [email or web address] [address], [place], [address], 01/29/2025 11:47:31 01/30/20 25 01/29/2025 US, obste tric, follo w-up No observ ation record ed. [email or web address] [facility] [place] [address], [place], [address], 01/29/2025 11:50:46 01/30/20 25 01/29/2025 US, obste tric, trans vagin al No observ ation record ed. [email or web address] [place] [address], [place], [address], 01/29/2025 11:50:59 Result Notes None recorded. Problems Name Problem SNOMED Code Status Onset Date Resolution Date Notes Provider Name and Address Organization Details Recorded Time Hypothyr oidism 71078933 Completed levothyr oxine 100mcg- REPEAT WITH 28w LABS Michael Garcia [facility] 3 16:18:26 Hyperten sive disorder 48540938 Completed labetalo l bid, ASA, Baseline 24h TP - 147 Michael Garcia [facility], [facility] 3 16:18:26 History of cholecys tectomy 524767130 Completed Michael Garcia [facility], [facility] 3 16:18:26 History of appendec roselyn 562059564 Completed Michael Garcia [facility], [facility] 3 16:18:26 Anxiety 31821512 Completed was on cymbalta - not on currentl y 02/08/22 Michael Garcia [facility] 3 16:18:26 Hyperten sive disorder 27489450 Active labetalo l bid, ASA, Baseline 24h TP - 147 Michael Garcia [facility] 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 3 16:18:26 Pre-ecla mpsia 337480099 Completed Michael Garcia null, [facility] 3 16:18:26 Pregnanc y 63692036 Completed 202108/19/2022 Winifred Quiroga null, [facility] 5 09:42:14 Pregnanc y 28219667 Active 2024 Winifred mcnally, [facility] 5 09:42:14 Hypothyr oidism 62467342 Active 2024 Levothyr oxine 100mcg Repeat TSH labs @ 28wks Winifred mcnally, [facility] 5 09:34:15 Anxiety 35047499 Active 2024 no current meds Mariam Valverde CNM [address], [place], [address], [facility] 5 15:29:30 Past pregnanc y history of pre-ecla mpsia 2395553889 23295 Active 2024 w/o severe features /chronic with meds no meds since last pregnanc y bASA daily HSV- plan 36 week valtrex allergic to gluten/d airy Mariam Valverde CNM [address], [place], [address], [facility] 5 15:30:22 Hypothyr oidism 97663166 Active 2024 Levothyr oxine 100mcg Repeat TSH labs @ 28wks Winifred Quiroga null, [facility] 5 09:34:15 Anxiety 30217196 Active 2024 no current meds Mariam Valverde CNM [address], [place], [address], [facility] 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 14:01:20 Vasa previa 35351990 Active 2024 rachael Valverde CNM [address], [place], [address], [facility] 11:20:38 Problem Notes None recorded. Procedures Surgical History Date Name Laterality Status Provider Name and Address Organization Details Recorded Time 025 IUD Removal completed KAMERON Calvert [address], [place], [address], [facility] 07/04/2024 16:54:24 024 Date of Last Pap Smear completed JULIEN Ferrell [facility] 05/08/2024 15:48:32 023 [facility] 14:34:26 022 IUD Removal completed Mirnarosalina Maldonado [facility] 06/01/2021 10:47:37 016 Date of Last [facility] 04/15/2021 11:37:49 016 Colonoscopy completed Mirna [facility] 04/15/2021 11:37:07 011 cholecystectomy completed Mirnarosalina Maldonado [facility] 04/15/2021 11:37:20 011 extraction of wisdom tooth completed Mirnarosalina Maldonado [facility] 04/15/2021 11:37:34 008 [facility] 04/15/2021 11:36:52 Appendectomy completed Cordelia Shine [facility] 11/06/2024 17:17:39 Colonoscopy completed Cordelia Shine [facility] 11/06/2024 17:17:39 Imaging Results None recorded. Procedure Notes None recorded. Medical Equipment None Reported. Allergies Allergen ID Allergen Name Allergen Category Reaction Reaction Severity Criticality Documentation Date Start Date Code Code System Note Provider Name and Address Organization Details Recorded Time 76692 sulfabenz amide Not available hives severe Not available 03/17/2021 20852 RxNorm Mirna Maldonado uli, [facility] 2 15:50:59 35789 wheat gluten extract food Not available Not available Not available 04/15/2021 74077 81 RxNorm Mirna Maldonado uli, [facility] 2 11:38:14 87757 lactase medicatio n Not available Not available Not available 04/15/2021 76526 RxNorm Mirna Maldonado uli, [facility] 2 11:38:23 40246 Substance with sulfonami de structure and antibacte rial mechanism of action (substanc e) medicatio n Not available Not available Not available 01/29/2025 06168 8003 SNOMED Not Available zohreh - External Data Service - prod 5 02:58:42 68430 wheat preparati on food,medi cation Not available Not available low 02/01/20252023 83591 52 RxNorm react ion unrec ogniz ed react ion (text : Stoma ch upset , code: [id number]) (from exter nal sourc e) Not [...] Not Available Not Available Not Available vitamin A39-ioowb acid 08/31 completed Not Available Not Available Not Available B12 at morning time 2024 active Not Available Not Available Not Avai lable SNAILER Thyroid 60 mg tablet 07/28 completed Not [...] Updated DateTime 12/04/2024 156.21 cm 34.4 kg/m2 56115.59 g 119/74 mm[Hg] Rukhsana Olguin [facility] 12/04/2024 17:59:46 Social History Question Answer Notes LastModified by Organizat ion Details LastModified Time Tobacco Smoking Status Never Smoker Jennifer Key uli, [facility] 03/22/2023 15:53:07 Do You Have An Advance Directive? No Information n ot available 03/17/2021 How Many Years Have You Consumed Alcohol? 7 Information not available 03/17/2021 Are You Blind Or Do You Have Difficulty Seeing? No [email or web address] Information n ot available 03/17/2021 What Is Your Level Of Caffeine Consumption? Moderate [email or web address] Information not available 03/17/2021 How Much Tobacco Do You Chew? None [email or web address] Information not available 03/17/2021 In The 14 Days Before Symptom Onset, Have You Had Close Contact With A Laboratory-confirm ed COVID-19 While That Case Was Ill? No [email or web address] Information n ot available 03/17/2021 In The 14 Days Before Symptom Onset, Have You Had Close Contact With A Person Who Is Under Investigation For COVID-19 While That Person Was Ill? No [email or web address] Information not available 03/17/2021 Have You Been To An Area Known To Be High Risk For COVID-19? No [email or web address] Information not available 03/17/2021 Are You Deaf Or Do You Have Serious Difficulty Hearing? No [email or web address] Information not available 03/17/2021 What Type Of Diet Are You Following? GLUTENFREE [email or web address] Information n ot available 03/17/2021 What Is The Highest Grade Or Level Of School You Have Completed Or The Highest Degree You Have Received? [id number] [email or web address] Information not available 03/17/2021 Are There Any Guns Present In Your Home? No [email or web address] Information not available 03/17/2021 Have You Ever Been Counseled For Unhealthy Alcohol Use? No [email or web address] Information not available 03/22/2023 Do You Use Protection During Sex? Always [email or web address] Information not available 03/17/2021 Do You Use Your Seat Belt Or Car Seat Routinely? Yes [email or web address] Information not available 03/17/2021 Do You Have Smoke And Carbon Monoxide Detectors In Your Home? Yes [email or web address] Information not available 03/17/2021 How Much Tobacco Do You Smoke? No [email or web address] Information not available 03/17/2021 Do You Use Sunscreen Routinely? Yes [email or web address] Information not available 03/17/2021 Has Tobacco Cessation Counseling Been Provided? No [email or web address] Information not available 03/22/2023 Have You Used IV Drugs? No [email or web address] Information not available 03/17/2021 Do You Have Difficulty Walking Or Climbing Stairs? No [email or web address] Information not available 03/22/2023 Sex: Unknown Functional Status Question Answer Note LastModified by Organizat ion Details LastModified Time Do you use any illicit or recreational drugs? No [email or web address] Information not available 03/17/2021 Do you or have you ever used any other forms of tobacco or nicotine? No [email or web address] Information not available 03/22/2023 What is your level of alcohol consumption? Occasional Information not available 03/17/2021 Are you able to walk independently without assistance or assistive devices? YESWOREST [email or web address] Information not available 03/17/2021 Are you able to care for yourself independently? 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 No [email or web address] Information not available 03/22/2023 What is your exercise level? Occasional [email or web address] Information not available 03/17/2021 Mental Status Question Answer Note LastModified by Organization D etails LastModified Time Do you feel stressed (tense, restless, nervous, or anxious, or unable to sleep at night)? [id number] Information not available 03/17/2021 Family History Relationship Description Onset Age of this Age Resolved Age Notes LastModified by Organization Details LastModified Time Maternal Grandmother Hypertensive disorder [email or web address] Not available 03/17 15:51:00 Mother Hypertensive disorder [email or web address] Not available 03/17 15:51:00 Mother Disorder of thyroid gland [email or web address] Not available 03/17 15:51:00 Mother High risk [email or web address] Not available 03/17 15:51:00 Paternal Grandmother Hypertensive disorder [email or web address] Not available 03/17 15:51:00 Medical History Condition [...] ICD10 Code Diagnosis IMO Codes Diagnosis Note [id number] [facility] [address] [address] 11/06/2024 17:11:47 11/06/2024 17:58:08 Gestation period, 16 weeks 76002588 Z3A.16 [id number] Renaldo Reyes MD [facility] [address],[place] [address] 11/28/2024 14:01:21 11/28/2024 15:16:08 Pain in pelvis 10004796 R10.2 124958 Acquired hypothyroidism 255196176 E03.9 80274 Acute urin lola tract infection 336484989 N39.0 436110 [id number] Renaldo Reyes MD [facility] [address],[place] [address] 11/28/2024 14:05:03 11/28/2024 14:34:10 Pain in female pelvis 816735793 O26.892 R10.2 Z3A.19 [id number] Renaldo Reyes MD [facility] [address],[place] [address] 12/04/2024 16:44:59 12/05/2024 09:02:08 Screening status 435130154 Z36.3 Z3A.20 [id number] [facility] [address],[place] [address] 12/04/2024 16:45:22 12/05/2024 16:48:14 Gestation period, 20 weeks 56943487 Z3A.20 [id number] Health Concerns Section Related Observation LastModified by Organization Detai ls LastModified Time None Recorded Concern Status LastModified by Organization Details LastModified Time None Recorded Payers Encounter Date Sequence Insurance Name Policy Number Policy Maldonado Covered Member ID Maldonado Member ID Guarantor Name 12/04/2024 1 [facility] [id number] Jessica Keys [id number] 1 Jessica Keys Notes Date Note Type Note Provider Name and Address Organization Details Recorded Time 12/04/2024 text/html Generic HPI TemplateReported by Patient Mariam Victoriano Valverde, JASON [address], [place], [address], [place] [facility] 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 Status 10/01/19 25 1 A Positive 182 OPEN Fetus Data First Name Last Name Admitted to NICU Weight (g) Sex Living Outcome Pediatric Complications Fetus ID Race Codes Race Delivery Type [id number] Problems Problem Notes [facility] of [facility] Problem Name Start Date End Date Resolution Snomed Code Not e Anxiety 10/09/2024 [id number] no curren t meds Past history of pre-eclampsia 10/09/2024 [id number] w/o severe features/chronic with medsno meds since last pregnancybASA dailyHSV- plan 36 week valtrexallergic to gluten/dairy Velamentous insertion of umbilical cord 11/29/2024 [id number] Hypothyroidism 10/09/2024 51510168 Levo thyroxine 100mcg Repeat TSH labs @ 28wks Vasa previa 01/29/2025 [id number] [facility] ref erall Nick Calculation Initial Nick [...] Type Weight in lbs Pre/Post Dialysis Refused 181.916216208870 BP Diastolic BP Location Tested BP Systolic [...] Weight in lbs Pre/Post Dialysis Refused Weight 183.357992913001 BP Diastolic BP Location Tested BP Systolic [...] Present Fetus Movement Comments Flowsheet Date 11/28/2024 Nahs Score Blood Edema Fundus Height Fundus Units Glucose Ketones Leukocytes Nitrite Labor Signs Protein Cervic Dilation Cervic Effacement Cervic Station Type Weight in lbs Pre/Post Dialysis Refused 185.489961121851 BP Diastolic BP Location Tested BP Systolic [...] Weight in lbs Pre/Post Dialysis Refused Weight 185.763264294983 BP Diastolic BP Location Tested BP Systolic [...] Type Weight in lbs Pre/Post Dialysis Refused 190.871284791116 BP Diastolic BP Location Tested BP Systolic [...] Weight in lbs Pre/Post Dialysis Refused Weight 196.898243029842 BP Diastolic BP Location Tested BP Systolic [...]
--- OUTSIDE RECORDS SUMMARY | 2025-02-02 12:18 | XMS_ITS | Continuity of Care Document ---
Author Organization [facility] Address [address] [place] [place] [address] Assessment Encounter Date Assessment Date Assessment LastModified [...] Not Available Santos [facility] [address], [place], [address], 10/16/2024 20:16:41 10/17/19 25 10/16/2024 [UNIT Y] ANEUP LOIDY NIPT 22Q11.2 microdeletio n LOW RISK <1 in 10,000 normal Not Available Yolande e [address], [place], [address], 10/16/2024 20:16:41 10/17/19 25 10/16/2024 [UNIT Y] ANEUP LOIDY NIPT sex chromosome aneuploidy NOT DETECT ED normal Not Available [facility] [address], [place], [address], 10/16/2024 20:16:41 10/17/19 25 10/16/2024 [UNIT Y] ANEUP LOIDY NIPT monosomy X LOW RISK <1 in 10,000 normal Not Available [facility] [address], [place], [address], 10/16/2024 20:16:41 10/17/19 25 10/16/2024 [UNIT Y] ANEUP LOIDY NIPT trisomy 13 LOW RISK <1 in 10,000 normal Not Available [facility] [address], [place], [address], 10/16/2024 20:16:41 10/17/19 25 10/16/2024 [UNIT Y] ANEUP LOIDY NIPT trisomy 18 LOW RISK <1 in 10,000 normal Not Available [facility] [address], [place], [address], 10/16/2024 20:16:41 10/17/19 25 10/16/2024 [UNIT Y] ANEUP LOIDY NIPT trisomy 21 LOW RISK <1 in 10,000 normal Not Available [facility] [address], [place], [address], 10/16/2024 20:16:41 10/17/19 25 10/16/2024 [UNIT Y] ANEUP LOIDY NIPT sex MALE normal Not Available [facility] [address], [place], [address], 10/16/2024 20:16:41 10/17/19 25 10/16/2024 [UNIT Y] ANEUP LOIDY NIPT gestation SINGLE TON normal Not Available [facility] [address], [place], [address], 10/16/2024 20:16:41 10/17/19 25 10/16/2024 [UNIT Y] ANEUP DIANA NIPT for detailed report, see pdf See PDF normal Not Available [facility] [address], [place], [address], 10/16/2024 20:16:41 10/10/19 25 10/09/2024 CBC W/DIF F WBC 9.8 10'3/ uL 3.5-10 .5 Not Available [facility] (Lab) [address] [facility], [place], [address], 2024 19:17:53 10/10/1910/09/2024 CBC W/DIF F RBC 3.93 10'6/ uL (based on docume nted legal sex) 3.80-5 .20 Not Available [facility] (Lab) [address] [facility], [place], [address], 2024 19:17:53 10/10/1910/09/2024 CBC W/DIF F HGB 12.5 g/dL (based on docume nted legal sex) 11.6-1 5.4 Not Available [facility] (Lab) [address], [place], [address], 2024 19:17:53 10/10/1910/09/2024 CBC W/DIF F HCT 35.6 % (based on docume nted legal sex) 34.0-4 5.0 Not Available [facility] (Lab) [address] [facility], [place], [address], 2024 19:17:53 10/10/1910/09/2024 CBC W/DIF F MCV 90.6 fL 80.0-9 9.0 Not Available [facility] (Lab) [address] [facility], [place], [address], 2024 19:17:53 10/10/1910/09/2024 CBC W/DIF F MCH 31.8 pg 27.0-3 4.0 Not Available [facility] (Lab) [address] [facility], [place], [address], 2024 19:17:53 10/10/1910/09/2024 CBC W/DIF F MCHC 35.1 g/dL 32.0-3 5.5 Not Available [facility] (Lab) [address] [facility], [place], [address], 2024 19:17:53 10/10/1910/09/2024 CBC W/DIF F RDW 12.3 % 11.0-1 5.0 Not Available [facility] (Lab) [address] [facility], [place], [address], 2024 19:17:53 10/10/1910/09/2024 CBC W/DIF F plt 185 10'3/ uL 150-40 0 Not Available [facility] (Lab) [address] [facility], [place], [address], 2024 19:17:53 10/10/1910/09/2024 CBC W/DIF F MPV 12.4 fL 8.8-12 .1 high Not Available [facility] (Lab) [address] [facility], [place], [address], 2024 19:17:53 10/10/1910/09/2024 CBC W/DIF F NRBC's 0.0 % 0.0 Not Available [facility] (Lab) [address] [facility], [place], [address], 2024 19:17:53 10/10/1910/09/2024 CBC W/DIF F absolute NRBCs 0.0 10'3/ uL no refere nce range establ ished Not Available [facility] (Lab) [address] [facility], [place], [address], 2024 19:17:53 10/10/19 25 10/09/2024 CBC W/DIF F neutrophils 75.7 % 34.0-7 3.0 high Not Available [facility] (Lab) [address] [facility], [place], [address], 2024 19:17:53 10/10/19 25 10/09/2024 CBC W/DIF F lymphocytes 17.5 % 15.0-5 0.0 Not Available [facility] (Lab) [address] [facility], [place], [address], 2024 19:17:53 10/10/19 25 10/09/2024 CBC W/DIF F monocytes 4.4 % 1.0-15 .0 Not Available [facility] (Lab) [address] [facility], [place], [address], 2024 19:17:53 10/10/19 25 10/09/2024 CBC W/DIF F eosinophils 1.9 % 0.0-8. 0 Not Available [facility] (Lab) [address] [facility], [place], [address], 2024 19:17:53 10/10/1910/09/2024 CBC W/DIF F basophils 0.2 % 0.0-2. 0 Not Available [facility] (Lab) [address] [facility], [place], [address], 2024 19:17:53 10/10/19 25 10/09/2024 CBC W/DIF [...] separ ately if prese nt. Not Available [facility] (Lab) [address] [facility], [place], [address], 2024 19:17:53 10/10/19 25 10/09/2024 CBC W/DIF F absolute neutrophils 7.4 10'3/ uL 1.5-8. 0 Not Available [facility] (Lab) [address] [facility], [place], [address], 2024 19:17:53 10/10/19 25 10/09/2024 CBC W/DIF F absolute lymphocytes 1.7 10'3/ uL 1.0-4. 0 Not Available [facility] (Lab) [address] [facility], [place], [address], 2024 19:17:53 10/10/1910/09/2024 CBC W/DIF F absolute monocytes 0.4 10'3/ uL 0.2-1. 0 Not Available [facility] (Lab) [address] [facility], [place], [address], 2024 19:17:53 10/10/1910/09/2024 CBC W/DIF F absolute eosinophils 0.2 10'3/ uL 0.0-0. 6 Not Available [facility] (Lab) [address] [facility], [place], [address], 2024 19:17:53 10/10/19 25 10/09/2024 CBC W/DIF F absolute basophils 0.0 10'3/ uL 0.0-0. 3 Not Available [facility] (Lab) [address] [facility], [place], [address], 2024 19:17:53 10/10/1910/09/2024 CBC W/DIF F absolute [...] huertas book. nm.or g/gen derx Not Available [facility] (Lab) [address], [place], [address], 2024 19:17:53 10/10/1910/09/2024 HIV 1/2 ANTIG EN/AN TIBOD Y, REFLE X CONFI RMATI ON HIV antigen/anti body Nonrea ctive nonrea ctive HIV-1 antig en and HIV-1 /HIV- 2 antib odies were not detec katlin. No labor atory evide nce of HIV infec tion. Not Available [facility] (Lab) [address], [place], [address], 2024 19:17:54 10/10/1910/09/2024 HEPAT ITIS B SURFA CE ANTIG EN hepatitis B surface antigen Non-re active non-re active This assay was perfo rmed using [employer] ratio n reage nts and test kits. Value s obtai ning with other assay metho ds or kits canno t be used inter figueroa eably . Not Available [facility] (Lab) [address], [place], [address], 2024 19:17:55 10/10/1910/09/2024 HEPAT ITIS C ANTIB KANDI SCREE N, REFLE X TO CONFI RMATI ON hepatitis C antibody Non-re active non-re active Antib odies to HCV Not Detec katlin, does not exclu de the possi bilit y of expos ure to HCV. Not Available [facility] (Lab) [address], [place], [address], 2024 19:17:55 10/10/1910/09/2024 RUBEL LA IGG ANTIB KANDI, QUANT rubella antibodies, IgG Reacti ve reacti ve Not Available [facility] (Lab) [address], [place], [address], 2024 19:17:55 10/10/1910/09/2024 RUBEL LA IGG ANTIB KANDI, QUANT rubella antibodies, IgG quant 33.1 IU/mL >=10 Non-r eacti ve (Non- Immun e) <10 IU/mL React jb (Immu ne) > or = 10 IU/mL Not Available [facility] (Lab) [address] , [place], [address], 2024 19:17:55 10/10/1910/09/2024 TYPE/ RH/SC REEN ABO/Rh type A POS Not Available [facility] (Lab) [address], [place], [address], 2024 19:17:56 10/10/1910/09/2024 TYPE/ RH/SC REEN antibody screen NEG Not Available [facility] (Lab) [address] , [place], [address], 2024 19:17:56 10/10/1910/09/2024 TYPE/ RH/SC REEN exp date 2024 23:59 Not Available [facility] (Lab) [address], [place], [address], 2024 19:17:56 10/10/1910/09/2024 HEMOG LOBIN A1C hemoglobin [...] >8.0% Actio n sugge sted Not Available [facility] (Lab) [address] [facility], [place], [address], 2024 19:17:56 10/10/19 25 10/09/2024 RPR SCREE N, REFLE X TITER /CONF IRMAT ION RPR qualitative Nonrea ctive nonrea ctive Not Available [facility] (Lab) [address] [facility], [place], [address], 2024 19:17:57 10/10/19 25 10/09/2024 LEAD, BLOOD (ADUL T/PED IATRI C) lead, whole blood <1.0 mcg/d L <3.5 See Note 1 Mandie sis was perfo rmed by Nael Silverman ed Plasm a [employer] rometyrone espinosa (ICPM S) Note 1 This test was devel oped and its mandie tical perfo rmanc e dorita cteri stics have been deter mined by [employer]. It has not been clear ed or appro herson by the FDA. This assay has been valid ated pursu ant to the CLIA regul ation s and is used for clini nicolle purpo ses. Perfo rming Organ izati on Infor matio n: Site ID: [id number] Name: [employer] [facility] sOlegario Harrington Addre ss: [id number] [place] [address] Direc tor: Bharathi gill Not Available [facility] (Lab) [address] [facility], [place], [address], 2024 19:17:57 10/10/1910/09/2024 CULTU RE: URINE result report SEE RESULT S BELOW Test: Cultu re: Urine Speci men Sourc e: Urine - Clean Catch Speci men Type: Urine Speci men Date: 1423 Resul t Date: 2138 Resul t Statu s: Final resul t Abnor mal: No Resul ting Lab: [facility] [address] [facility] [address] Tel: CULTU RE ----- ----- ----- --- No growt h in 1 day (dete ction level of 10,00 0 colon ies / ml.) Not Available [facility] (Lab) [address], [place], [address], 2024 22:42:52 10/10/19 25 10/09/2024 drug scree n, urine Amphetamines : negati ve Not Available [facility] [address], [place], [address], 10/09/2024 15:12:54 10/10/19 25 10/09/2024 drug scree n, urine Cannabinoids : negati ve Not Available [facility] [address], [place], [address], 10/09/2024 15:12:54 10/10/19 25 10/09/2024 drug scree n, urine Cocaine: negati ve Not Available [facility] [address], [place], [address], 10/09/2024 15:12:54 10/10/19 25 10/09/2024 drug scree n, urine Opiates: negati ve Not Available [facility] [address], [place], [address], 10/09/2024 15:12:54 10/10/19 25 10/09/2024 drug scree n, urine Phenocyclidi ne: negati ve Not Available [facility] [address], [place], [address], 10/09/2024 15:12:54 10/10/19 25 10/09/2024 drug scree n, urine Barbiturates : negati ve Not Available [facility] [address], [place], [address], 10/09/2024 15:12:54 10/10/19 25 10/09/2024 drug scree n, urine Benzodiazepi david: negati ve Not Available [facility] [address], [place], [address], 10/09/2024 15:12:54 10/10/19 25 10/09/2024 drug scree n, urine Ethanol: negati ve Not Available [facility] [address], [place], [address], 10/09/2024 15:12:54 10/10/19 25 10/09/2024 drug scree n, urine Hallucinogen s: negati ve Not Available [facility] [address], [place], [address], 10/09/2024 15:12:54 10/10/19 25 10/09/2024 drug scree n, urine Inhalants: negati ve Not Available [facility] [address], [place], [address], 10/09/2024 15:12:54 10/10/19 25 10/09/2024 drug scree n, urine Anabolic Steroids: negati ve Not Available [facility] [address], [place], [address], 10/09/2024 15:12:54 11/29/19 25 11/28/2024 FREE T3 [...] LC/MS may be perfo rmed. Not Available [facility] (Lab) [address], [place], [address], 11/29/2024 05:49:07 11/29/19 25 11/28/2024 TSH TSH 1.43 uIU/m L 0.30-5 .33 Not Available [facility] (Lab) [address] [facility], [place], [address], 11/29/2024 05:49:08 11/29/1911/28/2024 T4 FREE T4, free 0.65 NG/dL 0.54-1 .24 This assay is susce ptibl e to inter feren ce from high level s of bioti n which may false ly eleva te resul ts. Pleas e corre late with clini nicolle findi ngs. Not Available [facility] (Lab) [address], [place], [address], 11/29/2024 05:49:08 11/29/1911/28/2024 urina lysis , dipst ick Leukocytes + Not Available [facility] [address], [place], [address], 11/28/2024 14:42:38 11/29/1911/28/2024 urina lysis , dipst ick Protein + Not Available [facility] [address], [place], [address], 11/28/2024 14:42:38 11/29/1911/28/2024 urina lysis , dipst ick pH 8 Not Available [facility] [address], [place], [address], 11/28/2024 14:42:38 11/29/1911/28/2024 urina lysis , dipst ick Blood + Not Available [facility] [address], [place], [address], 11/28/2024 14:42:38 11/29/1911/28/2024 urina lysis , dipst ick Specific [place] 1.000 Not Available [facility] [address], [place], [address], 11/28/2024 14:42:38 11/29/19 25 11/28/2024 urina lysis , dipst ick Appearance clear Not Available [facility] [address], [place], [address], 11/28/2024 14:42:38 11/29/19 25 11/28/2024 urina lysis , dipst ick Color yellow Not Available [facility] [address], [place], [address], 11/28/2024 14:42:38 10/01/19 25 09/30/2024 US, obste tric, follo w-up No observ ation record ed. [email or web address] [address], [place], [address], 10/01/2024 09:14:12 10/01/1909/30/2024 US, obste tric, limit ed No observ ation record ed. [email or web address] [facility] [address], [place], [address], 09/30/2024 18:25:20 10/10/19 25 10/09/2024 US, obste tric, nucha l trans lucen cy No observ ation record ed. [email or web address] [facility] [address], [place], [address], 10/09/2024 18:42:28 10/10/19 25 10/09/2024 US, obste tric, nucha l trans lucen cy No observ ation record ed. [email or web address] [address], [place], [address], 10/11/2024 09:05:59 11/29/1911/28/2024 US, obste tric, limit ed No observ ation record ed. [email or web address] [facility] [address], [place], [address], 11/28/2024 14:35:57 11/29/19 25 11/28/2024 US, obste tric, limit ed No observ ation record ed. [email or web address] [address], [place], [address], 12/04/2024 17:11:19 12/05/19 25 12/04/2024 US, obste tric, 2nd or 3rd trime ster No observ ation record ed. [email or web address] [address], [place], [address], 12/10/2024 16:29:24 12/05/1912/04/2024 US, obste tric, 2nd or 3rd trime ster No observ ation record ed. [facility] [address], [place], [address], 12/04/2024 18:24:14 01/02/20 25 01/01/2025 , obste tric, follo w-up No observ ation record ed. [facility] [address], [place], [address], 01/01/2025 18:52:26 01/02/20 25 01/01/2025 US, obste tric, follo w-up No observ ation record ed. [email or web address] [address], [place], [address], 01/03/2025 10:24:56 01/30/20 25 01/29/2025 imagi ng/di agnos tic resul t No observ ation record ed. [email or web address] [address], [place], [address], 01/29/2025 11:47:31 01/30/20 25 01/29/2025 US, obste tric, follo w-up No observ ation record ed. [address], [place], [address], 01/29/2025 11:50:46 01/30/20 25 01/29/2025 US, obste tric, trans vagin al No observ ation record ed. [email or web address] [facility] [address], [place], [address], 01/29/2025 11:50:59 Result Notes None recorded. Problems Name Problem SNOMED Code Status Onset Date Resolution Date Notes Provider Name and Address Organization Details Recorded Time Hypothyr oidism 57825017 Completed levothyr oxine 100mcg- REPEAT WITH 28w LABS Michael mcnally, [facility] 3 16:18:26 Hyperten sive disorder 73269145 Completed labetalo l bid, ASA, Baseline 24h TP - 147 Michael Driscollle null, [facility] 3 16:18:26 History of cholecys tectomy 675590412 Completed Michael Driscollle null, [facility] 3 16:18:26 History of appendec roselyn 232110194 Completed Michael Driscollle null, [facility] 3 16:18:26 Anxiety 41963732 Completed was on cymbalta - not on currentl y 02/08/22 Michael Driscollle null, [facility] 3 16:18:26 Hyperten sive disorder 59869577 Active labetalo l bid, ASA, Baseline 24h TP - 147 Aungy Radha null, [facility] 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 3 16:18:26 Pre-ecla mpsia 521548901 Completed Aungy Radha [facility], [facility] 3 16:18:26 Pregnanc y 27845940 Completed 202108/19/2022 Winifred Quiroga uli, [facility] 5 09:42:14 Pregnanc y 00035140 Active 2024 Winifred mcnally, [facility] 5 09:42:14 Hypothyr oidism 51101072 Active 2024 Levothyr oxine 100mcg Repeat TSH labs @ 28wks Winifred Quiroga uli, [facility] 5 09:34:15 Anxiety 03013354 Active 2024 no current meds Mariam Valverde CNM [address], [place], [address], [facility] 5 15:29:30 Past pregnanc y history of pre-ecla mpsia 5145754503 11669 Active 2024 w/o severe features /chronic with meds no meds since last pregnanc y bASA daily HSV- plan 36 week valtrex allergic to gluten/d y Mariam Valverde CNM [address], [place], [address], [facility] 5 15:30:22 Hypothyr oidism 09505195 Active 2024 Levothyr oxine 100mcg Repeat TSH labs @ 28wks Winifred Quiroga uli, [facility] 5 09:34:15 Anxiety 94295669 Active 2024 no current meds Mariam Valverde CNM [address], [place], [address], [facility] 5 15:29:30 Velament ous insertio n of umbilica l cord 30001753 Active 2024 Marina mcnally, [facility] 14:01:20 Vasa previa 22309609 Active 2024 [email or web address] Valverde CNM [address], [place], [address], [facility] 11:20:38 Problem Notes None recorded. Procedures Surgical History Date Name Laterality Status Provider Name and Address Organization Details Recorded Time 025 IUD Removal completed KAMERON Calvert [address], [place], [address], [facility] 07/04/2024 16:54:24 024 Date of Last Pap Smear completed JULIEN Ferrell [facility] 05/08/2024 15:48:32 023 [facility] 14:34:26 022 IUD Removal completed Mirnarosalina Maldonado [facility] 06/01/2021 10:47:37 016 Date of Last [facility]21 11:37:49 016 Colonoscopy completed Mirnarosalina Maldonado [facility] 04/15/2021 11:37:07 011 [facility]/15/2021 11:37:20 011 extraction of wisdom tooth completed Mirna Maldonado [facility] 04/15/2021 11:37:34 008 [facility]/15/2021 11:36:52 Appendectomy completed Cordelia Shine [facility] 11/06/2024 17:17:39 Colonoscopy completed Cordelia Shine [facility] 11/06/2024 17:17:39 Imaging Results None recorded. Procedure Notes None recorded. Medical Equipment None Reported. Allergies Allergen ID Allergen Name Allergen Category Reaction Reaction Severity Criticality Documentation Date Start Date Code Code System Note Provider Name and Address Organization Details Recorded Time 22542 sulfabenz amide Not available hives severe Not available 03/17/2021 78639 RxNorm Mirna mcnally, [facility] 2 15:50:59 87215 wheat gluten extract food Not available Not available Not available 04/15/2021 67355 81 RxNorm Mirna mcnally, [facility] 2 11:38:14 15569 lactase medicatio n Not available Not available Not available 04/15/2021 36031 RxNorm Mirna mcnally [facility] 2 11:38:23 41602 Substance with sulfonami de structure and antibacte rial mechanism of action (substanc e) medicatio n Not available Not available Not available 01/29/2025 02380 8003 SNOMED Not Available zohreh - External Data Service - prod 5 02:58:42 16771 wheat preparati on food,medi cation Not available Not available low 02/01/20252023 97653 52 RxNorm react ion unrec ogniz ed react ion (text : Stoma ch upset , code: [id number]) (from exter nal sourc e) Not [...] Not Available Not Available Not Available vitamin Y11-uuupy acid 08/31 completed Not Available Not Available Not Available B12 at morning time 2024 active Not Available Not Available 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 01/29/2025 10:47:16 Social History Question Answer Notes LastModified by Organizat ion Details LastModified Time Tobacco Smoking Status Never Smoker Jennifer Key uli, [facility] 03/22/2023 15:53:07 Do You Have An Advance Directive? No Information n ot available 03/17/2021 How Many Years Have You Consumed Alcohol? 7 [email or web address] Information not available 03/17/2021 Are You Blind Or Do You Have Difficulty Seeing? No [email or web address] Information n ot available 03/17/2021 What Is Your Level Of Caffeine Consumption? Moderate Information not available 03/17/2021 How Much Tobacco Do You Chew? None [email or web address] Information not available 03/17/2021 In The 14 Days Before Symptom Onset, Have You Had Close Contact With A Laboratory-confirm ed COVID-19 While That Case Was Ill? No [email or web address] Information n ot available 03/17/2021 In The 14 Days Before Symptom Onset, Have You Had Close Contact With A Person Who Is Under Investigation For COVID-19 While That Person Was Ill? No [email or web address] Information not available 03/17/2021 Have You Been To An Area Known To Be High Risk For COVID-19? No [email or web address] Information not available 03/17/2021 Are You Deaf Or Do You Have Serious Difficulty Hearing? No [email or web address] Information not available 03/17/2021 What Type Of Diet Are You Following? GLUTENFREE [email or web address] Information n ot available 03/17/2021 What Is The Highest Grade Or Level Of School You Have Completed Or The Highest Degree You Have Received? [id number] Information not available 03/17/2021 Are There Any Guns Present In Your Home? No [email or web address] Information not available 03/17/2021 Have You Ever Been Counseled For Unhealthy Alcohol Use? No [email or web address] Information not available 03/22/2023 Do You Use Protection During Sex? Always [email or web address] Information not available 03/17/2021 Do You Use Your Seat Belt Or Car Seat Routinely? Yes [email or web address] Information not available 03/17/2021 Do You Have Smoke And Carbon Monoxide Detectors In Your Home? Yes [email or web address] Information not available 03/17/2021 How Much Tobacco Do You Smoke? No [email or web address] Information not available 03/17/2021 Do You Use Sunscreen Routinely? Yes [email or web address] Information not available 03/17/2021 Has Tobacco Cessation Counseling Been Provided? No [email or web address] Information not available 03/22/2023 Have You Used IV Drugs? No [email or web address] Information not available 03/17/2021 Do You Have Difficulty Walking Or Climbing Stairs? No [email or web address] Information not available 03/22/2023 Sex: Unknown Functional Status Question Answer Note LastModified by Organizat ion Details LastModified Time Do you use any illicit or recreational drugs? No [email or web address] Information not available 03/17/2021 Do you or have you ever used any other forms of tobacco or nicotine? No Information not available 03/22/2023 What is your level of alcohol consumption? Occasional [email or web address] Information not available 03/17/2021 Are you able to walk independently without assistance or assistive devices? YESWOREST [email or web address] Information not available 03/17/2021 Are you able to care for yourself independently? 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 No [email or web address] Information not available 03/22/2023 What is your exercise level? Occasional [email or web address] Information not available 03/17/2021 Mental Status Question Answer Note LastModified by Organization D etails LastModified Time Do you feel stressed (tense, restless, nervous, or anxious, or unable to sleep at night)? [id number] [email or web address] Information not available 03/17/2021 Family History Relationship Description Onset Age of this Age Resolved Age Notes LastModified by Organization Details LastModified Time Maternal Grandmother Hypertensive disorder [email or web address] Not available 03/17 15:51:00 Mother Hypertensive disorder [email or web address] Not available 03/17 15:51:00 Mother Disorder of thyroid gland [email or web address] Not available 03/17 15:51:00 Mother High risk [email or web address] Not available 03/17 15:51:00 Paternal Grandmother Hypertensive disorder [email or web address] Not available 03/17 15:51:00 Medical History Condition [...] ICD10 Code Diagnosis IMO Codes Diagnosis Note [id number] TOI MENDOZA MD [place] [address] [address] 01/01/2025 15:48:10 01/01/2025 16:48:34 Velamentous insertion of umbilical cord 34405647 O43.122 Z3A.24 5704996 [id number] MD Juan RESENDIZ [address],[place] [address] 01/01/2025 15:48:36 01/01/2025 17:52:49 Hypothyroidism 82551050 E03.9 [id number] Velamentou s insertion of umbilical cord 92001258 O43.799 2528917 Past pregn tim history of pre-eclampsia [id number] 93663 Z87.59 [id number] Gestation period, 24 weeks 813702518 Z3A.24 9940376 [id number] Renaldo Reyes MD [place] [address],[place] [address] 01/29/2025 09:25:08 01/29/2025 10:47:09 Velamentous insertion of umbilical cord 64422011 O43.129 Z3A.28 19982108 [id number] Mariam Valverde CNM [place] [address],[place] [address] 01/29/2025 09:25:23 01/29/2025 11:23:33 Gestation period, 28 weeks 92299074 Z3A.28 7201660 Vasa previa 48657585 O69 .4XX0 [id number] Health Concerns Section Related Observation LastModified by Organization Detai ls LastModified Time None Recorded Concern Status LastModified by Organization Details LastModified Time None Recorded Payers Encounter Date Sequence Insurance Name Policy Number Policy Maldonado Covered Member ID Maldonado Member ID Guarantor Name 01/29/2025 1 [facility] ([facility] [id number] Jessica Keys [id number] Jessica Keys Notes Date Note Type Note Provider Name and Address Organization Details Recorded Time 01/29/2025 text/html Generic HPI TemplateReported by Patient Mariam Valverde CNM [address], [place], [address], [facility] 01/29/2025 11:23:34 OBGyn Episode Ob Episode Information Episode Created Date Number of Fetuses Patient Bloodtype Patient rh Status Prepregnancy Weight lbs Domestic Partner Domestic Partner Phone Father Name Vpk Teacher Status 10/01/19 25 1 A Positive 182 OPEN Fetus Data First Name Last Name Admitted to NICU Weight (g) Sex Living Outcome Pediatric Complications Fetus ID Race Codes Race Delivery Type [id number] Problems Problem Notes [facility] of [facility] Problem Name Start Date End Date Resolution Snomed Code Not e Anxiety 10/09/2024 [id number] no curren t meds Past history of pre-eclampsia 10/09/2024 [id number] w/o severe features/chronic with medsno meds since last pregnancybASA dailyHSV- plan 36 week valtrexallergic to gluten/dairy Velamentous insertion of umbilical cord 11/29/2024 [id number] Hypothyroidism 10/09/2024 52568730 Levo thyroxine 100mcg Repeat TSH labs @ 28wks Vasa previa 01/29/2025 [id number] [facility] Nick Calculation Initial Nick Date Initial Exam Date Initial Exam Provider Initial Ultrasound Date Last Menstrual Period Date Ultra Sound Weeks Gestation 04/21/2025 10/09/2024 09/16/2024 05/28/2024 9 Eighteen To Twenty Week Nikc Update Ultra Sound Date Fundal Height At [...] Type Weight in lbs Pre/Post Dialysis Refused 181.985029900556 BP Diastolic BP Location Tested BP Systolic [...] Weight in lbs Pre/Post Dialysis Refused Weight 183.663543010473 BP Diastolic BP Location Tested BP Systolic [...] Type Weight in lbs Pre/Post Dialysis Refused 185.018611031465 BP Diastolic BP Location Tested BP Systolic [...] Weight in lbs Pre/Post Dialysis Refused Weight 185.619301642875 BP Diastolic BP Location Tested BP Systolic [...] Type Weight in lbs Pre/Post Dialysis Refused 190.875076258411 BP Diastolic BP Location Tested BP Systolic [...] Weight in lbs Pre/Post Dialysis Refused Weight 196.358066600874 BP Diastolic BP Location Tested BP Systolic [...]
[2025-02-02 12:38] VITALS: BP 117/73; PULSE 89; RESP 16; TEMP 36.8
[2025-02-02 12:39] VITALS: BMI 36.8
[2025-02-02 12:41] LABS: Add Urine Microscopic? NO; Appearance Urine Clear (Clear); Glucose Urine UA Negative (Negative); Leukocyte Esterase Ur Negative LEU/UL (Negative); Nitrate Urine Negative (Negative); Specific Grav Ur 1.006 (1.001-1.035)
--- NOTE | 2025-02-02 12:48 | OBADM ---
This patient, Jessica Keys, admitted to the OB room 116 for observation. Patient/family oriented to hospital policies and general routines including ID bracelet, bed and alarms, visiting hours, pain management, procedures, bathroom and other care routines, personal items, smoking policy, room service/diet, and visiting hours. Patient/Family are encouraged to report perceived risks to care and to ask questions if they do not understand what they are told or what they should do.
[2025-02-02 13:00] VITALS: BP 118/68; PULSE 79
--- NOTE | 2025-02-04 13:20 | PM.OBTRLD ---
OB - Triage/Final Diagnosis Visit Information Comments/Additional reasons for admission: I have assessed the risk for this patient, Jessica Keys, and determined that she would benefit from observation care. Evaluation Laboratory results: Laboratory Tests 02/02/25 12:35 Urine Color Yellow Urine Appearance Clear Urine pH 8.0 Ur Specific [place] 1.006 Urine Protein Negative Urine Glucose (UA) Negative Urine Ketones Negative Ur Blood (Man) Negative Urine Nitrate Negative Urine Bilirubin Negative Urine Urobilinogen 0.2 Leukocyte Esterase Rfl Negative Final Diagnosis (1) Pelvic pressure in : Code(s): O26.899 - Other specified related conditions, unspecified trimester; R10.20 - Pelvic and perineal pain unspecified side Status: Acute
== END 2025-02-02 13:22 | disposition home or self-care (01) ==
PROVIDERS: Admitting Provider Obstetrics & Gynecology; Visit Provider Obstetrics & Gynecology
DX: O26.893 Other specified pregnancy related conditions, third trimester (principal); R10.20 Pelvic and perineal pain unspecified side; Z3A.28 28 weeks gestation of pregnancy
CPT/HCPCS: 81003; G0378; G0379